=== PATIENT | male | born 1965 | race African-American/Black ===

== ENCOUNTER → 2019-11-19 13:08 | Outpatient (BNVA) | payer MEDICARE, MEDICAID, SELFPAY | PROVIDERS: PCP Nurse Practitioner Family; Visit Provider Nurse Practitioner Family | DX: I48.20 Chronic atrial fibrillation, unspecified (principal); Z51.81 Encounter for therapeutic drug level monitoring; Z79.01 Long term (current) use of anticoagulants | CPT/HCPCS: 85610; 99211 ==

== ENCOUNTER → 2019-12-17 13:39 | Outpatient (BNVA) | payer MEDICARE, MEDICAID, SELFPAY | PROVIDERS: PCP Nurse Practitioner Family; Visit Provider Internal Medicine | DX: I48.20 Chronic atrial fibrillation, unspecified (principal); Z51.81 Encounter for therapeutic drug level monitoring; Z79.01 Long term (current) use of anticoagulants | CPT/HCPCS: 85610; 99211 ==

== ENCOUNTER → 2020-01-14 13:27 | Outpatient (BNVA) | payer MEDICARE, MEDICAID, SELFPAY | PROVIDERS: PCP Nurse Practitioner Family; Visit Provider Internal Medicine | DX: I48.20 Chronic atrial fibrillation, unspecified (principal); Z51.81 Encounter for therapeutic drug level monitoring; Z79.01 Long term (current) use of anticoagulants | CPT/HCPCS: 85610; 99211 ==

== ENCOUNTER 2020-01-16 14:58 | Outpatient (REF) | payer MEDICARE, MEDICAID, SELFPAY | END 2020-01-16 14:59 | disposition home or self-care (01) | LOC: HO.LAB 14:58 | PROVIDERS: Visit Provider Internal Medicine | DX: Z20.828 Contact with and (suspected) exposure to other viral communicable diseases (principal) | CPT/HCPCS: C9803; U0003 ==

== ENCOUNTER → 2020-03-24 14:26 | Outpatient (BNVA) | payer MEDICARE, MEDICAID, SELFPAY | PROVIDERS: PCP Nurse Practitioner Family; Visit Provider Internal Medicine | DX: I48.20 Chronic atrial fibrillation, unspecified (principal); Z51.81 Encounter for therapeutic drug level monitoring; Z79.01 Long term (current) use of anticoagulants | CPT/HCPCS: 85610; 99211 ==

== ENCOUNTER → 2020-04-21 14:31 | Outpatient (BNVA) | payer MEDICARE, MEDICAID, SELFPAY | PROVIDERS: PCP Nurse Practitioner Family; Visit Provider Internal Medicine | DX: I48.20 Chronic atrial fibrillation, unspecified (principal); Z51.81 Encounter for therapeutic drug level monitoring; Z79.01 Long term (current) use of anticoagulants | CPT/HCPCS: 85610; 99211 ==

== ENCOUNTER → 2020-05-19 14:37 | Outpatient (BNVA) | payer MEDICARE, MEDICAID, SELFPAY | PROVIDERS: PCP Nurse Practitioner Family; Visit Provider Internal Medicine | DX: I48.20 Chronic atrial fibrillation, unspecified (principal); Z51.81 Encounter for therapeutic drug level monitoring; Z79.01 Long term (current) use of anticoagulants | CPT/HCPCS: 85610; 99211 ==

== ENCOUNTER → 2020-06-03 14:40 | Outpatient (BNVA) | payer MEDICARE, MEDICAID, SELFPAY | PROVIDERS: PCP Nurse Practitioner Family; Visit Provider Internal Medicine | DX: I48.20 Chronic atrial fibrillation, unspecified (principal); Z79.01 Long term (current) use of anticoagulants; Z51.81 Encounter for therapeutic drug level monitoring | CPT/HCPCS: 85610; 99211 ==

== ENCOUNTER → 2020-06-30 14:47 | Outpatient (BNVA) | payer MEDICARE, MEDICAID, SELFPAY | PROVIDERS: PCP Nurse Practitioner Family; Visit Provider Internal Medicine | DX: I48.20 Chronic atrial fibrillation, unspecified (principal); Z51.81 Encounter for therapeutic drug level monitoring; Z79.01 Long term (current) use of anticoagulants | CPT/HCPCS: 85610; 99211 ==

== ENCOUNTER → 2020-07-28 14:16 | Outpatient (BNVA) | payer MEDICARE, MEDICAID, SELFPAY | PROVIDERS: PCP Nurse Practitioner Family; Visit Provider Internal Medicine | DX: I48.20 Chronic atrial fibrillation, unspecified (principal); Z51.81 Encounter for therapeutic drug level monitoring; Z79.01 Long term (current) use of anticoagulants | CPT/HCPCS: 85610; 99211 ==

== ENCOUNTER → 2020-08-11 14:17 | Outpatient (BNVA) | payer MEDICARE, MEDICAID, SELFPAY | PROVIDERS: PCP Nurse Practitioner Family; Visit Provider Internal Medicine | DX: I48.20 Chronic atrial fibrillation, unspecified (principal); Z51.81 Encounter for therapeutic drug level monitoring; Z79.01 Long term (current) use of anticoagulants | CPT/HCPCS: 85610; 99211 ==

== ENCOUNTER → 2020-08-25 14:08 | Outpatient (BNVA) | payer MEDICARE, MEDICAID, SELFPAY | PROVIDERS: PCP Nurse Practitioner; Visit Provider Internal Medicine | DX: I48.20 Chronic atrial fibrillation, unspecified (principal); Z51.81 Encounter for therapeutic drug level monitoring; Z79.01 Long term (current) use of anticoagulants | CPT/HCPCS: 85610; 99211 ==

== ENCOUNTER → 2020-09-22 13:53 | Outpatient (BNVA) | payer MEDICARE, MEDICAID, SELFPAY | PROVIDERS: PCP Nurse Practitioner; Visit Provider Internal Medicine | DX: I48.20 Chronic atrial fibrillation, unspecified (principal); Z79.01 Long term (current) use of anticoagulants; Z51.81 Encounter for therapeutic drug level monitoring | CPT/HCPCS: 85610; 99211 ==

== ENCOUNTER 2020-10-15 08:58 | Outpatient (REF) | payer MEDICARE, MEDICAID, SELFPAY ==
[2020-10-15 09:32] LABS: COVID-19 Test Negative (Negative)
== END 2020-10-15 08:59 | disposition home or self-care (01) ==
LOC: HO.LAB 08:58
PROVIDERS: PCP Nurse Practitioner; Visit Provider Internal Medicine
DX: Z20.822 Contact with and (suspected) exposure to COVID-19 (principal)
CPT/HCPCS: 36415; 87635; C9803

== ENCOUNTER → 2020-10-19 14:04 | Outpatient (BNVA) | payer MEDICARE, MEDICAID, SELFPAY | PROVIDERS: PCP Nurse Practitioner; Visit Provider Internal Medicine | DX: I48.20 Chronic atrial fibrillation, unspecified (principal); Z51.81 Encounter for therapeutic drug level monitoring; Z79.01 Long term (current) use of anticoagulants | CPT/HCPCS: 85610; 99211 ==

== ENCOUNTER → 2020-11-16 14:13 | Outpatient (BNVA) | payer MEDICARE, MEDICAID, SELFPAY | PROVIDERS: PCP Nurse Practitioner; Visit Provider Internal Medicine | DX: I48.20 Chronic atrial fibrillation, unspecified (principal); Z51.81 Encounter for therapeutic drug level monitoring; Z79.01 Long term (current) use of anticoagulants | CPT/HCPCS: 85610; 99211 ==

== ENCOUNTER → 2020-12-14 14:23 | Outpatient (BNVA) | payer MEDICARE, MEDICAID, SELFPAY | PROVIDERS: PCP Nurse Practitioner; Visit Provider Internal Medicine | DX: I48.20 Chronic atrial fibrillation, unspecified (principal); Z51.81 Encounter for therapeutic drug level monitoring; Z79.01 Long term (current) use of anticoagulants | CPT/HCPCS: 85610; 99211 ==

== ENCOUNTER → 2021-01-11 13:57 | Outpatient (BNVA) | payer MEDICARE, MEDICAID, SELFPAY | PROVIDERS: PCP Nurse Practitioner; Visit Provider Internal Medicine | DX: I48.20 Chronic atrial fibrillation, unspecified (principal); Z51.81 Encounter for therapeutic drug level monitoring; Z79.01 Long term (current) use of anticoagulants | CPT/HCPCS: 85610; 99211 ==

== ENCOUNTER → 2021-01-18 14:27 | Outpatient (BNVA) | payer MEDICARE, MEDICAID, SELFPAY | PROVIDERS: PCP Nurse Practitioner; Visit Provider Internal Medicine | DX: I48.20 Chronic atrial fibrillation, unspecified (principal); Z51.81 Encounter for therapeutic drug level monitoring; Z79.01 Long term (current) use of anticoagulants | CPT/HCPCS: 85610; 99211 ==

== ENCOUNTER → 2021-02-03 14:02 | Outpatient (BNVA) | payer MEDICARE, MEDICAID, SELFPAY | PROVIDERS: PCP Nurse Practitioner; Visit Provider Internal Medicine | DX: I48.20 Chronic atrial fibrillation, unspecified (principal); Z51.81 Encounter for therapeutic drug level monitoring; Z79.01 Long term (current) use of anticoagulants | CPT/HCPCS: 85610; 99211 ==

== ENCOUNTER → 2021-03-01 13:49 | Outpatient (BNVA) | payer MEDICARE, MEDICAID, SELFPAY | PROVIDERS: PCP Nurse Practitioner; Visit Provider Internal Medicine | DX: I48.20 Chronic atrial fibrillation, unspecified (principal); Z51.81 Encounter for therapeutic drug level monitoring; Z79.01 Long term (current) use of anticoagulants | CPT/HCPCS: 85610; 99211 ==

== ENCOUNTER → 2021-04-01 14:05 | Outpatient (BNVA) | payer MEDICARE, MEDICAID, SELFPAY | PROVIDERS: PCP Nurse Practitioner; Visit Provider Internal Medicine | DX: I48.20 Chronic atrial fibrillation, unspecified (principal); Z51.81 Encounter for therapeutic drug level monitoring; Z79.01 Long term (current) use of anticoagulants | CPT/HCPCS: 85610; 99211 ==

== ENCOUNTER → 2021-04-27 13:58 | Outpatient (BNVA) | payer MEDICARE, MEDICAID, SELFPAY | PROVIDERS: PCP Nurse Practitioner; Visit Provider Internal Medicine | DX: I48.20 Chronic atrial fibrillation, unspecified (principal); Z79.01 Long term (current) use of anticoagulants; Z51.81 Encounter for therapeutic drug level monitoring | CPT/HCPCS: 85610; 99211 ==

== ENCOUNTER → 2021-06-27 13:01 | Outpatient (BNVA) | payer MEDICARE, MEDICAID, SELFPAY | PROVIDERS: PCP Nurse Practitioner; Referring Provider Nurse Practitioner; Visit Provider Surgery | DX: L02.11 Cutaneous abscess of neck (principal) | CPT/HCPCS: 10061; 99202 ==

== ENCOUNTER 2021-10-16 16:25 | Emergency (ER) | payer MEDICARE, MEDICAID, SELFPAY ==
--- NOTE | ~2021-10-16 | CT_ITS ---
EXAMINATION: CT ANGIOGRAM HEAD CT ANGIOGRAM NECK CLINICAL INFORMATION: Reason for Exam l sided weakness COMPARISON: None. TECHNIQUE: Initial noncontrast mosaicist imaging of the head and neck was performed. Comparison is made with noncontrast head CT from earlier today. Test bolus sequences followed by intravenous administration 70 mL of Omnipaque 350. Helical imaging was performed in the axial plane from the aortic arch to the skull vertex. Delayed postcontrast imaging of the head was also performed. The data was processed at the instructional design technologist's workstation for generation of MIP sequences. Angled MIPs and volume rendered reformatted images were also generated at an offline 3D workstation. Stenoses are assessed in accordance with NASCET criteria unless otherwise indicated. DLP: 1567 mGy-cm This CT examination was performed using dose optimization techniques as appropriate, variously including the following: *Automated exposure control. *Adjustment of mA and/or kV according to patient size (this includes techniques or standardized protocols for targeted exams where dose is matched to indication/reason for exam; i.e. extremities or head). *Use of iterative reconstruction technique. FINDINGS: CTA of the head and neck is motion degraded which particularly limits evaluation of the proximal neck vessels. There is also significant intracranial venous contamination which somewhat limits evaluation of the intracranial arterial tree. CT Head: There is no evidence of acute intracranial hemorrhage or edematous territorial infarction. There is no abnormal attenuation within the brain parenchyma. Walter-white matter differentiation is preserved. The ventricles are normal in size and configuration. No evidence for obstructive hydrocephalus. No abnormal mass effect or midline shift. No extra-axial fluid collections. No pathologic intra-axial enhancement or regional oligemia. No acute soft tissue or osseous abnormalities. Right maxillary sinus mucosal thickening. Small mastoid tip fluid. CT Neck: The thyroid gland and remaining cervical soft tissues are within normal limits. Moderate multilevel cervical spondylosis. CT Upper Chest: The visualized lung apices and upper mediastinum are within normal limits. Partially visualized left chest wall pacemaker leads. Neck CTA: Aortic Arch: Normal contour and caliber. 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 Great Vessel Origins: No significant stenosis of the branch origins. Right Common Carotid Artery: No focal stenosis or occlusion. Cervical Right Internal Carotid Artery: Mild calcific atherosclerotic disease of the carotid bulb and proximal internal carotid artery without flow-limiting stenosis. Left Common Carotid Artery: No focal stenosis or occlusion. Cervical Left Internal Carotid Artery: Normal opacification without focal stenosis or occlusion. Cervical Right Vertebral Artery: No focal stenosis or occlusion. Cervical Left Vertebral Artery: No focal stenosis or occlusion. Brain CTA: Intracranial Internal Carotid Arteries: No focal stenosis or occlusion. Right Anterior Cerebral Artery: Normal A1 segment. Normal opacification of the distal ARNOLDO segments. Left Anterior Cerebral Artery: Normal A1 segment. Normal opacification of the distal ARNOLDO segments. Anterior Communicating Artery: Normal. Right Middle Cerebral Artery: Normal M1 segment of the MCA without focal stenosis or occlusion. Normal arborization of the distal segments. Left Middle Cerebral Artery: Normal M1 segment of the MCA without focal stenosis or occlusion. Normal arborization of the distal segments. Right Vertebral Artery: Normal V4 segment. Left Vertebral Artery: Normal V4 segment. Basilar Artery: Normal without focal stenosis or occlusion. Normal appearance of the proximal superior cerebellar arteries. Right Posterior Cerebral Artery: Normal P1 segment. Normal opacification of the distal VENEER JOINTER OPERATOR segments. Left Posterior Cerebral Artery: Normal P1 segment. Normal opacification of the distal VENEER JOINTER OPERATOR segments. Normal opacification of the superior sagittal, straight, transverse, and sigmoid sinuses. IMPRESSION Within the technical limitations of motion degradation and intracranial venous contamination, no evidence of arterial high-grade stenosis or large vessel occlusion in the head or neck Above impression was communicated to Dr. Thomas on 10/16/2021 at 5:44 PM
--- NOTE | ~2021-10-16 | CT_ITS ---
EXAMINATION: CT HEAD WITHOUT CONTRAST (STROKE PROTOCOL) CLINICAL INFORMATION: Stroke protocol. Left-sided weakness COMPARISON: CT head 10/16/2021 TECHNIQUE: Contiguous axial imaging was performed from the skull base to vertex without intravenous administration of contrast. This CT examination was performed using dose optimization techniques as appropriate, variously including the following: *Automated exposure control *Adjustment of mA and/or kV according to patient size (this includes techniques or standardized protocols for targeted exams where dose is matched to indication/reason for exam; i.e. extremities or head) *Use of iterative reconstruction technique DLP: 827 mGy-cm FINDINGS: There is no evidence of acute intracranial hemorrhage or territorial infarction. No abnormal mass-effect or midline shift is seen. Walter to white matter differentiation is well preserved. No extra-axial fluid collections are identified. There is generalized global volume loss. There is mild prominence of the ventricles and the sulci . There is mild hypodensity of the periventricular white matter due to chronic small vessel ischemic disease. There are vascular calcifications of the internal carotid arteries bilaterally. There is no osseous abnormality. The mastoid air cells and visualized portions of the paranasal sinuses are well-aerated. CT/CT head for stroke IMPRESSION: No acute intracranial pathology. This critical result was discussed with Dr. Thomas at 1713 hours on 10/16/2021. It was ascertained that the content and urgency of the report was understood at the time of direct communication.
[2021-10-16 16:30] VITALS: BP 157/87; PULSE 81; RESP 18; TEMP 37.2; O2SAT 96; BMI 34.5
--- NOTE | 2021-10-16 16:34 | ECG_ITS ---
Test Reason : L SIDE WEAKNESS Blood Pressure : / mmHG Vent. Rate : 086 BPM Atrial Rate : 078 BPM P-R Int : 000 ms QRS Dur : 160 ms QT Int : 414 ms P-R-T Axes : 000 248 069 degrees QTc Int : 495 ms Ventricular-paced rhythm Abnormal ECG When compared with ECG of 03-JAN-2019 10:43, Vent. rate has increased BY 11 BPM Referred By: Generic ED Physician Electronically Signed By:PHILOMENA YODER
--- NOTE | 2021-10-16 16:42 | ED_ITS ---
HPI - Neuro Symptoms/Deficit General Chief Complaint: Neuro Symptoms/Deficit Stated Complaint: ? Stroke-like Symptoms Time Seen by Provider: 10/16/21 16:42 Source: patient and family Mode of arrival: ambulatory Limitations: no limitations History of Present Illness HPI Narrative: Patient 56 years old diabetic hypertension AFib on Coumadin comes here for week numbness feeling on left side of the face radiating to the left arm and left lower extremity it started around 12:30 today no headache no dysarthria no vis ual changes no focal weakness patient never had similar complaints in the past Related Data Home Medications Medication Instructions Recorded Confirmed buspirone 7.5 mg tablet 7.5 mg PO BID 12/17/19 06/27/21 cholecalciferol (vitamin D3) 50 50 mcg PO DAILY 12/17/19 06/27/21 mcg (2,000 unit) capsule clonazepam 0.5 mg tablet 0.5 mg PO BID PRN 12/17/19 06/27/21 digoxin 250 mcg (0.25 mg) tablet 250 mcg PO DAILY 12/17/19 06/27/21 diltiazem HCl 180 mg 180 mg PO DAILY 12/17/19 06/27/21 capsule,extended release 24 hr metoprolol tartrate 100 mg tablet 200 mg PO BID 12/17/19 06/27/21 zolpidem 5 mg tablet 5 mg PO BEDTIME PRN 12/17/19 06/27/21 VITAMIN D 3 PO 06/30/20 06/27/21 atorvastatin 10 mg tablet 10 mg PO DAILY 08/25/20 06/27/21 trazodone 50 mg tablet 50 mg PO BEDTIME PRN 08/25/20 06/27/21 lisinopril 5 mg tablet 5 mg PO DAILY 09/22/20 06/27/21 metformin 500 mg tablet,extended 500 mg PO QPM 09/22/20 06/27/21 release 24hr empagliflozin 10 mg tablet 10 mg PO QAM 11/16/20 06/27/21 (Jardiance) blood sugar diagnostic (FreeStyle #10 ea 12/14/20 06/27/21 Lite Strips) lancets 33 gauge (TRUEplus Lancets) #100 ea 12/14/20 06/27/21 metformin 500 mg tablet,extended 500 mg PO DAILY 02/03/21 06/27/21 release 24 hr sildenafil 25 mg tablet 25 mg PO DAILY PRN 02/03/21 06/27/21 chlorhexidine gluconate 4 % intranasal 06/27/21 06/27/21 topical liquid (Hibiclens) Previous Rx's Medication Instructions Recorded warfarin 7.5 mg tablet 7.5 mg PO DAILY #90 tabs 11/19/19 cephalexin 500 mg capsule 500 mg PO TID 7 days #21 caps 06/28/21 Allergies Allergy/AdvReac Type Severity Reaction Status Date / Time No Known Allergies Allergy Verified 06/27/21 13:32 [No Known Allergies*] Review of Systems Review of Systems: Yes all other systems are reviewed and are negative [facility] Past Medical History Medical History Atrial fibrillation CHF (congestive heart failure) Diabetes mellitus Hypertension Neck abscess Social History Social History Advance Directives: No Advance Directives Information Provided: No Physical Exam Vital Signs: Vital Signs: Last Vital Signs Temp 98.1 F 10/16/21 16:48 Pulse 81 10/16/21 16:48 Resp 18 10/16/21 16:48 BP 125/70 10/16/21 16:48 Pulse Ox 95 10/16/21 16:48 O2 Del Method 10/16/21 16:48 BMI result Body Mass Index 34.5 Appearance: Alert. Oriented X3. No acute distress. Eyes: PERRLA, No Nystagmus ENT: Pharynx normal. Oral Mucosa moist Neck: Normal inspection. Neck supple. CVS: Normal heart rate and rhythm. Pulses normal. Respiratory: No respiratory distress. Equal air entry bilateral, no wheezing/rales/rhonchi Abdomen: Soft and nontender. Bowel sounds are present, no mass palpable, no CVA tenderness Skin: Skin warm and dry. Normal skin color. Normal skin turgor. Extremities: No lower extremity edema. No calf tenderness Neuro: Oriented X 3. No motor deficit. No sensory deficit.No cerebellar signs , cranial nerves II-XII intact NIHSS score 0 MDM - Neuro Symptoms/Deficit MDM Narrative Medical decision making narrative: Patient with acute onset of left-sided numbness with no motor deficit which improved after arrival CTA head neck negative CT head negative INR of 4.2 patient ambulating steady gait will discharge patient home Lab Data Attestation: I reviewed the patient's lab results. Result diagrams: 10/16/21 17:23 10/16/21 17:23 Labs: Lab Results 10/16/21 10/16/21 10/16/21 Range/Units 16:33 16:46 16:51 WBC (4.8-10.8) X10*3/uL RBC (4.60-5.80) X10*6/uL Hgb (14.0-18.0) g/dl Hct (42.0-52.0) % MCV (80.0-98.0) fL MCH (27.0-33.0) pg MCHC (31.0-36.0) g/dl RDW (11.0-16.0) % Plt Count (160-400) X10*3/uL MPV (9.4-12.4) fL Immature Gran % (Auto) (0.0-0.4) % Neut % (Auto) (45-73) % Lymph % (Auto) (20-40) % Coffee % (Auto) (2-11) % Eos % (Auto) (0-4) % Baso % (Auto) (0-2) % Lymph # (Auto) (1.2-4.9) X10*3/uL Coffee # (Auto) (0.1-1.2) X10*3/uL Eos # (Auto) (0.0-0.4) X10*3/uL Baso # (Auto) (0.0-0.2) X10*3/uL Abs Immat Gran (auto) (0.00-0.03) X10*3/uL Absolute Neuts (auto) (2.0-8.3) x10*3/uL Absolute Nucleated RBC (0.0-0.012) X10*3/uL Nucleated RBC % (auto) (0.0-0.2) /100WBC PT (10.0-13.1) SEC Whole Blood PT 49.8 H (11.1-13.5) sec INR (0.9-1.1) Whole Blood INR 4.2 H (0.9-1.1) APTT (26.0-36.4) SEC Sodium (135-145) mmol/L Potassium (3.3-5.1) mmol/L Chloride (96-108) mmol/L Carbon Dioxide (22-29) mmol/L Anion Gap (12-20) BUN (9-16) mg/dL Creatinine (0.5-1.4) mg/dL Estim Creat Clear Calc Estimated GFR POC Glucose 196 H 196 H (60-115) mg/dL Random Glucose (60-115) mg/dL Calcium (8.4-10.2) mg/dL Magnesium (1.6-2.6) mg/dL Total Bilirubin (0.0-1.0) mg/dL AST (5-37) U/L ALT (0-40) U/L Alkaline Phosphatase (39-117) U/L Troponin I High Sens (<3.5-35.0) ng/L Total Protein (6.5-8.0) g/dL Albumin (3.5-5.0) g/dL COVID-19 ([facility]) (Negative) COVID-19 Clin Com 10/16/21 10/16/21 10/16/21 Range/Units 17:23 17:23 17:23 WBC 11.1 H (4.8-10.8) X10*3/uL RBC 4.82 (4.60-5.80) X10*6/uL Hgb 15.1 (14.0-18.0) g/dl Hct 44.3 (42.0-52.0) % MCV 91.9 (80.0-98.0) fL MCH 31.3 (27.0-33.0) pg MCHC 34.1 (31.0-36.0) g/dl RDW 13.6 (11.0-16.0) % Plt Count 224 (160-400) X10*3/uL MPV 9.0 L (9.4-12.4) fL Immature Gran % (Auto) 0.3 (0.0-0.4) % Neut % (Auto) 75.6 H (45-73) % Lymph % (Auto) 16.3 L (20-40) % Coffee % (Auto) 6.2 (2-11) % Eos % (Auto) 1.0 (0-4) % Baso % (Auto) 0.6 (0-2) % Lymph # (Auto) 1.8 (1.2-4.9) X10*3/uL Coffee # (Auto) 0.7 (0.1-1.2) X10*3/uL Eos # (Auto) 0.1 (0.0-0.4) X10*3/uL Baso # (Auto) 0.1 (0.0-0.2) X10*3/uL Abs Immat Gran (auto) 0.03 (0.00-0.03) X10*3/uL Absolute Neuts (auto) 8.4 H (2.0-8.3) x10*3/uL Absolute Nucleated RBC 0.000 (0.0-0.012) X10*3/uL Nucleated RBC % (auto) 0.0 (0.0-0.2) /100WBC PT 50.7 H (10.0-13.1) SEC Whole Blood PT (11.1-13.5) sec INR 4.2 H (0.9-1.1) Whole Blood INR (0.9-1.1) APTT 55.3 H (26.0-36.4) SEC Sodium 136 (135-145) mmol/L Potassium 3.8 (3.3-5.1) mmol/L Chloride 103 (96-108) mmol/L Carbon Dioxide 23 (22-29) mmol/L Anion Gap 14 (12-20) BUN 12 (9-16) mg/dL Creatinine 0.94 (0.5-1.4) mg/dL Estim Creat Clear Calc 107.8 Estimated GFR > 60 POC Glucose (60-115) mg/dL Random Glucose 144 H (60-115) mg/dL Calcium 8.8 (8.4-10.2) mg/dL Magnesium 2.0 (1.6-2.6) mg/dL Total Bilirubin 0.5 (0.0-1.0) mg/dL AST 24 (5-37) U/L ALT 28 (0-40) U/L Alkaline Phosphatase 69 (39-117) U/L Troponin I High Sens (<3.5-35.0) ng/L Total Protein 6.6 (6.5-8.0) g/dL Albumin 3.9 (3.5-5.0) g/dL COVID-19 ([facility]) (Negative) COVID-19 Clin Com 10/16/21 10/16/21 Range/Units 17:23 17:23 WBC (4.8-10.8) X10*3/uL RBC (4.60-5.80) X10*6/uL Hgb (14.0-18.0) g/dl Hct (42.0-52.0) % MCV (80.0-98.0) fL MCH (27.0-33.0) pg MCHC (31.0-36.0) g/dl RDW (11.0-16.0) % Plt Count (160-400) X10*3/uL MPV (9.4-12.4) fL Immature Gran % (Auto) (0.0-0.4) % Neut % (Auto) (45-73) % Lymph % (Auto) (20-40) % Coffee % (Auto) (2-11) % Eos % (Auto) (0-4) % Baso % (Auto) (0-2) % Lymph # (Auto) (1.2-4.9) X10*3/uL Coffee # (Auto) (0.1-1.2) X10*3/uL Eos # (Auto) (0.0-0.4) X10*3/uL Baso # (Auto) (0.0-0.2) X10*3/uL Abs Immat Gran (auto) (0.00-0.03) X10*3/uL Absolute Neuts (auto) (2.0-8.3) x10*3/uL Absolute Nucleated RBC (0.0-0.012) X10*3/uL Nucleated RBC % (auto) (0.0-0.2) /100WBC PT (10.0-13.1) SEC Whole Blood PT (11.1-13.5) sec INR (0.9-1.1) Whole Blood INR (0.9-1.1) APTT (26.0-36.4) SEC Sodium (135-145) mmol/L Potassium (3.3-5.1) mmol/L Chloride (96-108) mmol/L Carbon Dioxide (22-29) mmol/L Anion Gap (12-20) BUN (9-16) mg/dL Creatinine (0.5-1.4) mg/dL Estim Creat Clear Calc Estimated GFR POC Glucose (60-115) mg/dL Random Glucose (60-115) mg/dL Calcium (8.4-10.2) mg/dL Magnesium (1.6-2.6) mg/dL Total Bilirubin (0.0-1.0) mg/dL AST (5-37) U/L ALT (0-40) U/L Alkaline Phosphatase (39-117) U/L Troponin I High Sens < 3.5 (<3.5-35.0) ng/L Total Protein (6.5-8.0) g/dL Albumin (3.5-5.0) g/dL COVID-19 ([facility]) Negative (Negative) COVID-19 Clin Com See Note ECG Data Attestation: I personally reviewed and interpreted this ECG as follows: Interpretation: Paced rhythm heart rate 86 beats per minute no acute ischemic changes Discharge Plan Discharge Clinical Impression: TIA (transient ischemic attack), Paresthesia Patient Disposition: Home, Self-Care Instructions: Transient Ischemic Attack (ED), Paresthesia (ED) Additional Instructions: Hold your Coumadin tomorrow and then restart at 5 mg daily and follow-up with Coumadin clinic At this time there is no findings of the stroke Report to the ER if recurrence of the symptoms Prescriptions: No Action cholecalciferol (vitamin D3) 50 mcg (2,000 unit) capsule 50 mcg PO DAILY digoxin 250 mcg (0.25 mg) tablet 250 mcg PO DAILY diltiazem HCl 180 mg capsule,extended release 24hr 180 mg PO DAILY clonazepam 0.5 mg tablet 0.5 mg PO BID PRN zolpidem 5 mg tablet 5 mg PO BEDTIME PRN metoprolol tartrate 100 mg tablet 200 mg PO BID buspirone 7.5 mg tablet 7.5 mg PO BID lisinopril 5 mg tablet 5 mg PO DAILY metformin 500 mg tablet extended release 24hr 500 mg PO QPM Jardiance 10 mg tablet 10 mg PO QAM warfarin 7.5 mg tablet 7.5 mg PO DAILY Qty: 90 0RF Protocol: Dose Management Condition: Sunday (Week One) Dose/Route: 7.5 mg Instruction: 1 x 7.5 mg tablet Condition: Sunday Dose/Route: 7.5 mg Instruction: 1 x 7.5 mg tablet Condition: Sunday Dose/Route: 7.5 mg Instruction: 1 x 7.5 mg tablet Condition: Sunday Dose/Route: 7.5 mg Instruction: 1 x 7.5 mg tablet Condition: Dose/Route: 7.5 mg Instruction: 1 x 7.5 mg tablet Condition: Sunday Dose/Route: 7.5 mg Instruction: 1 x 7.5 mg tablet Condition: Sunday Dose/Route: 7.5 mg Instruction: 1 x 7.5 mg tablet Condition: Sunday (Week Two) Dose/Route: 7.5 mg Instruction: 1 x 7.5 mg tablet Condition: Sunday Dose/Route: 7.5 mg Instruction: 1 x 7.5 mg tablet Condition: Sunday Dose/Route: 7.5 mg Instruction: 1 x 7.5 mg tablet Condition: Sunday Dose/Route: 7.5 mg Instruction: 1 x 7.5 mg tablet Condition: Dose/Route: 7.5 mg Instruction: 1 x 7.5 mg tablet Condition: Sunday Dose/Route: 7.5 mg Instruction: 1 x 7.5 mg tablet Condition: Sunday Dose/Route: 7.5 mg Instruction: 1 x 7.5 mg tablet Protocol Text: Adjustment Start Date: Sunday04/27/21 INR Value: 2.8 INR Date: 04/27/21 Recheck Date: 05/25/21 Rx Instructions: on odd numbered days VITAMIN D 3 PO Label Comments: TAKES 2000 UNITS / DAY atorvastatin 10 mg tablet 10 mg PO DAILY trazodone 50 mg tablet 50 mg PO BEDTIME PRN chlorhexidine gluconate [Hibiclens] 4 % liquid intranasal cephalexin 500 mg capsule 500 mg PO TID 7 Days Qty: 21 0RF (DME) lancets [TRUEplus Lancets] 33 gauge misc See Rx Instructions Not Applicable BID Qty: 100 Rx Instructions: As directed (DME) FreeStyle Lite Strips Strip See Rx Instructions Not Applicable BID Qty: 10 Rx Instructions: As directed metformin 500 mg tablet extended release 24 hr 500 mg PO DAILY sildenafil 25 mg tablet 25 mg PO DAILY PRN Interventions: ED Discharge Assessment Last Done: 10/16/21 19:32 Discharge Date/Time: 10/16/21 19:32
[2021-10-16 16:45] LABS: Glucose, Whole Blood 196 mg/dL (60-115)
[2021-10-16 16:48] VITALS: BP 125/70; PULSE 81; RESP 18; TEMP 36.7; O2SAT 95
[2021-10-16 16:55] LABS: Prothrombin Time Whole Bld POC 49.8 sec (11.1-13.5); ~PT, ~INR - Anti Coag Clinic 4.2 (0.9-1.1)
[2021-10-16 16:57] LABS: Glucose, Whole Blood 196 mg/dL (60-115)
[2021-10-16 17:30] LABS: MANUAL DIFF FLAG NO
[2021-10-16 17:31] LABS: Basophils Absolute Auto 0.1 X10*3/uL (0.0-0.2); Basophils Percent Auto 0.6 % (0-2); Eosinophils Absolute Auto 0.1 X10*3/uL (0.0-0.4); Hematocrit 44.3 % (42.0-52.0); Hemoglobin 15.1 g/dl (14.0-18.0); Imm Gran Abs Auto 0.03 X10*3/uL (0.00-0.03); Imm Gran Pct Auto 0.3 % (0.0-0.4); Lymphocytes Absolute Auto 1.8 X10*3/uL (1.2-4.9); Lymphocytes Percent Auto 16.3 % (20-40); Mean Corpuscular HGB Conc 34.1 g/dl (31.0-36.0); Mean Corpuscular Hemoglobin 31.3 pg (27.0-33.0); Mean Corpuscular Volume 91.9 fL (80.0-98.0); Monocytes Absolute Auto 0.7 X10*3/uL (0.1-1.2); Monocytes Percent Auto 6.2 % (2-11); Neutrophils Absolute Auto 8.4 x10*3/uL (2.0-8.3); Neutrophils Percent Auto 75.6 % (45-73); Platelet Count 224 X10*3/uL (160-400); Red Blood Count 4.82 X10*6/uL (4.60-5.80); Red Cell Distribution Width 13.6 % (11.0-16.0); White Blood Count 11.1 X10*3/uL (4.8-10.8)
[2021-10-16 17:36] LABS: INTERNATIONAL NORM RATIO 4.2 (0.9-1.1); Prothrombin Time 50.7 SEC (10.0-13.1)
[2021-10-16 17:39] LABS: Partial Thromboplastin Time 55.3 SEC (26.0-36.4)
[2021-10-16] MEDS: iohexoL 350 MG/ML 100 ML INFUS..BTL IV (17:44)
[2021-10-16 17:49] LABS: COVID-19 Test Negative (Negative); IDNOW Serial# 16C4AD1C
[2021-10-16 17:51] LABS: Troponin-I High Sensitivity < 3.5 ng/L (<3.5-35.0)
[2021-10-16 18:02] LABS: Alanine Aminotransferase 28 U/L (0-40); Albumin Level 3.9 g/dL (3.5-5.0); Alkaline Phosphatase 69 U/L (39-117); Anion Gap 14 (12-20); Aspartate Amino Transferase 24 U/L (5-37); Bilirubin Total 0.5 mg/dL (0.0-1.0); Blood Urea Nitrogen 12 mg/dL (9-16); Calcium 8.8 mg/dL (8.4-10.2); Carbon Dioxide 23 mmol/L (22-29); Chloride 103 mmol/L (96-108); Creatinine Clr Calc Pharmacy 107.8; Estimated Glomerular Filt Rate > 60; Glucose Random 144 mg/dL (60-115); Potassium 3.8 mmol/L (3.3-5.1); Sodium 136 mmol/L (135-145); Total Protein 6.6 g/dL (6.5-8.0)
== END 2021-10-16 19:32 | disposition home or self-care (01) ==
PROVIDERS: Emergency Provider Internal Medicine; PCP Nurse Practitioner
DX: G45.9 Transient cerebral ischemic attack, unspecified (principal); R20.2 Paresthesia of skin; I48.91 Unspecified atrial fibrillation; Z20.822 Contact with and (suspected) exposure to COVID-19; Z79.01 Long term (current) use of anticoagulants; Z79.899 Other long term (current) drug therapy
CPT/HCPCS: 70450; 70496; 70498; 80053; 82947; 83735; 84484; 85025; 85610; 85730; 87635; 93005; 99284; Q9967

== ENCOUNTER → 2021-10-19 09:40 | Outpatient (BNVA) | payer MEDICARE, MEDICAID, SELFPAY | PROVIDERS: PCP Nurse Practitioner; Visit Provider Internal Medicine | DX: I48.20 Chronic atrial fibrillation, unspecified (principal); Z79.01 Long term (current) use of anticoagulants; Z51.81 Encounter for therapeutic drug level monitoring | CPT/HCPCS: 85610; 99211 ==

== ENCOUNTER 2021-10-20 15:35 | Observation (INO) | payer MEDICARE, MEDICAID, SELFPAY ==
--- NOTE | ~2021-10-20 | CT_ITS ---
EXAMINATION: CT ANGIOGRAM OF THE HEAD CT ANGIOGRAM OF THE NECK CLINICAL INFORMATION: Left jaw and arm numbness. No weakness. COMPARISON: CT scan of the head earlier 10/20/2021. CTA of the head and neck 10/16/2021. TECHNIQUE: Test bolus series followed by intravenous administration 70 mL of Omnipaque 350. Helical imaging was performed in the axial plane from the mediastinum to the skull vertex. A delayed postcontrast CT scan of the head was obtained. The degree of stenosis is based off NASCET criteria. The data was processed at the cytogenetic technologist workstation for generation of MIP images. Three-dimensional volume rendered reformatted images were also generated at an offline 3-D workstation. This CT examination was performed using dose optimization techniques as appropriate, variously including the following: *Automated exposure control *Adjustment of mA and/or kV according to patient size (this includes techniques or standardized protocols for targeted exams where dose is matched to indication/reason for exam; i.e. extremities or head) *Use of iterative reconstruction technique DLP: 1638 mGy-cm. FINDINGS: CT Head: There is no evidence of acute intracranial hemorrhage or territorial infarction. No abnormal mass-effect or midline shift is seen. Walter to white matter differentiation is well preserved. No extra-axial fluid collections are identified. There is no abnormal enhancement. The ventricles are normal in size. There is no abnormal attenuation within the brain parenchyma. There are no acute osseous findings. There is mild soft tissue swelling in the high right parasagittal parietal scalp, demonstrated on prior imaging. There is mild fluid at the bilateral mastoid tips. The study redemonstrates the retention cysts in the inferior right maxillary sinus. CTA Neck: There is a four-vessel aortic arch and the left vertebral artery arises directly off the arch. The great vessels of the neck are widely patent. The subclavian arteries appear normal bilaterally. The common carotid arteries have normal caliber. There are mild atheromatous calcifications at the right carotid bifurcation. There is no significant stenosis at the bifurcations on either side. The internal carotid arteries in the neck bilaterally have uniform and normal caliber. The origins of both vertebral arteries are well seen and appear normal. Both vertebral arteries are widely patent and demonstrate good opacification throughout their cervical course. The right vertebral artery is slightly dominant. Nonvascular: The study demonstrates a pacemaker generator and leads from the left chest. There is no cervical lymphadenopathy. The thyroid gland appears normal. There are moderate spondylitic and facet arthropathic changes in the cervical spine. The visualized upper lung cedeno appear well-aerated; there is mild patient motion artifact. CTA Head: In the anterior circulation, the distal internal carotid arteries within the neck appear normal. The intracranial internal carotid arteries and their bifurcations appear normal. The middle and anterior cerebral arteries bilaterally demonstrate normal caliber with no evidence of focal stenosis, aneurysm or vascular malformation. There is normal arborization of the middle cerebral artery branches. The anterior communicating artery is normal. In the posterior circulation, the right vertebral artery is slightly dominant. The vertebral arteries intradurally have uniform caliber. The basilar artery appears normal. The posterior cerebral arteries have normal caliber. The venous sinuses opacify normally. CT/CT angio head neck stroke IMPRESSION: CT head and neck: 1. There are no acute bleeds or territorial infarcts. There are no masses or areas of abnormal enhancement. 2. There is mild bilateral mastoid fluid and there are cysts in the right maxillary sinus. 3. There is no cervical lymphadenopathy and no masses are demonstrated. 4. There is mild scalp swelling in the high right parietal region, which may be consistent with sequelae of trauma. Correlate clinically. CTA head and neck: 1. There are no flow-limiting stenoses in the upper chest or in the neck. 2. There is a four-vessel aortic arch and the left vertebral artery arises directly off the arch. 3. Intracranially there are no focal stenoses, aneurysms or vascular malformations.
--- NOTE | ~2021-10-20 | CT_ITS ---
EXAMINATION: CT HEAD WITHOUT CONTRAST (STROKE PROTOCOL) CLINICAL INFORMATION: Stroke protocol. Left jaw and arm numbness. COMPARISON: None TECHNIQUE: Contiguous axial imaging was performed from the skull base to vertex without intravenous administration of contrast. This CT examination was performed using dose optimization techniques as appropriate, variously including the following: *Automated exposure control *Adjustment of mA and/or kV according to patient size (this includes techniques or standardized protocols for targeted exams where dose is matched to indication/reason for exam; i.e. extremities or head) *Use of iterative reconstruction technique DLP: 938 mGy-cm FINDINGS: There is no evidence of an extra-axial collection. There is no evidence of intra-axial or extra-axial hemorrhage. Ventricles and extra-axial CSF spaces are appropriate. Walter-white matter attenuation is normal. No mass, mass effect or infarct is seen. There is some soft tissue opacification of the right mastoid air cells. There is a polyp or cyst in the right maxillary sinus. No skull fracture. CT/CT head for stroke IMPRESSION: No acute findings. This critical result was discussed with Dr. Bunch at 4:32 PM on 10/20/2021 It was ascertained that the content and urgency of the report was understood at the time of direct communication.
[2021-10-20 15:40] VITALS: BP 122/81; PULSE 81; RESP 16; O2SAT 95; BMI 34.0
[2021-10-20 16:03] VITALS: BP 123/73
--- NOTE | 2021-10-20 16:05 | ECG_ITS ---
Test Reason : general medical Blood Pressure : / mmHG Vent. Rate : 078 BPM Atrial Rate : 129 BPM P-R Int : 000 ms QRS Dur : 168 ms QT Int : 434 ms P-R-T Axes : 000 234 072 degrees QTc Int : 494 ms Ventricular-paced rhythm Biventricular pacemaker detected Abnormal ECG When compared with ECG of 16-OCT-2021 16:37, Vent. rate has decreased BY 8 BPM Referred By: Letitia Bunch Electronically Signed By:PHILOMENA YODER
[2021-10-20 16:11] LABS: Prothrombin Time Whole Bld POC 24.3 sec (11.1-13.5)
[2021-10-20 16:12] LABS: Glucose, Whole Blood 170 mg/dL (60-115)
--- NOTE | 2021-10-20 16:24 | ED_ITS ---
HPI - Neuro Symptoms/Deficit General Chief Complaint: Neuro Symptoms/Deficit Stated Complaint: jaw pain,left arm numbness Time Seen by Provider: 10/20/21 15:58 Source: patient Mode of arrival: ambulatory Limitations: no limitations History of Present Illness HPI Narrative: Patient comes emergency room complaining of approximately 3-4 hours of left- sided jaw heaviness and numbness extending down to his left arm. Patient stat that he feels like he was ?punched in the left side of the face. Patient states it is not pain, it is a numb sensation that has been constant for approximately 4 hours. Patient denies any arm weakness. In triage, the nurse documented that his left qa test analyst was later we can then the right. Patient states that his strength feels normal to him. Patient has history of atrial fibrillation, patient is on Coumadin. Of note, patient was seen here approximately 1 month ago on 10/16/2021, patient came in with the exact same symptoms. Workup was negative. Related Data Home Medications Medication Instructions Recorded Confirmed buspirone 7.5 mg tablet 7.5 mg PO BID 12/17/19 10/20/21 cholecalciferol (vitamin D3) 50 50 mcg PO DAILY 12/17/19 10/20/21 mcg (2,000 unit) capsule clonazepam 0.5 mg tablet 0.5 mg PO BID PRN Anxiety 12/17/19 10/20/21 digoxin 250 mcg (0.25 mg) tablet 250 mcg PO DAILY 12/17/19 10/20/21 diltiazem HCl 180 mg 180 mg PO DAILY 12/17/19 10/20/21 capsule,extended release 24 hr metoprolol tartrate 100 mg tablet 200 mg PO BID 12/17/19 10/20/21 atorvastatin 10 mg tablet 10 mg PO DAILY 08/25/20 10/20/21 lisinopril 5 mg tablet 5 mg PO DAILY 09/22/20 10/20/21 metformin 500 mg tablet,extended 500 mg PO QPM 09/22/20 10/20/21 release 24hr empagliflozin 10 mg tablet 10 mg PO QAM 11/16/20 10/20/21 (Jardiance) blood sugar diagnostic (FreeStyle #10 ea 12/14/20 10/20/21 Lite Strips) lancets 33 gauge (TRUEplus Lancets) #100 ea 12/14/20 10/20/21 trazodone 50 mg tablet 1 tab PO BEDTIME 10/20/21 10/20/21 Previous Rx's Medication Instructions Recorded warfarin 7.5 mg tablet 7.5 mg PO DAILY #90 tabs 11/19/19 Allergies Allergy/AdvReac Type Severity Reaction Status Date / Time No Known Allergies Allergy Verified 10/19/21 09:47 [No Known Allergies*] Review of Systems Review of Systems: Constitutional : No Weight loss, No Fever, No Chills, No Night Sweats, No Fatigue, No Malaise ENT/Mouth : No Hearing loss, No Ear Pain, No Nasal Congestion, No Sinus Pain, No Hoarseness, No sore throat, No Rhinorrhea, No Swallowing Difficulty Eyes: No Eye Pain, No Swelling, No Redness, No Foreign Body, No Discharge, No Vision Changes Cardiovascular : No Chest Pain, No SOB, No Dyspnea on Exertion, No Orthopnea, No Edema, No Palpitations Respiratory : No Cough, No Sputum, No Wheezing, No Smoke Exposure, No Dyspnea Gastrointestinal : No Nausea, No Vomiting, No Diarrhea, No Constipation, No abdominal Pain, No Hematochezia, No Melena Genitourinary : no irregular bleeding, No Dysuria, No Urinary Frequency, No Hematuria, No Urinary Incontinence, No Urgency, No Flank Pain, No Urinary Flow Changes, No Hesitancy Musculoskeletal : No joint pain, No Myalgias, No Joint Swelling Skin : No Skin Lesions, No rash Neuro : Complaining of feeling of intermittently unsteady on his feet, complaining of jaw heaviness and left arm numbness, no motor deficits Psych : No Anxiety/Panic, No Depression, No SI/HI/AH/VH, No Social Issues, Heme/Lymph: No Bruising, No Bleeding,No Lymphadenopathy Endocrine : No Polyuria, No Polydipsia, No Temperature Intolerance PMFSH Past Medical History Medical History Atrial fibrillation CHF (congestive heart failure) Diabetes mellitus Hypertension Neck abscess Social History Social History Alcohol intake: former Patient Tobacco Use Status: Former Tobacco user Use of substances other than those prescribed or required for medical reasons: No Advance Directives: No Advance Directives Information Provided: No Physical Exam Vital Signs: Vital Signs: Last Vital Signs Pulse 77 10/20/21 18:04 Resp 20 10/20/21 18:04 BP 125/71 10/20/21 18:04 Pulse Ox 95 10/20/21 18:04 O2 Del Method 10/20/21 18:04 BMI result Body Mass Index 34.0 Course Course Course Narrative: Patient's symptoms have resolved. CT and CTA do not show any acute abnormality, labs within normal limits. This is the 2nd time in 1 month the patient comes with TIA like symptoms. Patient's INR is therapeutic. I discussed the patient with Dr. De Leon, patient will be admitted, will likely need an MRI and further evaluation in the morning. Patient and his agree with the plan MDM - Neuro Symptoms/Deficit Lab Data Result diagrams: 10/20/21 18:43 10/20/21 18:43 Labs: Lab Results 10/20/21 10/20/21 10/20/21 Range/Units 15:58 16:03 18:43 WBC 9.9 (4.8-10.8) X10*3/uL RBC 4.81 (4.60-5.80) X10*6/uL Hgb 15.3 (14.0-18.0) g/dl Hct 44.3 (42.0-52.0) % MCV 92.1 (80.0-98.0) fL MCH 31.8 (27.0-33.0) pg MCHC 34.5 (31.0-36.0) g/dl RDW 13.6 (11.0-16.0) % Plt Count 228 (160-400) X10*3/uL MPV 8.9 L (9.4-12.4) fL Immature Gran % (Auto) 0.2 (0.0-0.4) % Neut % (Auto) 61.1 (45-73) % Lymph % (Auto) 28.3 (20-40) % [place] % (Auto) 7.8 (2-11) % Eos % (Auto) 2.0 (0-4) % Baso % (Auto) 0.6 (0-2) % Lymph # (Auto) 2.8 (1.2-4.9) X10*3/uL [place] # (Auto) 0.8 (0.1-1.2) X10*3/uL Eos # (Auto) 0.2 (0.0-0.4) X10*3/uL Baso # (Auto) 0.1 (0.0-0.2) X10*3/uL Abs Immat Gran (auto) 0.02 (0.00-0.03) X10*3/uL Absolute Neuts (auto) 6.1 (2.0-8.3) x10*3/uL Absolute Nucleated RBC 0.000 (0.0-0.012) X10*3/uL Nucleated RBC % (auto) 0.0 (0.0-0.2) /100WBC Whole Blood PT 24.3 H (11.1-13.5) sec Whole Blood INR 2.0 H (0.9-1.1) Sodium (135-145) mmol/L Potassium (3.3-5.1) mmol/L Chloride (96-108) mmol/L Carbon Dioxide (22-29) mmol/L Anion Gap (12-20) BUN (9-16) mg/dL Creatinine (0.5-1.4) mg/dL Estim Creat Clear Calc Estimated GFR POC Glucose 170 H (60-115) mg/dL Random Glucose (60-115) mg/dL Calcium (8.4-10.2) mg/dL Total Bilirubin (0.0-1.0) mg/dL Direct Bilirubin (0.0-0.5) mg/dL AST (5-37) U/L ALT (0-40) U/L Alkaline Phosphatase (39-117) U/L Troponin I High Sens (<3.5-35.0) ng/L B-Natriuretic Peptide (<100) pg/mL Total Protein (6.5-8.0) g/dL Albumin (3.5-5.0) g/dL Urine Color Urine Appearance Urine pH (5.0-9.0) Ur Specific [place] (1.005-1.025) Urine Protein (Neg-Trace) mg/dL Urine Glucose (UA) (Negative) mg/dL Urine Ketones (Negative) mg/dL Urine Blood (Negative) Urine Nitrite (Negative) Ur Leukocyte Esterase (Negative) Urine RBC (0-2) /HPF Urine WBC (0-5) /HPF Ur Squamous Epith Cells (0-2) /HPF Urine Bacteria (None Seen) Hyaline Casts (0-2) /LPF COVID-19 (YINA) (Negative) COVID-19 Clin Com 10/20/21 10/20/21 10/20/21 Range/Units 18:43 18:43 18:43 WBC (4.8-10.8) X10*3/uL RBC (4.60-5.80) X10*6/uL Hgb (14.0-18.0) g/dl Hct (42.0-52.0) % MCV (80.0-98.0) fL MCH (27.0-33.0) pg MCHC (31.0-36.0) g/dl RDW (11.0-16.0) % Plt Count (160-400) X10*3/uL MPV (9.4-12.4) fL Immature Gran % (Auto) (0.0-0.4) % Neut % (Auto) (45-73) % Lymph % (Auto) (20-40) % [place] % (Auto) (2-11) % Eos % (Auto) (0-4) % Baso % (Auto) (0-2) % Lymph # (Auto) (1.2-4.9) X10*3/uL [place] # (Auto) (0.1-1.2) X10*3/uL Eos # (Auto) (0.0-0.4) X10*3/uL Baso # (Auto) (0.0-0.2) X10*3/uL Abs Immat Gran (auto) (0.00-0.03) X10*3/uL Absolute Neuts (auto) (2.0-8.3) x10*3/uL Absolute Nucleated RBC (0.0-0.012) X10*3/uL Nucleated RBC % (auto) (0.0-0.2) /100WBC Whole Blood PT (11.1-13.5) sec Whole Blood INR (0.9-1.1) Sodium 137 (135-145) mmol/L Potassium 4.4 (3.3-5.1) mmol/L Chloride 104 (96-108) mmol/L Carbon Dioxide 24 (22-29) mmol/L Anion Gap 13 (12-20) BUN 10 (9-16) mg/dL Creatinine 0.81 (0.5-1.4) mg/dL Estim Creat Clear Calc 124.0 Estimated GFR > 60 POC Glucose (60-115) mg/dL Random Glucose 82 D (60-115) mg/dL Calcium 8.5 (8.4-10.2) mg/dL Total Bilirubin 0.5 (0.0-1.0) mg/dL Direct Bilirubin 0.2 (0.0-0.5) mg/dL AST 23 (5-37) U/L ALT 27 (0-40) U/L Alkaline Phosphatase 80 (39-117) U/L Troponin I High Sens < 3.5 (<3.5-35.0) ng/L B-Natriuretic Peptide (<100) pg/mL Total Protein 6.7 (6.5-8.0) g/dL Albumin 3.9 (3.5-5.0) g/dL Urine Color Urine Appearance Urine pH (5.0-9.0) Ur Specific [place] (1.005-1.025) Urine Protein (Neg-Trace) mg/dL Urine Glucose (UA) (Negative) mg/dL Urine Ketones (Negative) mg/dL Urine Blood (Negative) Urine Nitrite (Negative) Ur Leukocyte Esterase (Negative) Urine RBC (0-2) /HPF Urine WBC (0-5) /HPF Ur Squamous Epith Cells (0-2) /HPF Urine Bacteria (None Seen) Hyaline Casts (0-2) /LPF COVID-19 (YINA) Negative (Negative) COVID-19 Clin Com See Note 10/20/21 10/20/21 Range/Units 18:43 18:48 WBC (4.8-10.8) X10*3/uL RBC (4.60-5.80) X10*6/uL Hgb (14.0-18.0) g/dl Hct (42.0-52.0) % MCV (80.0-98.0) fL MCH (27.0-33.0) pg MCHC (31.0-36.0) g/dl RDW (11.0-16.0) % Plt Count (160-400) X10*3/uL MPV (9.4-12.4) fL Immature Gran % (Auto) (0.0-0.4) % Neut % (Auto) (45-73) % Lymph % (Auto) (20-40) % [place] % (Auto) (2-11) % Eos % (Auto) (0-4) % Baso % (Auto) (0-2) % Lymph # (Auto) (1.2-4.9) X10*3/uL [place] # (Auto) (0.1-1.2) X10*3/uL Eos # (Auto) (0.0-0.4) X10*3/uL Baso # (Auto) (0.0-0.2) X10*3/uL Abs Immat Gran (auto) (0.00-0.03) X10*3/uL Absolute Neuts (auto) (2.0-8.3) x10*3/uL Absolute Nucleated RBC (0.0-0.012) X10*3/uL Nucleated RBC % (auto) (0.0-0.2) /100WBC Whole Blood PT (11.1-13.5) sec Whole Blood INR (0.9-1.1) Sodium (135-145) mmol/L Potassium (3.3-5.1) mmol/L Chloride (96-108) mmol/L Carbon Dioxide (22-29) mmol/L Anion Gap (12-20) BUN (9-16) mg/dL Creatinine (0.5-1.4) mg/dL Estim Creat Clear Calc Estimated GFR POC Glucose (60-115) mg/dL Random Glucose (60-115) mg/dL Calcium (8.4-10.2) mg/dL Total Bilirubin (0.0-1.0) mg/dL Direct Bilirubin (0.0-0.5) mg/dL AST (5-37) U/L ALT (0-40) U/L Alkaline Phosphatase (39-117) U/L Troponin I High Sens (<3.5-35.0) ng/L B-Natriuretic Peptide 75 (<100) pg/mL Total Protein (6.5-8.0) g/dL Albumin (3.5-5.0) g/dL Urine Color Yellow Urine Appearance Clear Urine pH 6.0 (5.0-9.0) Ur Specific [place] >= 1.030 H (1.005-1.025) Urine Protein Negative (Neg-Trace) mg/dL Urine Glucose (UA) >=1000 H (Negative) mg/dL Urine Ketones Negative (Negative) mg/dL Urine Blood Negative (Negative) Urine Nitrite Negative (Negative) Ur Leukocyte Esterase Negative (Negative) Urine RBC 0-2 (0-2) /HPF Urine WBC 0-5 (0-5) /HPF Ur Squamous Epith Cells 0-2 (0-2) /HPF Urine Bacteria None Seen (None Seen) Hyaline Casts 0-2 (0-2) /LPF COVID-19 (YINA) (Negative) COVID-19 Clin Com Discharge Plan Discharge Clinical Impression: Transient cerebral ischemia Patient Disposition: Admitted As Inpatient Prescriptions: No Action trazodone 50 mg tablet 1 tab PO BEDTIME cholecalciferol (vitamin D3) 50 mcg (2,000 unit) capsule 50 mcg PO DAILY digoxin 250 mcg (0.25 mg) tablet 250 mcg PO DAILY diltiazem HCl 180 mg capsule,extended release 24hr 180 mg PO DAILY clonazepam 0.5 mg tablet 0.5 mg PO BID PRN (Reason: Anxiety) metoprolol tartrate 100 mg tablet 200 mg PO BID buspirone 7.5 mg tablet 7.5 mg PO BID lisinopril 5 mg tablet 5 mg PO DAILY metformin 500 mg tablet extended release 24hr 500 mg PO QPM Jardiance 10 mg tablet 10 mg PO QAM warfarin 7.5 mg tablet 7.5 mg PO DAILY Qty: 90 0RF Protocol: Dose Management Condition: Sunday Dose/Route: 7.5 mg Instruction: 1 x 7.5 mg tablet Condition: Sunday Dose/Route: 0 mg Instruction: 0 tablets Condition: Sunday Dose/Route: 7.5 mg Instruction: 1 x 7.5 mg tablet Condition: Sunday Dose/Route: 11.25 mg Instruction: 1.5 x 7.5 mg tablets Condition: Dose/Route: 7.5 mg Instruction: 1 x 7.5 mg tablet Condition: Sunday Dose/Route: 7.5 mg Instruction: 1 x 7.5 mg tablet Condition: Sunday Dose/Route: 7.5 mg Instruction: 1 x 7.5 mg tablet Protocol Text: Adjustment Start Date: Sunday10/19/21 INR Value: 1.5 INR Date: 10/19/21 Additional Instructions: AVOID GREEN NEXT 3 DAYS, HAVE RED TODAY Rx Instructions: on odd numbered days atorvastatin 10 mg tablet 10 mg PO DAILY (DME) lancets [TRUEplus Lancets] 33 gauge misc See Rx Instructions Not Applicable BID Qty: 100 Rx Instructions: As directed (DME) FreeStyle Lite Strips Strip See Rx Instructions Not Applicable BID Qty: 10 Rx Instructions: As directed
[2021-10-20] MEDS: iohexoL 350 MG/ML 100 ML INFUS..BTL IV (16:56)
[2021-10-20] MEDS: 0.9 % Sodium Chloride 1,000 ML 999 ML IVCONT (17:19)
--- NOTE | 2021-10-20 17:46 | PHA.MEDREC ---
Pharmacy Consult ? Medication Reconciliation Pharmacy has completed the medication reconciliation. Patient had a bag with all his medications at bedside. Patient stated hes been having a hard time getting his lisinopril but is still on it. He also mentioned he cannot take metformin for about 24 to 48 hours due to a procedure he got with contrast dye. Patient also had a women with him at the time of interview, not sure if she was family or a visiting nurse, she was also a great historian.
[2021-10-20 18:04] VITALS: BP 125/71; PULSE 77; RESP 20; O2SAT 95
[2021-10-20 18:50] LABS: MANUAL DIFF FLAG NO
[2021-10-20 18:52] LABS: Basophils Absolute Auto 0.1 X10*3/uL (0.0-0.2); Basophils Percent Auto 0.6 % (0-2); Eosinophils Absolute Auto 0.2 X10*3/uL (0.0-0.4); Hematocrit 44.3 % (42.0-52.0); Hemoglobin 15.3 g/dl (14.0-18.0); Imm Gran Abs Auto 0.02 X10*3/uL (0.00-0.03); Imm Gran Pct Auto 0.2 % (0.0-0.4); Lymphocytes Absolute Auto 2.8 X10*3/uL (1.2-4.9); Lymphocytes Percent Auto 28.3 % (20-40); Mean Corpuscular HGB Conc 34.5 g/dl (31.0-36.0); Mean Corpuscular Hemoglobin 31.8 pg (27.0-33.0); Mean Corpuscular Volume 92.1 fL (80.0-98.0); Mean Platelet Volume 8.9 fL (9.4-12.4); Monocytes Absolute Auto 0.8 X10*3/uL (0.1-1.2); Monocytes Percent Auto 7.8 % (2-11); Neutrophils Absolute Auto 6.1 x10*3/uL (2.0-8.3); Neutrophils Percent Auto 61.1 % (45-73); Platelet Count 228 X10*3/uL (160-400); Red Blood Count 4.81 X10*6/uL (4.60-5.80); Red Cell Distribution Width 13.6 % (11.0-16.0); White Blood Count 9.9 X10*3/uL (4.8-10.8)
[2021-10-20 18:57] LABS: Appearance Urine Clear; Color Urine Yellow; Glucose Urine UA >=1000 mg/dL (Negative); Leukocyte Esterase Urine Negative (Negative); Nitrite Urine Negative (Negative); Specific Gravity - Urine >= 1.030 (1.005-1.025); Urine Blood Negative (Negative); Urine Ketones Negative (Negative); Urine Protein Negative (Neg-Trace)
[2021-10-20 19:06] LABS: COVID-19 Test Negative (Negative); IDNOW Serial# 9DB6401D
[2021-10-20 19:08] LABS: Bacteria Urine None Seen (None Seen); Hyaline Casts Urine 0-2 /LPF (0-2); RBC Urine 0-2 /HPF (0-2); Squamous Epithelial Cell Urine 0-2 /HPF (0-2); WBC Urine 0-5 /HPF (0-5)
[2021-10-20 19:12] LABS: Alanine Aminotransferase 27 U/L (0-40); Albumin Level 3.9 g/dL (3.5-5.0); Alkaline Phosphatase 80 U/L (39-117); Anion Gap 13 (12-20); Aspartate Amino Transferase 23 U/L (5-37); Bilirubin Direct 0.2 mg/dL (0.0-0.5); Bilirubin Total 0.5 mg/dL (0.0-1.0); Blood Urea Nitrogen 10 mg/dL (9-16); Calcium 8.5 mg/dL (8.4-10.2); Carbon Dioxide 24 mmol/L (22-29); Chloride 104 mmol/L (96-108); Estimated Glomerular Filt Rate > 60; Glucose Random 82 mg/dL (60-115); Potassium 4.4 mmol/L (3.3-5.1); Sodium 137 mmol/L (135-145); Total Protein 6.7 g/dL (6.5-8.0)
[2021-10-20 19:15] LABS: Troponin-I High Sensitivity < 3.5 ng/L (<3.5-35.0)
[2021-10-20 19:16] LABS: B Type Natriuretic Peptide 75 pg/mL (<100)
--- NOTE | 2021-10-20 19:45 | P.HPHOSP_ITS ---
History of Present Illness Date of Service: 10/20/21 Chief Complaint: Numbness and tingling of face and arm 56-year-old male with past medical history of AFib, CHF, diabetes, HTN, who presents to the hospital with complaints of left-sided numbness tingling, jaw pain and heaviness, left arm numbness and tingling. Patient reports that he has more symptoms on Sunday that resolved spontaneously, he was seen in the ED, he was told that he had TIA, but because he was on Coumadin he was sent home. Patient reports the symptoms started again around 12:00 and got worse over the few hours, they are better by the time I saw him. He reports no weakness in the arm, and no slurred speech. He does report blurry vision and right-sided headache, denies any weakness numbness or tingling in lower extremities. He reports compliance with his Coumadin, he denies any palpitations, no chest pain, no palpitations, no shortness of breath, no cough, no abdominal pain nausea or vomiting, no diarrhea constipation, no urinary symptoms. On arrival to the ED patient hemodynamically stable Labs are significant for WBC count of 9.9, hemoglobin of 15.3, hematocrit 44.3, UA negative, Head and neck CT angiogram shows no acute bleed or territorial infarct, no masses or areas of abnormal enhancement, mild bilateral mastoid fluid and there are cysts in the mid right maxillary sinus, no cervical lymphadenopathy or masses. No flow-limiting stenosis in the upper chest or in the neck, intracranially there are no focal stenosis aneurysm or vascular malformations. Given his 2nd presentation patient will be admitted for further evaluation Review of Systems Review of Systems: Yes all other systems are reviewed and are negative [facility] Medical History Atrial fibrillation CHF (congestive heart failure) Diabetes mellitus Hypertension Neck abscess Family History (Updated 10/21/21 @ 06:19 by Bina De Leon MD) Other No family history of cerebrovascular accident (CVA) Surgical History (Updated 10/21/21 @ 06:19 by Bina De Leon MD) No pertinent past surgical history Social History Alcohol intake: former Patient Tobacco Use Status: Former Tobacco user Use of substances other than those prescribed or required for medical reasons: No Advance Directives: No Advance Directives Information Provided: No Meds Allergies Allergy/AdvReac Type Severity Reaction Status Date / Time No Known Allergies Allergy Verified 10/19/21 09:47 [No Known Allergies*] Active Medications: Current Medications Acetaminophen (Acetaminophen 325 Mg Tablet) 650 mg PO Q6H PRN PRN Reason: Pain, Mild (Pain Scale 1-3) Aspirin (Aspirin Enteric Coated 81 Mg Tablet.Dr) 81 mg PO DAILY WILBER Atorvastatin Calcium (Atorvastatin Calcium 80 Mg Tablet) 80 mg PO DAILY WLIBER Docusate Sodium (Docusate Sodium 100 Mg Capsule) 100 mg PO DAILY PRN PRN Reason: Constipation Ondansetron HCl (Ondansetron Hcl 4 Mg/2 Ml Vial) 4 mg IVPUSH Q8H PRN PRN Reason: Nausea and Vomiting Pharmacy Consult (Consult Rx Perform Med Rec) 1 each MISCELLANE ONCE PRN PRN Reason: Consult order Home Medications Medication Instructions Recorded Confirmed Last Taken Type buspirone 7.5 mg tablet 7.5 mg PO BID 12/17/19 10/20/21 10/19/21 History cholecalciferol (vitamin D3) 50 50 mcg PO DAILY 12/17/19 10/20/21 10/20/21 History mcg (2,000 unit) capsule clonazepam 0.5 mg tablet 0.5 mg PO BID PRN Anxiety 12/17/19 10/20/21 10/20/21 History digoxin 250 mcg (0.25 mg) tablet 250 mcg PO DAILY 12/17/19 10/20/21 10/20/21 History diltiazem HCl 180 mg 180 mg PO DAILY 12/17/19 10/20/21 10/19/21 History capsule,extended release 24 hr metoprolol tartrate 100 mg tablet 200 mg PO BID 12/17/19 10/20/21 10/19/21 History atorvastatin 10 mg tablet 10 mg PO DAILY 08/25/20 10/20/21 10/20/21 History lisinopril 5 mg tablet 5 mg PO DAILY 09/22/20 10/20/21 10/19/21 History metformin 500 mg tablet,extended 500 mg PO QPM 09/22/20 10/20/21 10/19/21 History release 24hr empagliflozin 10 mg tablet 10 mg PO QAM 11/16/20 10/20/2122 History (Jardiance) blood sugar diagnostic (FreeStyle #10 ea 12/14/20 10/20/21 10/20/21 History Lite Strips) lancets 33 gauge (TRUEplus Lancets) #100 ea 12/14/20 10/20/21 10/20/21 History trazodone 50 mg tablet 1 tab PO BEDTIME 10/20/21 10/20/21 10/20/21 History Physical Exam Vital Signs and Narrative: Vital Signs: Last Vital Signs Pulse 77 10/20/21 18:04 Resp 20 10/20/21 18:04 BP 125/71 10/20/21 18:04 Pulse Ox 95 10/20/21 18:04 O2 Del Method 10/20/21 18:04 BMI result Body Mass Index 34.0 Const: General: cooperative and no acute distress Orientation/consciousness: patient oriented x3 Eyes: General: appearance normal, both eyes and all related structures Pupils: Equal, round and reactive pupils present Resp: Effort & Inspection: normal respiratory effort Auscultation: clear to auscultation bilaterally Cardio: Rate: regular rate Rhythm: regular rhythm GI: Palpation (GI): Soft to palpation Auscultation: normal bowel sounds Skin: General skin exam: no rashes or lesions noted Neuro: Other: Cranial nerves 2-12 intact, strength is 5/5 in all extremities, sensation intact. No focal neurological deficits a can be appreciated General: patient oriented x3 Cranial nerves: Yes Equal, round and reactive pupils present Cognition (Neuro): normal cognition Extrem: General: Yes normal to inspection and Yes no pedal edema Results Labs CBC and Chem 7: 10/20/21 18:43 10/20/21 18:43 Labs: Laboratory Results - last 24 hr 10/20/21 10/20/21 10/20/21 15:58 16:03 18:43 MCV 92.1 MCH 31.8 MCHC 34.5 RDW 13.6 Plt Count 228 MPV 8.9 L Immature Gran % (Auto) 0.2 Neut % (Auto) 61.1 Lymph % (Auto) 28.3 [place] % (Auto) 7.8 Eos % (Auto) 2.0 Baso % (Auto) 0.6 Lymph # (Auto) 2.8 [place] # (Auto) 0.8 Eos # (Auto) 0.2 Baso # (Auto) 0.1 Abs Immat Gran (auto) 0.02 Absolute Neuts (auto) 6.1 Absolute Nucleated RBC 0.000 Nucleated RBC % (auto) 0.0 Whole Blood PT 24.3 H Whole Blood INR 2.0 H Anion Gap Estim Creat Clear Calc Estimated GFR POC Glucose 170 H Random Glucose Calcium Total Bilirubin Direct Bilirubin AST ALT Alkaline Phosphatase B-Natriuretic Peptide Total Protein Albumin Urine Color Urine Appearance Urine pH Ur Specific [place] Urine Protein Urine Glucose (UA) Urine Ketones Urine Blood Urine Nitrite Ur Leukocyte Esterase Urine RBC Urine WBC Ur Squamous Epith Cells Urine Bacteria Hyaline Casts COVID-19 (YINA) COVID-19 Clin Com 10/20/21 10/20/21 10/20/21 18:43 18:43 18:43 MCV MCH MCHC RDW Plt Count MPV Immature Gran % (Auto) Neut % (Auto) Lymph % (Auto) [place] % (Auto) Eos % (Auto) Baso % (Auto) Lymph # (Auto) [place] # (Auto) Eos # (Auto) Baso # (Auto) Abs Immat Gran (auto) Absolute Neuts (auto) Absolute Nucleated RBC Nucleated RBC % (auto) Whole Blood PT Whole Blood INR Anion Gap 13 Estim Creat Clear Calc 124.0 Estimated GFR > 60 POC Glucose Random Glucose 82 D Calcium 8.5 Total Bilirubin 0.5 Direct Bilirubin 0.2 AST 23 ALT 27 Alkaline Phosphatase 80 B-Natriuretic Peptide 75 Total Protein 6.7 Albumin 3.9 Urine Color Urine Appearance Urine pH Ur Specific [place] Urine Protein Urine Glucose (UA) Urine Ketones Urine Blood Urine Nitrite Ur Leukocyte Esterase Urine RBC Urine WBC Ur Squamous Epith Cells Urine Bacteria Hyaline Casts COVID-19 (YINA) Negative COVID-19 Clin Com See Note 10/20/21 18:48 MCV MCH MCHC RDW Plt Count MPV Immature Gran % (Auto) Neut % (Auto) Lymph % (Auto) [place] % (Auto) Eos % (Auto) Baso % (Auto) Lymph # (Auto) [place] # (Auto) Eos # (Auto) Baso # (Auto) Abs Immat Gran (auto) Absolute Neuts (auto) Absolute Nucleated RBC Nucleated RBC % (auto) Whole Blood PT Whole Blood INR Anion Gap Estim Creat Clear Calc Estimated GFR POC Glucose Random Glucose Calcium Total Bilirubin Direct Bilirubin AST ALT Alkaline Phosphatase B-Natriuretic Peptide Total Protein Albumin Urine Color Yellow Urine Appearance Clear Urine pH 6.0 Ur Specific [place] >= 1.030 H Urine Protein Negative Urine Glucose (UA) >=1000 H Urine Ketones Negative Urine Blood Negative Urine Nitrite Negative Ur Leukocyte Esterase Negative Urine RBC 0-2 Urine WBC 0-5 Ur Squamous Epith Cells 0-2 Urine Bacteria None Seen Hyaline Casts 0-2 COVID-19 (YINA) COVID-19 Clin Com Imaging Radiologist's Impressions: Impressions Head CT 10/20/21 16:32 IMPRESSION: No acute findings. This critical result was discussed with Dr. Bunch at 4:32 PM on 10/20/2021 It was ascertained that the content and urgency of the report was understood at the time of direct communication. Head/Neck CTA 10/20/21 16:54 IMPRESSION: CT head and neck: 1. There are no acute bleeds or territorial infarcts. There are no masses or areas of abnormal enhancement. 2. There is mild bilateral mastoid fluid and there are cysts in the right maxillary sinus. 3. There is no cervical lymphadenopathy and no masses are demonstrated. 4. There is mild scalp swelling in the high right parietal region, which may be consistent with sequelae of trauma. Correlate clinically. CTA head and neck: 1. There are no flow-limiting stenoses in the upper chest or in the neck. 2. There is a four-vessel aortic arch and the left vertebral artery arises directly off the arch. 3. Intracranially there are no focal stenoses, aneurysms or vascular malformations. Assessment and Plan (1) Transient cerebral ischemia: Status: Acute Plan 56-year-old male with past medical history of diabetes, hypertension, AFib who presents to the hospital with complaints of left-sided numbness tingling, in the face and upper extremity # TIA - symptoms likely related to TIA despite being on Coumadin - this is his 2nd episode within a week - CTA head and neck negative - will obtain MRI in a.m., lipid battery, increase his atorvastatin to high- dose, and start him on aspirin - neurology consulted - continue Coumadin # AFib - rate controlled - continue diltiazem, and warfarin for AC. - PT INR daily # hypertension - not elevated - resume home medications # diabetes - hold oral antihyperglycemics - low-dose sliding scale insulin - diabetic diet DVT prophylaxis: Coumadin Quality Stroke Does the patient have a stroke diagnosis?: No VTE Prior VTE?: No VTE Risk Level:: Medical - moderate - high VTE Device Contraindication: Treatment Not Indicated VTE Drug Contraindication: N/A - Med Ordered
[2021-10-20 20:06] VITALS: BP 133/83; PULSE 81; RESP 16; O2SAT 97
--- NOTE | 2021-10-20 20:17 | PC.NURSE ---
pt to be admitted to hospital - resting comfortably on stretcher. no apparent distress, pt has no current complaints. vital signs updated. family at bedside. MRI screening form complete. patient passed swallow eval. will continue to monitor.
[2021-10-20] MEDS: Metoprolol Tartrate 100 MG TABLET 200 MG PO (22:17)
[2021-10-20] MEDS: busPIRone HCl 5 MG TABLET 7.5 MG PO (22:17)
[2021-10-21 01:04] VITALS: BP 111/69; PULSE 75; RESP 18; TEMP 36.7; O2SAT 95
[2021-10-21 06:03] VITALS: BP 132/87; PULSE 75; RESP 18; O2SAT 95
[2021-10-21 07:01] LABS: MANUAL DIFF FLAG NO
[2021-10-21 07:07] LABS: Basophils Absolute Auto 0.1 X10*3/uL (0.0-0.2); Basophils Percent Auto 0.8 % (0-2); Eosinophils Absolute Auto 0.3 X10*3/uL (0.0-0.4); Eosinophils Percent Auto 2.4 % (0-4); Hematocrit 46.7 % (42.0-52.0); Imm Gran Abs Auto 0.04 X10*3/uL (0.00-0.03); Imm Gran Pct Auto 0.4 % (0.0-0.4); Lymphocytes Absolute Auto 3.1 X10*3/uL (1.2-4.9); Lymphocytes Percent Auto 29.7 % (20-40); Mean Corpuscular HGB Conc 34.3 g/dl (31.0-36.0); Mean Corpuscular Hemoglobin 31.7 pg (27.0-33.0); Mean Corpuscular Volume 92.7 fL (80.0-98.0); Mean Platelet Volume 9.6 fL (9.4-12.4); Monocytes Absolute Auto 0.7 X10*3/uL (0.1-1.2); Monocytes Percent Auto 6.6 % (2-11); Neutrophils Absolute Auto 6.4 x10*3/uL (2.0-8.3); Neutrophils Percent Auto 60.1 % (45-73); Platelet Count 237 X10*3/uL (160-400); Red Blood Count 5.04 X10*6/uL (4.60-5.80); Red Cell Distribution Width 13.5 % (11.0-16.0); White Blood Count 10.6 X10*3/uL (4.8-10.8)
[2021-10-21 07:09] LABS: INTERNATIONAL NORM RATIO 2.6 (0.9-1.1); Prothrombin Time 31.4 SEC (10.0-13.1)
[2021-10-21 07:18] LABS: Glucose, Whole Blood 81 mg/dL (60-115)
[2021-10-21 07:43] LABS: Anion Gap 13 (12-20); Blood Urea Nitrogen 8 mg/dL (9-16); Calcium 8.4 mg/dL (8.4-10.2); Carbon Dioxide 25 mmol/L (22-29); Chloride 106 mmol/L (96-108); Creatinine Clr Calc Pharmacy 118.2; Estimated Glomerular Filt Rate > 60; Glucose Random 73 mg/dL (60-115); Potassium 4.6 mmol/L (3.3-5.1); Sodium 139 mmol/L (135-145)
[2021-10-21 07:44] LABS: Cholesterol 93 mg/dL; HDL Cholesterol 26 mg/dL; LDL Cholesterol Calculated 45 mg/dl; Triglycerides 110 mg/dL
[2021-10-21 08:13] VITALS: BP 115/69; PULSE 79; RESP 16; O2SAT 95
[2021-10-21 10:22] VITALS: BP 121/88; PULSE 80; RESP 20; TEMP 36.9; O2SAT 94
[2021-10-21] MEDS: Digoxin 0.25 MG TABLET PO (10:25)
[2021-10-21] MEDS: lisinopriL 5 MG TABLET PO (10:26)
[2021-10-21] MEDS: Cholecalciferol (Vitamin D3) 25 MCG TABLET 50 MCG PO (10:26)
[2021-10-21] MEDS: Metoprolol Tartrate 100 MG TABLET 200 MG PO (10:26)
[2021-10-21] MEDS: busPIRone HCl 5 MG TABLET 7.5 MG PO (10:26)
[2021-10-21] MEDS: Atorvastatin Calcium 80 MG TABLET PO (10:27)
[2021-10-21] MEDS: Aspirin Enteric Coated 81 MG TABLET.DR PO (10:27)
[2021-10-21] MEDS: dilTIAZem HCL CD 180 MG CAP.ER.24H PO (10:27)
--- NOTE | 2021-10-21 12:02 | P.CNNE_ITS ---
History of Present Illness Data of Consult Service Date: 10/21/21 Primary Care Provider: Steffany GONZALEZ Reason for consult: Numbness and headache 56 years old man with underlying history of atrial fibrillation on Coumadin came to hospital with symptoms of left-sided numbness associated with headache. He said that it started yesterday with a numb feeling on left side of the face around the eye and then cheek and then involving his jaw and ultimately coming to his arm. It was slowly spreading in a matter of few minutes. He was also having headache. Headache lasted many hours. Now his symptoms were resolved. He denied having similar symptoms in the past. Review of Systems Review of Systems: No recent cold or flu-like illness. [facility] Past Medical History Medical History (Updated 10/21/21 @ 12:04 by Teodora Cali MD) Atrial fibrillation CHF (congestive heart failure) Diabetes mellitus Hypertension Neck abscess Family History Family History (Updated 10/21/21 @ 06:19 by Bina De Leon MD) Other No family history of cerebrovascular accident (CVA) Surgical History Surgical History (Updated 10/21/21 @ 06:19 by Bina De Leon MD) No pertinent past surgical history Social History Social History Alcohol intake: former Patient Tobacco Use Status: Former Tobacco user Use of substances other than those prescribed or required for medical reasons: No Advance Directives: No Advance Directives Information Provided: No Meds Allergies Allergy/AdvReac Type Severity Reaction Status Date / Time No Known Allergies Allergy Verified 10/19/21 09:47 [No Known Allergies*] Active Medications: Current Medications Acetaminophen (Acetaminophen 325 Mg Tablet) 650 mg PO Q6H PRN PRN Reason: Pain, Mild (Pain Scale 1-3) Aspirin (Aspirin Enteric Coated 81 Mg Tablet.) 81 mg PO DAILY COUNTS INCLUDE 234 BEDS AT THE [facility] Last Admin: 10/21/21 10:27 Dose: 81 mg Atorvastatin Calcium (Atorvastatin Calcium 80 Mg Tablet) 80 mg PO DAILY COUNTS INCLUDE 234 BEDS AT THE [facility] Last Admin: 10/21/21 10:27 Dose: 80 mg Buspirone HCl (Buspirone Hcl 5 Mg Tablet) 7.5 mg PO BID COUNTS INCLUDE 234 BEDS AT THE [facility] Last Admin: 10/21/21 10:26 Dose: 7.5 mg Clonazepam (Clonazepam 0.5 Mg Tablet) 0.5 mg PO BID PRN PRN Reason: Anxiety Digoxin (Digoxin 0.25 Mg Tablet) 0.25 mg PO DAILY COUNTS INCLUDE 234 BEDS AT THE [facility] Last Admin: 10/21/21 10:25 Dose: 0.25 mg Diltiazem HCl (Diltiazem Hcl Cd 180 Mg Cap.Er.24h) 180 mg PO DAILY COUNTS INCLUDE 234 BEDS AT THE [facility]; Protocol Last Admin: 10/21/21 10:27 Dose: 180 mg Docusate Sodium (Docusate Sodium 100 Mg Capsule) 100 mg PO DAILY PRN PRN Reason: Constipation Lisinopril (Lisinopril 5 Mg Tablet) 5 mg PO DAILY COUNTS INCLUDE 234 BEDS AT THE [facility]; Protocol Last Admin: 10/21/21 10:26 Dose: 5 mg Metoprolol Tartrate (Metoprolol Tartrate 100 Mg Tablet) 200 mg PO BID COUNTS INCLUDE 234 BEDS AT THE [facility]; Protocol Last Admin: 10/21/21 10:26 Dose: 200 mg Ondansetron HCl (Ondansetron Hcl 4 Mg/2 Ml Vial) 4 mg IVPUSH Q8H PRN PRN Reason: Nausea and Vomiting Pharmacy Consult (Consult Rx Perform Med Rec) 1 each MISCELLANE ONCE PRN PRN Reason: Consult order Trazodone HCl (Trazodone Hcl 50 Mg Tablet) 50 mg PO BEDTIME COUNTS INCLUDE 234 BEDS AT THE [facility] Last Admin: 10/20/21 22:19 Dose: Not Given Vitamin D (Cholecalciferol (Vitamin D3) 25 Mcg Tablet) 50 mcg PO DAILY COUNTS INCLUDE 234 BEDS AT THE [facility] Last Admin: 10/21/21 10:26 Dose: 50 mcg Warfarin Sodium (Warfarin Sodium 7.5 Mg Tablet) 7.5 mg PO DAILY@1800 COUNTS INCLUDE 234 BEDS AT THE [facility] Home Medications Medication Instructions Recorded Confirmed Last Taken Type buspirone 7.5 mg tablet 7.5 mg PO BID 12/17/19 10/20/21 10/19/21 History cholecalciferol (vitamin D3) 50 50 mcg PO DAILY 12/17/19 10/20/21 10/20/21 History mcg (2,000 unit) capsule clonazepam 0.5 mg tablet 0.5 mg PO BID PRN Anxiety 12/17/19 10/20/21 10/20/21 History digoxin 250 mcg (0.25 mg) tablet 250 mcg PO DAILY 12/17/19 10/20/21 10/20/21 History diltiazem HCl 180 mg 180 mg PO DAILY 12/17/19 10/20/21 10/19/21 History capsule,extended release 24 hr metoprolol tartrate 100 mg tablet 200 mg PO BID 12/17/19 10/20/21 10/19/21 History atorvastatin 10 mg tablet 10 mg PO DAILY 08/25/20 10/20/21 10/20/21 History lisinopril 5 mg tablet 5 mg PO DAILY 09/22/20 10/20/21 10/19/21 History metformin 500 mg tablet,extended 500 mg PO QPM 09/22/20 10/20/21 10/19/21 History release 24hr empagliflozin 10 mg tablet 10 mg PO QAM 11/16/20 10/20/21 10/20/21 History (Jardiance) blood sugar diagnostic (FreeStyle #10 ea 12/14/20 10/20/21 10/20/21 History Lite Strips) lancets 33 gauge (TRUEplus Lancets) #100 ea 12/14/20 10/20/21 10/20/21 History trazodone 50 mg tablet 1 tab PO BEDTIME 10/20/21 10/20/21 10/20/21 History Physical Exam Vital Signs: Vital Signs: Last Vital Signs Temp 98.5 F 10/21/21 10:22 Pulse 80 10/21/21 10:22 Resp 20 10/21/21 10:22 BP 121/88 10/21/21 10:22 Pulse Ox 94 10/21/21 10:22 O2 Del Method 10/21/21 10:22 BMI result Body Mass Index 34.0 Neuro: Other: He is alert and awake with normal spontaneity of speech fluency comprehension and affect. Pupils are equal and reactive to light and extraocular muscles are intact. Visual cedeno are full to threat. Face is symmetrical. Tongue is midline. There is no pronator drift. Llbwps-ku-[id number] testing is normal. Deep tendon reflexes are trace to absent with flexor plantars. Results Labs CBC & Chem 7: 10/21/21 06:10 10/21/21 06:10 Labs: Short CBC 10/20/21 10/21/21 Range/Units 18:43 06:10 WBC 9.9 10.6 (4.8-10.8) X10*3/uL Hgb 15.3 16.0 (14.0-18.0) g/dl Hct 44.3 46.7 (42.0-52.0) % Plt Count 228 237 (160-400) X10*3/uL BMP 10/20/21 10/21/21 18:43 06:10 Sodium 137 139 Potassium 4.4 4.6 Chloride 104 106 Carbon Dioxide 24 25 BUN 10 8 L Creatinine 0.81 0.85 Calcium 8.5 8.4 Liver Function 10/20/21 Range/Units 18:43 Total Bilirubin 0.5 (0.0-1.0) mg/dL Direct Bilirubin 0.2 (0.0-0.5) mg/dL AST 23 (5-37) U/L ALT 27 (0-40) U/L Alkaline Phosphatase 80 (39-117) U/L Albumin 3.9 (3.5-5.0) g/dL Urine 10/20/21 Range/Units 18:48 Urine Color Yellow Urine Appearance Clear Urine pH 6.0 (5.0-9.0) Ur Specific [place] >= 1.030 H (1.005-1.025) Urine Protein Negative (Neg-Trace) mg/dL Urine Glucose (UA) >=1000 H (Negative) mg/dL CTA of brain and neck did not reveal any significant abnormality per Assessment and Plan (1) Migraine equivalent syndrome: Status: Acute 56 years old man who presented with left-sided face and arm numbness associated with headache. Overall description of his symptom is typical of migraine. He is at risk for vascular disease but already taking Coumadin and the way his symptoms presented it was suggestive more of migraine then TIA. Reassurance and education is needed. If the symptoms would keep on happening, topiramate 25-50 mg daily can help to control Procedures Date of Service Date of Service: 10/21/21
--- NOTE | 2021-10-21 13:32 | P.DS_ITS ---
DS: Providers Provider Date of Service: 10/21/21 Date of admission: 10/20/21 19:43 Date of discharge: 10/21/21 Primary care physician: Steffany Arora Consults: 10/20/21 19:41 Consult to Neurology Routine Consulting Provider: [facility] Reason for consultation: TIA Has provider been notified: No DS: Diagnosis Discharge Diagnosis (1) Migraine equivalent syndrome: Status: Acute DS: Summary Hospital Course Hospital Course: 56-year-old male with past medical history of AFib, CHF, diabetes, HTN, who presents to the hospital with complaints of left-sided numbness tingling, jaw pain and heaviness, left arm numbness and tingling.? Patient reports that he has more symptoms on Sunday that resolved spontaneously, he was seen in the ED, he was told that he had TIA, but because he was on Coumadin he was sent home.? Patient reports the symptoms started again around 12:00 and got worse over the few hours; He reports no weakness in the arm, and no slurred speech.? Neurology Consult 56 years old man who presented with left-sided face and arm numbness associated with headache.? Overall description of his symptom is typical of migraine.? He is at risk for vascular disease but already taking Coumadin and the way his symptoms presented it was suggestive more of migraine then TIA. Patient will be discharged to resume home medicines and utilize Topamax 25 mg at bedtime if headaches persist. He can follow-up with Dr. Cali in 2-3 weeks Time Spent with Patient Time attestation: Total time spent providing and/or coordinating discharge services: Discharge coordination time: Greater than 30 minutes Quality: Safe Use of Opioids Does Pt have an Active Cancer Diagnosis on the Problem List?: No Quality: Stroke Does the patient have a stroke diagnosis?: No Physical Exam Vital Signs: Vital Signs: Last Vital Signs Temp 98.5 F 10/21/21 10:22 Pulse 80 10/21/21 10:22 Resp 20 10/21/21 10:22 BP 121/88 10/21/21 10:22 Pulse Ox 94 10/21/21 10:22 O2 Del Method 10/21/21 10:22 BMI result Body Mass Index 34.0 Const: Other: Awake alert no acute distress Resp: Other: Clear to auscultation bilaterally no rales rhonchi or wheezes Cardio: Other: No S4; positive S1-S2; no S3 murmurs rubs or gallops Neuro: Other: Cranial nerves 2-12 grossly intact as tested. Motor is 5/5 all extremities. Sensation is intact. Gait steady. Cognition appropriate Extrem: Other: No edema bilateral DS: Data Data Completed and Pending Labs on day of discharge: Laboratory Results - last 24 hr 10/20/21 10/20/21 10/20/21 15:58 16:03 18:43 WBC 9.9 RBC 4.81 Hgb 15.3 Hct 44.3 MCV 92.1 MCH 31.8 MCHC 34.5 RDW 13.6 Plt Count 228 MPV 8.9 L Immature Gran % (Auto) 0.2 Neut % (Auto) 61.1 Lymph % (Auto) 28.3 [place] % (Auto) 7.8 Eos % (Auto) 2.0 Baso % (Auto) 0.6 Lymph # (Auto) 2.8 [place] # (Auto) 0.8 Eos # (Auto) 0.2 Baso # (Auto) 0.1 Abs Immat Gran (auto) 0.02 Absolute Neuts (auto) 6.1 Absolute Nucleated RBC 0.000 Nucleated RBC % (auto) 0.0 PT Whole Blood PT 24.3 H INR Whole Blood INR 2.0 H Sodium Potassium Chloride Carbon Dioxide Anion Gap BUN Creatinine Estim Creat Clear Calc Estimated GFR POC Glucose 170 H Random Glucose Calcium Total Bilirubin Direct Bilirubin AST ALT Alkaline Phosphatase Troponin I High Sens B-Natriuretic Peptide Total Protein Albumin Triglycerides Cholesterol LDL Cholesterol, Calc HDL Cholesterol Urine Color Urine Appearance Urine pH Ur Specific [place] Urine Protein Urine Glucose (UA) Urine Ketones Urine Blood Urine Nitrite Ur Leukocyte Esterase Urine RBC Urine WBC Ur Squamous Epith Cells Urine Bacteria Hyaline Casts COVID-19 ([facility]INA) COVID-19 Clin Com 10/20/21 10/20/21 10/20/21 18:43 18:43 18:43 WBC RBC Hgb Hct MCV MCH MCHC RDW Plt Count MPV Immature Gran % (Auto) Neut % (Auto) Lymph % (Auto) [place] % (Auto) Eos % (Auto) Baso % (Auto) Lymph # (Auto) [place] # (Auto) Eos # (Auto) Baso # (Auto) Abs Immat Gran (auto) Absolute Neuts (auto) Absolute Nucleated RBC Nucleated RBC % (auto) PT Whole Blood PT INR Whole Blood INR Sodium 137 Potassium 4.4 Chloride 104 Carbon Dioxide 24 Anion Gap 13 BUN 10 Creatinine 0.81 Estim Creat Clear Calc 124.0 Estimated GFR > 60 POC Glucose Random Glucose 82 D Calcium 8.5 Total Bilirubin 0.5 Direct Bilirubin 0.2 AST 23 ALT 27 Alkaline Phosphatase 80 Troponin I High Sens < 3.5 B-Natriuretic Peptide Total Protein 6.7 Albumin 3.9 Triglycerides Cholesterol LDL Cholesterol, Calc HDL Cholesterol Urine Color Urine Appearance Urine pH Ur Specific [place] Urine Protein Urine Glucose (UA) Urine Ketones Urine Blood Urine Nitrite Ur Leukocyte Esterase Urine RBC Urine WBC Ur Squamous Epith Cells Urine Bacteria Hyaline Casts COVID-19 (YINA) Negative COVID-19 Clin Com See Note 10/20/21 10/20/21 10/21/21 18:43 18:48 06:10 WBC 10.6 RBC 5.04 Hgb 16.0 Hct 46.7 MCV 92.7 MCH 31.7 MCHC 34.3 RDW 13.5 Plt Count 237 MPV 9.6 Immature Gran % (Auto) 0.4 Neut % (Auto) 60.1 Lymph % (Auto) 29.7 [place] % (Auto) 6.6 Eos % (Auto) 2.4 Baso % (Auto) 0.8 Lymph # (Auto) 3.1 [place] # (Auto) 0.7 Eos # (Auto) 0.3 Baso # (Auto) 0.1 Abs Immat Gran (auto) 0.04 H Absolute Neuts (auto) 6.4 Absolute Nucleated RBC 0.000 Nucleated RBC % (auto) 0.0 PT Whole Blood PT INR Whole Blood INR Sodium Potassium Chloride Carbon Dioxide Anion Gap BUN Creatinine Estim Creat Clear Calc Estimated GFR POC Glucose Random Glucose Calcium Total Bilirubin Direct Bilirubin AST ALT Alkaline Phosphatase Troponin I High Sens B-Natriuretic Peptide 75 Total Protein Albumin Triglycerides Cholesterol LDL Cholesterol, Calc HDL Cholesterol Urine Color Yellow Urine Appearance Clear Urine pH 6.0 Ur Specific [place] >= 1.030 H Urine Protein Negative Urine Glucose (UA) >=1000 H Urine Ketones Negative Urine Blood Negative Urine Nitrite Negative Ur Leukocyte Esterase Negative Urine RBC 0-2 Urine WBC 0-5 Ur Squamous Epith Cells 0-2 Urine Bacteria None Seen Hyaline Casts 0-2 COVID-19 (YINA) COVID-19 Clin Com 10/21/21 10/21/21 10/21/21 06:10 06:10 06:10 WBC RBC Hgb Hct MCV MCH MCHC RDW Plt Count MPV Immature Gran % (Auto) Neut % (Auto) Lymph % (Auto) [place] % (Auto) Eos % (Auto) Baso % (Auto) Lymph # (Auto) [place] # (Auto) Eos # (Auto) Baso # (Auto) Abs Immat Gran (auto) Absolute Neuts (auto) Absolute Nucleated RBC Nucleated RBC % (auto) PT 31.4 H Whole Blood PT INR 2.6 H Whole Blood INR Sodium 139 Potassium 4.6 Chloride 106 Carbon Dioxide 25 Anion Gap 13 BUN 8 L Creatinine 0.85 Estim Creat Clear Calc 118.2 Estimated GFR > 60 POC Glucose Random Glucose 73 Calcium 8.4 Total Bilirubin Direct Bilirubin AST ALT Alkaline Phosphatase Troponin I High Sens B-Natriuretic Peptide Total Protein Albumin Triglycerides 110 Cholesterol 93 LDL Cholesterol, Calc 45 HDL Cholesterol 26 Urine Color Urine Appearance Urine pH Ur Specific [place] Urine Protein Urine Glucose (UA) Urine Ketones Urine Blood Urine Nitrite Ur Leukocyte Esterase Urine RBC Urine WBC Ur Squamous Epith Cells Urine Bacteria Hyaline Casts COVID-19 (YINA) COVID-[employer] 10/21/21 07:14 WBC RBC Hgb Hct MCV MCH MCHC RDW Plt Count MPV Immature Gran % (Auto) Neut % (Auto) Lymph % (Auto) [place] % (Auto) Eos % (Auto) Baso % (Auto) Lymph # (Auto) [place] # (Auto) Eos # (Auto) Baso # (Auto) Abs Immat Gran (auto) Absolute Neuts (auto) Absolute Nucleated RBC Nucleated RBC % (auto) PT Whole Blood PT INR Whole Blood INR Sodium Potassium Chloride Carbon Dioxide Anion Gap BUN Creatinine Estim Creat Clear Calc Estimated GFR POC Glucose 81 Random Glucose Calcium Total Bilirubin Direct Bilirubin AST ALT Alkaline Phosphatase Troponin I High Sens B-Natriuretic Peptide Total Protein Albumin Triglycerides Cholesterol LDL Cholesterol, Calc HDL Cholesterol Urine Color Urine Appearance Urine pH Ur Specific [place] Urine Protein Urine Glucose (UA) Urine Ketones Urine Blood Urine Nitrite Ur Leukocyte Esterase Urine RBC Urine WBC Ur Squamous Epith Cells Urine Bacteria Hyaline Casts COVID-19 (YINA) COVID-19 [place] Com Discharge Plan Discharge Patient Disposition: Home, Self-Care Discharge Diagnosis: Migraine equivalent syndrome Referrals: Steffany Arora [Primary Care Provider] - 1 Week Discharge Medications: New topiramate [Topamax] 25 mg tablet 25 mg PO DAILY PRN (Reason: headache) Qty: 30 0RF Continued trazodone 50 mg tablet 1 tab PO BEDTIME cholecalciferol (vitamin D3) 50 mcg (2,000 unit) capsule 50 mcg PO DAILY digoxin 250 mcg (0.25 mg) tablet 250 mcg PO DAILY diltiazem HCl 180 mg capsule,extended release 24hr 180 mg PO DAILY clonazepam 0.5 mg tablet 0.5 mg PO BID PRN (Reason: Anxiety) metoprolol tartrate 100 mg tablet 200 mg PO BID buspirone 7.5 mg tablet 7.5 mg PO BID lisinopril 5 mg tablet 5 mg PO DAILY metformin 500 mg tablet extended release 24hr 500 mg PO QPM Jardiance 10 mg tablet 10 mg PO QAM warfarin 7.5 mg tablet 7.5 mg PO DAILY Qty: 90 0RF Protocol: Dose Management Condition: Sunday Dose/Route: 7.5 mg Instruction: 1 x 7.5 mg tablet Condition: Sunday Dose/Route: 0 mg Instruction: 0 tablets Condition: Sunday Dose/Route: 7.5 mg Instruction: 1 x 7.5 mg tablet Condition: Sunday Dose/Route: 11.25 mg Instruction: 1.5 x 7.5 mg tablets Condition: Dose/Route: 7.5 mg Instruction: 1 x 7.5 mg tablet Condition: Sunday Dose/Route: 7.5 mg Instruction: 1 x 7.5 mg tablet Condition: Sunday Dose/Route: 7.5 mg Instruction: 1 x 7.5 mg tablet Protocol Text: Adjustment Start Date: Sunday10/19/21 INR Value: 1.5 INR Date: 10/19/21 Additional Instructions: AVOID GREEN NEXT 3 DAYS, HAVE RED TODAY Rx Instructions: on odd numbered days atorvastatin 10 mg tablet 10 mg PO DAILY (DME) lancets [TRUEplus Lancets] 33 gauge misc See Rx Instructions Not Applicable BID Qty: 100 Rx Instructions: As directed (DME) FreeStyle Lite Strips Strip See Rx Instructions Not Applicable BID Qty: 10 Rx Instructions: As directed Discharge Orders: Discharge Order (Routine); Ordered 10/21/21 Ordered By: Coleman Headley Diet: Advance to usual diet Activity on Discharge: As tolerated Stand Alone Forms: Patient Portal Discharge page Care Plan Goals: Continue all home medicine Health Concerns: Use Topamax as needed for recurrent migraines Plan of Treatment: Follow-up with Dr. Cali as needed [id number] Assessment: As per care plan
--- NOTE | 2021-10-21 15:01 | MHC.CM.PN ---
Patient was d/c'd before being seen by case management.
== END 2021-10-21 14:42 | disposition home or self-care (01) ==
LOC: HO.ED 19:40 → HO.EDOVER 19:53
PROVIDERS: Admitting Provider Internal Medicine; Emergency Provider Emergency Medicine; PCP Nurse Practitioner; Visit Provider Hospitalist
DX: G43.109 Migraine with aura, not intractable, without status migrainosus (principal); R20.0 Anesthesia of skin; E11.9 Type 2 diabetes mellitus without complications; I10 Essential (primary) hypertension; I48.91 Unspecified atrial fibrillation; R06.02 Shortness of breath; Z20.822 Contact with and (suspected) exposure to COVID-19; Z79.899 Other long term (current) drug therapy; Z87.891 Personal history of nicotine dependence; Z79.01 Long term (current) use of anticoagulants; Z79.84 Long term (current) use of oral hypoglycemic drugs
CPT/HCPCS: 36415; 70450; 70496; 70498; 80048; 80061; 80076; 81001; 81003; 82947; 83880; 84484; 85025; 85610; 87635; 93005; 96360; 96361; 99219; 99285; Q9967

== ENCOUNTER → 2021-10-27 09:41 | Outpatient (BNVA) | payer MEDICARE, MEDICAID, SELFPAY | PROVIDERS: PCP Nurse Practitioner; Visit Provider Internal Medicine | DX: I48.20 Chronic atrial fibrillation, unspecified (principal); Z79.01 Long term (current) use of anticoagulants; Z51.81 Encounter for therapeutic drug level monitoring | CPT/HCPCS: 85610; 99211 ==

== ENCOUNTER → 2021-11-01 13:49 | Outpatient (BNVA) | payer MEDICARE, MEDICAID, SELFPAY | PROVIDERS: PCP Nurse Practitioner; Visit Provider Internal Medicine | DX: I48.20 Chronic atrial fibrillation, unspecified (principal); Z79.01 Long term (current) use of anticoagulants; Z51.81 Encounter for therapeutic drug level monitoring | CPT/HCPCS: 85610; 99211 ==

== ENCOUNTER → 2021-11-08 14:03 | Outpatient (BNVA) | payer MEDICARE, MEDICAID, SELFPAY | PROVIDERS: PCP Nurse Practitioner; Visit Provider Internal Medicine | DX: I48.20 Chronic atrial fibrillation, unspecified (principal); Z79.01 Long term (current) use of anticoagulants; Z51.81 Encounter for therapeutic drug level monitoring | CPT/HCPCS: 85610; 99211 ==

== ENCOUNTER → 2021-11-22 13:59 | Outpatient (BNVA) | payer MEDICARE, MEDICAID, SELFPAY | PROVIDERS: PCP Nurse Practitioner; Visit Provider Internal Medicine | DX: I48.20 Chronic atrial fibrillation, unspecified (principal); Z79.01 Long term (current) use of anticoagulants; Z51.81 Encounter for therapeutic drug level monitoring | CPT/HCPCS: 85610; 99211 ==

== ENCOUNTER → 2021-12-13 14:03 | Outpatient (BNVA) | payer MEDICARE, MEDICAID, SELFPAY | PROVIDERS: PCP Nurse Practitioner; Visit Provider Internal Medicine | DX: I48.20 Chronic atrial fibrillation, unspecified (principal); Z79.01 Long term (current) use of anticoagulants; Z51.81 Encounter for therapeutic drug level monitoring | CPT/HCPCS: 85610; 99211 ==

== ENCOUNTER → 2021-12-27 14:03 | Outpatient (BNVA) | payer MEDICARE, MEDICAID, SELFPAY | PROVIDERS: PCP Nurse Practitioner; Visit Provider Internal Medicine | DX: I48.20 Chronic atrial fibrillation, unspecified (principal); Z79.01 Long term (current) use of anticoagulants; Z51.81 Encounter for therapeutic drug level monitoring | CPT/HCPCS: 85610; 99211 ==

== ENCOUNTER → 2022-01-17 13:59 | Outpatient (BNVA) | payer MEDICARE, MEDICAID, SELFPAY | PROVIDERS: PCP Registered Nurse; Visit Provider Internal Medicine | DX: I48.20 Chronic atrial fibrillation, unspecified (principal); Z79.01 Long term (current) use of anticoagulants; Z51.81 Encounter for therapeutic drug level monitoring | CPT/HCPCS: 85610; 99211 ==

== ENCOUNTER → 2022-02-14 14:02 | Outpatient (BNVA) | payer MEDICARE, MEDICAID, SELFPAY | PROVIDERS: PCP Registered Nurse; Visit Provider Internal Medicine | DX: I48.20 Chronic atrial fibrillation, unspecified (principal); Z79.01 Long term (current) use of anticoagulants; Z51.81 Encounter for therapeutic drug level monitoring | CPT/HCPCS: 85610; 99211 ==

== ENCOUNTER → 2022-03-14 14:03 | Outpatient (BNVA) | payer MEDICARE, MEDICAID, SELFPAY | PROVIDERS: PCP Registered Nurse; Visit Provider Internal Medicine | DX: I48.20 Chronic atrial fibrillation, unspecified (principal); Z79.01 Long term (current) use of anticoagulants; Z51.81 Encounter for therapeutic drug level monitoring | CPT/HCPCS: 85610; 99211 ==

== ENCOUNTER → 2022-04-17 14:09 | Outpatient (BNVA) | payer MEDICARE, MEDICAID, SELFPAY | PROVIDERS: PCP Registered Nurse; Visit Provider Internal Medicine | DX: I48.20 Chronic atrial fibrillation, unspecified (principal); Z79.01 Long term (current) use of anticoagulants; Z51.81 Encounter for therapeutic drug level monitoring | CPT/HCPCS: 85610; 99211 ==

== ENCOUNTER → 2022-05-16 13:56 | Outpatient (BNVA) | payer MEDICARE, MEDICAID, SELFPAY | PROVIDERS: PCP Registered Nurse; Visit Provider Internal Medicine | DX: I48.20 Chronic atrial fibrillation, unspecified (principal); Z79.01 Long term (current) use of anticoagulants; Z51.81 Encounter for therapeutic drug level monitoring | CPT/HCPCS: 85610; 99211 ==

== ENCOUNTER → 2022-05-23 14:01 | Outpatient (BNVA) | payer MEDICARE, MEDICAID, SELFPAY | PROVIDERS: PCP Registered Nurse; Visit Provider Internal Medicine | DX: I48.20 Chronic atrial fibrillation, unspecified (principal); Z51.81 Encounter for therapeutic drug level monitoring; Z79.01 Long term (current) use of anticoagulants | CPT/HCPCS: 85610; 99211 ==

== ENCOUNTER → 2022-06-20 14:03 | Outpatient (BNVA) | payer MEDICARE, MEDICAID, SELFPAY | PROVIDERS: PCP Registered Nurse; Visit Provider Internal Medicine | DX: I48.20 Chronic atrial fibrillation, unspecified (principal); Z79.01 Long term (current) use of anticoagulants; Z51.81 Encounter for therapeutic drug level monitoring | CPT/HCPCS: 85610; 99211 ==

== ENCOUNTER → 2022-07-04 14:11 | Outpatient (BNVA) | payer MEDICARE, MEDICAID, SELFPAY | PROVIDERS: PCP Registered Nurse; Visit Provider Internal Medicine | DX: I48.20 Chronic atrial fibrillation, unspecified (principal); Z79.01 Long term (current) use of anticoagulants; Z51.81 Encounter for therapeutic drug level monitoring | CPT/HCPCS: 85610; 99211 ==

== ENCOUNTER → 2022-08-03 14:15 | Outpatient (BNVA) | payer MEDICARE, MEDICAID, SELFPAY | PROVIDERS: PCP Registered Nurse; Visit Provider Internal Medicine | DX: I48.20 Chronic atrial fibrillation, unspecified (principal); Z79.01 Long term (current) use of anticoagulants; Z51.81 Encounter for therapeutic drug level monitoring | CPT/HCPCS: 85610; 99211 ==

== ENCOUNTER 2022-08-24 15:03 | Outpatient (AMB) | payer MEDICARE, MEDICAID, SELFPAY ==
--- NOTE | 2022-08-24 15:04 | MHC.OFFVIS ---
Intake Vital Signs 08/24/22 15:08 Weight 266 lb BP 108/70 Blood Pressure Location Rt brachial Position Sitting Pulse 80 Intake Visit Reasons: Skin lesion of neck Intake Note: This patient present for an assessment for skin lesion of neck. Patient c/o; occasional draining, pain, completed course of Augmentin. 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: No Accompanied by: Life Partner Allergies No Known Allergies [No Known Allergies*] Allergy (Verified 08/24/22 15:09) Medication List - Last Reconciled 08/24/22 by Danis Hutton MD atorvastatin 10 mg PO DAILY blood sugar diagnostic (FreeStyle Lite Strips) As directed buspirone 7.5 mg PO BID cholecalciferol (vitamin D3) 50 mcg PO DAILY clonazepam 0.5 mg PO BID PRN digoxin 250 mcg PO DAILY diltiazem HCl 180 mg PO DAILY empagliflozin (Jardiance) 10 mg PO QAM lancets (TRUEplus Lancets) As directed lisinopril 5 mg PO DAILY metformin ER 500 mg PO QPM metoprolol tartrate 200 mg PO BID topiramate (Topamax) 25 mg PO DAILY PRN trazodone 1 tab PO BEDTIME warfarin 7.5 mg See Protocol PO DAILY HPI Skin lesion of neck HPI Details 57-year-old male referred for a mass the posterior neck. I had seen him in the office last Jun, 2021 for this and he had an abscess at that time. I had an I and D in the office. He has not followed up with me since then. He describes occasional swelling, pain discomfort and some discharge. He wants this excised. He is a known diabetic. He is on anticoagulation with Coumadin for atrial fibrillation. ON LICENSE OF [facility] Medical History (Updated 08/24/22 @ 15:35 by Danis Hutton MD) Atrial fibrillation CHF (congestive heart failure) Diabetes mellitus Hypertension Neck abscess Neck mass Surgical History No pertinent past surgical history Family History Other No family history of cerebrovascular accident (CVA) Social History Alcohol intake: former Patient Tobacco Use Status: Former Tobacco user Review of Systems Const Denies chills and Denies fever(s) Card Denies chest pain, Denies dyspnea and Denies dyspnea on exertion Resp Denies cough, Denies dyspnea and Denies dyspnea on exertion GI Denies hematochezia and Denies change in bowel habits Denies hematuria and Denies difficulty urinating Musc Denies back pain and Denies limited range of motion Neuro Denies focal weakness and Denies convulsions Psych Denies depression and Denies mood swings Physical Exam Vital Signs: Last Vital Signs Pulse 80 08/24/22 15:08 BP 108/70 08/24/22 15:08 Const Other: Obese General: comfortable and no acute distress Orientation/consciousness: patient oriented x3 Neck Other: Posterior neck near the occipital area is note of an elevated induration, about 1.5 cm, no discharge at this time, no fluctuance Neck: Yes no lymphadenopathy Resp Auscultation: clear to auscultation bilaterally Cardio Rhythm: abnormal rhythm GI Palpation (GI): Soft to palpation, nontender and no guarding Neuro General: patient oriented x3 Assessment & Plan Assessment & Plan (1) Neck mass: Code(s): R22.1 - Localized swelling, mass and lump, neck Plan: He has a posterior neck mass as described above. This is probably a ruptured epidermal cyst. He wants to proceed with excision. I explained the technique of excision under local anesthesia. I reviewed the risks including but not limited to bleeding, infections, poor healing, hematoma, as well as the benefits and alternatives. He understands and wants to proceed. He prefers this to be with local anesthesia so this will be done at the minor procedure room. I will hold his Coumadin for 3 days. This will be discussed with his ice cream dispenser. Coding Level of Care Code Est Pt Level 3 (10137) Diagnoses Neck mass R22.1
[2022-08-24 15:08] VITALS: BP 108/70; PULSE 80
== END 2022-08-24 15:19 | disposition home or self-care (01) ==
PROVIDERS: PCP Registered Nurse; Referring Provider Registered Nurse; Visit Provider Surgery
DX: R22.1 Localized swelling, mass and lump, neck (principal)
CPT/HCPCS: 99213

== ENCOUNTER → 2022-08-24 15:03 | Outpatient (BNVA) | payer MEDICARE, MEDICAID, SELFPAY | PROVIDERS: PCP Registered Nurse; Referring Provider Registered Nurse; Visit Provider Surgery | DX: R22.1 Localized swelling, mass and lump, neck (principal) | CPT/HCPCS: 99212 ==

== ENCOUNTER 2022-08-29 14:00 | Outpatient (AMB) | payer MEDICARE, MEDICAID, SELFPAY ==
--- NOTE | 2022-08-29 14:04 | MHC.OFFVISCO ---
Intake Intake Visit Reasons: Anticoagulation Allergies No Known Allergies [No Known Allergies*] Allergy (Verified 08/29/22 14:01) Medication List - Last Reconciled 08/29/22 by Maria De Jesus Mojica RN atorvastatin 10 mg PO DAILY blood sugar diagnostic (FreeStyle Lite Strips) As directed buspirone 7.5 mg PO BID cholecalciferol (vitamin D3) 50 mcg PO DAILY clonazepam 0.5 mg PO BID PRN digoxin 250 mcg PO DAILY diltiazem HCl 180 mg PO DAILY empagliflozin (Jardiance) 10 mg PO QAM lancets (TRUEplus Lancets) As directed lisinopril 5 mg PO DAILY metformin ER 500 mg PO QPM metoprolol tartrate 200 mg PO BID topiramate (Topamax) 25 mg PO DAILY PRN trazodone 1 tab PO BEDTIME warfarin 7.5 mg See Protocol PO DAILY Nursing Note INR: 3.0- in therapeutic range Medications and supplements reviewed No changes in health, diet, medications, or supplements, Denies any signs and symptoms of bleeding or bruising or clotting. Bleeding, bruising, clotting discussed Nutritional guidance given Dose: 7.5mg x 7 F/U INR: 4 weeks per pt req Patient verbalizes understanding of instructions given pt states finished course of antibiotics a few weeks ago for area posterior neck. pt states he may have surgery on this area per dermatology with a 3 day hold on warfarin. pt enc to discuss with pcp and to notify acs with date of procedure. he was made aware of the importance of calling in new or changes in medications and importance of inr recheck after holding warfarin for procedure. Anti-Coag Initial Assessment Social Hx Patient Tobacco Use Status: Former Tobacco user alcohol intake: former Coding Level of Care Code Est Patient Level 1 Diagnoses Current use of anticoagulant therapy Z79.01 Results AMB INR Fingerstick AMB INR Fingerstick 3.0 Last Edit by Maria De Jesus Mojica RN on 08/29/22 14:05 Assessment & Plan Assessment & Plan (1) Current use of anticoagulant therapy: Code(s): Z79.01 - correction (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
[2022-08-29 14:06] LABS: Prothrombin Time Whole Bld POC 35.9 sec (11.1-13.5)
== END 2022-08-29 14:49 | disposition home or self-care (01) ==
LOC: HO.ACS 14:00
PROVIDERS: PCP Registered Nurse; Visit Provider Internal Medicine
DX: Z79.01 Long term (current) use of anticoagulants (principal)

== ENCOUNTER → 2022-08-29 14:00 | Outpatient (BNVA) | payer MEDICARE, MEDICAID, SELFPAY | PROVIDERS: PCP Registered Nurse; Visit Provider Internal Medicine | DX: I48.20 Chronic atrial fibrillation, unspecified (principal); Z79.01 Long term (current) use of anticoagulants; Z51.81 Encounter for therapeutic drug level monitoring | CPT/HCPCS: 85610; 99211 ==

== ENCOUNTER 2022-09-18 07:54 | Outpatient (REF) | payer MEDICARE, MEDICAID, SELFPAY ==
[2022-09-18 07:59] VITALS: BMI 38.6
[2022-09-18 08:00] VITALS: BP 136/75; PULSE 79; RESP 16; TEMP 36.1; O2SAT 95
--- NOTE | 2022-09-18 08:48 | PM.EVENT ---
Event Note Date of Service: 09/18/22 Event Note: pt scheduled for exc of cyst from the posterior neck today under local anesthesia However, he was diaphoretic, and felt very warm He was unable to maintain position well on the table Procedure was therefore canceled Time Spent With Patient Time: Total time managing care of this patient today ____ minutes.
== END 2022-09-18 07:55 | disposition home or self-care (01) ==
LOC: HO.MS 07:54
PROVIDERS: Visit Provider Surgery
DX: I48.91 Unspecified atrial fibrillation (principal); Z79.01 Long term (current) use of anticoagulants; L72.8 Other follicular cysts of the skin and subcutaneous tissue; Z53.09 Procedure and treatment not carried out because of other contraindication
CPT/HCPCS: 85610; 99211

== ENCOUNTER 2022-09-18 08:38 | Outpatient (AMB) | payer MEDICARE, MEDICAID, SELFPAY ==
[2022-09-18 08:47] LABS: Prothrombin Time Whole Bld POC 13.9 sec (11.1-13.5); ~PT, ~INR - Anti Coag Clinic 1.2 (0.9-1.1)
--- NOTE | 2022-09-18 08:50 | MHC.OFFVISCO ---
Intake Intake Visit Reasons: Anticoagulation Allergies No Known Allergies [No Known Allergies*] Allergy (Verified 09/18/22 08:41) Medication List - Last Reconciled 09/18/22 by Trish Estrella RN atorvastatin 10 mg PO DAILY blood sugar diagnostic (FreeStyle Lite Strips) As directed buspirone 7.5 mg PO BID cholecalciferol (vitamin D3) 50 mcg PO DAILY clonazepam 0.5 mg PO BID PRN digoxin 250 mcg PO DAILY diltiazem HCl 180 mg PO DAILY empagliflozin (Jardiance) 10 mg PO QAM lancets (TRUEplus Lancets) As directed lisinopril 5 mg PO DAILY metformin ER 500 mg PO QPM metoprolol tartrate 200 mg PO BID sildenafil 25 mg PO DAILY PRN topiramate (Topamax) 25 mg PO DAILY PRN trazodone 1 tab PO BEDTIME warfarin 7.5 mg See Protocol PO DAILY Nursing Note Pt was to have minor surgical procedure today but was canceled antony pt could not tolerate the position and was too nervous and sweating, he came to [facility] to have INR check after holding x 3 days, The INR was presumably going to be low, to best know how to boost him an INR was performed and an extra warfarin boost given due to hx of afib INR ?1.2? out of therapeutic range Medications and supplements reviewed Patient status: as above Medications or supplements: warfarin was held x 3 days Diet: good - advised to avoid greens until next INR check Denies any signs and symptoms of bleeding or clotting or unusual bruising Bleeding, bruising, clotting discussed Nutritional guidance given: as above Dose: 11.25 mg x 2 days then resume 7.5mg daily F/U INR Date : 09/22/22 ?? Patient verbalizing understanding of instructions given. Anti-Coag Initial Assessment Social Hx Patient Tobacco Use Status: Former Tobacco user alcohol intake: former Coding Level of Care Code Est Patient Level 1 Diagnoses Current use of anticoagulant therapy Z79.01 Results AMB INR Fingerstick AMB INR Fingerstick 1.2 Last Edit by Trish Estrella RN on 09/18/22 08:49 WARFARIN WAS HELD FOR A PROCEDURE Trish Estrella 09/18/22 08:49 INTERFACE DELAY MANUAL ENTRY Assessment & Plan Assessment & Plan (1) Current use of anticoagulant therapy: Code(s): Z79.01 - snf (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
== END 2022-09-18 08:58 | disposition home or self-care (01) ==
PROVIDERS: PCP Registered Nurse; Visit Provider Internal Medicine
DX: Z79.01 Long term (current) use of anticoagulants (principal)

== ENCOUNTER 2022-09-28 10:57 | Outpatient (REF) | payer MEDICARE, MEDICAID, SELFPAY ==
--- NOTE | ~2022-09-28 | XR_ITS ---
EXAMINATION: XR CHEST CLINICAL INFORMATION: Dyspnea. COMPARISON: Chest radiographs dated 01/03/2019. TECHNIQUE: 2 views of the chest were obtained. FINDINGS: Support devices: Left-sided pacemaker device appears in good position. No significant abnormality is noted involving the heart, lungs, mediastinum, bony thorax or soft tissues. XR/XR chest 2V IMPRESSION: No acute cardiopulmonary process.
== END 2022-09-28 10:58 | disposition home or self-care (01) ==
LOC: HO.HHCX 10:57
PROVIDERS: Visit Provider Student in an Organized Health Care Education/Training Program
DX: R06.00 Dyspnea, unspecified (principal); R68.89 Other general symptoms and signs; J06.9 Acute upper respiratory infection, unspecified; R06.02 Shortness of breath
CPT/HCPCS: 71046; 80053; 85025; 87449; 87633; 87899

== ENCOUNTER 2022-09-28 12:09 | Outpatient (REF) | payer MEDICARE, MEDICAID, SELFPAY ==
[2022-09-28 13:12] LABS: MANUAL DIFF FLAG NO
[2022-09-28 13:48] LABS: Basophils Absolute Auto 0.1 X10*3/uL (0.0-0.2); Basophils Percent Auto 0.6 % (0-2); Eosinophils Absolute Auto 0.3 X10*3/uL (0.0-0.4); Eosinophils Percent Auto 2.6 % (0-4); Hematocrit 47.1 % (42.0-52.0); Imm Gran Abs Auto 0.04 X10*3/uL (0.00-0.03); Imm Gran Pct Auto 0.4 % (0.0-0.4); Lymphocytes Absolute Auto 3.7 X10*3/uL (1.2-4.9); Lymphocytes Percent Auto 32.6 % (20-40); Mean Corpuscular Hemoglobin 31.6 pg (27.0-33.0); Mean Corpuscular Volume 92.9 fL (80.0-98.0); Mean Platelet Volume 9.8 fL (9.4-12.4); Monocytes Percent Auto 8.9 % (2-11); Neutrophils Absolute Auto 6.2 x10*3/uL (2.0-8.3); Neutrophils Percent Auto 54.9 % (45-73); Platelet Count 284 X10*3/uL (160-400); Red Blood Count 5.07 X10*6/uL (4.60-5.80); Red Cell Distribution Width 13.5 % (11.0-16.0); White Blood Count 11.3 X10*3/uL (4.8-10.8)
[2022-09-28 14:23] LABS: Alanine Aminotransferase 42 U/L (0-40); Albumin Level 4.1 g/dL (3.5-5.0); Alkaline Phosphatase 79 U/L (39-117); Anion Gap 10 (12-20); Aspartate Amino Transferase 32 U/L (5-37); Bilirubin Total 0.7 mg/dL (0.0-1.0); Blood Urea Nitrogen 10 mg/dL (9-16); Calcium 9.2 mg/dL (8.4-10.2); Carbon Dioxide 27 mmol/L (22-29); Chloride 106 mmol/L (96-108); Estimated Glomerular Filt Rate > 60; Glucose Random 85 mg/dL (60-115); Potassium 3.9 mmol/L (3.3-5.1); Sodium 139 mmol/L (135-145); Total Protein 7.4 g/dL (6.5-8.0)
[2022-09-29 13:56] LABS: Adenovirus PCR Not Detected (Not Detect.); Bordetella parapertussis PCR Not Detected (Not Detect.); Bordetella pertussis PCR Not Detected (Not Detect.); Chlamydia pneumoniae PCR Not Detected (Not Detect.); Coronavirus 229E PCR Not Detected (Not Detect.); Coronavirus HKU1 PCR Not Detected (Not Detect.); Coronavirus NL63 PCR Not Detected (Not Detect.); Coronavirus OC43 PCR Not Detected (Not Detect.); Human metapneumovirus PCR Not Detected (Not Detect.); Influenza A PCR Not Detected (Not Detect.); Influenza B PCR Not Detected (Not Detect.); Mycoplasma pneumoniae PCR Not Detected (Not Detect.); Parainfluenza 1 PCR Not Detected (Not Detect.); Parainfluenza 2 PCR Not Detected (Not Detect.); Parainfluenza 3 PCR Not Detected (Not Detect.); Parainfluenza 4 PCR Not Detected (Not Detect.); RSV PCR Not Detected (Not Detect.); Rhino/Enterovirus PCR Not Detected (Not Detect.); SARS-CoV-2 PCR Not Detected (Not Detect.)
[2022-10-01 23:12] LABS: Strep Pneumo Ag urine Not Detected (Not Detected)
[2022-10-04 04:28] LABS: Legionella Ag Urine Not Detected (Not Detected)
== END 2022-09-28 12:10 | disposition home or self-care (01) ==
LOC: HO.HHCL 12:09
PROVIDERS: Visit Provider Student in an Organized Health Care Education/Training Program
DX: Z13.89 Encounter for screening for other disorder (principal)
CPT/HCPCS: 80053; 85025; 87449; 87633; 87899

== ENCOUNTER 2022-10-06 14:04 | Outpatient (AMB) | payer MEDICARE, MEDICAID, SELFPAY ==
[2022-10-06 14:15] LABS: Prothrombin Time Whole Bld POC 42.6 sec (11.1-13.5); ~PT, ~INR - Anti Coag Clinic 3.6 (0.9-1.1)
--- NOTE | 2022-10-06 14:17 | MHC.OFFVISCO ---
Intake Intake Visit Reasons: Anticoagulation Allergies No Known Allergies [No Known Allergies*] Allergy (Verified 10/06/22 14:04) Medication List - Last Reconciled 10/06/22 by Rozina Collier RN albuterol sulfate 90 mcg/actuation 2 puffs inhalation Q6H PRN atorvastatin 10 mg PO DAILY blood sugar diagnostic (FreeStyle Lite Strips) As directed buspirone 7.5 mg PO BID cholecalciferol (vitamin D3) 50 mcg PO DAILY clonazepam 0.5 mg PO BID PRN digoxin 250 mcg PO DAILY diltiazem HCl 180 mg PO DAILY empagliflozin (Jardiance) 10 mg PO QAM lancets (TRUEplus Lancets) As directed lisinopril 5 mg PO DAILY metformin ER 500 mg PO QPM metoprolol tartrate 200 mg PO BID sildenafil 25 mg PO DAILY PRN topiramate (Topamax) 25 mg PO DAILY PRN trazodone 1 tab PO BEDTIME warfarin 7.5 mg See Protocol PO DAILY Nursing Note Amb to [facility] feeling ok, sts had a bad cold, (new meds 09/29 never called) sts cold, fever congestion, negative covid Medications and supplements reviewed, new meds albuterol inhaler added to emar, amoxicillin completed and delsym completed discussed with pt amoxicillin increases INR delayed onset (per micromedex) No changes in health, diet, medications, or supplements Denies any unusual signs and symptoms of bruising, bleeding Denies any new Chest pain, SOB, or clotting INR: 3.6 above therapeutic range Nutritional guidance given:greens today and tomorrow then balance greens and reds in diet Dose: hold today secondary to elevated INR and potential for further elevation in INR secondary to completion amoxicillin the resume usual dosing 7.5mg daily on Sunday; F/U INR: 10 days Patient verbalizes understanding of instructions given with accurate read back/ teach back of dosing, reminder to call with any and aall medication changes Anti-Coag Initial Assessment Social Hx Patient Tobacco Use Status: Former Tobacco user alcohol intake: former Coding Level of Care Code Est Patient Level 1 Diagnoses Current use of anticoagulant therapy Z79.01 Time Spent (min) 15 Assessment & Plan Assessment & Plan (1) Current use of anticoagulant therapy: Code(s): Z79.01 - jail (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
== END 2022-10-06 14:46 | disposition home or self-care (01) ==
LOC: HO.ACS 14:04
PROVIDERS: Visit Provider Internal Medicine
DX: Z79.01 Long term (current) use of anticoagulants (principal)

== ENCOUNTER → 2022-10-06 14:04 | Outpatient (BNVA) | payer MEDICARE, MEDICAID, SELFPAY | PROVIDERS: Visit Provider Internal Medicine | DX: I48.20 Chronic atrial fibrillation, unspecified (principal); Z79.01 Long term (current) use of anticoagulants; Z51.81 Encounter for therapeutic drug level monitoring | CPT/HCPCS: 85610; 99211 ==

== ENCOUNTER 2022-10-17 14:38 | Outpatient (AMB) | payer MEDICARE, MEDICAID, SELFPAY ==
[2022-10-17 14:46] LABS: Prothrombin Time Whole Bld POC 40.8 sec (11.1-13.5); ~PT, ~INR - Anti Coag Clinic 3.4 (0.9-1.1)
--- NOTE | 2022-10-17 14:50 | MHC.OFFVISCO ---
Intake Intake Visit Reasons: Anticoagulation Allergies No Known Allergies [No Known Allergies*] Allergy (Verified 10/17/22 14:40) Medication List - Last Reconciled 10/17/22 by Rozina Collier RN albuterol sulfate 90 mcg/actuation 2 puffs inhalation Q6H PRN atorvastatin 10 mg PO DAILY blood sugar diagnostic (FreeStyle Lite Strips) As directed buspirone 7.5 mg PO BID cholecalciferol (vitamin D3) 50 mcg PO DAILY clonazepam 0.5 mg PO BID PRN digoxin 250 mcg PO DAILY diltiazem HCl 180 mg PO DAILY empagliflozin (Jardiance) 10 mg PO QAM lancets (TRUEplus Lancets) As directed lisinopril 5 mg PO DAILY metformin ER 500 mg PO QPM metoprolol tartrate 200 mg PO BID sildenafil 25 mg PO DAILY PRN topiramate (Topamax) 25 mg PO DAILY PRN trazodone 1 tab PO BEDTIME warfarin 7.5 mg See Protocol PO DAILY Nursing Note Amb to [facility] feeling hot, its warm out there Medications and supplements reviewed No changes in health, diet, medications, or supplements Denies any unusual signs and symptoms of bruising, bleeding Denies any new Chest pain, SOB, or clotting INR: 3.4 above therapeutic range, sts he has been eating the [place] tomatoes (will raise INR) Nutritional guidance given: greens today then balance greens and reds in diet Dose: decrease dose today to 3.75mg then resume usual dosing; 7.5mg daily F/U INR: 2 weeks Patient verbalizes understanding of instructions given with accurate read back/ teach back of dosing Anti-Coag Initial Assessment Social Hx Patient Tobacco Use Status: Former Tobacco user alcohol intake: former Coding Level of Care Code Est Patient Level 1 Diagnoses Current use of anticoagulant therapy Z79.01 Time Spent (min) 15 Assessment & Plan Assessment & Plan (1) Current use of anticoagulant therapy: Code(s): 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
== END 2022-10-17 14:59 | disposition home or self-care (01) ==
LOC: HO.ACS 14:38
PROVIDERS: Visit Provider Internal Medicine
DX: Z79.01 Long term (current) use of anticoagulants (principal)

== ENCOUNTER → 2022-10-17 14:38 | Outpatient (BNVA) | payer MEDICARE, MEDICAID, SELFPAY | PROVIDERS: Visit Provider Internal Medicine | DX: I48.20 Chronic atrial fibrillation, unspecified (principal); Z79.01 Long term (current) use of anticoagulants; Z51.81 Encounter for therapeutic drug level monitoring | CPT/HCPCS: 85610; 99211 ==

== ENCOUNTER 2022-11-07 14:27 | Outpatient (AMB) | payer MEDICARE, MEDICAID, SELFPAY ==
--- NOTE | 2022-11-07 14:33 | MHC.OFFVISCO ---
Intake Intake Visit Reasons: Anticoagulation Allergies No Known Allergies [No Known Allergies*] Allergy (Verified 11/07/22 14:30) Medication List - Last Reconciled 11/07/22 by Maria De Jesus Mojica RN albuterol sulfate 90 mcg/actuation 2 puffs inhalation Q6H PRN atorvastatin 10 mg PO DAILY blood sugar diagnostic (FreeStyle Lite Strips) As directed buspirone 7.5 mg PO BID cholecalciferol (vitamin D3) 50 mcg PO DAILY clonazepam 0.5 mg PO BID PRN digoxin 250 mcg PO DAILY diltiazem HCl 180 mg PO DAILY empagliflozin (Jardiance) 10 mg PO QAM lancets (TRUEplus Lancets) As directed lisinopril 5 mg PO DAILY metformin ER 500 mg PO QPM metoprolol tartrate 200 mg PO BID sildenafil 25 mg PO DAILY PRN topiramate (Topamax) 25 mg PO DAILY PRN trazodone 1 tab PO BEDTIME warfarin 7.5 mg See Protocol PO DAILY Nursing Note INR 3.2-? out of therapeutic range Medications and supplements reviewed Patient status: pt states covid positive approx 2 weeks ago, states cont with cough- productive with yellow phlegm- instructed to notify pcp with this Medications or supplements: taking nyquil which he finished and robitussin for cough prn Diet: appetite same Denies any signs and symptoms of bleeding or clotting or unusual bruising Bleeding, bruising, clotting discussed Nutritional guidance given: eat greens to lower inr- enc to eat more greens in weekly diet/ brocolli Dose: 7.5mg x 7 F/U INR Date : 2 weeks Patient verbalizing understanding of instructions given. prev elev inr due to antibiotics and increased reds in diet Anti-Coag Initial Assessment Social Hx Patient Tobacco Use Status: Former Tobacco user alcohol intake: former Coding Level of Care Code Est Patient Level 1 Diagnoses Current use of anticoagulant therapy Z79.01 Assessment & Plan Assessment & Plan (1) Current use of anticoagulant therapy: Code(s): Z79.01 - prison (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
[2022-11-07 14:34] LABS: Prothrombin Time Whole Bld POC 38.9 sec (11.1-13.5); ~PT, ~INR - Anti Coag Clinic 3.2 (0.9-1.1)
== END 2022-11-07 14:47 | disposition home or self-care (01) ==
LOC: HO.ACS 14:27
PROVIDERS: Visit Provider Internal Medicine
DX: Z79.01 Long term (current) use of anticoagulants (principal)

== ENCOUNTER → 2022-11-07 14:27 | Outpatient (BNVA) | payer MEDICARE, MEDICAID, SELFPAY | PROVIDERS: Visit Provider Internal Medicine | DX: I48.20 Chronic atrial fibrillation, unspecified (principal); Z79.01 Long term (current) use of anticoagulants; Z51.81 Encounter for therapeutic drug level monitoring | CPT/HCPCS: 85610; 99211 ==

== ENCOUNTER 2022-11-21 14:06 | Outpatient (AMB) | payer MEDICARE, MEDICAID, SELFPAY ==
--- NOTE | 2022-11-21 14:14 | MHC.OFFVISCO ---
Intake Intake Visit Reasons: Anticoagulation Allergies No Known Allergies [No Known Allergies*] Allergy (Verified 11/21/22 14:07) Medication List - Last Reconciled 11/21/22 by Rozina Collier RN albuterol sulfate 90 mcg/actuation 2 puffs inhalation Q6H PRN atorvastatin 10 mg PO DAILY blood sugar diagnostic (FreeStyle Lite Strips) As directed buspirone 7.5 mg PO BID clonazepam 0.5 mg PO BID PRN digoxin 250 mcg PO DAILY diltiazem HCl 180 mg PO DAILY empagliflozin (Jardiance) 10 mg PO QAM lancets (TRUEplus Lancets) As directed lisinopril 5 mg PO DAILY metformin ER 500 mg PO QPM metoprolol tartrate 200 mg PO BID sildenafil 25 mg PO DAILY PRN topiramate (Topamax) 25 mg PO DAILY PRN trazodone 1 tab PO BEDTIME warfarin 7.5 mg See Protocol PO DAILY Nursing Note Amb to [facility] feeling lousy, but a little better s/p Covid 1 month ago, continues with harsh non productive cough, sts he occassionally takes Robitussin for the cough encouraged F/U with PCP as continues with frequent harsh cough Medications and supplements reviewed No other changes in health, diet, medications, or supplements Denies any unusual signs and symptoms of bruising, bleeding Denies any new Chest pain, SOB, or clotting INR: 2.1 now in therapeutic range Nutritional guidance given: no greens today then balance greens and reds in diet Dose: continue usual dosing; 7.5mg daily F/U INR: 2 weeks Patient verbalizes understanding of instructions given with accurate read back/ teach back of dosing Anti-Coag Initial Assessment Social Hx Patient Tobacco Use Status: Former Tobacco user alcohol intake: former Coding Level of Care Code Est Patient Level 1 Diagnoses Current use of anticoagulant therapy Z79.01 Time Spent (min) 15 Assessment & Plan Assessment & Plan (1) Current use of anticoagulant therapy: Code(s): Z79.01 - 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
== END 2022-11-21 14:18 | disposition home or self-care (01) ==
LOC: HO.ACS 14:06
PROVIDERS: Visit Provider Internal Medicine
DX: Z79.01 Long term (current) use of anticoagulants (principal)

== ENCOUNTER → 2022-11-21 14:06 | Outpatient (BNVA) | payer MEDICARE, MEDICAID, SELFPAY | PROVIDERS: Visit Provider Internal Medicine | DX: I48.20 Chronic atrial fibrillation, unspecified (principal); Z79.01 Long term (current) use of anticoagulants; Z51.81 Encounter for therapeutic drug level monitoring | CPT/HCPCS: 85610; 99211 ==

== ENCOUNTER 2022-11-28 08:50 | Outpatient (REF) | payer MEDICARE, MEDICAID, SELFPAY ==
[2022-11-28 12:19] LABS: Blood Urea Nitrogen 9 mg/dL (9-16); Estimated Glomerular Filt Rate > 60
== END 2022-11-28 08:51 | disposition home or self-care (01) ==
LOC: HO.HHCL 08:50
PROVIDERS: Visit Provider Physician Assistant Medical
DX: Z01.812 Encounter for preprocedural laboratory examination (principal)
CPT/HCPCS: 36415; 82565; 84520

== ENCOUNTER 2022-12-05 14:09 | Outpatient (AMB) | payer MEDICARE, MEDICAID, SELFPAY ==
--- NOTE | 2022-12-05 14:23 | MHC.OFFVISCO ---
Intake Intake Visit Reasons: Anticoagulation Allergies No Known Allergies [No Known Allergies*] Allergy (Verified 12/05/22 14:18) Medication List - Last Reconciled 12/05/22 by Maria De Jesus Mojica RN albuterol sulfate 90 mcg/actuation 2 puffs inhalation Q6H PRN atorvastatin 10 mg PO DAILY blood sugar diagnostic (FreeStyle Lite Strips) As directed buspirone 7.5 mg PO BID clonazepam 0.5 mg PO BID PRN digoxin 250 mcg PO DAILY diltiazem HCl 180 mg PO DAILY empagliflozin (Jardiance) 10 mg PO QAM lancets (TRUEplus Lancets) As directed lisinopril 5 mg PO DAILY metformin ER 500 mg PO QPM metoprolol tartrate 200 mg PO BID sildenafil 25 mg PO DAILY PRN topiramate (Topamax) 25 mg PO DAILY PRN trazodone 1 tab PO BEDTIME warfarin 7.5 mg See Protocol PO DAILY Nursing Note INR: 2.6- in therapeutic range 2-3 Medications and supplements reviewed- NO CHANGES No changes in health, diet, medications, or supplements, Denies any signs and symptoms of bleeding or bruising or clotting. Bleeding, bruising, clotting discussed Nutritional guidance given Dose: 7.5mg x 7 F/U INR: 3 weeks Patient verbalizes understanding of instructions given pt states cough is less and that he is feeling better Anti-Coag Initial Assessment Social Hx Patient Tobacco Use Status: Former Tobacco user alcohol intake: former Coding Level of Care Code Est Patient Level 1 Diagnoses Current use of anticoagulant therapy Z79.01 Results AMB INR Fingerstick AMB INR Fingerstick 2.6 Last Edit by Maria De Jesus Mojica RN on 12/05/22 14:24 Assessment & Plan Assessment & Plan (1) Current use of anticoagulant therapy: Code(s): Z79.01 - alf (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
[2022-12-05 14:24] LABS: ~PT, ~INR - Anti Coag Clinic 2.6 (0.9-1.1)
== END 2022-12-05 14:32 | disposition home or self-care (01) ==
LOC: HO.ACS 14:09
PROVIDERS: Visit Provider Internal Medicine
DX: Z79.01 Long term (current) use of anticoagulants (principal)

== ENCOUNTER → 2022-12-05 14:09 | Outpatient (BNVA) | payer MEDICARE, MEDICAID, SELFPAY | PROVIDERS: Visit Provider Internal Medicine | DX: I48.20 Chronic atrial fibrillation, unspecified (principal); Z79.01 Long term (current) use of anticoagulants; Z51.81 Encounter for therapeutic drug level monitoring | CPT/HCPCS: 85610; 99211 ==

== ENCOUNTER 2022-12-26 14:06 | Outpatient (AMB) | payer MEDICARE, MEDICAID, SELFPAY ==
--- NOTE | 2022-12-26 14:17 | MHC.OFFVISCO ---
Intake Intake Visit Reasons: Anticoagulation Allergies No Known Allergies [No Known Allergies*] Allergy (Verified 12/26/22 14:07) Medication List - Last Reconciled 12/26/22 by Maria De Jesus Mojica RN albuterol sulfate 90 mcg/actuation 2 puffs inhalation Q6H PRN atorvastatin 10 mg PO DAILY blood sugar diagnostic (FreeStyle Lite Strips) As directed buspirone 7.5 mg PO BID clonazepam 0.5 mg PO BID PRN digoxin 250 mcg PO DAILY diltiazem HCl 180 mg PO DAILY empagliflozin (Jardiance) 10 mg PO QAM lancets (TRUEplus Lancets) As directed lisinopril 5 mg PO DAILY metformin ER 500 mg PO QPM metoprolol tartrate 200 mg PO BID sildenafil 25 mg PO DAILY PRN topiramate (Topamax) 25 mg PO DAILY PRN trazodone 1 tab PO BEDTIME warfarin 7.5 mg See Protocol PO DAILY Nursing Note INR: 3.0- in therapeutic range of 2-3 Medications and supplements reviewed- no changes No changes in health, diet, medications, or supplements, Denies any signs and symptoms of bleeding or bruising or clotting. 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
[2022-12-28 13:34] LABS: Prothrombin Time Whole Bld POC 35.6 sec (11.1-13.5)
== END 2022-12-26 14:22 | disposition home or self-care (01) ==
LOC: HO.ACS 14:06
PROVIDERS: Visit Provider Internal Medicine
DX: Z79.01 Long term (current) use of anticoagulants (principal)

== ENCOUNTER → 2022-12-26 14:06 | Outpatient (BNVA) | payer MEDICARE, MEDICAID, SELFPAY | PROVIDERS: Visit Provider Internal Medicine | DX: I48.20 Chronic atrial fibrillation, unspecified (principal); Z79.01 Long term (current) use of anticoagulants; Z51.81 Encounter for therapeutic drug level monitoring | CPT/HCPCS: 85610; 99211 ==

== ENCOUNTER 2023-01-16 14:41 | Outpatient (AMB) | payer MEDICARE, MEDICAID, SELFPAY ==
--- NOTE | 2023-01-16 14:52 | MHC.OFFVISCO ---
Intake Intake Visit Reasons: Anticoagulation Allergies No Known Allergies [No Known Allergies*] Allergy (Verified 01/16/23 14:49) Medication List - Last Reconciled 01/16/23 by Maria De Jesus Mojica RN albuterol sulfate 90 mcg/actuation 2 puffs inhalation Q6H PRN atorvastatin 10 mg PO DAILY blood sugar diagnostic (FreeStyle Lite Strips) As directed buspirone 7.5 mg PO BID clonazepam 0.5 mg PO BID PRN digoxin 250 mcg PO DAILY diltiazem HCl 180 mg PO DAILY empagliflozin (Jardiance) 10 mg PO QAM lancets (TRUEplus Lancets) As directed lisinopril 5 mg PO DAILY metformin ER 500 mg PO QPM metoprolol tartrate 200 mg PO BID sildenafil 25 mg PO DAILY PRN topiramate (Topamax) 25 mg PO DAILY PRN trazodone 1 tab PO BEDTIME warfarin 7.5 mg See Protocol PO DAILY Nursing Note INR: 3.0- in therapeutic range- of 2-3 Medications and supplements reviewed- no changes No changes in health, diet, medications, or supplements, Denies any signs and symptoms of bleeding or bruising or clotting. Bleeding, bruising, clotting discussed Nutritional guidance given - eat greens to lower inr Dose: 7.5mg x 7 F/U INR: 3 weeks Patient verbalizes understanding of instructions given Anti-Coag Initial Assessment Social Hx Patient Tobacco Use Status: Former Tobacco user alcohol intake: former Coding Level of Care Code Est Patient Level 1 Diagnoses Current use of anticoagulant therapy Z79.01 Results AMB INR Fingerstick AMB INR Fingerstick 3.0 Last Edit by Maria De Jesus Mojica RN on 01/16/23 14:54 Assessment & Plan Assessment & Plan (1) Current use of anticoagulant therapy: Code(s): Z79.01 - rn long term care (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
[2023-01-16 14:54] LABS: Prothrombin Time Whole Bld POC 36.2 sec (11.1-13.5)
== END 2023-01-16 15:18 | disposition home or self-care (01) ==
LOC: HO.ACS 14:41
PROVIDERS: Visit Provider Internal Medicine
DX: Z79.01 Long term (current) use of anticoagulants (principal)

== ENCOUNTER → 2023-01-16 14:41 | Outpatient (BNVA) | payer MEDICARE, MEDICAID, SELFPAY | PROVIDERS: Visit Provider Internal Medicine | DX: I48.20 Chronic atrial fibrillation, unspecified (principal); Z79.01 Long term (current) use of anticoagulants; Z51.81 Encounter for therapeutic drug level monitoring | CPT/HCPCS: 85610; 99211 ==

== ENCOUNTER 2023-02-06 14:13 | Outpatient (AMB) | payer MEDICARE, MEDICAID, SELFPAY ==
[2023-02-06 14:20] LABS: Prothrombin Time Whole Bld POC 28.6 sec (11.1-13.5); ~PT, ~INR - Anti Coag Clinic 2.4 (0.9-1.1)
--- NOTE | 2023-02-06 14:22 | MHC.OFFVISCO ---
Intake Intake Visit Reasons: Anticoagulation Allergies No Known Allergies [No Known Allergies*] Allergy (Verified 02/06/23 14:16) Medication List - Last Reconciled 02/06/23 by Rozina Collier RN albuterol sulfate 90 mcg/actuation 2 puffs inhalation Q6H PRN atorvastatin 10 mg PO DAILY blood sugar diagnostic (FreeStyle Lite Strips) As directed buspirone 7.5 mg PO BID clonazepam 0.5 mg PO BID PRN digoxin 250 mcg PO DAILY diltiazem HCl 180 mg PO DAILY empagliflozin (Jardiance) 10 mg PO QAM lancets (TRUEplus Lancets) As directed lisinopril 5 mg PO DAILY metformin ER 500 mg PO QPM metoprolol tartrate 200 mg PO BID sildenafil 25 mg PO DAILY PRN topiramate (Topamax) 25 mg PO DAILY PRN trazodone 1 tab PO BEDTIME warfarin 7.5 mg See Protocol PO DAILY Nursing Note Amb to [facility] feeling well, noted forehead diaphoersis, sts he was just cooking and it was hot in his kitchen Medications and supplements reviewed No changes in health, diet, medications, or supplements Denies any unusual signs and symptoms of bruising, bleeding Denies any new Chest pain, SOB, or clotting INR: 2.4 in therapeutic range Nutritional guidance given: balance greens and reds in diet, be consistent Dose: continue usual dosing; 7.5mg daily F/U INR: 4 weeks Patient verbalizes understanding of instructions given with accurate read back/ teach back of dosing, reminded to call if any new medications especially antibiotics Anti-Coag Initial Assessment Social Hx Patient Tobacco Use Status: Former Tobacco user alcohol intake: former Coding Level of Care Code Est Patient Level 1 Diagnoses Current use of anticoagulant therapy Z79.01 Time Spent (min) 15 Assessment & Plan Assessment & Plan (1) Current use of anticoagulant therapy: Code(s): Z79.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
== END 2023-02-06 14:27 | disposition home or self-care (01) ==
LOC: HO.ACS 14:13
PROVIDERS: Visit Provider Internal Medicine
DX: Z79.01 Long term (current) use of anticoagulants (principal)

== ENCOUNTER → 2023-02-06 14:13 | Outpatient (BNVA) | payer MEDICARE, MEDICAID, SELFPAY | PROVIDERS: Visit Provider Internal Medicine | DX: I48.20 Chronic atrial fibrillation, unspecified (principal); Z51.81 Encounter for therapeutic drug level monitoring; Z79.01 Long term (current) use of anticoagulants | CPT/HCPCS: 85610; 99211 ==

== ENCOUNTER 2023-03-06 14:05 | Outpatient (AMB) | payer MEDICARE, MEDICAID, SELFPAY ==
--- NOTE | 2023-03-06 14:15 | MHC.OFFVISCO ---
Intake Intake Visit Reasons: Anticoagulation Allergies No Known Allergies [No Known Allergies*] Allergy (Verified 03/06/23 14:12) Medication List - Last Reconciled 03/06/23 by Maria De Jesus Mojica RN albuterol sulfate 90 mcg/actuation 2 puffs inhalation Q6H PRN atorvastatin 10 mg PO DAILY blood sugar diagnostic (FreeStyle Lite Strips) As directed buspirone 7.5 mg PO BID clonazepam 0.5 mg PO BID PRN digoxin 250 mcg PO DAILY diltiazem HCl 180 mg PO DAILY empagliflozin (Jardiance) 10 mg PO QAM lancets (TRUEplus Lancets) As directed lisinopril 5 mg PO DAILY metformin ER 500 mg PO QPM metoprolol tartrate 200 mg PO BID sildenafil 25 mg PO DAILY PRN topiramate (Topamax) 25 mg PO DAILY PRN trazodone 1 tab PO BEDTIME warfarin 7.5 mg See Protocol PO DAILY Nursing Note INR 3.2-? out of therapeutic range Medications and supplements reviewed Patient status: no c.o Medications or supplements: no changes Diet: same Denies any signs and symptoms of bleeding or clotting or unusual bruising Bleeding, bruising, clotting discussed Nutritional guidance given: eat greens to lower Dose: cont same 7.5mg x 7 F/U INR Date : 3 weeks Patient verbalizing understanding of instructions given. Anti-Coag Initial Assessment Social Hx Patient Tobacco Use Status: Former Tobacco user alcohol intake: former Coding Level of Care Code Est Patient Level 1 Diagnoses Current use of anticoagulant therapy Z79.01 Assessment & Plan Assessment & Plan (1) Current use of anticoagulant therapy: Code(s): Z79.01 - [facility] (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
[2023-03-06 14:16] LABS: Prothrombin Time Whole Bld POC 38.4 sec (11.1-13.5); ~PT, ~INR - Anti Coag Clinic 3.2 (0.9-1.1)
== END 2023-03-06 14:33 | disposition home or self-care (01) ==
LOC: HO.ACS 14:05
PROVIDERS: Visit Provider Internal Medicine
DX: Z79.01 Long term (current) use of anticoagulants (principal)

== ENCOUNTER → 2023-03-06 14:05 | Outpatient (BNVA) | payer MEDICARE, MEDICAID, SELFPAY | PROVIDERS: Visit Provider Internal Medicine | DX: I48.20 Chronic atrial fibrillation, unspecified (principal); Z79.01 Long term (current) use of anticoagulants; Z51.81 Encounter for therapeutic drug level monitoring | CPT/HCPCS: 85610; 99211 ==

== ENCOUNTER 2023-03-28 14:07 | Outpatient (AMB) | payer MEDICARE, MEDICAID, SELFPAY ==
--- NOTE | 2023-03-28 14:13 | MHC.OFFVISCO ---
Intake Intake Visit Reasons: Anticoagulation Allergies No Known Allergies [No Known Allergies*] Allergy (Verified 03/28/23 14:10) Medication List - Last Reconciled 03/28/23 by Maria De Jesus Mojica RN albuterol sulfate 90 mcg/actuation 2 puffs inhalation Q6H PRN atorvastatin 10 mg PO DAILY blood sugar diagnostic (FreeStyle Lite Strips) As directed buspirone 7.5 mg PO BID clonazepam 0.5 mg PO BID PRN digoxin 250 mcg PO DAILY diltiazem HCl 180 mg PO DAILY empagliflozin (Jardiance) 10 mg PO QAM lancets (TRUEplus Lancets) As directed lisinopril 5 mg PO DAILY metformin ER 500 mg PO QPM metoprolol tartrate 200 mg PO BID sildenafil 25 mg PO DAILY PRN topiramate (Topamax) 25 mg PO DAILY PRN trazodone 1 tab PO BEDTIME warfarin 7.5 mg See Protocol PO DAILY Nursing Note INR 3.2-?? out of therapeutic range of 2-3 Medications and supplements reviewed Patient status: no c.o- pt unsure why inr is elev Medications or supplements: no changes Diet: does not eat many greens Denies any signs and symptoms of bleeding or clotting or unusual bruising Bleeding, bruising, clotting discussed Nutritional guidance given: eat greens to lower, increase greens in weekly diet Dose: 7.5mg x 7 F/U INR Date : pt req 3 weeks?? Patient verbalizing understanding of instructions given. 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
[2023-03-28 14:14] LABS: Prothrombin Time Whole Bld POC 37.9 sec (11.1-13.5); ~PT, ~INR - Anti Coag Clinic 3.2 (0.9-1.1)
== END 2023-03-28 15:05 | disposition home or self-care (01) ==
LOC: HO.ACS 14:07
PROVIDERS: Visit Provider Internal Medicine
DX: Z79.01 Long term (current) use of anticoagulants (principal)

== ENCOUNTER → 2023-03-28 14:07 | Outpatient (BNVA) | payer MEDICARE, MEDICAID, SELFPAY | PROVIDERS: Visit Provider Internal Medicine | DX: I48.20 Chronic atrial fibrillation, unspecified (principal); Z79.01 Long term (current) use of anticoagulants; Z51.81 Encounter for therapeutic drug level monitoring | CPT/HCPCS: 85610; 99211 ==

== ENCOUNTER 2023-04-17 14:03 | Outpatient (AMB) | payer MEDICARE, MEDICAID, SELFPAY ==
--- NOTE | 2023-04-17 14:20 | MHC.OFFVISCO ---
Intake Intake Visit Reasons: Anticoagulation Allergies No Known Allergies [No Known Allergies*] Allergy (Verified 04/17/23 14:09) Medication List - Last Reconciled 04/17/23 by Rozina Olmos RN albuterol sulfate 90 mcg/actuation 2 puffs inhalation Q6H PRN atorvastatin 10 mg PO DAILY blood sugar diagnostic (FreeStyle Lite Strips) As directed buspirone 7.5 mg PO BID clonazepam 0.5 mg PO BID PRN digoxin 250 mcg PO DAILY diltiazem HCl 180 mg PO DAILY empagliflozin (Jardiance) 10 mg PO QAM lancets (TRUEplus Lancets) As directed lisinopril 5 mg PO DAILY metformin ER 500 mg PO QPM metoprolol tartrate 200 mg PO BID sildenafil 25 mg PO DAILY PRN topiramate (Topamax) 25 mg PO DAILY PRN trazodone 1 tab PO BEDTIME warfarin 7.5 mg See Protocol PO DAILY Nursing Note INR: 2.2 in therapeutic range 2-3 Medications and supplements reviewed, no changes No changes in health, diet, medications, or supplements, Denies any signs and symptoms of bleeding or bruising or clotting. Bleeding, bruising, clotting discussed Nutritional guidance given , continue to balance greens and reds Dose: 7.5mg daily F/U INR: 1 month Patient verbalizes understanding of instructions given Anti-Coag Initial Assessment Social Hx Patient Tobacco Use Status: Former Tobacco user alcohol intake: former Coding Level of Care Code Est Patient Level 1 Diagnoses Current use of anticoagulant therapy Z79.01 Results AMB INR Fingerstick AMB INR Fingerstick 2.2 Last Edit by Rozina Olmos RN on 04/17/23 14:17 interface delay Assessment & Plan Assessment & Plan (1) Current use of anticoagulant therapy: Code(s): Z79.01 - nursing home (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
[2023-04-17 14:22] LABS: Prothrombin Time Whole Bld POC 25.9 sec (11.1-13.5); ~PT, ~INR - Anti Coag Clinic 2.2 (0.9-1.1)
== END 2023-04-17 14:26 | disposition home or self-care (01) ==
LOC: HO.ACS 14:03
PROVIDERS: Visit Provider Internal Medicine
DX: Z79.01 Long term (current) use of anticoagulants (principal)

== ENCOUNTER → 2023-04-17 14:03 | Outpatient (BNVA) | payer MEDICARE, MEDICAID, SELFPAY | PROVIDERS: Visit Provider Internal Medicine | DX: I48.20 Chronic atrial fibrillation, unspecified (principal); Z79.01 Long term (current) use of anticoagulants; Z51.81 Encounter for therapeutic drug level monitoring | CPT/HCPCS: 85610; 99211 ==

== ENCOUNTER 2023-05-15 14:20 | Outpatient (AMB) | payer MEDICARE, MEDICAID, SELFPAY ==
[2023-05-15 14:27] LABS: Prothrombin Time Whole Bld POC 50.4 sec (11.1-13.5); ~PT, ~INR - Anti Coag Clinic 4.2 (0.9-1.1)
--- NOTE | 2023-05-15 14:41 | MHC.OFFVISCO ---
Intake Intake Visit Reasons: Anticoagulation Allergies No Known Allergies [No Known Allergies*] Allergy (Verified 05/15/23 14:21) Medication List - Last Reconciled 05/15/23 by Rozina Olmos RN albuterol sulfate 90 mcg/actuation 2 puffs inhalation Q6H PRN atorvastatin 10 mg PO DAILY blood sugar diagnostic (FreeStyle Lite Strips) As directed buspirone 7.5 mg PO BID clonazepam 0.5 mg PO BID PRN digoxin 250 mcg PO DAILY diltiazem HCl 180 mg PO DAILY empagliflozin (Jardiance) 10 mg PO QAM lancets (TRUEplus Lancets) As directed lisinopril 5 mg PO DAILY metformin ER 500 mg PO QPM metoprolol tartrate 200 mg PO BID sildenafil 25 mg PO DAILY PRN topiramate (Topamax) 25 mg PO DAILY PRN trazodone 1 tab PO BEDTIME warfarin 7.5 mg See Protocol PO DAILY Nursing Note INR 4.2?out of therapeutic range of 2-3 Medications and supplements reviewed: no change Patient status: feels well, no change Medications or supplements: no change Diet: no change Denies any signs and symptoms of bleeding or clotting or unusual bruising Bleeding, bruising, clotting discussed. Pt understands his blood is thin Pt knows to not engage in any activity with threat of injury to cause bleeding or bruising Nutritional guidance given: to have a serving of greens today, avoid reds and then to balance reds and greens Dose: pt to hold today's dose and then resume usual dose of 7.5mg daily F/U INR Date : 1 week prefered but pt requests 2 weeks ? Patient verbalizing understanding of instructions given. Anti-Coag Initial Assessment Social Hx Patient Tobacco Use Status: Former Tobacco user alcohol intake: former Coding Level of Care Code Est Patient Level 1 Diagnoses Current use of anticoagulant therapy Z79.01 Results AMB INR Fingerstick AMB INR Fingerstick 4.2 Last Edit by Rozina Olmos RN on 05/15/23 14:34 interface delay Assessment & Plan Assessment & Plan (1) Current use of anticoagulant therapy: Code(s): Z79.01 - intermediate (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
== END 2023-05-15 14:46 | disposition home or self-care (01) ==
LOC: HO.ACS 14:20
PROVIDERS: Visit Provider Internal Medicine
DX: Z79.01 Long term (current) use of anticoagulants (principal)

== ENCOUNTER → 2023-05-15 14:20 | Outpatient (BNVA) | payer MEDICARE, MEDICAID, SELFPAY | PROVIDERS: Visit Provider Internal Medicine | DX: I48.20 Chronic atrial fibrillation, unspecified (principal); Z51.81 Encounter for therapeutic drug level monitoring; Z79.01 Long term (current) use of anticoagulants | CPT/HCPCS: 85610; 99211 ==

== ENCOUNTER 2023-05-29 14:14 | Outpatient (AMB) | payer MEDICARE, MEDICAID, SELFPAY ==
[2023-05-29 14:31] LABS: Prothrombin Time Whole Bld POC 45.1 sec (11.1-13.5); ~PT, ~INR - Anti Coag Clinic 3.8 (0.9-1.1)
--- NOTE | 2023-05-29 14:44 | MHC.OFFVISCO ---
Intake Intake Visit Reasons: Anticoagulation Allergies No Known Allergies [No Known Allergies*] Allergy (Verified 05/29/23 14:27) Medication List - Last Reconciled 05/29/23 by Rozina Olmos RN albuterol sulfate 90 mcg/actuation 2 puffs inhalation Q6H PRN atorvastatin 10 mg PO DAILY blood sugar diagnostic (FreeStyle Lite Strips) As directed buspirone 7.5 mg PO BID clonazepam 0.5 mg PO BID PRN digoxin 250 mcg PO DAILY diltiazem HCl CD 180 mg PO DAILY empagliflozin (Jardiance) 10 mg PO QAM lancets (TRUEplus Lancets) As directed lisinopril 5 mg PO DAILY metformin ER 500 mg PO QPM metoprolol tartrate 200 mg PO BID sildenafil 25 mg PO DAILY PRN topiramate (Topamax) 25 mg PO DAILY PRN trazodone 1 tab PO BEDTIME warfarin 7.5 mg See Protocol PO DAILY Nursing Note INR 3.8?out of therapeutic range Medications and supplements reviewed Patient status: pt denies changes Medications or supplements: pt states no new Diet: denies changes Denies any signs and symptoms of bleeding or clotting or unusual bruising Bleeding, bruising, clotting discussed Nutritional guidance given: to increase greens today and tomorrow Dose: hold today's dose and decrease weekly dose to 7.5mg X 6 days and 3.75mg X 1 day F/U INR Date : 2 weeks?? Patient verbalizing understanding of instructions given. Anti-Coag Initial Assessment Social Hx Patient Tobacco Use Status: Former Tobacco user alcohol intake: former Coding Level of Care Code Est Patient Level 1 Diagnoses Current use of anticoagulant therapy Z79.01 Assessment & Plan Assessment & Plan (1) Current use of anticoagulant therapy: Code(s): Z79.01 - senior living (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
== END 2023-05-29 14:52 | disposition home or self-care (01) ==
LOC: HO.ACS 14:14
PROVIDERS: Visit Provider Internal Medicine
DX: Z79.01 Long term (current) use of anticoagulants (principal)

== ENCOUNTER → 2023-05-29 14:14 | Outpatient (BNVA) | payer MEDICARE, MEDICAID, SELFPAY | PROVIDERS: Visit Provider Internal Medicine | DX: I48.20 Chronic atrial fibrillation, unspecified (principal); Z79.01 Long term (current) use of anticoagulants; Z51.81 Encounter for therapeutic drug level monitoring | CPT/HCPCS: 85610; 99211 ==

== ENCOUNTER 2023-06-12 14:30 | Outpatient (AMB) | payer MEDICARE, MEDICAID, SELFPAY ==
[2023-06-12 14:43] LABS: Prothrombin Time Whole Bld POC 31.7 sec (11.1-13.5); ~PT, ~INR - Anti Coag Clinic 2.6 (0.9-1.1)
--- NOTE | 2023-06-12 14:48 | MHC.OFFVISCO ---
Intake Intake Visit Reasons: Anticoagulation Allergies No Known Allergies [No Known Allergies*] Allergy (Verified 06/12/23 14:37) Medication List - Last Reconciled 06/12/23 by Trish Estrella RN albuterol sulfate 90 mcg/actuation 2 puffs inhalation Q6H PRN atorvastatin 10 mg PO DAILY blood sugar diagnostic (FreeStyle Lite Strips) As directed buspirone 7.5 mg PO BID clonazepam 0.5 mg PO BID PRN digoxin 250 mcg PO DAILY diltiazem HCl CD 180 mg PO DAILY empagliflozin (Jardiance) 10 mg PO QAM lancets (TRUEplus Lancets) As directed lisinopril 5 mg PO DAILY metformin ER 500 mg PO QPM metoprolol tartrate 200 mg PO BID sildenafil 25 mg PO DAILY PRN topiramate (Topamax) 25 mg PO DAILY PRN trazodone 1 tab PO BEDTIME warfarin 7.5 mg See Protocol PO DAILY Nursing Note INR: 2.6 in therapeutic range Medications and supplements reviewed No changes in health, diet, medications, or supplements, Denies any signs and symptoms of bleeding or bruising or clotting. 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
== END 2023-06-12 14:50 | disposition home or self-care (01) ==
LOC: HO.ACS 14:30
PROVIDERS: Visit Provider Internal Medicine
DX: Z79.01 Long term (current) use of anticoagulants (principal)

== ENCOUNTER → 2023-06-12 14:30 | Outpatient (BNVA) | payer MEDICARE, MEDICAID, SELFPAY | PROVIDERS: Visit Provider Internal Medicine | DX: I48.20 Chronic atrial fibrillation, unspecified (principal); Z51.81 Encounter for therapeutic drug level monitoring; Z79.01 Long term (current) use of anticoagulants | CPT/HCPCS: 85610; 99211 ==

== ENCOUNTER 2023-06-25 14:46 | Outpatient (AMB) | payer MEDICARE, MEDICAID, SELFPAY ==
[2023-06-25 14:54] LABS: Prothrombin Time Whole Bld POC 30.9 sec (11.1-13.5); ~PT, ~INR - Anti Coag Clinic 2.6 (0.9-1.1)
--- NOTE | 2023-06-25 15:00 | MHC.OFFVISCO ---
Intake Intake Visit Reasons: Anticoagulation Allergies No Known Allergies [No Known Allergies*] Allergy (Verified 06/25/23 14:46) Medication List - Last Reconciled 06/25/23 by Trish Estrella RN albuterol sulfate 90 mcg/actuation 2 puffs inhalation Q6H PRN atorvastatin 10 mg PO DAILY blood sugar diagnostic (FreeStyle Lite Strips) As directed buspirone 7.5 mg PO BID clonazepam 0.5 mg PO BID PRN digoxin 250 mcg PO DAILY diltiazem HCl CD 180 mg PO DAILY empagliflozin (Jardiance) 10 mg PO QAM lancets (TRUEplus Lancets) As directed lisinopril 5 mg PO DAILY metformin ER 500 mg PO QPM metoprolol tartrate 200 mg PO BID sildenafil 25 mg PO DAILY PRN topiramate (Topamax) 25 mg PO DAILY PRN trazodone 1 tab PO BEDTIME warfarin 7.5 mg See Protocol PO DAILY Nursing Note INR: 2.6 in therapeutic range - PT STATED 1 DAY HE DID NOT TAKE THE WARFARIN WHEN IT WAS A HALF A DOSE BECAUSE HE ATE BROCCOLI - It was explained greens lower your INR, and orange and reds can raise the INR and documented it on his paper - he was advised to follow warfarin dosing or call with any questions. Medications and supplements reviewed No changes in health, diet, medications, or supplements, Denies any signs and symptoms of bleeding or bruising or clotting. 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
== END 2023-06-25 15:03 | disposition home or self-care (01) ==
LOC: HO.ACS 14:46
PROVIDERS: Visit Provider Internal Medicine
DX: Z79.01 Long term (current) use of anticoagulants (principal)

== ENCOUNTER → 2023-06-25 14:46 | Outpatient (BNVA) | payer MEDICARE, MEDICAID, SELFPAY | PROVIDERS: Visit Provider Internal Medicine | DX: I48.20 Chronic atrial fibrillation, unspecified (principal); Z79.01 Long term (current) use of anticoagulants; Z51.81 Encounter for therapeutic drug level monitoring | CPT/HCPCS: 85610; 99211 ==

== ENCOUNTER 2023-07-16 14:17 | Outpatient (AMB) | payer MEDICARE, MEDICAID, SELFPAY ==
[2023-07-16 14:24] LABS: Prothrombin Time Whole Bld POC 42.6 sec (11.1-13.5); ~PT, ~INR - Anti Coag Clinic 3.6 (0.9-1.1)
--- NOTE | 2023-07-16 14:33 | MHC.OFFVISCO ---
Intake Intake Visit Reasons: Anticoagulation Allergies No Known Allergies [No Known Allergies*] Allergy (Verified 07/16/23 14:19) Medication List - Last Reconciled 07/16/23 by Rozina Olmos RN albuterol sulfate 90 mcg/actuation 2 puffs inhalation Q6H PRN atorvastatin 10 mg PO DAILY blood sugar diagnostic (FreeStyle Lite Strips) As directed buspirone 7.5 mg PO BID clonazepam 0.5 mg PO BID PRN digoxin 250 mcg PO DAILY diltiazem HCl CD 180 mg PO DAILY empagliflozin (Jardiance) 10 mg PO QAM lancets (TRUEplus Lancets) As directed lisinopril 5 mg PO DAILY metformin ER 500 mg PO QPM metoprolol tartrate 200 mg PO BID sildenafil 25 mg PO DAILY PRN topiramate (Topamax) 25 mg PO DAILY PRN trazodone 1 tab PO BEDTIME warfarin 7.5 mg See Protocol PO DAILY Nursing Note INR 3.6?out of therapeutic range of 2-3 Medications and supplements reviewed Patient status: well Medications or supplements: no changes Diet: usual diet for pt Denies any signs and symptoms of bleeding or clotting or unusual bruising Bleeding, bruising, clotting discussed Nutritional guidance given: to have a serving of greens today and tomorrow Dose: 7.5mg X 6 days and 3.75mg X 1 day F/U INR Date : 2 weeks?? Patient verbalizing understanding of instructions given. 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
== END 2023-07-16 14:37 | disposition home or self-care (01) ==
LOC: HO.ACS 14:17
PROVIDERS: Visit Provider Internal Medicine
DX: Z79.01 Long term (current) use of anticoagulants (principal)

== ENCOUNTER → 2023-07-16 14:17 | Outpatient (BNVA) | payer MEDICARE, MEDICAID, SELFPAY | PROVIDERS: Visit Provider Internal Medicine | DX: I48.20 Chronic atrial fibrillation, unspecified (principal); Z51.81 Encounter for therapeutic drug level monitoring; Z79.01 Long term (current) use of anticoagulants | CPT/HCPCS: 85610; 99211 ==

== ENCOUNTER → 2023-07-31 14:19 | Outpatient (BNVA) | payer MEDICARE, MEDICAID, SELFPAY | PROVIDERS: Visit Provider Internal Medicine | DX: I48.0 Paroxysmal atrial fibrillation (principal); Z79.01 Long term (current) use of anticoagulants; Z51.81 Encounter for therapeutic drug level monitoring | CPT/HCPCS: 85610; 99211 ==

== ENCOUNTER 2023-08-21 14:13 | Outpatient (AMB) | payer MEDICARE, MEDICAID, SELFPAY ==
[2023-08-21 14:22] LABS: Prothrombin Time Whole Bld POC 44.7 sec (11.1-13.5); ~PT, ~INR - Anti Coag Clinic 3.7 (0.9-1.1)
--- NOTE | 2023-08-21 14:29 | MHC.OFFVISCO ---
Intake Intake Visit Reasons: Anticoagulation Allergies No Known Allergies [No Known Allergies*] Allergy (Verified 08/21/23 14:18) Medication List - Last Reconciled 08/21/23 by Rozina Olmos RN albuterol sulfate 90 mcg/actuation 2 puffs inhalation Q6H PRN atorvastatin 10 mg PO DAILY blood sugar diagnostic (FreeStyle Lite Strips) As directed buspirone 7.5 mg PO BID clonazepam 0.5 mg PO BID PRN digoxin 250 mcg PO DAILY diltiazem HCl CD 180 mg PO DAILY empagliflozin (Jardiance) 10 mg PO QAM lancets (TRUEplus Lancets) As directed lisinopril 5 mg PO DAILY metformin ER 500 mg PO QPM metoprolol tartrate 200 mg PO BID sildenafil 25 mg PO DAILY PRN topiramate (Topamax) 25 mg PO DAILY PRN trazodone 1 tab PO BEDTIME warfarin 7.5 mg See Protocol PO DAILY Nursing Note INR 3.7?out of therapeutic range of 2-3 Medications and supplements reviewed Patient status: well Medications or supplements: no changes Diet: usual diet for pt Denies any signs and symptoms of bleeding or clotting or unusual bruising Bleeding, bruising, clotting discussed Nutritional guidance given: to have a serving of greens today Dose: decrease today's dose to 3.75mg then resume usual dose of 7.5mg X 6 days and 3.75mg X 1 day F/U INR Date : 2 weeks?? Patient verbalizing understanding of instructions given. Anti-Coag Initial Assessment Social Hx Patient Tobacco Use Status: Former Tobacco user alcohol intake: former Coding Level of Care Code Est Patient Level 1 Diagnoses Current use of anticoagulant therapy Z79.01 Results AMB INR Fingerstick AMB INR Fingerstick 3.7 Last Edit by Rozina Olmos RN on 08/21/23 14:22 interface delay Assessment & Plan Assessment & Plan (1) Current use of anticoagulant therapy: Code(s): Z79.01 - care home (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
== END 2023-08-21 14:32 | disposition home or self-care (01) ==
LOC: HO.ACS 14:13
PROVIDERS: Visit Provider Internal Medicine
DX: Z79.01 Long term (current) use of anticoagulants (principal)

== ENCOUNTER → 2023-08-21 14:13 | Outpatient (BNVA) | payer MEDICARE, MEDICAID, SELFPAY | PROVIDERS: Visit Provider Internal Medicine | DX: I48.0 Paroxysmal atrial fibrillation (principal); Z79.01 Long term (current) use of anticoagulants; Z51.81 Encounter for therapeutic drug level monitoring | CPT/HCPCS: 85610; 99211 ==

== ENCOUNTER 2023-09-04 14:10 | Outpatient (AMB) | payer MEDICARE, MEDICAID, SELFPAY ==
--- NOTE | 2023-09-04 14:23 | MHC.OFFVISCO ---
Intake Intake Visit Reasons: Anticoagulation Allergies No Known Allergies [No Known Allergies*] Allergy (Verified 09/04/23 14:19) Medication List - Last Reconciled 09/04/23 by Maria De Jesus Mojica RN albuterol sulfate 90 mcg/actuation 2 puffs inhalation Q6H PRN atorvastatin 10 mg PO DAILY blood sugar diagnostic (FreeStyle Lite Strips) As directed buspirone 7.5 mg PO BID clonazepam 0.5 mg PO BID PRN digoxin 250 mcg PO DAILY diltiazem HCl CD 180 mg PO DAILY empagliflozin (Jardiance) 10 mg PO QAM lancets (TRUEplus Lancets) As directed lisinopril 5 mg PO DAILY metformin ER 500 mg PO QPM metoprolol tartrate 200 mg PO BID sildenafil 25 mg PO DAILY PRN topiramate (Topamax) 25 mg PO DAILY PRN trazodone 1 tab PO BEDTIME warfarin 7.5 mg See Protocol PO DAILY Nursing Note INR: 2.4- in therapeutic range of 2-3 Medications and supplements reviewed No changes in health, diet, medications, or supplements, Denies any signs and symptoms of bleeding or bruising or clotting. 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
[2023-09-04 14:25] LABS: Prothrombin Time Whole Bld POC 28.9 sec (11.1-13.5); ~PT, ~INR - Anti Coag Clinic 2.4 (0.9-1.1)
== END 2023-09-04 14:29 | disposition home or self-care (01) ==
LOC: HO.ACS 14:10
PROVIDERS: Visit Provider Internal Medicine
DX: Z79.01 Long term (current) use of anticoagulants (principal)

== ENCOUNTER → 2023-09-04 14:10 | Outpatient (BNVA) | payer MEDICARE, MEDICAID, SELFPAY | PROVIDERS: Visit Provider Internal Medicine | DX: I48.20 Chronic atrial fibrillation, unspecified (principal); Z79.01 Long term (current) use of anticoagulants; Z51.81 Encounter for therapeutic drug level monitoring | CPT/HCPCS: 85610; 99211 ==

== ENCOUNTER 2023-10-02 14:10 | Outpatient (AMB) | payer MEDICARE, MEDICAID, SELFPAY ==
--- NOTE | 2023-10-02 14:23 | MHC.OFFVISCO ---
Intake Intake Visit Reasons: Anticoagulation Allergies No Known Allergies [No Known Allergies*] Allergy (Verified 10/02/23 14:20) Medication List - Last Reconciled 10/02/23 by Maria De Jesus Mojica RN albuterol sulfate 90 mcg/actuation 2 puffs inhalation Q6H PRN atorvastatin 10 mg PO DAILY blood sugar diagnostic (FreeStyle Lite Strips) As directed buspirone 7.5 mg PO BID clonazepam 0.5 mg PO BID PRN digoxin 250 mcg PO DAILY diltiazem HCl CD 180 mg PO DAILY empagliflozin (Jardiance) 10 mg PO QAM lancets (TRUEplus Lancets) As directed lisinopril 5 mg PO DAILY metformin ER 500 mg PO QPM metoprolol tartrate 200 mg PO BID sildenafil 25 mg PO DAILY PRN topiramate (Topamax) 25 mg PO DAILY PRN trazodone 1 tab PO BEDTIME warfarin 7.5 mg See Protocol PO DAILY Nursing Note INR 3.5-? out of therapeutic range of 2-3 Medications and supplements reviewed Patient status: no c.o, pt unsure why inr is elev Medications or supplements: no c.o Diet: same Denies any signs and symptoms of bleeding or clotting or unusual bruising Bleeding, bruising, clotting discussed Nutritional guidance given: eat greens today Dose: 3.75mg today then cont reg 7.5mg x 6 3.75mg x 1 F/U INR Date : 2 weeks? Patient verbalizing understanding of instructions given. Anti-Coag Initial Assessment Social Hx Patient Tobacco Use Status: Former Tobacco user alcohol intake: former Coding Level of Care Code Est Patient Level 1 Diagnoses Current use of anticoagulant therapy Z79.01 Results AMB INR Fingerstick AMB INR Fingerstick 3.5 Last Edit by Maria De Jesus Mojica RN on 10/02/23 14:25 interface delay Assessment & Plan Assessment & Plan (1) Current use of anticoagulant therapy: Code(s): Z79.01 - senior living (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
[2023-10-02 14:25] LABS: Prothrombin Time Whole Bld POC 41.6 sec (11.1-13.5); ~PT, ~INR - Anti Coag Clinic 3.5 (0.9-1.1)
== END 2023-10-02 14:28 | disposition home or self-care (01) ==
LOC: HO.ACS 14:10
PROVIDERS: Visit Provider Internal Medicine
DX: Z79.01 Long term (current) use of anticoagulants (principal)

== ENCOUNTER → 2023-10-02 14:10 | Outpatient (BNVA) | payer MEDICARE, MEDICAID, SELFPAY | PROVIDERS: Visit Provider Internal Medicine | DX: I48.20 Chronic atrial fibrillation, unspecified (principal); Z79.01 Long term (current) use of anticoagulants; Z51.81 Encounter for therapeutic drug level monitoring | CPT/HCPCS: 85610; 99211 ==

== ENCOUNTER 2023-10-02 15:45 | Outpatient (REF) | payer MEDICARE, MEDICAID, SELFPAY | END 2023-10-02 15:46 | disposition home or self-care (01) | LOC: HO.SH 15:45 | PROVIDERS: Visit Provider Registered Nurse | DX: Z01.118 Encounter for examination of ears and hearing with other abnormal findings (principal); H93.293 Other abnormal auditory perceptions, bilateral | CPT/HCPCS: 92557; 92567 ==

== ENCOUNTER 2023-10-16 14:04 | Outpatient (AMB) | payer MEDICARE, MEDICAID, SELFPAY ==
[2023-10-16 14:30] LABS: Prothrombin Time Whole Bld POC 30.4 sec (11.1-13.5); ~PT, ~INR - Anti Coag Clinic 2.5 (0.9-1.1)
--- NOTE | 2023-10-16 14:35 | MHC.OFFVISCO ---
Intake Intake Visit Reasons: Anticoagulation Allergies No Known Allergies [No Known Allergies*] Allergy (Verified 10/16/23 14:25) Medication List - Last Reconciled 10/16/23 by Rozina Olmos RN albuterol sulfate 90 mcg/actuation 2 puffs inhalation Q6H PRN atorvastatin 10 mg PO DAILY blood sugar diagnostic (FreeStyle Lite Strips) As directed buspirone 7.5 mg PO BID clonazepam 0.5 mg PO BID PRN digoxin 250 mcg PO DAILY diltiazem HCl CD 180 mg PO DAILY empagliflozin (Jardiance) 10 mg PO QAM lancets (TRUEplus Lancets) As directed lisinopril 5 mg PO DAILY metformin ER 500 mg PO QPM metoprolol tartrate 200 mg PO BID sildenafil 25 mg PO DAILY PRN topiramate (Topamax) 25 mg PO DAILY PRN trazodone 1 tab PO BEDTIME warfarin 7.5 mg See Protocol PO DAILY Nursing Note INR: 2.5 in therapeutic range of 2-3 Medications and supplements reviewed No changes in health, diet, medications, or supplements, Denies any signs and symptoms of bleeding or bruising or clotting. Bleeding, bruising, clotting discussed Nutritional guidance given to continue to balance reds and greens Dose: continue same dose of 7.5mg X 6 days and 3.75mg X 1 day F/U INR: 3 weeks Patient verbalizes understanding of instructions given Anti-Coag Initial Assessment Social Hx Patient Tobacco Use Status: Former Tobacco user alcohol intake: former Coding Level of Care Code Est Patient Level 1 Diagnoses Current use of anticoagulant therapy Z79.01 Results AMB INR Fingerstick AMB INR Fingerstick 2.5 Last Edit by Rozina Olmos RN on 10/16/23 14:30 interface delay Assessment & Plan Assessment & Plan (1) Current use of anticoagulant therapy: 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
== END 2023-10-16 14:38 | disposition home or self-care (01) ==
LOC: HO.ACS 14:04
PROVIDERS: Visit Provider Internal Medicine
DX: Z79.01 Long term (current) use of anticoagulants (principal)

== ENCOUNTER → 2023-10-16 14:04 | Outpatient (BNVA) | payer MEDICARE, MEDICAID, SELFPAY | PROVIDERS: Visit Provider Internal Medicine | DX: I48.20 Chronic atrial fibrillation, unspecified (principal); Z79.01 Long term (current) use of anticoagulants; Z51.81 Encounter for therapeutic drug level monitoring | CPT/HCPCS: 85610; 99211 ==

== ENCOUNTER 2023-11-06 14:16 | Outpatient (AMB) | payer MEDICARE, MEDICAID, SELFPAY ==
[2023-11-06 14:24] LABS: Prothrombin Time Whole Bld POC 51.2 sec (11.1-13.5); ~PT, ~INR - Anti Coag Clinic 4.3 (0.9-1.1)
--- NOTE | 2023-11-06 14:29 | MHC.OFFVISCO ---
Intake Intake Visit Reasons: Anticoagulation Allergies No Known Allergies [No Known Allergies*] Allergy (Verified 11/06/23 14:19) Medication List - Last Reconciled 11/06/23 by Rozina Olmos RN albuterol sulfate 90 mcg/actuation 2 puffs inhalation Q6H PRN atorvastatin 10 mg PO DAILY blood sugar diagnostic (FreeStyle Lite Strips) As directed buspirone 7.5 mg PO BID clonazepam 0.5 mg PO BID PRN digoxin 250 mcg PO DAILY diltiazem HCl CD 180 mg PO DAILY empagliflozin (Jardiance) 10 mg PO QAM lancets (TRUEplus Lancets) As directed lisinopril 5 mg PO DAILY metformin ER 500 mg PO QPM metoprolol tartrate 200 mg PO BID sildenafil 25 mg PO DAILY PRN topiramate (Topamax) 25 mg PO DAILY PRN trazodone 1 tab PO BEDTIME warfarin 7.5 mg See Protocol PO DAILY Nursing Note INR 4.3?out of therapeutic range of 2-3 Pt knew the INR would be high because he said he had cantaloupe yesterday. When asked how much, he said the whole cantaloupe. Medications and supplements reviewed Patient status: feels well Medications or supplements: no changes Diet: usual diet for pt Denies any signs and symptoms of bleeding or clotting or unusual bruising Bleeding, bruising, clotting discussed Nutritional guidance given: to balance greens and reds Dose: hold today's dose of 7.5mg then resume usual dose of 7.5mg X 6 days and 3.75mg X 1 day (Sun) F/U INR Date : 2 weeks?? Patient verbalizing understanding of instructions given. 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
== END 2023-11-06 14:35 | disposition home or self-care (01) ==
LOC: HO.ACS 14:16
PROVIDERS: Visit Provider Internal Medicine
DX: Z79.01 Long term (current) use of anticoagulants (principal)

== ENCOUNTER → 2023-11-06 14:16 | Outpatient (BNVA) | payer MEDICARE, MEDICAID, SELFPAY | PROVIDERS: Visit Provider Internal Medicine | DX: I48.20 Chronic atrial fibrillation, unspecified (principal); Z79.01 Long term (current) use of anticoagulants; Z51.81 Encounter for therapeutic drug level monitoring | CPT/HCPCS: 85610; 99211 ==

== ENCOUNTER 2023-11-20 14:01 | Outpatient (AMB) | payer MEDICARE, MEDICAID, SELFPAY ==
[2023-11-20 14:07] LABS: Prothrombin Time Whole Bld POC 31.6 sec (11.1-13.5); ~PT, ~INR - Anti Coag Clinic 2.6 (0.9-1.1)
--- NOTE | 2023-11-20 14:09 | MHC.OFFVISCO ---
Intake Intake Visit Reasons: Anticoagulation Allergies No Known Allergies [No Known Allergies*] Allergy (Verified 11/20/23 14:02) Medication List - Last Reconciled 11/20/23 by Rozina Olmos RN albuterol sulfate 90 mcg/actuation 2 puffs inhalation Q6H PRN atorvastatin 10 mg PO DAILY blood sugar diagnostic (FreeStyle Lite Strips) As directed buspirone 7.5 mg PO BID clonazepam 0.5 mg PO BID PRN digoxin 250 mcg PO DAILY diltiazem HCl CD 180 mg PO DAILY empagliflozin (Jardiance) 10 mg PO QAM lancets (TRUEplus Lancets) As directed lisinopril 5 mg PO DAILY metformin ER 500 mg PO QPM metoprolol tartrate 200 mg PO BID sildenafil 25 mg PO DAILY PRN topiramate (Topamax) 25 mg PO DAILY PRN trazodone 1 tab PO BEDTIME warfarin 7.5 mg See Protocol PO DAILY Nursing Note INR: 2.6 in therapeutic range of 2-3 Medications and supplements reviewed No changes in health, diet, medications, or supplements, Denies any signs and symptoms of bleeding or bruising or clotting. Bleeding, bruising, clotting discussed Nutritional guidance given to balance greens and reds Dose: resume usual dose of 7.5mg X 6 days and 3.75mg X 1 day (Sun) F/U INR: 3 weeks Patient verbalizes understanding of instructions given Anti-Coag Initial Assessment Social Hx Patient Tobacco Use Status: Former Tobacco user alcohol intake: former Coding Level of Care Code Est Patient Level 1 Diagnoses Current use of anticoagulant therapy Z79.01 Results AMB INR Fingerstick AMB INR Fingerstick 2.6 Last Edit by Rozina Olmos RN on 11/20/23 14:09 interface delay Assessment & Plan Assessment & Plan (1) Current use of anticoagulant therapy: Code(s): Z79.01 - prison (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
== END 2023-11-20 14:14 | disposition home or self-care (01) ==
LOC: HO.ACS 14:01
PROVIDERS: PCP Registered Nurse; Visit Provider Internal Medicine
DX: Z79.01 Long term (current) use of anticoagulants (principal)

== ENCOUNTER → 2023-11-20 14:01 | Outpatient (BNVA) | payer MEDICARE, MEDICAID, SELFPAY | PROVIDERS: PCP Registered Nurse; Visit Provider Internal Medicine | DX: I48.20 Chronic atrial fibrillation, unspecified (principal); Z79.01 Long term (current) use of anticoagulants; Z51.81 Encounter for therapeutic drug level monitoring | CPT/HCPCS: 85610; 99211 ==

== ENCOUNTER 2023-12-11 13:57 | Outpatient (AMB) | payer MEDICARE, MEDICAID, SELFPAY ==
[2023-12-11 14:08] LABS: Prothrombin Time Whole Bld POC 25.9 sec (11.1-13.5); ~PT, ~INR - Anti Coag Clinic 2.2 (0.9-1.1)
--- NOTE | 2023-12-11 14:11 | MHC.OFFVISCO ---
Intake Intake Visit Reasons: Anticoagulation Allergies No Known Allergies [No Known Allergies*] Allergy (Verified 12/11/23 14:00) Medication List - Last Reconciled 12/11/23 by Rozina Olmos RN albuterol sulfate 90 mcg/actuation 2 puffs inhalation Q6H PRN atorvastatin 10 mg PO DAILY blood sugar diagnostic (FreeStyle Lite Strips) As directed buspirone 7.5 mg PO BID clonazepam 0.5 mg PO BID PRN digoxin 250 mcg PO DAILY diltiazem HCl CD 180 mg PO DAILY empagliflozin (Jardiance) 10 mg PO QAM lancets (TRUEplus Lancets) As directed lisinopril 5 mg PO DAILY metformin ER 500 mg PO QPM metoprolol tartrate 200 mg PO BID sildenafil 25 mg PO DAILY PRN topiramate (Topamax) 25 mg PO DAILY PRN trazodone 1 tab PO BEDTIME warfarin 7.5 mg See Protocol PO DAILY Nursing Note INR: 2.2 in therapeutic range of 2-3 Medications and supplements reviewed No changes in health, diet, medications, or supplements, Denies any signs and symptoms of bleeding or bruising or clotting. 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
== END 2023-12-11 14:12 | disposition home or self-care (01) ==
LOC: HO.ACS 13:57
PROVIDERS: PCP Registered Nurse; Visit Provider Internal Medicine
DX: Z79.01 Long term (current) use of anticoagulants (principal)

== ENCOUNTER → 2023-12-11 13:57 | Outpatient (BNVA) | payer MEDICARE, MEDICAID, SELFPAY | PROVIDERS: PCP Registered Nurse; Visit Provider Internal Medicine | DX: I48.20 Chronic atrial fibrillation, unspecified (principal); Z79.01 Long term (current) use of anticoagulants; Z51.81 Encounter for therapeutic drug level monitoring | CPT/HCPCS: 85610; 99211 ==

== ENCOUNTER 2024-01-01 14:00 | Outpatient (AMB) | payer MEDICARE, MEDICAID, SELFPAY ==
--- NOTE | 2024-01-01 14:26 | MHC.OFFVISCO ---
Intake Intake Visit Reasons: Anticoagulation Allergies No Known Allergies [No Known Allergies*] Allergy (Verified 01/01/24 14:09) Medication List - Last Reconciled 01/01/24 by Rozina Olmos RN albuterol sulfate 90 mcg/actuation 2 puffs inhalation Q6H PRN atorvastatin 10 mg PO DAILY blood sugar diagnostic (FreeStyle Lite Strips) As directed buspirone 7.5 mg PO BID clonazepam 0.5 mg PO BID PRN digoxin 250 mcg PO DAILY diltiazem HCl CD 180 mg PO DAILY empagliflozin (Jardiance) 10 mg PO QAM lancets (TRUEplus Lancets) As directed lisinopril 5 mg PO DAILY metformin ER 500 mg PO QPM metoprolol tartrate 200 mg PO BID sildenafil 25 mg PO DAILY PRN topiramate (Topamax) 25 mg PO DAILY PRN trazodone 1 tab PO BEDTIME warfarin 7.5 mg See Protocol PO DAILY Nursing Note INR 3.7?out of therapeutic range of 2-3 Medications and supplements reviewed Warfarin dose verified with pt. He has been having a whole tablet of 7.5mg on Fridays the past 2 weeks when his dose id supposed to be 3.75mg. He is aware and will correct this. Asked if there is a better day for him to take a half dose but he says no Fridays are just as good as any. Patient status: well Medications or supplements: no changes Diet: usual diet for pt Denies any signs and symptoms of bleeding or clotting or unusual bruising Bleeding, bruising, clotting discussed Nutritional guidance given: to have a serving of greens today Dose: 7.5mg X 6 days and 3.75mg X 1 day (Sun) F/U INR Date : 2 weeks?? Patient verbalizing understanding of instructions given. Anti-Coag Initial Assessment Social Hx Patient Tobacco Use Status: Former Tobacco user alcohol intake: former Coding Level of Care Code Est Patient Level 1 Diagnoses Current use of anticoagulant therapy Z79.01 Results AMB INR Fingerstick AMB INR Fingerstick 3.7 Last Edit by Rozina Olmos RN on 01/01/24 14:12 interface delay Assessment & Plan Assessment & Plan (1) Current use of anticoagulant therapy: Code(s): Z79.01 - jail (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
[2024-01-01 14:39] LABS: Prothrombin Time Whole Bld POC 44.7 sec (11.1-13.5); ~PT, ~INR - Anti Coag Clinic 3.7 (0.9-1.1)
== END 2024-01-01 14:32 | disposition home or self-care (01) ==
LOC: HO.ACS 14:00
PROVIDERS: PCP Registered Nurse; Visit Provider Internal Medicine
DX: Z79.01 Long term (current) use of anticoagulants (principal)

== ENCOUNTER → 2024-01-01 14:00 | Outpatient (BNVA) | payer MEDICARE, MEDICAID, SELFPAY | PROVIDERS: PCP Registered Nurse; Visit Provider Internal Medicine | DX: I48.20 Chronic atrial fibrillation, unspecified (principal); Z79.01 Long term (current) use of anticoagulants; Z51.81 Encounter for therapeutic drug level monitoring | CPT/HCPCS: 85610; 99211 ==

== ENCOUNTER 2024-01-15 14:27 | Outpatient (AMB) | payer MEDICARE, MEDICAID, SELFPAY ==
[2024-01-15 14:37] LABS: Prothrombin Time Whole Bld POC 39.1 sec (11.1-13.5); ~PT, ~INR - Anti Coag Clinic 3.3 (0.9-1.1)
--- NOTE | 2024-01-15 14:42 | MHC.OFFVISCO ---
Intake Intake Visit Reasons: Anticoagulation Allergies No Known Allergies [No Known Allergies*] Allergy (Verified 01/15/24 14:30) Medication List - Last Reconciled 01/15/24 by Trish Estrella RN albuterol sulfate 90 mcg/actuation 2 puffs inhalation Q6H PRN atorvastatin 20 mg PO DAILY blood sugar diagnostic (FreeStyle Lite Strips) As directed buspirone 7.5 mg PO BID clonazepam 0.5 mg PO BID PRN digoxin 250 mcg PO DAILY diltiazem HCl CD 180 mg PO DAILY empagliflozin (Jardiance) 10 mg PO QAM lancets (TRUEplus Lancets) As directed lisinopril 5 mg PO DAILY metformin ER 500 mg PO QPM metoprolol tartrate 200 mg PO BID sildenafil 25 mg PO DAILY PRN topiramate (Topamax) 25 mg PO DAILY PRN trazodone 50 mg PO BEDTIME PRN warfarin 7.5 mg See Protocol PO DAILY Nursing Note INR: 3.3 ALMOST therapeutic range Medications and supplements reviewed SOME dietary changes in diet over - ate more pumpkin than usual Denies any signs and symptoms of bleeding or bruising or clotting. Bleeding, bruising, clotting discussed Nutritional guidance given - eat greens today and weekly such as broccoli and avocado Dose: keep the same for now 7.5mg x 6 days/ 3.76mg x 1 day F/U INR: 2 weeks if stable INR then go 3 weeks Patient verbalizes understanding of instructions given Anti-Coag Initial Assessment Social Hx Patient Tobacco Use Status: Former Tobacco user alcohol intake: former Questionnaires HAS-BLED Does the patient had uncontrolled Hypertension?: No Does the patient have renal disease?: No Does the patient have liver disease?: No Does the patient have a history of stroke?: No Has the patient had major bleeding or predisposition to bleeding?: No Does the patient have labile INRs?: Yes Is the patient over 65 years of age?: No Is the patient on medications that gives them a predisposition to bleeding?: Yes (warfarin) Does the patient use alcohol?: No HAS-BLED Score: 2 CHADSVASC Age: <65 Gender: Male Does the patient have a history of CHF?: Yes Does the patient have a history of Hypertension?: Yes Does the patient have a history of Stroke/TIA/Thromboembolism?: No Does the patient have a history of Vascular Disease (prior NC, PAD or aortic plaque)?: No Does the patient have a history of Diabetes?: Yes CHADS VACS Score: 3 Jordan Prediction Score Rsk VTE Active Cancer: No Previous VTE, excluding superficial vein thrombosis: No Reduced mobility: No Already known Thrombophilic Condition: No (afib) With-in last month Trauma and/or Surgery: No Elderly 70 year or older: No Heart and/or Respiratory Failure: Yes Acute Myocardial infarction and/or Ischemic Stroke: No Acute Infection and/or Rheumatologic Disorder: No Obesity (BMI 30 or greater): No Ongoing Hormonal Treatment: No Score: 1 Jordan Score less than 4; Low Risk of VTE Jordan Score 4 or greater; High Risk of VTE Coding Level of Care Code Est Patient Level 1 Diagnoses Current use of anticoagulant therapy Z79.01 Results AMB INR Fingerstick AMB INR Fingerstick 3.3 Last Edit by Trish Estrella RN on 01/15/24 14:37 MANUAL ENTRY DUE TO FAILED INTERFACING Assessment & Plan Assessment & Plan (1) Current use of anticoagulant therapy: Code(s): 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
== END 2024-01-15 14:50 | disposition home or self-care (01) ==
LOC: HO.ACS 14:27
PROVIDERS: PCP Registered Nurse; Visit Provider Internal Medicine
DX: Z79.01 Long term (current) use of anticoagulants (principal)

== ENCOUNTER → 2024-01-15 14:27 | Outpatient (BNVA) | payer MEDICARE, MEDICAID, SELFPAY | PROVIDERS: PCP Registered Nurse; Visit Provider Internal Medicine | DX: I48.20 Chronic atrial fibrillation, unspecified (principal); Z79.01 Long term (current) use of anticoagulants; Z51.81 Encounter for therapeutic drug level monitoring | CPT/HCPCS: 85610; 99211 ==

== ENCOUNTER 2024-01-17 12:05 | Outpatient (REF) | payer MEDICARE, MEDICAID, SELFPAY ==
[2024-01-17 12:51] LABS: MANUAL DIFF FLAG NO
[2024-01-17 13:07] LABS: Basophils Absolute Auto 0.1 X10*3/uL (0.0-0.2); Basophils Percent Auto 0.6 % (0-2); Eosinophils Absolute Auto 0.2 X10*3/uL (0.0-0.4); Eosinophils Percent Auto 1.8 % (0-4); Hematocrit 47.5 % (42.0-52.0); Hemoglobin 15.8 g/dl (14.0-18.0); Imm Gran Abs Auto 0.05 X10*3/uL (0.00-0.03); Imm Gran Pct Auto 0.4 % (0.0-0.4); Lymphocytes Absolute Auto 3.3 X10*3/uL (1.2-4.9); Lymphocytes Percent Auto 29.3 % (20-40); Mean Corpuscular HGB Conc 33.3 g/dl (31.0-36.0); Mean Corpuscular Hemoglobin 31.4 pg (27.0-33.0); Mean Corpuscular Volume 94.4 fL (80.0-98.0); Mean Platelet Volume 9.6 fL (9.4-12.4); Monocytes Absolute Auto 0.9 X10*3/uL (0.1-1.2); Monocytes Percent Auto 8.1 % (2-11); Neutrophils Absolute Auto 6.8 x10*3/uL (2.0-8.3); Neutrophils Percent Auto 59.8 % (45-73); Platelet Count 245 X10*3/uL (160-400); Red Blood Count 5.03 X10*6/uL (4.60-5.80); Red Cell Distribution Width 13.8 % (11.0-16.0); White Blood Count 11.4 X10*3/uL (4.8-10.8)
[2024-01-17 13:11] LABS: INTERNATIONAL NORM RATIO 1.8 (0.9-1.1); Prothrombin Time 21.1 SEC (10.9-12.4)
[2024-01-17 13:14] LABS: Partial Thromboplastin Time 44.7 SEC (26.0-36.8)
[2024-01-17 13:15] LABS: Anion Gap 11 (12-20); Blood Urea Nitrogen 9 mg/dL (9-16); Calcium 8.8 mg/dL (8.4-10.2); Carbon Dioxide 26 mmol/L (22-29); Chloride 106 mmol/L (96-108); Cholesterol 96 mg/dL (<200); Estimated Glomerular Filt Rate > 60; Glucose Random 95 mg/dL (60-115); HDL Cholesterol 24 mg/dL (>40); LDL Cholesterol Calculated 12 mg/dL (<100); Potassium 4.4 mmol/L (3.3-5.1); Sodium 139 mmol/L (135-145); Triglycerides 301 mg/dL (<150)
[2024-01-17 13:33] LABS: B Type Natriuretic Peptide 95 pg/mL (<100)
== END 2024-01-17 12:06 | disposition home or self-care (01) ==
LOC: HO.HHCL 12:05
PROVIDERS: Visit Provider Internal Medicine Cardiovascular Disease
DX: Z01.810 Encounter for preprocedural cardiovascular examination (principal); Z13.6 Encounter for screening for cardiovascular disorders
CPT/HCPCS: 36415; 80048; 80061; 83880; 85025; 85610; 85730

== ENCOUNTER 2024-01-29 14:19 | Outpatient (AMB) | payer MEDICARE, MEDICAID, SELFPAY ==
[2024-01-29 14:32] LABS: Prothrombin Time Whole Bld POC 26.2 sec (11.1-13.5); ~PT, ~INR - Anti Coag Clinic 2.2 (0.9-1.1)
--- NOTE | 2024-01-29 14:41 | MHC.OFFVISCO ---
Intake Intake Visit Reasons: Anticoagulation Allergies No Known Allergies [No Known Allergies*] Allergy (Verified 01/29/24 14:25) Medication List - Last Reconciled 01/29/24 by Trish Estrella RN albuterol sulfate 90 mcg/actuation 2 puffs inhalation Q6H PRN atorvastatin 20 mg PO DAILY blood sugar diagnostic (FreeStyle Lite Strips) As directed buspirone 7.5 mg PO BID cephalexin 500 mg PO QID clonazepam 0.5 mg PO BID PRN digoxin 250 mcg PO DAILY diltiazem HCl CD 180 mg PO DAILY empagliflozin (Jardiance) 10 mg PO QAM lancets (TRUEplus Lancets) As directed lisinopril 5 mg PO DAILY metformin ER 500 mg PO QPM metoprolol tartrate 200 mg PO BID sildenafil 25 mg PO DAILY PRN topiramate (Topamax) 25 mg PO DAILY PRN trazodone 50 mg PO BEDTIME PRN warfarin 7.5 mg See Protocol PO DAILY Nursing Note INR: 2.2 in therapeutic range ( INR maintained by antbx and tyelno s/p hold x 2 days for prcedure Medications and supplements reviewed pt heard a beeping noise and wasnt sure what it was then realized it was his pacemaker - the battery was low he had it replaced 01/25/24- the warfarin was held x [address] platform consultant Dr Parrish the battery was changed without complication, treated with antbx x 2 days and Tylenol x 2 days, dressing changed today by his cardiology group, he stated they said his site looks good, limiting ROM per MD - denies any s/sx of infection or pain cardilogy nor the patient notified [facility] - Md managed pt care for the procedure. Denies any signs and symptoms of bleeding or bruising or clotting. Bleeding, bruising, clotting discussed Nutritional guidance given - review food list weekly, eat a mix of fruits and vegetables and review food list during the Holidays Dose: keep usual dose 7.5mg x 6 days/ 3.75mg x 1 day F/U INR: 3 weeks per pt request Patient verbalizes understanding of instructions given Anti-Coag Initial Assessment Social Hx Patient Tobacco Use Status: Former Tobacco user alcohol intake: former Coding Level of Care Code Est Patient Level 1 Diagnoses Current use of anticoagulant therapy Z79.01 Assessment & Plan Assessment & Plan (1) Current use of anticoagulant therapy: Code(s): 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
== END 2024-01-29 14:47 | disposition home or self-care (01) ==
LOC: HO.ACS 14:19
PROVIDERS: PCP Registered Nurse; Visit Provider Internal Medicine
DX: Z79.01 Long term (current) use of anticoagulants (principal)

== ENCOUNTER → 2024-01-29 14:19 | Outpatient (BNVA) | payer MEDICARE, MEDICAID, SELFPAY | PROVIDERS: PCP Registered Nurse; Visit Provider Internal Medicine | DX: I48.20 Chronic atrial fibrillation, unspecified (principal); Z79.01 Long term (current) use of anticoagulants; Z51.81 Encounter for therapeutic drug level monitoring | CPT/HCPCS: 85610; 99211 ==

== ENCOUNTER 2024-02-19 14:50 | Outpatient (AMB) | payer MEDICARE, MEDICAID, SELFPAY ==
[2024-02-19 15:00] LABS: Prothrombin Time Whole Bld POC 36.1 sec (11.1-13.5)
--- NOTE | 2024-02-19 15:02 | MHC.OFFVISCO ---
Intake Intake Visit Reasons: Anticoagulation Allergies No Known Allergies [No Known Allergies*] Allergy (Verified 02/19/24 14:55) Medication List - Last Reconciled 02/19/24 by Rozina Olmos RN albuterol sulfate 90 mcg/actuation 2 puffs inhalation Q6H PRN atorvastatin 20 mg PO DAILY blood sugar diagnostic (FreeStyle Lite Strips) As directed buspirone 7.5 mg PO BID cephalexin 500 mg PO QID clonazepam 0.5 mg PO BID PRN digoxin 250 mcg PO DAILY diltiazem HCl CD 180 mg PO DAILY empagliflozin (Jardiance) 10 mg PO QAM lancets (TRUEplus Lancets) As directed lisinopril 5 mg PO DAILY metformin ER 500 mg PO QPM metoprolol tartrate 200 mg PO BID sildenafil 25 mg PO DAILY PRN topiramate (Topamax) 25 mg PO DAILY PRN trazodone 50 mg PO BEDTIME PRN warfarin 7.5 mg See Protocol PO DAILY Nursing Note INR: 3.0 in therapeutic of 2-3range Medications and supplements reviewed No changes in health, diet, medications, or supplements, Denies any signs and symptoms of bleeding or bruising or clotting. Bleeding, bruising, clotting discussed Nutritional guidance given to have a serving of greens today Dose: 7.5mg X 6 days and 3.75mg X 1 day (Sun) F/U INR: 4 weeks Patient verbalizes understanding of instructions given Anti-Coag Initial Assessment Social Hx Patient Tobacco Use Status: Former Tobacco user alcohol intake: former Coding Level of Care Code Est Patient Level 1 Diagnoses Current use of anticoagulant therapy Z79.01 Assessment & Plan Assessment & Plan (1) Current use of anticoagulant therapy: Code(s): Z79.01 - residential (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
== END 2024-02-19 15:08 | disposition home or self-care (01) ==
LOC: HO.ACS 14:50
PROVIDERS: PCP Registered Nurse; Visit Provider Internal Medicine
DX: Z79.01 Long term (current) use of anticoagulants (principal)

== ENCOUNTER → 2024-02-19 14:50 | Outpatient (BNVA) | payer MEDICARE, MEDICAID, SELFPAY | PROVIDERS: PCP Registered Nurse; Visit Provider Internal Medicine | DX: I48.20 Chronic atrial fibrillation, unspecified (principal); Z79.01 Long term (current) use of anticoagulants; Z51.81 Encounter for therapeutic drug level monitoring | CPT/HCPCS: 85610; 99211 ==

== ENCOUNTER 2024-03-18 14:01 | Outpatient (AMB) | payer MEDICARE, MEDICAID, SELFPAY ==
--- NOTE | 2024-03-18 14:09 | MHC.OFFVISCO ---
Intake Intake Visit Reasons: Anticoagulation Allergies No Known Allergies [No Known Allergies*] Allergy (Verified 03/18/24 14:03) Medication List - Last Reconciled 03/18/24 by Rozina Olmos RN albuterol sulfate 90 mcg/actuation 2 puffs inhalation Q6H PRN atorvastatin 20 mg PO DAILY blood sugar diagnostic (FreeStyle Lite Strips) As directed buspirone 7.5 mg PO BID cephalexin 500 mg PO QID clonazepam 0.5 mg PO BID PRN digoxin 250 mcg PO DAILY diltiazem HCl CD 180 mg PO DAILY empagliflozin (Jardiance) 10 mg PO QAM lancets (TRUEplus Lancets) As directed lisinopril 5 mg PO DAILY metformin ER 500 mg PO QPM metoprolol tartrate 200 mg PO BID sildenafil 25 mg PO DAILY PRN topiramate (Topamax) 25 mg PO DAILY PRN trazodone 50 mg PO BEDTIME PRN warfarin 7.5 mg See Protocol PO DAILY Nursing Note INR: 2.0 in therapeutic range of 2-3 Medications and supplements reviewed No changes in health, diet, medications, or supplements, Denies any signs and symptoms of bleeding or bruising or clotting. Bleeding, bruising, clotting discussed Nutritional guidance given to avoid greens today and tomorrow and to have a serving or two from the food list that raises the INR Dose: 7.5mg X 6 days and 3.75mg X 1 day (Sun) F/U INR: 4 weeks Patient verbalizes understanding of instructions given Anti-Coag Initial Assessment Social Hx Patient Tobacco Use Status: Former Tobacco user alcohol intake: former Coding Level of Care Code Est Patient Level 1 Diagnoses Current use of anticoagulant therapy Z79.01 Results AMB INR Fingerstick AMB INR Fingerstick 2.0 Last Edit by Rozina Olmos RN on 03/18/24 14:09 interface delay Assessment & Plan Assessment & Plan (1) Current use of anticoagulant therapy: Code(s): Z79.01 - terminal superintendent (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
--- OUTSIDE RECORDS SUMMARY | 2024-03-18 14:09 | XMS_ITS | Encounter Summary ---
Author Organization [employer] [facility] Address [address] [place] [address] [address] [place] [address] Care Team Providers Care [employer] Name Role Phone Danna Combs Primary Care Provider [phone] Encounter Details Date Type Department Care Team (Late st Contact Info) Description 04/13/2022 Orders Only [facility] [address] [place] [address] Ginny Hager LPN Social History Tobacco Use Types Packs/Day Years Used Date Smoking Tobacco: Never Assessed Sex and Gender Information Value Date Recorded Sex Assigned at Male 12/12/2021 10:28 AM EDT Legal Sex Male 10:28 AM EDT Gender Identity Male 12/12/2021 10:28 AM EDT Sexual Orientation Straight 12/12/2021 10 :28 AM EDT documented as of this encounter Plan of Treatment Upcoming Encounters Date Type Department Care Team (Late st Contact Info) Description 04/04/2024 1:45 PM EST Office Visit [facility] [address] [place] [address] Danna Combs FNP [address] [place] [address] documented as of this encounter Procedures Procedure Name Priority Date/Time Associated Diagnosis Comments PROTHROMBIN TIME WHOLE BLD POC Routine 08/03/2022 2:18 PM EDT ~PT, ~INR - ANTI COAG CLINIC Routine 08/03/2022 2:18 PM EDT PROTHROMBIN TIME WHOLE BLD POC Routine 07/04/2022 2:21 PM EDT ~PT, ~INR - ANTI COAG CLINIC Routine 07/04/2022 2:21 PM EDT PROTHROMBIN TIME WHOLE BLD POC Routine 06/20/2022 2:07 PM EDT ~PT, ~INR - ANTI COAG CLINIC Routine 06/20/2022 2:07 PM EDT PROTHROMBIN TIME WHOLE BLD POC Routine 05/23/2022 2:05 PM EDT ~PT, ~INR - ANTI COAG CLINIC Routine 05/23/2022 2:05 PM EDT PROTHROMBIN TIME WHOLE BLD POC Routine 05/16/2022 2:01 PM EDT ~PT, ~INR - ANTI COAG CLINIC Routine 05/16/2022 2:01 PM EDT PROTHROMBIN TIME WHOLE BLD POC Routine 04/17/2022 2:12 PM EST ~PT, ~INR - ANTI COAG CLINIC Routine 04/17/2022 2:12 PM EST documented in this encounter Results * (ABNORMAL) PROTHROMBIN TIME WHOLE BLD POC (08/03/2022 2:18 PM EDT) Protime 35.8(H) 11.1 - 13.5 sec [facility] 08/03/2022 2:18 PM EDT 08/03/2022 2:20 PM EDT us [facility] External Provider LAB BLO OD ORDERABLES Final Result [facility] [address] [place] [phone] * (ABNORMAL) ~PT, ~INR - ANTI COAG CLINIC (08/03/2022 2:18 PM EDT) Prothrombin Time INR 3.0(H) 0.9 - 1.1 [facility] Comment:METER #: [id number] TERNATIONAL NORMALIZED RATIO (INR) REFERENCE RANGES Reference RangeFor patients not on anticoagulant therapy: 0.9 - 1.1INR ranges for oral anticoagulanttherapy:For prevention and treatment of venous thrombosis and pulmonary embolism: 2.0 - 3.0For acute myocardial infarction with aspirin therapy: 2.0 - 3.0For acute myocardial infarction without aspirin therapy: 3.0 - 4.0For patients with mechanical prosthetic heart valves: 2.5 - 3.5 08/03/2022 2:18 PM EDT 08/03/2022 2:20 PM EDT [facility] External Provider LAB BLO OD ORDERABLES Final Result Performing Organization Address City/[facility]/ZIP Co de Phone Number [facility] [address] [place] [phone] * (ABNORMAL) PROTHROMBIN TIME WHOLE BLD POC (07/04/2022 2:21 PM EDT) Pathologist [facility] Protime 32.4(H) 11.1 - 13.5 sec [facility] 07/04/2022 2:21 PM EDT 07/04/2022 2:23 PM EDT [facility] External Provider LAB BLO OD ORDERABLES Final Result [facility] [address] [place] [phone] * (ABNORMAL) ~PT, ~INR - ANTI COAG CLINIC (07/04/2022 2:21 PM EDT) Prothrombin Time INR 2.7(H) 0.9 - 1.1 [facility] Comment:METER #: [id number] TERNATIONAL NORMALIZED RATIO (INR) REFERENCE RANGES Reference RangeFor patients not on anticoagulant therapy: 0.9 - 1.1INR ranges for oral anticoagulanttherapy:For prevention and treatment of venous thrombosis and pulmonary embolism: 2.0 - 3.0For acute myocardial infarction with aspirin therapy: 2.0 - 3.0For acute myocardial infarction without aspirin therapy: 3.0 - 4.0For patients with mechanical prosthetic heart valves: 2.5 - 3.5 07/04/2022 2:21 PM EDT 07/04/2022 2:23 PM EDT [facility] External Provider LAB BLO OD ORDERABLES Final Result Performing Organization Address City/[facility] Co de Phone Number [facility] [address] [place] [address] [phone] * (ABNORMAL) PROTHROMBIN TIME WHOLE BLD POC (06/20/2022 2:07 PM EDT) Protime 44.6(H) 11.1 - 13.5 sec [facility] 06/20/2022 2:07 PM EDT 06/21/2022 8:04 AM EDT [facility] External Provider LAB BLO OD ORDERABLES Final Result Performing Organization Address City/[facility] Co de Phone Number [facility] [address] [place] [phone] * (ABNORMAL) ~PT, ~INR - ANTI COAG CLINIC (06/20/2022 2:07 PM EDT) Prothrombin Time INR 3.7(H) 0.9 - 1.1 [facility] Comment:METER #: [id number] TERNATIONAL NORMALIZED RATIO (INR) REFERENCE RANGES Reference RangeFor patients not on anticoagulant therapy: 0.9 - 1.1INR ranges for oral anticoagulanttherapy:For prevention and treatment of venous thrombosis and pulmonary embolism: 2.0 - 3.0For acute myocardial infarction with aspirin therapy: 2.0 - 3.0For acute myocardial infarction without aspirin therapy: 3.0 - 4.0For patients with mechanical prosthetic heart valves: 2.5 - 3.5 06/20/2022 2:07 PM EDT 06/21/2022 8:04 AM EDT [facility] External Provider LAB BLO OD ORDERABLES Final Result Performing Organization Address [facility]/ZIP Co de Phone Number [facility] [address] [place] [phone] * (ABNORMAL) PROTHROMBIN TIME WHOLE BLD POC (05/23/2022 2:05 PM EDT) Protime 28.5(H) 11.1 - 13.5 sec [facility] 05/23/2022 2:05 PM EDT 05/23/2022 2:07 PM EDT [facility] External Provider LAB BLO OD ORDERABLES Final Result Performing Organization Address City/[facility] Co de Phone Number [facility] [address] [place] [phone] * (ABNORMAL) ~PT, ~INR - ANTI COAG CLINIC (05/23/2022 2:05 PM EDT) Prothrombin Time INR 2.4(H) 0.9 - 1.1 [facility] Comment:METER #: [id number] TERNATIONAL NORMALIZED RATIO (INR) REFERENCE RANGES Reference RangeFor patients not on anticoagulant therapy: 0.9 - 1.1INR ranges for oral anticoagulanttherapy:For prevention and treatment of venous thrombosis and pulmonary embolism: 2.0 - 3.0For acute myocardial infarction with aspirin therapy: 2.0 - 3.0For acute myocardial infarction without aspirin therapy: 3.0 - 4.0For patients with mechanical prosthetic heart valves: 2.5 - 3.5 05/23/2022 2:05 PM EDT 05/23/2022 2:07 PM EDT [facility] External Provider LAB BLO OD ORDERABLES Final Result Performing Organization Address [facility] Co de Phone Number [facility] [address] [place] [address] [phone] * (ABNORMAL) PROTHROMBIN TIME WHOLE BLD POC (05/16/2022 2:01 PM EDT) Protime 19.3(H) 11.1 - 13.5 sec [facility] 05/16/2022 2:01 PM EDT 05/16/2022 2:03 PM EDT [facility] External Provider LAB BLO OD ORDERABLES Final Result Performing Organization Address [facility] de Phone Number [facility] [address] [place] [address] [phone] * (ABNORMAL) ~PT, ~INR - ANTI COAG CLINIC (05/16/2022 2:01 PM EDT) Prothrombin Time INR 1.6(H) 0.9 - 1.1 [facility] Comment:METER #: [id number] TERNATIONAL NORMALIZED RATIO (INR) REFERENCE RANGES Reference RangeFor patients not on anticoagulant therapy: 0.9 - 1.1INR ranges for oral anticoagulanttherapy:For prevention and treatment of venous thrombosis and pulmonary embolism: 2.0 - 3.0For acute myocardial infarction with aspirin therapy: 2.0 - 3.0For acute myocardial infarction without aspirin therapy: 3.0 - 4.0For patients with mechanical prosthetic heart valves: 2.5 - 3.5 05/16/2022 2:01 PM EDT 05/16/2022 2:03 PM EDT [facility] External Provider LAB BLO OD ORDERABLES Final Result Performing Organization Address [facility] de Phone Number [facility] [address] [place] [phone] * (ABNORMAL) PROTHROMBIN TIME WHOLE BLD POC (04/17/2022 2:12 PM EST) Protime 31.7(H) 11.1 - 13.5 sec [facility] 04/17/2022 2:12 PM EST 04/17/2022 2:16 PM EST [facility] External Provider LAB BLO OD ORDERABLES Final Result Performing Organization Address City/[facility] Co de Phone Number [facility] [address] [place] [phone] * (ABNORMAL) ~PT, ~INR - ANTI COAG CLINIC (04/17/2022 2:12 PM EST) Prothrombin Time INR 2.6(H) 0.9 - 1.1 [facility] Comment:METER #: [id number] TERNATIONAL NORMALIZED RATIO (INR) REFERENCE RANGES Reference RangeFor patients not on anticoagulant therapy: 0.9 - 1.1INR ranges for oral anticoagulanttherapy:For prevention and treatment of venous thrombosis and pulmonary embolism: 2.0 - 3.0For acute myocardial infarction with aspirin therapy: 2.0 - 3.0For acute myocardial infarction without aspirin therapy: 3.0 - 4.0For patients with mechanical prosthetic heart valves: 2.5 - 3.5 04/17/2022 2:12 PM EST 04/17/2022 2:16 PM EST [facility] External Provider LAB BLO OD ORDERABLES Final Result Performing Organization Address [facility] Co de Phone Number [facility] [address] [place] [phone] documented in this encounter Visit Diagnoses Not on filedocumented in this encounter Care Teams [employer] Relationship Specialty Start Date End Date Danna Combs FNP [address] [place] [address] PCP - General Family Medicine 10/05/21 documented as of this encounter
--- OUTSIDE RECORDS SUMMARY | 2024-03-18 14:09 | XMS_ITS | Encounter Summary ---
Author Organization [employer] Address [address] [place] [address] Care Team Providers Care Secure Software Assessor Name Role Phone LouisDanna stephens MIRIAM Primary Care Provider Encounter Details Date Type Department Care Team (Late st Contact Info) Description 12/28/2022 Abstract [facility] MEDICINE [address] [place], [place] [phone] Tigist Cardenas Social History Tobacco Use Types Packs/Day Years Used Date Smoking Tobacco: Never Smokeless Tobacco: Never Alcohol Use Standard Drinks/Week Comments Never 0 (1 standard drink = 0.6 oz pur e alcohol) Depression Answer Date Recorded Patient Health Questionnaire-9 Score 3 09/11/2022 Housing Stability Answer Date Recorded What is your housing situation today? I have ginger maravilla 11/28/[address] you li ve. Do you have problems with any of the following? None of the above 11/28/2022 Food Insecurity Answer Date Recorded Within the past 12 months, y ou worried that your food would run out before you got money to buy more: Never True 11/28/2022 Within the past 12 months,th e food you bought just didn't last and you didn't have enough money to get more: Not on file Transportation Answer Date Recorded In the past 12 months, has l ack of transportation kept you from medical appts, meetings, work or from getting things needed for daily living? No 11/28/2022 Utilities Answer Date Recorded In the past 12 months, has t he electric, gas, oil or water company threatened to shut off services in your home? No 11/28/2022 Depression Answer Date Recorded Patient Health Questionnaire-2 Score 0 09/11/2022 Sex and Gender Information Value Date Recorded Sex Assigned at Male 12/12/2021 10:28 AM EDT Legal Sex Male 10:28 AM EDT Gender Identity Male 12/12/2021 10:28 AM EDT Sexual Orientation Straight 12/12/2021 10 :28 AM EDT documented as of this encounter Plan of Treatment Upcoming Encounters Date Type Department Care Team (Late st Contact Info) Description 04/04/2024 1:45 PM EST Office Visit [facility] MED & PEDS [address] [place] [address] Danna Combs FNP [address] [place] [address] documented as of this encounter Visit Diagnoses Not on filedocumented in this encounter Additional Health Concerns Assessment Noted Time PHQ-9 Depression Total Score: 3 09/12/19 23 9:16 AM EDT documented as of this encounter Care Teams Secure Software Assessor Relationship Specialty Start Date End Date Danna Combs FNP [address] [place] [phone] PCP - General Family Medicine 10/05/21 documented as of this encounter
--- OUTSIDE RECORDS SUMMARY | 2024-03-18 14:09 | XMS_ITS | Clinical Summary ---
Author Organization [employer] Address [address] [place] [address] 7t [place] [address] Care Team Providers Care Network Control Operators Supervisor Name Role Phone LouisDanna stephens MIRIAM Primary Care Provider [phone] Allergies No known active allergies Medications FREESTYLE LITE test strip TEST BLOOD SUGAR TWICE DAILY DIRECTED 2 Active TRUEplus Lancets 33G misc TEST BLOOD SUGAR TWICE DAILY DIRECTED 2 Active albuterol 108 (90 Base) MCG/ACT inhaler Inhale 2 puffs every 6 (six) hours if needed for wheezing. 18 g 1 3 Active albuterol (2.5 MG/3ML) 0.083% nebulizer solution Take 3 mL (2.5 mg) by nebulization every 6 (six) hours if needed for wheezing. 75 mL 1 3 Active traZODone (Desyrel) 50 MG tabletIndication s:Sleep disturbance TAKE 1 TABLET BY MOUTH ONCE DAILY NEEDED FOR SLEEP 30 tablet 3 3 Active sildenafil (Viagra) 25 MG tabletIndication s:Erectile dysfunction, unspecified erectile dysfunction type TAKE 1 TABLET 1 HOUR BEFORE SEXUAL RELATIONS ONCE DAILY NEEDED 10 tablet 3 4 Active metFORMIN XR (Glucophage-XR) 500 MG 24 hr tabletIndication s:Type 2 diabetes mellitus treated without insulin (CMS/HCC) TAKE 1 TABLET BY MOUTH EVERY DAY WITH DINNER 90 tablet 3 4 Active dilTIAZem CD (Cardizem CD) 180 MG 24 hr capsuleIndicatio ns:Atrial fibrillation, unspecified type (CMS/HCC),Conges tive heart failure, unspecified HF chronicity, unspecified heart failure type (CMS/HCC) TAKE 1 CAPSULE BY MOUTH EVERY DAY 90 capsule 3 4 Active metoprolol tartrate (Lopressor) 100 MG tablet TAKE 2 TABLETS BY MOUTH TWICE DAILY WITH MEALS 360 tablet 3 4 Active digoxin (Lanoxin) 250 MCG tab;et TAKE 1 TABLET BY MOUTH EVERY DAY 90 tablet 3 4 Active atorvastatin (Lipitor) 20 MG tablet TAKE 1 TABLET BY MOUTH AT BEDTIME 90 tablet 3 4 Active warfarin (Coumadin) 7.5 MG tabletIndication s:Longstanding persistent atrial fibrillation (CMS/HCC) TAKE 1 TO 1.5 TABLETS BY MOUTH EVERY DAY DIRECTED BY COUMADIN CLINIC BASED ON INR 60 tablet 4 Active lisinopril 5 MG tabletIndication s:Primary hypertension TAKE 1 TABLET BY MOUTH EVERY DAY 90 tablet 3 4 Active busPIRone (Buspar) 7.5 MG tablet TAKE 1 TABLET BY MOUTH TWICE DAILY 180 tablet 1 4 Active empagliflozin (Jardiance) 10 MGIndications:Ty pe 2 diabetes mellitus treated without insulin (CMS/HCC) TAKE 1 TABLET BY MOUTH EVERY DAY IN THE MORNING 90 tablet 1 4 Active metroNIDAZOLE (Metrogel) 0.75 % gelIndications:F acial erythema Apply topically 2 times daily. Apply thin layer to face after washing face in the morning and before bed. 45 g 1 4 025 Active Active Problems Problem Noted Date Diagnosed Date AV heart block 02/14/2024 Overview (02/14/2024): ICD pacer in place (last changed 01/24/24 at [facility]) Warfarin anticoagulation 09/10/2022 Overview (09/10/2022): ?? On coumadin therapy - 5-7.5mg daily as directed by clinic ?? Managed by [facility] Coumadin clinic Healthcare maintenance 09/10/2022 Assessment & Plan (02/14/2024 1:49 PM EST): -Per previous documentation due for colonoscopy in 2023. Referral to GI placed 02/11/24. -Optometry: QUENTIN Oct 2022 w/ [facility] Assessment & Plan (03/22/2023 6:31 PM EST): -Per previous documentation due for colonoscopy in 2023 -Optometry: UTD w/ [facility] Assessment & Plan (09/18/2022 8:35 PM EDT): -Per previous documentation due for colonoscopy in 2023 -Optometry: scheduled for [facility] in September 2022 ICD (implantable cardioverter-defibrillator) in place 05/08/2022 Overview (02/14/2024): -Hx of complete AV block s/p pacemaker placement, device interrogated Q6 months through cards and denies any concerns -Pt denies any chest pain, palpitations, SOB, orthopnea, syncope -01/24/24: [facility] Cards & IR - DRAPERY WORKER-D generator change given DAVE (Dr. Jerry Lang). Assessment & Plan (02/14/2024 1:48 PM EST): - Plan to f/up with surgical team regarding wound check Essential hypertension 09/18/2020 Overview (09/10/2022): -Hx of Afib, dialted cardiomyopathy, HTN, HLD, AV block -Continues digoxin, diltiazem, lisinopril, metoprolol, and atorvastatin. Med safety reviewed. -Denies any chest pain, palpitations, SOB, FRAIRE, blurry vision, N/V/D -Following with Dr. Grande in [place], [place] Type 2 diabetes mellitus 09/15/2020 Overview (02/14/2024): Lab Results Component Value Date HGBA1C 6.0 02/11/2024 - A1c: (Target </= 7.0): well controlled - Microalbumin/Cr:Alb: 8 mcg/mg on 05/08/22 - Lipids: April 2022: LDL 77, HDL 32, TC 142, TG 248 - Eye exam: Oct 2022 at [facility] - no diabetic retinopathy or macular edema - Dental: encouraged - TDap/Td: up to date - Foot exam/peripheral pulses: due - ARIN/ARB: yes - Statin: yes Continue lifestyle interventions Continue Metformin 500mg XR nightly Continue Jardiance 10mg daily Erectile dysfunction 08/12/2020 Lactose intolerance 04/18/2017 Mixed hyperlipidemia 05/17/2015 Overview (09/10/2022): Lab Results Component Value Date CHOLESTEROL 142 05/08/2022 LDLCHOL 77 05/08/2022 LDLCHOL 54 09/03/2020 TRIG 248 (H) 05/08/2022 HDLCHOL 32 (L) 05/08/2022 CHOLHDLRAT 4.4 05/08/2022 -continue lifestyle modifications -Increase atorvastatin to 20mg nightly History of total knee arthroplasty 04/05/2015 Dilated cardiomyopathy 02/04/2015 Vitamin D deficiency 02/04/2015 Atrial fibrillation 01/18/2015 Assessment & Plan (02/14/2024 1:29 PM EST): - Continues on warfarin (discussed alternative medications with Cards - Dr. Enriquez Jan 2024) - Managed by [facility] Coumadin Clinic Congestive heart failure 01/18/2015 Resolved Problems Problem Noted Date Diagnosed Date Resolved Date Lower respiratory infection 09/29/2022 02/14/2024 Assessment & Plan (09/29/2022 6:05 AM EDT): Pt already w 9 d of worsening cough and dyspnea. Here afebrile. Respiratory rate 20-22, HR 75, oxygenation 94-95% w normal BP. Flu, Covid rapid Ag done here and are neg. Most likely pt started w a viral syndrome causing reactive airway disease. Pt denies Hx of asthma or COPD, but states that when he has resp infections, has similar Sx as today. Other possibilities to rule out, but seem less likely are Legionella, Pertussis -Chem and CBC today (report came w mild leukocytosis - 11.3, ALT 42). -Respiratory panel sent. -Legionella urine Ag (added in requisition a written note requesting Streptococcal Ag that could not find in Epic) -Chest XR: report came after pt left, not showing any abnormalities. I called pt to inform about results, so informed about image results. -Nebulization in clinic w Albuterol x1 w improvement of Sx and lung examination after therapy. -Pt states has a nebulizer machine at home. Prescribed today liquid Albuterol PRN. -Given chronicity of Sx and worsening there is a possibility of bacterial superinfection, so prescribed Amoxicillin BID for 5 d. Will hold on Quinolones and Macrolides due to risk of prolonged QT in the setting of his chronic cardiac disease. -Alarm signs and Sx discussed w pt at length - including to go to ER if there is no improvement w treatment. Encounters Date Type Department Care Team Description 02/22/2024 Telephone [facility] MEDICINE [address] [place], [place] [phone] Danna Combs FNP 02/19/2024 Orders Only GENERIC EXTERNAL DATA DEPARTMENT Provider, Generic External Data 02/15/2024 Telephone [facility] [address] [place], [place] [phone] Danna Combs FNP 02/11/2024 1:00 PM EST Office Visit [facility] MED & PEDS [address] [place], [place] [phone] Danna Combs FNP Type 2 diabetes mellitus without complication, without long-term current use of insulin (CMS/HCC) (Primary Dx); Encounter for immunization; Colon cancer screening; ICD (implantable cardioverter-defibril lator) in place; Congestive heart failure, unspecified HF chronicity, unspecified heart failure type (CMS/HCC); Atrial fibrillation, unspecified type (CMS/HCC); Healthcare maintenance; AV heart block; Facial erythema 02/11/2024 Travel 02/11/2024 Telephone [facility] PEDS [address] [place], [place] [phone] Marcos Hatfield [place] Chart Prep 01/29/2024 Orders Only GENERIC EXTERNAL DATA DEPARTMENT Provider, Generic External Data 01/28/2024 Telephone [facility] MEDICINE [address] [place], [place] [phone] Danna Combs FNP Medication Question 01/28/2024 Refill [facility] MEDICINE [address] [place] [address] Danna Combs FNP Type 2 diabetes mellitus treated without insulin (CMS/HCC) 01/15/2024 Orders Only GENERIC EXTERNAL DATA DEPARTMENT Provider, Generic External Data 01/07/2024 Refill [facility] MED & PEDS [address] [place] [address] Danna Combs FNP Primary hypertension 01/01/2024 Orders Only GENERIC EXTERNAL DATA DEPARTMENT Provider, Generic External Data 12/30/2023 Refill [facility] MEDICINE [address] [place] [address] Danna Combs FNP Longstanding persistent atrial fibrillation (CMS/[facility]) from Last 3 Months Immunizations Name Administration Dates Next Due Hep B, adult 03/15/2018,11/07/2017,08/29/2017 Influenza injectable quadriv alent IIV4 with preservative 01/18/2015 Influenza injectable quadriv alent preservative free 12/27/2021,12/28/2020,11/11/2016 Influenza, IIV3, injectable 12/09/2015 Influenza, seasonal, injecta ble, preservative free 02/11/2024 Pneumococcal Conjugate PCV 20 05/08/2022 Pneumococcal Polysaccharide PPSV23 11/11/2016 Tdap 02/04/2015 Family History Medical History Relation Name Comments Cancer Maternal Grandfather Gastric Relation Name Status Comments Maternal Grandfather Social History Tobacco Use Types Packs/Day Years Used Date Smoking Tobacco: Never Smokeless Tobacco: Never Tobacco Cessation:Counseling Given: Not Answered Alcohol Use Standard Drinks/Week Comments Never 0 [...] got money to buy more: Never True 03/21/2023 Within the past 12 months,th e food you bought just didn't last and you didn't have enough money to get more: Never True 08/2023 Transportation Answer Date Recorded In the past 12 months, has l ack of transportation kept you from medical appts, meetings, work or from getting things needed for daily living? No 11/28/2022 Utilities Answer Date Recorded In the past 12 months, has t he electric, gas, oil or water company threatened to shut off services in your home? I am not sure 03/21/2023 Depression Answer Date Recorded Patient Health Questionnaire-2 Score 0 09/11/2022 Sex and Gender Information Value Date Recorded Sex Assigned at Male 12/12/2021 10:28 AM EDT Legal Sex Male 10:28 AM EDT Gender Identity Male 12/12/2021 10:28 AM EDT Sexual Orientation Straight 12/12/2021 10 :28 AM EDT Last Filed Vital Signs Vital Sign Reading Time Taken Comments Blood Pressure 152/87 02/11/2024 1:13 PM EST Pulse 82 02/11/2024 1:13 PM EST Temperature 36.7 ??C (98 ??F) 02/11/2024 1:13 PM EST Respiratory Rate 20 02/11/2024 1:13 PM EST Oxygen Saturation 94% 02/11/2024 1:13 PM EST Inhaled Oxygen Concentration - - Weight 118 kg (260 lb) 02/11/2024 1:13 PM EST Height 175.3 cm (5' 9 ) 02/11/2024 1:13 PM EST Body Mass Index 38.4 02/11/2024 1:13 PM EST Plan of Treatment Upcoming Encounters Date Type Department Care Team (Late st Contact Info) Description 04/04/2024 1:45 PM EST Office Visit [facility] MED & PEDS [address] [place] [address] Danna Combs FNP [address] [place] [address] Health Maintenance Due Date Last Done Comments CT Colonography 1967 Colonoscopy 1967 Colorectal Cancer Screening 1967 FIT DNA/Cologuard 1967 FIT 1967 FOBT 1967 HIV Screening 1967 Sigmoidoscopy 1967 Diabetes: Foot Exam 05/23/1977 Alcohol/Substance Use Screening 1979 Hepatitis C Screening 05/23/1985 Zoster Vaccines (1 of 2) 05/23/2017 Diabetes: Urine Protein Screening 05/09/2023 05/08/2022, 10/06/2020 Lipid Panel 05/09/2023 05/08/2022, 09/03/2020 Depression Screening 09/12/2023 09/11/2022, 09/12/19 SDOH Screening 03/21/2024 03/21/2023 Tobacco Screening 03/21/2024 03/21/2023 Diabetes: Hemoglobin A1C 08/11/2024 024, 03/21/2023, 05/08/2022 Eye Exam 10/20/2024 10/20/2022, 09/0 09/2022, 10/20/2022, Additional history exists DTaP/Tdap/Td Vaccines (2 - Td or Tdap) 02/04/2025 02/04/2015 COVID-19 Vaccine ( season) 2025 07/01/2020, 05/26/2020 Postponed from 10/14/2023 (Patient Refused) RSV Patients and Patients Aged 60 years or older (1 - 1-dose 75+ series) 05/23/2042 Hepatitis B Vaccines Completed 03/15/2018, 11/07/2017, 08/29/2017 Pneumococcal Vaccine: 50+ Years Completed 05/08/2022, 11/11/2016 Influenza Vaccine Completed 02/11/2024, , 12/28/2020, Additional history exists HIB Vaccines Aged Out No longer eligi ble based on patient's age to complete this topic HPV Vaccines Aged Out No longer eligi ble based on patient's age to complete this topic Hepatitis A Vaccines Aged Out No long er eligible based on patient's age to complete this topic IPV Vaccines Aged Out No longer eligi ble based on patient's age to complete this topic Meningococcal Vaccine Aged Out No ike ritika eligible based on patient's age to complete this topic RSV under 20 months Aged Out No longe r eligible based on patient's age to complete this topic Rotavirus Vaccines Aged Out No longer eligible based on patient's age to complete this topic Procedures Procedure Name Priority Date/Time Associated Diagnosis Comments PROTHROMBIN TIME WHOLE BLD POC Routine 02/19/2024 2:59 PM EST ~PT, ~INR - ANTI COAG CLINIC Routine 02/19/2024 2:59 PM EST POCT GLYCATED HEMOGLOBIN, TOTAL Routine 02/11/2024 2:57 PM EST Type 2 diabetes mellitus without complication, without long-term current use of insulin (CMS/HCC) POCT GLUCOSE Routine 02/11/2024 2:57 PM EST Type 2 diabetes mellitus without complication, without long-term current use of insulin (CMS/HCC) WOUND CARE Routine 02/11/2024 1:37 PM EST ICD (implantable cardioverter-defibr illator) in place PROTHROMBIN TIME WHOLE BLD POC Routine 01/29/2024 2:30 PM EST ~PT, ~INR - ANTI COAG CLINIC Routine 01/29/2024 2:30 PM EST PROTHROMBIN TIME WHOLE BLD POC Routine 01/15/2024 2:35 PM EST ~PT, ~INR - ANTI COAG CLINIC Routine 01/15/2024 2:35 PM EST PROTHROMBIN TIME WHOLE BLD POC Routine 01/01/2024 2:06 PM EST ~PT, ~INR - ANTI COAG CLINIC Routine 01/01/2024 2:06 PM EST ALBUMIN, RANDOM URINE W/CREATININE Routine 05/08/2022 10:13 AM EDT Type 2 diabetes mellitus without complication, without long-term current use of insulin ([facility]/HCC) LIPID PANEL, STANDARD Routine 05/08/2022 10:13 AM EDT Type 2 diabetes mellitus without complication, without long-term current use of insulin (CMS/HCC) from Last 3 Months or Most Recently Relevant to Health Maintenance Results * (ABNORMAL) PROTHROMBIN TIME WHOLE BLD POC (02/19/2024 2:59 PM EST) Only the most recent of4 resultswithin the time period is included. Protime 36.1(H) 11.1 - 13.5 sec [facility] 02/19/2024 2:59 PM EST 02/19/2024 3:00 PM EST Generic External Data Provider LAB BLOOD ORDERAB LES Final Result Performing Organization Address [facility] Co de Phone Number [facility] [address] [place] [phone] * (ABNORMAL) ~PT, ~INR - ANTI COAG CLINIC (02/19/2024 2:59 PM EST) Only the most recent of4 resultswithin the time period is included. Prothrombin Time INR 3.0(H) 0.9 - 1.1 [facility] Comment:METER #: [id number] TERNATIONAL NORMALIZED RATIO (INR) REFERENCE RANGES Reference RangeFor patients not on anticoagulant therapy: 0.9 - 1.1INR ranges for oral anticoagulanttherapy:For prevention and treatment of venous thrombosis and pulmonary embolism: 2.0 - 3.0For acute myocardial infarction with aspirin therapy: 2.0 - 3.0For acute myocardial infarction without aspirin therapy: 3.0 - 4.0For patients with mechanical prosthetic heart valves: 2.5 - 3.5 02/19/2024 2:59 PM EST 02/19/2024 3:00 PM EST Generic External Data Provider LAB BLOOD ORDERAB LES Final Result Performing Organization Address [facility] Co de Phone Number [facility] [address] [place] [phone] * POCT HGB A1C (02/11/2024 2:57 PM EST) Hemoglobin A1C 6.0 4.0 - 6.0 % QC Media Lot # [id number] Lot# Expiration Date [id number] Blood 02/11/2024 2:57 PM EST Danna Combs INFORMATION SECURITY SYSTEMS INSTRUCTOR POINT OF CARE TEST ENTER/EDIT ORDERABLES Final Result * POCT Glucose (02/11/2024 2:57 PM EST) Glucose Blood, POC 136 60 - 200 mg/dL Comment:Random QC Media Lot # [id number] Lot# Expiration Date [id number] Blood Capillary blood specimen / Unknown 02/11/2024 2:57 PM EST Danna Combs INFORMATION SECURITY SYSTEMS INSTRUCTOR POINT OF CARE TEST ENTER/EDIT ORDERABLES Final Result * Wound Care (02/11/2024 1:37 PM EST) Narrative Alma Wright RN - 02/11/2024 1:37 PM EST Alma Wright RN ? 02/14/2024 ??1:56 PM Wound Care Date/Time: 02/11/2024 1:37 PM Performed by: Alma Wright RN Authorized by: MIRIAM Nick ?? Consent: ??Consent obtained: ??Verbal ??Consent given by: ??Patient ??Risks, benefits, and alternatives were discussed: yes ?? [place] protocol: ??Procedure explained and questions answered to patient or proxy's satisfaction: yes ?Patient identity confirmed: ??Verbally with patient Sedation: ??Sedation type: ??None Anesthesia: ??Anesthesia method: ??None Procedure details: ??Indications: open wounds ?Indications comment: ??Left Chest s/p pacemaker placement Dressing: ??Dressing applied: ??2x2 Post-procedure details: ??Procedure completion: ??Tolerated Comments: ?? Non-stick 2 x 2 dressing applied to left chest incision, secured with paper tape. us Danna [facility] CLINIC/BEDSIDE ORDERABLES F inal Result * Albumin, Random Urine W/Creatinine (05/08/2022 10:13 AM EDT) Creatinine, Random Urine 89 20 - 320 mg/dL [employer] [facility] Albumin, Urine 0.7 See Note: mg/dL [facility] Comment: Reference Range: Reference Range Not established Albumin/Creatinin e Ratio, Random Urine 8 <30 mcg/mg creat [facility] [place] [employer] Comment: The ADA defines abnormalities in albumin excretion as follows: Albuminuria Category ?Result (mcg/mg creatinine) Normal to Mildly increased ?? <30 Moderately increased ? 30-299 Severely increased ? > OR = 300 The ADA recommends that at least two of three specimens collected within a 3-6 month period be abnormal before considering a patient to be within a diagnostic category. 05/08/2022 10:1 3 AM EDT 05/08/2022 10:14 AM EDT Narrative [facility] - 05/08/2022 8:44 PM EDT FASTING:NO FASTING: NO us Danna Combs [facility] LAB URINE ORDERABLES Final Res ult [facility] [address], [place] [address] [facility] [place] [facility] [address] [place] [phone] * (ABNORMAL) Lipid Panel, Standard (05/08/2022 10:13 AM EDT) Cholesterol, Total 142 <200 mg/dL [facility] HDL Cholesterol 32(L) > OR = 40 mg/dL [facility] [place] [employer] [employer] Triglycerides 248(H) <150 mg/dL [facility] Comment: If a non-fasting specimen was collected, consider repeat triglyceride testing on a fasting specimen if clinically indicated. Kaleb et al. J. of Clin. Lipidol. 2015;9:129-169. LDL Cholesterol 77 mg/dL (calc) [facility] Comment: Reference range: <100 Desirable range <100 mg/dL for primary prevention; ?? <70 mg/dL for patients with CHD or diabetic patients with > or = 2 CHD risk factors. LDL-C is now calculated using the Fidel-Carnes calculation, which is a validated novel method providing better accuracy than the Friedewald equation in the estimation of LDL-C. Fidel SS et al. ALEKSANDR. 2013;310(19): 0597-8343 (http://education.[employer]/faq/TNI794) Chol/HDLC Ratio 4.4 <5.0 (calc) [facility] Non-HDL Cholesterol 110 <130 mg/dL (calc) [facility] Comment: For patients with diabetes plus 1 major ASCVD risk factor, treating to a non-HDL-C goal of <100 mg/dL (LDL-C of <70 mg/dL) is considered a therapeutic option. Blood Venous blood specimen / Unknown 05/08/2022 10:13 AM EDT 05/08/2022 10:14 AM EDT Narrative [facility] - 05/08/2022 8:44 PM EDT FASTING:NO FASTING: NO us Danna Combs INFORMATION SECURITY SYSTEMS INSTRUCTOR LAB BLOOD ORDERABLES Final Res ult [facility] [address], [place] [address] [facility] [address] [place] [phone] from Last 3 Months or Most Recently Relevant to Health Maintenance Insurance [facility] STANDARD MEDICARE Care Teams Network Control Operators Supervisor Relationship Specialty Start Date End Date Danna Combs FNP [address] [place] [phone] PCP - General Family Medicine 10/05/21
--- OUTSIDE RECORDS SUMMARY | 2024-03-18 14:09 | XMS_ITS | Encounter Summary ---
Author Organization [employer] Address [address] [facility] [address] [address] [place] [address] Care Team Providers Care Pulp Bleacher Name Role Phone Danna Combs Primary Care Provider [phone] Encounter Details Date Type Department Care Team ([facility] st Contact Info) Description 02/22/2024 Telephone [facility] [address] [place] [address] Danna Combs FNP [address] [place], [place] [phone] Social History Tobacco Use Types Packs/Day Years [...] Description 04/04/2024 1:45 PM EST Office Visit [facility] [address] [place] [address] Danna Combs FNP [address] [place] [address] documented as of this encounter Visit Diagnoses Not on filedocumented in this encounter Additional Health Concerns Assessment Noted Time PHQ-9 Depression Total Score: 3 09/12/19 23 9:16 AM EDT documented as of this encounter Care Teams Pulp Bleacher Relationship Specialty Start Date End Date Danna Combs FNP [address] [place] [address] PCP - General Family Medicine 10/05/21 documented as of this encounter
--- OUTSIDE RECORDS SUMMARY | 2024-03-18 14:09 | XMS_ITS | Encounter Summary ---
Author Organization [employer] Address [address] [facility] [address] [place] [address] Care Team Providers Care Manager Billing Name Role Phone LouisDanna stephens MIRIAM Primary Care Provider [phone] Encounter Details Date Type Department Care Team (Late st Contact Info) Description 02/19/2024 Orders Only GENERIC EXTERNAL DATA DEPARTMENT Provider, Generic External Data Social History Tobacco Use Types Packs/Day Years [...] Description 04/04/2024 1:45 PM EST Office Visit [facility] [address] [place] [address] Danna Combs, PRODUCTION TRAINER [address] [place] [address] documented as of this encounter Procedures Procedure Name Priority Date/Time Associated Diagnosis Comments PROTHROMBIN TIME WHOLE BLD POC Routine 02/19/2024 2:59 PM EST ~PT, ~INR - ANTI COAG CLINIC Routine 02/19/2024 2:59 PM EST documented in this encounter Results * (ABNORMAL) PROTHROMBIN TIME WHOLE BLD POC (02/19/2024 2:59 PM EST) Protime 36.1(H) 11.1 - 13.5 sec [facility] 02/19/2024 2:59 PM EST 02/19/2024 3:00 PM EST us Generic External Data Provider LAB BLOOD ORDERAB LES Final Result [facility] [address] [place] [phone] * (ABNORMAL) ~PT, ~INR - ANTI COAG CLINIC (02/19/2024 2:59 PM EST) Prothrombin Time INR 3.0(H) 0.9 - 1.1 [facility] Comment:METER #: [id number] TERNATIONAL NORMALIZED RATIO (INR) REFERENCE RANGES Reference [...] 2:59 PM EST 02/19/2024 3:00 PM EST us Generic External Data Provider LAB BLOOD ORDERAB LES Final Result [facility] [address] [place] [phone] documented in this encounter Visit Diagnoses Not on filedocumented in this encounter Additional Health Concerns Assessment Noted Time PHQ-9 Depression Total Score: 3 09/12/19 23 9:16 AM EDT documented as of this encounter Care Teams Manager Billing Relationship Specialty Start Date End Date Danna Combs FNP [address] [place] [address] PCP - General Family Medicine 10/05/21 documented as of this encounter
[2024-03-18 14:16] LABS: Prothrombin Time Whole Bld POC 24.2 sec (11.1-13.5)
== END 2024-03-18 14:12 | disposition home or self-care (01) ==
LOC: HO.ACS 14:01
PROVIDERS: PCP Registered Nurse; Visit Provider Internal Medicine
DX: Z79.01 Long term (current) use of anticoagulants (principal)

== ENCOUNTER → 2024-03-18 14:01 | Outpatient (BNVA) | payer MEDICARE, MEDICAID, SELFPAY | PROVIDERS: PCP Registered Nurse; Visit Provider Internal Medicine | DX: I48.20 Chronic atrial fibrillation, unspecified (principal); Z79.01 Long term (current) use of anticoagulants; Z51.81 Encounter for therapeutic drug level monitoring | CPT/HCPCS: 85610; 99211 ==

== ENCOUNTER 2024-04-15 14:02 | Outpatient (AMB) | payer MEDICARE, MEDICAID, SELFPAY ==
[2024-04-15 14:08] LABS: Prothrombin Time Whole Bld POC 25.3 sec (11.1-13.5); ~PT, ~INR - Anti Coag Clinic 2.1 (0.9-1.1)
--- NOTE | 2024-04-15 14:12 | MHC.OFFVISCO ---
Intake Intake Visit Reasons: Anticoagulation Allergies No Known Allergies [No Known Allergies*] Allergy (Verified 04/15/24 14:04) Medication List - Last Reconciled 04/15/24 by Rozina Olmos RN albuterol sulfate 90 mcg/actuation 2 puffs inhalation Q6H PRN atorvastatin 20 mg PO DAILY blood sugar diagnostic (FreeStyle Lite Strips) As directed buspirone 7.5 mg PO BID cephalexin 500 mg PO QID clonazepam 0.5 mg PO BID PRN digoxin 250 mcg PO DAILY diltiazem HCl CD 180 mg PO DAILY empagliflozin (Jardiance) 10 mg PO QAM lancets (TRUEplus Lancets) As directed lisinopril 5 mg PO DAILY metformin ER 500 mg PO QPM metoprolol tartrate 200 mg PO BID sildenafil 25 mg PO DAILY PRN topiramate (Topamax) 25 mg PO DAILY PRN trazodone 50 mg PO BEDTIME PRN warfarin 7.5 mg See Protocol PO DAILY Nursing Note INR: 2.1 in therapeutic range of 2-3 Medications and supplements reviewed No changes in health, diet, medications, or supplements, Denies any signs and symptoms of bleeding or bruising or clotting. Bleeding, bruising, clotting discussed Nutritional guidance given Dose: since pt has been low in range the past 2 visits, will increase this week's total dosage by 3.75mg then will go back to 7.5mg X 6 days and 3.75mg X 1 day (Sun) F/U INR: 4 weeks Patient verbalizes understanding of instructions given Anti-Coag Initial Assessment Social Hx Patient Tobacco Use Status: Former Tobacco user alcohol intake: former Coding Level of Care Code Est Patient Level 1 Diagnoses Current use of anticoagulant therapy Z79.01 Results AMB INR Fingerstick AMB INR Fingerstick 2.1 Last Edit by Rozina Olmos RN on 04/15/24 14:08 interface delay Assessment & Plan Assessment & Plan (1) Current use of anticoagulant therapy: Code(s): Z79.01 - intermediate manager (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
--- OUTSIDE RECORDS SUMMARY | 2024-04-15 17:44 | XMS_ITS | Encounter Summary ---
Author Organization [employer] Address [address] [place] [address] [address] [place] [address] Care Team Providers Care Process Description Writer Name Role Phone Danna Combs MIRIAM Primary Care Provider [phone] Encounter Details Date Type Department Care Team (Late st Contact Info) Description 04/13/2022 Orders Only [facility] [address] [place], [place] [phone] Ginny Hager LPN Social History Tobacco Use Types Packs/Day Years Used Date Smoking Tobacco: Never Assessed Sex and Gender Information Value Date Recorded Sex Assigned at Male 12/12/2021 10:28 AM EDT Legal Sex Male 10:28 AM EDT Gender Identity Male 12/12/2021 10:28 AM EDT Sexual Orientation Straight 12/12/2021 10 :28 AM EDT documented as of this encounter Plan of Treatment Not on file documented as of this encounter Procedures Procedure [...] EDT) Protime 35.8(H) 11.1 - 13.5 sec [facility] 08/03/2022 2:18 PM EDT 08/03/2022 2:20 PM EDT us [facility] External Provider LAB BLO OD ORDERABLES Final Result [facility] [address] [place] [phone] * (ABNORMAL) ~PT, ~INR - ANTI COAG CLINIC (08/03/2022 2:18 PM EDT) Prothrombin Time INR 3.0(H) 0.9 - 1.1 [facility] Comment:METER #: [id number] TERNATIONAL NORMALIZED RATIO (INR) REFERENCE RANGES Reference [...] 2:18 PM EDT 08/03/2022 2:20 PM EDT [facility] External Provider LAB BLO OD ORDERABLES Final Result Performing Organization Address City/[facility] Co de Phone Number [facility] [address] [place] [address] [phone] * (ABNORMAL) PROTHROMBIN TIME WHOLE BLD POC (07/04/2022 2:21 PM EDT) Protime 32.4(H) 11.1 - 13.5 sec [facility] 07/04/2022 2:21 PM EDT 07/04/2022 2:23 PM EDT [facility] External Provider LAB BLO OD ORDERABLES Final Result Performing Organization Address [facility] Co de Phone Number [facility] [address] [place] [phone] * (ABNORMAL) ~PT, ~INR - ANTI COAG CLINIC (07/04/2022 2:21 PM EDT) Prothrombin Time INR 2.7(H) 0.9 - 1.1 [facility] Comment:METER #: [id number] TERNATIONAL NORMALIZED RATIO (INR) REFERENCE RANGES Reference [...] 2:21 PM EDT 07/04/2022 2:23 PM EDT [facility] External Provider LAB BLO OD ORDERABLES Final Result Performing Organization Address [facility] Co de Phone Number [facility] [address] [place] [phone] * (ABNORMAL) PROTHROMBIN TIME WHOLE BLD POC (06/20/2022 2:07 PM EDT) Protime 44.6(H) 11.1 - 13.5 sec [facility] 06/20/2022 2:07 PM EDT 06/21/2022 8:04 AM EDT [facility] External Provider LAB BLO OD ORDERABLES Final Result Performing Organization Address [facility] Co de Phone Number [facility] [address] [place] [phone] * (ABNORMAL) ~PT, ~INR - ANTI COAG CLINIC (06/20/2022 2:07 PM EDT) Prothrombin Time INR 3.7(H) 0.9 - 1.1 [facility] Comment:METER #: [id number] TERNATIONAL NORMALIZED RATIO (INR) REFERENCE RANGES Reference [...] 2:07 PM EDT 06/21/2022 8:04 AM EDT [facility] External Provider LAB BLO OD ORDERABLES Final Result Performing Organization Address [facility] Co de Phone Number [facility] [address] [place] [phone] * (ABNORMAL) PROTHROMBIN TIME WHOLE BLD POC (05/23/2022 2:05 PM EDT) Protime 28.5(H) 11.1 - 13.5 sec [facility] 05/23/2022 2:05 PM EDT 05/23/2022 2:07 PM EDT [facility] External Provider LAB BLO OD ORDERABLES Final Result Performing Organization Address [facility] de Phone Number [facility] [address] [place] [phone] * (ABNORMAL) ~PT, ~INR - ANTI COAG CLINIC (05/23/2022 2:05 PM EDT) Prothrombin Time INR 2.4(H) 0.9 - 1.1 [facility] Comment:METER #: [id number] TERNATIONAL NORMALIZED RATIO (INR) REFERENCE RANGES Reference [...] 2:05 PM EDT 05/23/2022 2:07 PM EDT [facility] External Provider LAB BLO OD ORDERABLES Final Result Performing Organization Address [facility] Co de Phone Number [facility] [address] [place] [phone] * (ABNORMAL) PROTHROMBIN TIME WHOLE BLD POC (05/16/2022 2:01 PM EDT) Protime 19.3(H) 11.1 - 13.5 sec [facility] 05/16/2022 2:01 PM EDT 05/16/2022 2:03 PM EDT [facility] External Provider LAB BLO OD ORDERABLES Final Result Performing Organization Address City/[facility] Co de Phone Number [facility] [address] [place] [phone] * (ABNORMAL) ~PT, ~INR - ANTI COAG CLINIC (05/16/2022 2:01 PM EDT) [facility] Prothrombin Time INR 1.6(H) 0.9 - 1.1 [facility] Comment:METER #: [id number] TERNATIONAL NORMALIZED RATIO (INR) REFERENCE RANGES Reference [...] 2:01 PM EDT 05/16/2022 2:03 PM EDT [facility] External Provider LAB BLO OD ORDERABLES Final Result Performing Organization Address City/[facility] Co de Phone Number [facility] [address] [place] [phone] * (ABNORMAL) PROTHROMBIN TIME WHOLE BLD POC (04/17/2022 2:12 PM EST) Protime 31.7(H) 11.1 - 13.5 sec [facility] 04/17/2022 2:12 PM EST 04/17/2022 2:16 PM EST [facility] External Provider LAB BLO OD ORDERABLES Final Result Performing Organization Address [facility] Co de Phone Number [facility] [address], [place] [phone] * (ABNORMAL) ~PT, ~INR - ANTI COAG CLINIC (04/17/2022 2:12 PM EST) Prothrombin Time INR 2.6(H) 0.9 - 1.1 [facility] Comment:METER #: [id number] TERNATIONAL NORMALIZED RATIO (INR) REFERENCE RANGES Reference [...] 2:12 PM EST 04/17/2022 2:16 PM EST [facility] External Provider LAB BLO OD ORDERABLES Final Result Performing Organization Address [facility] Co de Phone Number [facility] [address] [place] [phone] documented in this encounter Visit Diagnoses Not on filedocumented in this encounter Care Teams Process Description Writer Relationship Specialty Start Date End Date Danna Combs FNP [address] [place] [phone] PCP - General Family Medicine 10/05/21 documented as of this encounter
--- OUTSIDE RECORDS SUMMARY | 2024-04-15 17:44 | XMS_ITS | Encounter Summary ---
Author Organization [employer] Address [address] [facility] [address] [place] [address] Care Team Providers Care Highway Painter Name Role Phone Danna Combs MIRIAM Primary Care Provider [phone] Encounter Details Date Type Department Care Team (Late st Contact Info) Description 04/15/2024 Orders Only GENERIC EXTERNAL DATA DEPARTMENT Provider, Generic External Data Social History Tobacco Use Types Packs/Day Years Used Date Smoking Tobacco: Never Smokeless Tobacco: Never Alcohol Use Standard Drinks/Week Comments Never 0 (1 standard drink = 0.6 oz pur e alcohol) Depression Answer Date Recorded Patient Health Questionnaire-9 Score 3 04/04/2024 Patient Health Questionnaire-9 Score 3 04/04/2024 Last PHQ-9: Questionnaire Data Not on file 0 04/04/2024 Housing Stability Answer Date Recorded What is your housing situation today? I have ginger amravilla 11/28/[address] you li [...] shut off services in your home? No 03/21/2024 Depression Answer Date Recorded Patient Health Questionnaire-2 Score 0 04/04/2024 Internet Access Answer Date Recorded Internet Access Q1 No 03/21/2024 Internet Access Q2 I cannot afford it 03/21/2024 Sex and Gender Information Value Date Recorded [...] Comments PROTHROMBIN TIME WHOLE BLD POC Routine 04/15/2024 2:06 PM EST ~PT, ~INR - ANTI COAG CLINIC Routine 04/15/2024 2:06 PM EST documented in this encounter Results * (ABNORMAL) PROTHROMBIN TIME WHOLE BLD POC (04/15/2024 2:06 PM EST) Protime 25.3(H) 11.1 - 13.5 sec [facility] 04/15/2024 2:06 PM EST 04/15/2024 2:08 PM EST us Generic External Data Provider LAB BLOOD ORDERAB LES Final Result [facility] [address] [place] [address] [phone] * (ABNORMAL) ~PT, ~INR - ANTI COAG CLINIC (04/15/2024 2:06 PM EST) Prothrombin Time INR 2.1(H) 0.9 - 1.1 [facility] Comment:METER #: [id number] TERNATIONAL NORMALIZED RATIO (INR) REFERENCE RANGES Reference RangeFor patients not on anticoagulant therapy: 0.9 - 1.1INR ranges for oral anticoagulanttherapy:For prevention and treatment of venous thrombosis and pulmonary embolism: 2.0 - 3.0For acute myocardial infarction with aspirin therapy: 2.0 - 3.0For acute myocardial infarction without aspirin therapy: 3.0 - 4.0For patients with mechanical prosthetic heart valves: 2.5 - 3.5 04/15/2024 2:06 PM EST 04/15/2024 2:08 PM EST us Generic External Data Provider LAB BLOOD ORDERAB LES Final Result Performing Organization Address City/State/[facility] Co de Phone Number [facility] [address] [place] [phone] documented in this encounter Visit Diagnoses Not on filedocumented in this encounter Additional Health Concerns Assessment Noted Time PHQ-9 Depression Total Score: 3 04/04/19 25 2:53 PM EST documented as of this encounter Care Teams Highway Painter Relationship Specialty Start Date End Date Danna Combs FNP [address] [place] [address] PCP - General Family Medicine 10/05/21 documented as of this encounter
--- OUTSIDE RECORDS SUMMARY | 2024-04-15 17:44 | XMS_ITS | Encounter Summary ---
Author Organization [employer] Address [address] [place] [address] 7 [place] [address] Care Team Providers Care Dynamics Ax Developer Name Role Phone Danna Combs Primary Care Provider [phone] Reason for Visit * Reason Comments Follow-up Encounter Details Date Type Department Care Team ([facility] Contact Info) Description 04/04/2024 1:45 PM EST Office Visit [facility] MED & PEDS [address] [place], [place] [phone] Danna Combs FNP [address] [place], [place] [phone] Atrial fibrillation, unspecified type (CMS/HCC) (Primary Dx); Type 2 diabetes mellitus without complication, without long-term current use of insulin (CMS/HCC); Dietary counseling; Exercise counseling Social History Tobacco Use Types Packs/Day Years [...] AM EDT documented as of this encounter Last Filed Vital Signs Vital Sign Reading Time Taken Comments Blood Pressure 138/64 04/04/2024 2:52 PM EST Pulse 78 04/04/2024 2:08 PM EST Temperature 36.7 ??C (98.1 ??F) 04/04/2024 2:08 PM ES T Respiratory Rate 16 04/04/2024 2:08 PM EST Oxygen Saturation 98% 04/04/2024 2:08 PM EST Inhaled Oxygen Concentration - - Weight 122 kg (269 lb) 04/04/2024 2:08 PM EST Height 175.3 cm (5' 9 ) 04/04/2024 2:08 PM EST Body Mass Index 39.72 04/04/2024 2:08 PM EST documented in this encounter Patient Instructions * Patient Instructions* MIRIAM Nick - 04/04/2024 1:45 PM EST You may consider other medications for anticoagulation and discuss with your poleyard supervisor: Rivaroxaban (Xarelto), Apixaban (Eliquis), Edoxaban (Savaysa), and Dabigatran (Pradaxa documented in this encounter Progress Notes * MIRIAM Nick - 04/04/2024 1:45 PM EST Subjective: Corey Alex is a 58 y.o. male with PMH of atrial fibrillation with dilated cardiomyopathy w/ ICD, CHF, AV block, HLD, erectile dysfunction, HTN, and T2DM who presents to the clinic for a follow upvisit - chronic conditions. HPI: Last visit with PCP: 02/11/24. Pacemaker incision has healed well since last appointment. No discharge or drainage, no redness or tenderness around the surgical site. Follow-up with cardiology is pending. Has not yet started metronidazole gel for facial redness, but will let us know if symptoms persist despite treatment. Previously collected hx included below for reference: CARDS - Afib, dialted cardiomyopathy, HTN, HLD, AV block - Currently following with Dr. Enriquez - Denies any chest pain, palpitations, SOB, FRAIRE, blurry vision, N/V/D - S/p pacemaker insertion on warfarin therapy monitored by [facility] - Previously following with Dr. Grande in [place], [place]. Currently following with Dr. Andrade [facility]. - ICD replacement 01/24/[facility] [address] [facility] - venous scans completed by Dr. Roberson of [facility] - encouraged use of compression stockings HLD - Adherence with atorvastatin nightly before bed - Last available lipid panel from August 2020 w/ elevated triglycerides. - Lipids April 2022: LDL 77, HDL 32, TC 142, TG 248 -continue lifestyle modifications T2DM - Continues with metformin 500mg XR nightly and Jardiance 10mg daily - Denies polydipsia, polyuria, polyphagia ED - Continues with sildenafil PRN Social history: Living - lives with , since 1996 Employment - not currently working or seeking employment Substance Use - denies use of alcohol, tobacco, marijuana, opioids, or other substances Mental health - reports anxiety well controlled with buspirone. Denies SI/HI/thougths of self harm Review of Systems Constitutional: Negative for chills and fever. HENT: Negative for facial swelling. Cardiovascular: Negative for chest pain and palpitations. Gastrointestinal: Negative for diarrhea, nausea and vomiting. Skin: Negative for color change. Objective Visit Vitals BP 138/64 (BP Location: Right arm, Patient Position: Sitting, BP Cuff Size: Large adult) Pulse 78 Temp 98.1 ??F (36.7 ??C) (Oral) Resp 16 Ht 5' 9 (1.753 m) Wt 269 lb (122 kg) SpO2 98% BMI 39.72 kg/m?? Smoking Status Never BSA 2.44 m?? Physical Exam Vitals reviewed. Constitutional: Appearance: Normal appearance. HENT: Head: Normocephalic and atraumatic. Right Ear: External ear normal. Left Ear: External ear normal. Cardiovascular: Rate and Rhythm: Normal rate and regular rhythm. Pulmonary: Effort: Pulmonary effort is normal. Breath sounds: Normal breath sounds. Skin: Comments: Well healed 5cm surgical incision on left upper chest. Well approximated. No erythema, drainage, bleeding, or tenderness around incision site. Neurological: Mental Status: He is alert and oriented to person, place, and time. Psychiatric: Mood and Affect: Mood normal. Behavior: Behavior normal. Assessment/Plan Problem List Items Addressed This Visit Circulatory Atrial fibrillation (CMS/HCC) - Primary Current Assessment & Plan - Continues on warfarin (discussed alternative medications with Cards - Dr. Enriquez Jan 2024) - Managed by [facility] Coumad[facility] Clinic -Encouraged to consider DOAC, handout from the [employer] provided today. Mr. Hanson reports he will think about it and let us know if any questions arise. Endocrine/Metabolic Type 2 diabetes mellitus (CMS/HCC) Overview Lab Results Component Value Date HGBA1C 6.0 02/11/2024 - A1c: (Target </= 7.0): well controlled - Microalbumin/Cr:Alb: 8 mcg/mg on 05/08/22 - Lipids: April 2022: LDL 77, HDL 32, TC 142, TG 248 - Eye exam: Oct 2022 at [facility] - no diabetic retinopathy or macular edema - Dental: encouraged - TDap/Td: up to date - Foot exam/peripheral pulses: due - ARIN/ARB: yes - Statin: yes Continue lifestyle interventions Continue Metformin 500mg XR nightly Continue Jardiance 10mg daily Current Assessment & Plan Lipids followed by cards. Plan to update microalbumin next appt. Relevant Orders POCT glucose manually resulted (Completed) Other Visit Diagnoses Dietary counseling Exercise counseling Follow up: 3 months chronic conditions, sooner PRN documented in this encounter Miscellaneous Notes * Assessment & Plan Note - MIRIAM Nick - 04/06/2024 7:58 PM ESTAssociated Problem(s): Type 2 diabetes mellitus ([facility]) Lipids followed by cards. Plan to update microalbumin next appt. * Assessment & Plan Note - MIRIAM Nick - 04/06/2024 7:57 PM ESTAssociated Problem(s): Atrial fibrillation ([facility]) - Continues on warfarin (discussed alternative medications with Cards - Dr. Enriquez Jan 2024) - Managed by [facility] Cou[facility] -Encouraged to consider DOAC, handout from the [employer] provided today. Mr. Hanson reports he will think about it any questions arise. documented in this encounter Plan of Treatment Not on file documented as of this encounter Procedures Procedure Name Priority Date/Time Associated Diagnosis Comments POCT GLUCOSE Routine 04/04/2024 2:32 PM EST Type 2 diabetes mellitus without complication, without long-term current use of insulin ([facility]) documented in this encounter Results * POCT glucose manually resulted (04/04/2024 2:32 PM EST) Glucose Blood, POC 197 60 - 200 mg/dL QC Media Lot # Comment:[id number] Lot# Expiration Date Comment:05/20/2024 Blood Capillary blood specimen / Unknown 04/04/2024 2:32 PM EST Danna PINEDA POINT OF CARE TEST ENTER/EDIT ORDERABLES Final Result documented in this encounter Visit Diagnoses Diagnosis Atrial fibrillation, unspecified type ([facility])- Primary Type 2 diabetes mellitus without complication, without long-term current use of insulin ([facility]) Dietary counseling Dietary surveillance and counseling Exercise counseling documented in this encounter Additional Health Concerns Assessment Noted Time PHQ-9 Depression Total Score: 3 04/04/19 25 2:53 PM EST documented as of this encounter Care Teams Dynamics Ax Developer Relationship Specialty Start Date End Date Danna Combs FNP [address] [place] [address] PCP - General Family Medicine 10/05/21 documented as of this encounter
--- OUTSIDE RECORDS SUMMARY | 2024-04-15 17:44 | XMS_ITS | Encounter Summary ---
Author Organization [employer] Address [address] [place] [address] Care Team Providers Care General Surgeon Name Role Phone LouisDanna stephens MIRIAM Primary Care Provider [phone] Encounter Details Date Type Department Care Team (Late st Contact Info) Description 12/28/2022 Abstract [facility] MEDICINE [address] [place], [place] [phone] Tigist Cardenas Social History Tobacco Use Types [...] on file documented as of this encounter Visit Diagnoses Not on filedocumented in this encounter Additional Health Concerns Assessment Noted Time PHQ-9 Depression Total Score: 3 09/12/19 23 9:16 AM EDT documented as of this encounter Care Teams General Surgeon Relationship Specialty Start Date End Date Danna Combs FNP [address] [place] [id number] PCP - General Family Medicine 10/05/21 documented as of this encounter
--- OUTSIDE RECORDS SUMMARY | 2024-04-15 17:44 | XMS_ITS | Encounter Summary ---
Author Organization [employer] Address [address] [place] [address] Care Team Providers Care Utility Specialist Name Role Phone Danna Combs Primary Care Provider [phone] Reason for Visit * Reason Comments Pre-visit Planning SDOH screening posit miguel and Tobacco screening negative Encounter Details Date Type Department Care Team ([facility] st Contact Info) Description 03/21/2024 Patient Outreach [facility] MEDICINE [address] [place] [address] Danna Combs FNP [address] [place], [place] [phone] Pre-visit Planning (SDOH screening positive and Tobacco screening negative) Social History Tobacco Use Types Packs/Day Years [...] Recorded Patient Health Questionnaire-2 Score 0 09/11/2022 Internet Access Answer Date Recorded Internet Access Q1 No 03/21/2024 Internet Access Q2 I cannot afford it 03/21/2024 Sex and Gender Information Value Date Recorded Sex Assigned at Male 12/12/2021 10:28 AM EDT Legal Sex Male 10:28 AM EDT Gender Identity Male 12/12/2021 10:28 AM EDT Sexual Orientation Straight 12/12/2021 10 :28 AM EDT documented as of this encounter Progress Notes * Marj Thomas - 03/21/2024 11:59 AM EST CC Marj ann successful outbound call to patient for pre-visit planning. Patient name and confirmed. Patient confirms appt date and time, and has transportation arrangements. Biggest concern for appointment at this time is no concerns. Patient advised to bring to appointment a photo id and insurance card. Appropriate screenings completed in anticipation of appointment. SDOH positive. Patient looking for assistance with home internet: cannot afford it however patient is interested in having internet at home. Referral will be placed. documented in this encounter Plan of Treatment Not on file documented as of this encounter Visit Diagnoses Not on filedocumented in this encounter Additional Health Concerns Assessment Noted Time PHQ-9 Depression Total Score: 3 09/12/19 23 9:16 AM EDT documented as of this encounter Care Teams Utility Specialist Relationship Specialty Start Date End Date Danna Combs FNP [address] [place] [address] PCP - General Family Medicine 10/05/21 documented as of this encounter
--- OUTSIDE RECORDS SUMMARY | 2024-04-15 17:44 | XMS_ITS | Encounter Summary ---
Author Organization [employer] Address [address] [place] [address] Care Team Providers Care Sustainability Manager Name Role Phone Danna Combs Primary Care Provider [phone] Reason for Visit * Reason Comments Med Refill Encounter Details Date Type Department Care Team ([facility] st Contact Info) Description 04/01/2024 Refill [facility] [address] [place] [address] Danna Combs FNP [address] [place] [address] Longstanding persistent atrial fibrillation (CMS/HCC) Social History Tobacco Use Types Packs/Day Years [...] documented as of this encounter Visit Diagnoses Diagnosis Longstanding persistent atrial fibrillation (CMS/HCC) documented in this encounter Additional Health Concerns Assessment Noted Time PHQ-9 Depression Total Score: 3 09/12/19 23 9:16 AM EDT documented as of this encounter Care Teams Sustainability Manager Relationship Specialty Start Date End Date Danna Combs FNP [address] [place] [address] PCP - General Family Medicine 10/05/21 documented as of this encounter
--- OUTSIDE RECORDS SUMMARY | 2024-04-15 17:44 | XMS_ITS | Encounter Summary ---
Author Organization [employer] Address [address] [facility] 7[address] [place] [address] Care Team Providers Care Plastics Seasoner Operator Name Role Phone Danna Combs MIRIAM Primary Care Provider [phone] Reason for Visit * Reason Onset Date Comments Chart Prep 04/03/2024 Encounter Details Date Type Department Care Team ([facility] st Contact Info) Description 04/03/2024 Telephone [facility] MED & PEDS [address] [place], [place] [phone] Marcos Hatfield [place] Chart Prep Social History Tobacco Use Types Packs/Day Years [...] AM EDT documented as of this encounter Miscellaneous Notes * Telephone Encounter - Marcos Du [place] - 04/03/2024 8:52 AM EST Chart Prep Labs: done Images: done Vaccines due: yes Referrals: complete Screenings: colonoscopy , Foot Exam, Lipid Panel, Hep C Overdue care gaps: A1C, Glucose, Sbirt, SDOH, PHQ-9 documented in this encounter Plan of Treatment Not on file documented as of this encounter Visit Diagnoses Not on filedocumented in this encounter Additional Health Concerns Assessment Noted Time PHQ-9 Depression Total Score: 3 09/12/19 23 9:16 AM EDT documented as of this encounter Care Teams Plastics Seasoner Operator Relationship Specialty Start Date End Date Danna Combs FNP [address] [place] [address] PCP - General Family Medicine 10/05/21 documented as of this encounter
--- OUTSIDE RECORDS SUMMARY | 2024-04-15 17:44 | XMS_ITS | Encounter Summary ---
Author Organization [employer] Address [address] [place] [address] Care Team Providers Care Stopper Setter Name Role Phone Danna Combs Primary Care Provider [phone] Reason for Visit * Reason Comments SDOH Concerns [facility] PHILIP [place] SDOH wifi Encounter Details Date Type Department Care Team ([facility] st Contact Info) Description 03/21/2024 Patient Outreach [facility] MEDICINE [address] [place] [address] Danna Combs FNP [address] [place] [address] SDOH Concerns ([facility]/PHILIP [place] wileeanna) Social History Tobacco Use Types Packs/Day Years [...] as of this encounter Progress Notes * Alfie Harmon - 03/21/2024 1:27 PM EST CHW Alfie Harmon, placed a call to patient in regards to SDOH concern for Wifi. CHW share link for [employer] for affordable internet access to patient via email. Patient verbalized that they will go online to apply for this service. documented in this encounter Plan of Treatment Not on file documented as of this encounter Visit Diagnoses Not on filedocumented in this encounter Additional Health Concerns Assessment Noted Time PHQ-9 Depression Total Score: 3 09/12/19 23 9:16 AM EDT documented as of this encounter Care Teams Stopper Setter Relationship Specialty Start Date End Date Danna Combs FNP [address] [place] [phone] PCP - General Family Medicine 10/05/21 documented as of this encounter
--- OUTSIDE RECORDS SUMMARY | 2024-04-15 17:44 | XMS_ITS | Encounter Summary ---
Author Organization [employer] Address [address] [facility] [address] [place] [address] Care Team Providers Care Carpenter'S Helper Name Role Phone LouisDanna stephens MIRIAM Primary Care Provider [phone] Encounter Details Date Type Department Care Team (Latest Contact Info) Description 04/04/2024 Travel Social History Tobacco Use Types Packs/Day Years [...] documented as of this encounter Care Teams Carpenter'S Helper Relationship Specialty Start Date End Date Danna Combs FNP [address] [place] [address] PCP - General Family Medicine 10/05/21 documented as of this encounter
--- OUTSIDE RECORDS SUMMARY | 2024-04-15 17:44 | XMS_ITS | Clinical Summary ---
Author Organization [employer] Address [address] [place] [address] 7[address] [place] [address] Care Team Providers Care [employer]ocker Name Role Phone LouisDanna stephens MIRIAM Primary Care Provider [phone] Allergies No known active allergies Medications FREESTYLE LITE test strip TEST BLOOD SUGAR TWICE DAILY DIRECTED 10/21/19 22 Active TRUEplus Lancets 33G misc TEST BLOOD SUGAR TWICE DAILY DIRECTED 10/21/19 22 Active albuterol 108 (90 Base) MCG/ACT inhaler Inhale 2 puffs every 6 (six) hours if needed for wheezing. 18 g 1 09/29/19 23 Active albuterol (2.5 MG/3ML) 0.083% nebulizer solution Take 3 mL (2.5 mg) by nebulization every 6 (six) hours if needed for wheezing. 75 mL 1 09/29/19 23 Active traZODone (Desyrel) 50 MG tabletIndicatio ns:Sleep disturbance TAKE 1 TABLET BY MOUTH ONCE DAILY NEEDED FOR SLEEP 30 tablet 3 12/05/19 23 Active sildenafil (Viagra) 25 MG tabletIndicatio ns:Erectile dysfunction, unspecified erectile dysfunction type TAKE 1 TABLET 1 HOUR BEFORE SEXUAL RELATIONS ONCE DAILY NEEDED 10 tablet 3 08/06/19 24 Active metFORMIN XR (Glucophage-XR) 500 MG 24 hr tabletIndicatio ns:Type 2 diabetes mellitus treated without insulin (CMS/HCC) TAKE 1 TABLET BY MOUTH EVERY DAY WITH DINNER 90 tablet 3 10/03/19 24 Active dilTIAZem CD (Cardizem CD) 180 MG 24 hr capsuleIndicati ons:Atrial fibrillation, unspecified type (CMS/HCC),Conge stive heart failure, unspecified HF chronicity, unspecified heart failure type (CMS/HCC) TAKE 1 CAPSULE BY MOUTH EVERY DAY 90 capsule 3 10/03/19 24 Active metoprolol tartrate (Lopressor) 100 MG tablet TAKE 2 TABLETS BY MOUTH TWICE DAILY WITH MEALS 360 tablet 3 10/18/19 24 Active digoxin (Lanoxin) 250 MCG tab;et TAKE 1 TABLET BY MOUTH EVERY DAY 90 tablet 3 10/18/19 24 Active atorvastatin (Lipitor) 20 MG tablet TAKE 1 TABLET BY MOUTH AT BEDTIME 90 tablet 3 12/12/19 24 Active lisinopril 5 MG tabletIndicatio ns:Primary hypertension TAKE 1 TABLET BY MOUTH EVERY DAY 90 tablet 3 01/08/20 24 Active busPIRone (Buspar) 7.5 MG tablet TAKE 1 TABLET BY MOUTH TWICE DAILY 180 tablet 1 01/29/20 24 Active empagliflozin (Jardiance) 10 MGIndications:T ype 2 diabetes mellitus treated without insulin (CMS/HCC) TAKE 1 TABLET BY MOUTH EVERY DAY IN THE MORNING 90 tablet 1 01/29/20 24 Active metroNIDAZOLE (Metrogel) 0.75 % gelIndications: Facial erythema Apply topically 2 times daily. Apply thin layer to face after washing face in the morning and before bed. 45 g 1 02/11/20 24 2024 Active warfarin (Coumadin) 7.5 MG tabletIndicatio ns:Longstanding persistent atrial fibrillation (CMS/HCC) TAKE 1 TO 1 & 1/2 TABLETS BY MOUTH EVERY DAY DIRECTED BY COUMADIN CLINIC BASED ON INR 60 tablet 04/03/19 25 Active warfarin (Coumadin) 7.5 MG tabletIndicatio ns:Longstanding persistent atrial fibrillation (CMS/HCC) TAKE 1 TO 1.5 TABLETS BY MOUTH EVERY DAY DIRECTED BY COUMADIN CLINIC BASED ON INR 60 tablet 01/02/20 24 2024 Discontinued Active Problems Problem Noted Date Diagnosed Date AV heart block 02/14/2024 Overview (02/14/2024): ICD pacer in place (last changed 01/24/[address] [facility]) Warfarin anticoagulation 09/10/2022 Overview (09/10/2022): ?? On coumadin therapy - 5-7.5mg daily as directed by clinic ?? Managed by [facility] Coumadin clinic Healthcare maintenance 09/10/2022 Assessment & Plan (02/14/2024 1:49 PM EST): -Per previous documentation due for colonoscopy in 2023. Referral to GI placed 02/11/24. -Optometry: QUENTIN Oct 2022 w/ [facility] Assessment & Plan (03/22/2023 6:31 PM EST): -Per previous documentation due for colonoscopy in 2023 -Optometry: UTD w/ [facility] Assessment & Plan (09/18/2022 8:35 PM EDT): -Per previous documentation due for colonoscopy in 2023 -Optometry: scheduled for [facility] in September 2022 ICD (implantable cardioverter-defibrillator) in place 05/08/2022 Overview (02/14/2024): -Hx of complete AV block s/p pacemaker placement, device interrogated Q6 months through cards and denies any concerns -Pt denies any chest pain, palpitations, SOB, orthopnea, syncope -01/24/24: [facility] Cards & IR - [employer]-D generator change given DAVE (Dr. Jerry Lang). Assessment & Plan (02/14/2024 1:48 PM EST): - Plan to f/up with surgical team regarding wound check Essential hypertension 09/18/2020 Overview (09/10/2022): -Hx of Afib, dialted cardiomyopathy, HTN, HLD, AV block -Continues digoxin, diltiazem, lisinopril, metoprolol, and atorvastatin. Med safety reviewed. -Denies any chest pain, palpitations, SOB, FRAIRE, blurry vision, N/V/D -Following with Dr. Grande in [place], [place] Type 2 diabetes mellitus 09/15/2020 Overview (02/14/2024): Lab Results Component Value Date HGBA1C 6.0 02/11/2024 - A1c: (Target </= 7.0): well controlled - Microalbumin/Cr:Alb: 8 mcg/mg on 05/08/22 - Lipids: April 2022: LDL 77, HDL 32, TC 142, TG 248 - Eye exam: Oct 2022 at [facility] - no diabetic retinopathy or macular edema - Dental: encouraged - TDap/Td: up to date - Foot exam/peripheral pulses: due - ARIN/ARB: yes - Statin: yes Continue lifestyle interventions Continue Metformin 500mg XR nightly Continue Jardiance 10mg daily Assessment & Plan (04/06/2024 7:58 PM EST): Lipids followed by cards. Plan to update microalbumin next appt. Erectile dysfunction 08/12/2020 Lactose intolerance 04/18/2017 Mixed hyperlipidemia 05/17/2015 Overview (09/10/2022): Lab Results Component Value Date CHOLESTEROL 142 05/08/2022 LDLCHOL 77 05/08/2022 LDLCHOL 54 09/03/2020 TRIG 248 (H) 05/08/2022 HDLCHOL 32 (L) 05/08/2022 CHOLHDLRAT 4.4 05/08/2022 -continue lifestyle modifications -Increase atorvastatin to 20mg nightly History of total knee arthroplasty 04/05/2015 Dilated cardiomyopathy 02/04/2015 Vitamin D deficiency 02/04/2015 Atrial fibrillation 01/18/2015 Assessment & Plan (04/06/2024 7:57 PM EST): - Continues on warfarin (discussed alternative medications with Cards - Dr. Enriquez Jan 2024) - Managed by [facility] Coumadin Clinic -Encouraged to consider DOAC, handout from the [employer] provided today. Mr. Hanson reports he will think about it any questions arise. Assessment & Plan (02/14/2024 1:29 PM EST): - Continues on warfarin (discussed alternative medications with Cards - Dr. Enriquez Jan 2024) - Managed by [facility] Coumadin Clinic Congestive heart failure 01/18/2015 Resolved [...] Encounters Date Type Department Care Team Description 04/15/2024 Orders Only GENERIC EXTERNAL DATA DEPARTMENT Provider, Generic External Data 04/04/2024 1:45 PM EST Office Visit [facility] [address] [place] [address] Louisen, Danna, TECHNICAL SUPPORT ASSISTANT Atrial fibrillation, unspecified type (CMS/HCC) (Primary Dx); Type 2 diabetes mellitus without complication, without long-term current use of insulin (CMS/HCC); Dietary counseling; Exercise counseling 04/04/2024 Travel 04/03/2024 Telephone [facility] [address] [place] [address] Marcos Hatfield MA Chart Prep 04/01/2024 Refill [facility] [address] [place] [address] Danna Combs FNP Longstanding persistent atrial fibrillation (CMS/HCC) 03/21/2024 Patient Outreach [facility] [address] [place] [address] Danna Combs FNP SDOH Concerns (C3CM/CHW Alfie Harmon, TC SDOH wifi) 03/21/2024 Patient Outreach [facility] [address] [place] [phone] Danna Combs FNP Pre-visit Planning (SDOH screening positive and Tobacco screening negative) 03/18/2024 Orders Only GENERIC EXTERNAL DATA DEPARTMENT Provider, Generic External Data 02/22/[address] [address] Danna Combs FNP 02/19/2024 Orders Only GENERIC EXTERNAL DATA DEPARTMENT Provider, Generic External Data 02/15/2024 Telephone [facility] [address] [place] [address] Danna Combs FNP 02/11/2024 1:00 PM EST Office Visit [facility] [address] [place], [place] [phone] Danna Combs FNP Type 2 diabetes mellitus without complication, without long-term current use of insulin (CMS/HCC) (Primary Dx); Encounter for immunization; Colon cancer screening; ICD (implantable cardioverter-defibri llator) in place; Congestive heart failure, unspecified HF chronicity, unspecified heart failure type (CMS/HCC); Atrial fibrillation, unspecified type (CMS/HCC); Healthcare maintenance; AV heart block; Facial erythema 02/11/2024 Travel 02/11/2024 Telephone [facility] [address] [place], [place] [phone] Marcos Hatfield MA Chart Prep 01/29/2024 Orders Only GENERIC EXTERNAL DATA DEPARTMENT Provider, Generic External Data 01/28/[address] [address] Danna Combs FNP Medication Question 01/28/2024 Refill [facility] [address] [place] [address] Danna Combs, MIRIAM Type 2 diabetes mellitus treated without insulin ([facility]) from Last 3 Months Immunizations Name Administration [...] Mass Index 39.72 04/04/2024 2:08 PM EST Plan of Treatment Health Maintenance Due Date Last Done Comments CT Colonography 1967 Colonoscopy 1967 Colorectal Cancer Screening 1967 FIT DNA/Cologuard 1967 FIT 1967 FOBT 1967 HIV Screening 1967 Sigmoidoscopy 1967 Diabetes: Foot Exam 05/23/1977 Alcohol/Substance Use Screening 1979 Hepatitis C Screening 05/23/1985 Zoster Vaccines (1 of 2) 05/23/2017 Diabetes: Urine Protein Screening 05/09/2023 05/08/2022, 10/06/2020 Lipid Panel 05/09/2023 05/08/2022, 09/03/2020 Diabetes: Hemoglobin A1C 08/11/202402/10/ 024, 03/21/2023, 05/08/2022 Eye Exam 10/20/2024 10/20/2022, 09/0 09/2022, 10/20/2022, Additional history exists DTaP/Tdap/Td Vaccines (2 - Td or Tdap) 02/04/2025 02/04/2015 COVID-19 Vaccine ( season) 2025 07/01/2020, 05/26/2020 Postponed from 10/14/2023 (Patient Refused) SDOH Screening 03/21/2025 03/21/2024 Tobacco Screening 03/21/2025 03/21/2024 Depression Screening 04/04/2025 04/04/2024, 04/04/19 25 RSV Patients and Patients Aged 60 years [...] COAG CLINIC Routine 04/15/2024 2:06 PM EST POCT GLUCOSE Routine 04/04/2024 2:32 PM EST Type 2 diabetes mellitus without complication, without long-term current use of insulin ([facility]) PROTHROMBIN TIME WHOLE BLD POC Routine 03/18/2024 2:06 PM EST ~PT, ~INR - ANTI COAG CLINIC Routine 03/18/2024 2:06 PM EST PROTHROMBIN TIME WHOLE BLD POC Routine 02/19/2024 2:59 PM EST ~PT, ~INR - ANTI COAG CLINIC Routine 02/19/2024 2:59 PM EST POCT GLYCATED HEMOGLOBIN, TOTAL Routine 02/11/2024 2:57 PM EST Type 2 diabetes mellitus without complication, without long-term current use of insulin ([facility]/HCC) POCT GLUCOSE Routine 02/11/2024 2:57 PM EST Type 2 diabetes mellitus without complication, without long-term current use of insulin (CMS/HCC) WOUND CARE Routine 02/11/2024 1:37 PM EST ICD (implantable cardioverter-defibr illator) in place PROTHROMBIN TIME WHOLE BLD POC Routine 01/29/2024 2:30 PM EST ~PT, ~INR - ANTI COAG CLINIC Routine 01/29/2024 2:30 PM EST ALBUMIN, RANDOM URINE W/CREATININE Routine 05/08/2022 10:13 AM EDT Type 2 diabetes mellitus without complication, without long-term current use of insulin ([facility]/HCC) LIPID PANEL, STANDARD Routine 05/08/2022 10:13 AM EDT Type 2 diabetes mellitus without complication, without long-term current use of insulin ([facility]/HCC) from Last 3 Months or Most Recently Relevant to Health Maintenance Results * (ABNORMAL) PROTHROMBIN TIME WHOLE BLD POC (04/15/2024 2:06 PM EST) Only the most recent of4 resultswithin the time period is included. Protime 25.3(H) 11.1 - 13.5 sec [facility] 04/15/2024 2:06 PM EST 04/15/2024 2:08 PM EST us Generic External Data Provider LAB BLOOD ORDERAB LES Final Result Performing Organization Address [facility] Co de Phone Number [facility] [address] [place] [phone] * (ABNORMAL) ~PT, ~INR - ANTI COAG CLINIC (04/15/2024 2:06 PM EST) Only the most recent of4 resultswithin the time period is included. Prothrombin Time INR 2.1(H) 0.9 - 1.1 [facility] Comment:METER #: [id number] TERNATIONAL NORMALIZED RATIO (INR) REFERENCE RANGES Reference [...] 2:06 PM EST 04/15/2024 2:08 PM EST Language Systems External Data Provider LAB BLOOD ORDERAB LES Final Result Performing Organization Address [facility] Co de Phone Number [facility] [address] [place] [phone] * POCT glucose manually resulted (04/04/2024 2:32 PM EST) Only the most recent of2 resultswithin the time period is included. Glucose Blood, POC 197 60 - 200 mg/dL QC Media Lot # Comment:[id number] Lot# Expiration Date Comment:05/20/2024 Blood Capillary blood specimen / Unknown 04/04/2024 2:32 PM EST Danna Combs TECHNICAL SUPPORT ASSISTANT POINT OF CARE TEST ENTER/EDIT ORDERABLES Final Result * POCT HGB A1C (02/11/2024 2:57 PM EST) Hemoglobin A1C 6.0 4.0 - 6.0 % QC Media Lot # [id number] Lot# Expiration Date [id number] Blood 02/11/2024 2:57 PM EST Danna Lauryn DENISEP POINT OF CARE TEST ENTER/EDIT ORDERABLES Final Result * Wound Care (02/11/2024 1:37 PM EST) Narrative Alma Wright RN - 02/11/2024 1:37 PM EST Alma Wright RN ? 02/14/2024 ??1:56 PM Wound Care Date/Time: 02/11/2024 1:37 PM Performed by: Alma Wright RN Authorized by: MIRIAM Nick ?? Consent: ??Consent obtained: ??Verbal ??Consent given by: ??Patient ??Risks, benefits, and alternatives were discussed: yes ?? Winnie protocol: ??Procedure explained and questions answered to patient or proxy's satisfaction: yes ?Patient identity confirmed: ??Verbally with patient Sedation: ??Sedation type: ??None Anesthesia: ??Anesthesia method: ??None Procedure details: ??Indications: open wounds ?Indications comment: ??Left Chest s/p pacemaker placement Dressing: ??Dressing applied: ??2x2 Post-procedure details: ??Procedure completion: ??Tolerated Comments: ?? Non-stick 2 x 2 dressing applied to left chest incision, secured with paper tape. Danna Combs TECHNICAL SUPPORT ASSISTANT IN CLINIC/BEDSIDE ORDERABLES F inal Result * Albumin, Random Urine W/Creatinine (05/08/2022 10:13 AM EDT) Pathologist [facility] Creatinine, Random Urine 89 20 - 320 mg/dL [facility] Albumin, Urine 0.7 See Note: mg/dL [employer] Comment: Reference Range: Reference Range Not established Albumin/Creatinin e Ratio, Random Urine 8 <30 mcg/mg creat [employer] Comment: The ADA defines abnormalities in albumin [...] 05/08/2022 8:44 PM EDT FASTING:NO FASTING: NO Danna Combs [facility] URINE ORDERABLES Final Res ult [facility] [address], [place] [address] [employer] [address] [place] [address] * (ABNORMAL) Lipid Panel, Standard (05/08/2022 10:13 AM EDT) Cholesterol, Total 142 <200 mg/dL [facility] HDL Cholesterol 32(L) > OR = 40 mg/dL [facility] Triglycerides 248(H) <150 mg/dL [facility] Comment: If a non-fasting specimen was collected, consider repeat triglyceride testing on a fasting specimen if clinically indicated. Kaleb et al. J. of Clin. Lipidol. 2015;9:129-169. LDL Cholesterol 77 mg/dL (calc) [facility] Comment: Reference range: <100 Desirable range <100 mg/dL for primary prevention; ?? <70 mg/dL for patients with CHD or diabetic patients with > or = 2 CHD risk factors. LDL-C is now calculated using the Cory calculation, which is a validated novel method providing better accuracy than the Friedewald equation in the estimation of LDL-C. Fidel RAMSEY et al. ALEKSANDR. 2013;310(19): 1524-3964 (http://education.Wysiwyg/faq/YFH998) Chol/HDLC Ratio 4.4 <5.0 (calc) [employer] [facility] Non-HDL Cholesterol 110 <130 mg/dL (calc) [employer] [place] [employer] Comment: For patients with diabetes plus 1 major ASCVD risk factor, treating to a non-HDL-C goal of <100 mg/dL (LDL-C of <70 mg/dL) is considered a therapeutic option. Blood Venous blood specimen / Unknown 05/08/2022 10:13 AM EDT 05/08/2022 10:14 AM EDT Narrative [facility] - 05/08/2022 8:44 PM EDT FASTING:NO FASTING: NO us Danna Combs TECHNICAL SUPPORT ASSISTANT LAB BLOOD ORDERABLES Final Res ult [facility] [address], [place] [address] [employer] [address] [place] [phone] from Last 3 Months or Most Recently Relevant to Health Maintenance Insurance [facility] STANDARD MEDICARE Care Teams [employer] Hat [employer]ocker Relationship Specialty Start Date End Date Danna Combs FNP [address] [place] [phone] PCP - General Family Medicine 10/05/21
--- OUTSIDE RECORDS SUMMARY | 2024-04-15 17:44 | XMS_ITS | Encounter Summary ---
Author Organization [email or web address] Address [address] [facility] [address] [place] [address] Care Team Providers Care Traveling Secretary Name Role Phone LouisDanna stephens MIRIAM Primary Care Provider [phone] Encounter Details Date Type Department Care Team (Late st Contact Info) Description 03/18/2024 Orders Only GENERIC EXTERNAL DATA DEPARTMENT [...] Comments PROTHROMBIN TIME WHOLE BLD POC Routine 03/18/2024 2:06 PM EST ~PT, ~INR - ANTI COAG CLINIC Routine 03/18/2024 2:06 PM EST documented in this encounter Results * (ABNORMAL) PROTHROMBIN TIME WHOLE BLD POC (03/18/2024 2:06 PM EST) Protime 24.2(H) 11.1 - 13.5 sec [facility] 03/18/2024 2:06 PM EST 03/18/2024 2:16 PM EST us Generic External Data Provider LAB BLOOD ORDERAB LES Final Result Performing Organization Address City/State/[facility] Co de Phone Number [facility] [address] [place] [phone] * (ABNORMAL) ~PT, ~INR - ANTI COAG CLINIC (03/18/2024 2:06 PM EST) Prothrombin Time INR 2.0(H) 0.9 - 1.1 [facility] Comment:METER #: [id number] TERNATIONAL NORMALIZED RATIO (INR) REFERENCE RANGES Reference RangeFor patients not on anticoagulant therapy: 0.9 - 1.1INR ranges for oral anticoagulanttherapy:For prevention and treatment of venous thrombosis and pulmonary embolism: 2.0 - 3.0For acute myocardial infarction with aspirin therapy: 2.0 - 3.0For acute myocardial infarction without aspirin therapy: 3.0 - 4.0For patients with mechanical prosthetic heart valves: 2.5 - 3.5 03/18/2024 2:06 PM EST 03/18/2024 2:16 PM EST us Generic External Data Provider LAB BLOOD ORDERAB LES Final Result [facility] [address] [place] [address] [phone] documented in this encounter Visit Diagnoses Not on filedocumented in this encounter Additional Health Concerns Assessment Noted Time PHQ-9 Depression Total Score: 3 09/12/19 23 9:16 AM EDT documented as of this encounter Care Teams Traveling Secretary Relationship Specialty Start Date End Date Danna Combs FNP [address] [place] [address] PCP - General Family Medicine 10/05/21 documented as of this encounter
== END 2024-04-15 14:14 | disposition home or self-care (01) ==
LOC: HO.ACS 14:02
PROVIDERS: PCP Registered Nurse; Visit Provider Internal Medicine
DX: Z79.01 Long term (current) use of anticoagulants (principal)

== ENCOUNTER → 2024-04-15 14:02 | Outpatient (BNVA) | payer MEDICARE, MEDICAID, SELFPAY | PROVIDERS: PCP Registered Nurse; Visit Provider Internal Medicine | DX: I48.20 Chronic atrial fibrillation, unspecified (principal); Z79.01 Long term (current) use of anticoagulants; Z51.81 Encounter for therapeutic drug level monitoring | CPT/HCPCS: 85610; 99211 ==

== ENCOUNTER 2024-05-08 14:21 | Outpatient (REF) | payer MEDICARE, MEDICAID, SELFPAY ==
[2024-05-08 17:38] LABS: Alanine Aminotransferase 46 U/L (0-40); Albumin Level 4.2 g/dL (3.5-5.0); Alkaline Phosphatase 88 U/L (39-117); Anion Gap 8 (12-20); Aspartate Amino Transferase 37 U/L (5-37); Bilirubin Total 0.6 mg/dL (0.0-1.0); Blood Urea Nitrogen 9 mg/dL (9-16); Calcium 9.2 mg/dL (8.4-10.2); Carbon Dioxide 29 mmol/L (22-29); Chloride 106 mmol/L (96-108); Estimated Glomerular Filt Rate > 60; Glucose Random 68 mg/dL (60-115); Potassium 4.3 mmol/L (3.3-5.1); Sodium 139 mmol/L (135-145); Total Protein 7.4 g/dL (6.5-8.0)
== END 2024-05-08 14:22 | disposition home or self-care (01) ==
LOC: HO.LAB 14:21
PROVIDERS: PCP Registered Nurse; Visit Provider Nurse Practitioner
DX: Z01.818 Encounter for other preprocedural examination (principal); I50.9 Heart failure, unspecified
CPT/HCPCS: 36415; 80053; 99212

== ENCOUNTER 2024-05-08 14:21 | Outpatient (AMB) | payer MEDICARE, MEDICAID, SELFPAY ==
--- NOTE | 2024-05-08 14:24 | MHC.OFFVIS ---
Vital Signs 05/08/24 14:25 Height 5 ft 11 in Weight 266 lb 12.149 oz BMI 37.2 BP 127/75 Blood Pressure Location Rt brachial Position Sitting Pulse 79 Intake Visit Reasons: Colonoscopy screening Intake Note: New patient in office today for colonoscopy screening. CC: Patient denies having any GI symptoms or concerns today. National Service Officer Required: No Allergies No Known Allergies [No Known Allergies*] Allergy (Verified 05/08/24 14:31) HPI HPI Colonoscopy screening: Details: 58-YEAR-OLD male here for preprocedural meeting to discuss a screening colonoscopy. He is referred by [facility]. PMX AFib -on Coumadin and digoxin Dilated cardiomyopathy Congestive heart failure Diabetes Hypertension Anxiety Erectile dysfunction Lactose intolerant (* SURGICAL HISTORY Left total knee replacement Cardiac pacemaker/defibr * ALLERGIES: NKDA * [employer] LABS: none TODAY'S VISIT His chief risk officer is Refugio Enriquez [facility] tel:[phone] THis is his first colonoscopy. He has afib that is controlled and is on coumadin and denies any respiratory problems. There are no prior problems with anesthesia or sedation NO ID problems. No known FHX crc or polyps. [facility] Medical History (Updated 05/08/24 @ 14:34 by ANN Ledesma) Pacemaker Neck mass Neck abscess CHF (congestive heart failure) Atrial fibrillation Hypertension Diabetes mellitus Surgical History (Updated 05/08/24 @ 14:56 by ANN Ledesma) History of total left knee replacement H/O cardiac catheterization Family History (Updated 05/08/24 @ 14:28 by AGUSTÍN Chisholm) Maternal Grandfather Stomach cancer Other No family history of cerebrovascular accident (CVA) Social History (Updated 05/08/24 @ 14:29 by AGUSTÍN Chisholm) Alcohol intake: former Patient Tobacco Use Status: Former Tobacco user Use of substances other than those prescribed or required for medical reasons: No Review of Systems Const Denies fatigue, Denies fever(s), Denies night sweats, Denies poor appetite and Denies weight loss Eyes Details: glasses Reports requires corrective lenses ENT Reports Normal hearing present, Denies dental pain, Denies dysphagia, Denies hearing loss, Denies mouth pain, Denies odynophagia, Denies throat swelling, Denies tongue swelling and Reports other (Dentition adequate) Card Reports no additional complaints Resp Reports no additional complaints GI Details: Denies abdominal pain, Denies melena, Denies bloating, Denies hematochezia, Denies constipation, Denies GI cramping, Denies dysphagia, Denies excessive flatus, Denies early satiety, Denies heartburn, Denies diarrhea, Denies nausea, Denies odynophagia, Denies vomiting and Denies hematemesis Skin/Breast Denies pruritus, Denies lesions, Denies rash and Denies jaundice Neuro Reports Normal hearing present and Denies Abnormal speech present Endo Denies fatigue Aller/Immun Denies throat swelling and Denies tongue swelling Physical Exam Vital Signs: Last Vital Signs Pulse 79 05/08/24 14:25 BP 127/75 05/08/24 14:25 BMI result Body Mass Index 37.2 Const General: cooperative, no acute distress, well developed and well groomed Nutritional Appearance: well nourished and obese Orientation/consciousness: oriented to person, oriented to place and oriented to time Limitations: No language barrier HEENT Head: Yes normocephalic and Yes atraumatic Eyes General: appearance normal, both eyes and all related structures Pupils: Equal, round and reactive pupils present Neck Neck: Yes normal visual inspection and Yes no lymphadenopathy Thyroid: Thyroid normal Resp Effort & Inspection: normal respiratory effort and able to speak in complete sentences Auscultation: clear to auscultation bilaterally Cardio Rate: regular rate Rhythm: regular rhythm Heart sounds: Normal, physiologic split S2 sound present Peripheral pulses: radial pulses present and posterior tibial pulses present GI Inspection: No distended, No Abdominal panniculus present and Yes obesity Palpation (GI): Soft to palpation, nontender, no guarding and not rigid Percussion: Yes normal to percussion Auscultation: normal bowel sounds Rectal Exam - Male: Yes deferred Skin General skin exam: no rashes or lesions noted, turgor normal, skin not dry, no jaundice, No spider nevi and no striae Rashes: no rashes Nails: normal Neuro General: oriented to person, oriented to place and oriented to time Cranial nerves: Yes Equal, round and reactive pupils present and Yes Normal hearing present Speech: No Abnormal speech present Extrem General: Yes normal to inspection, No clubbing, No cyanosis and No edema Psych Appearance: grossly normal and well kempt Mental Status: mental status grossly normal Speech and movement: Normal speech and movement present Affect: normal affect Attitude: cooperative Thought process: Normal thought process present and not confabulating Thought content: Normal thought content present Insight: Limited insight present (Psych) Judgement: Limited judgement present (Psych) Assessment & Plan Assessment & Plan (1) Pre-op examination: Code(s): Z01.818 - Encounter for other preprocedural examination Category: Medical (2) CHF (congestive heart failure): Code(s): I50.9 - Heart failure, unspecified Category: Medical (3) Atrial fibrillation: Code(s): I48.91 - Unspecified atrial fibrillation Category: Medical (4) Current use of anticoagulant therapy: Code(s): Z79.01 - intermediate (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 Plan His chief risk officer is Refugio Enriquez [facility] tel:[phone] THis is his first colonoscopy. He has afib that is controlled and is on coumadin and denies any respiratory problems. There are no prior problems with anesthesia or sedation NO ID problems. No known FHX crc or polyps. Orders: Orders Colonoscopy - GI Use Only Today Z01.818 - Encounter for other preprocedural examination Comprehensive Met. Panel Today Z.818 - Encounter for other preprocedural examination Medications: New sodium,potassium,mag sulfates 17.5-3.13-1.6 gram (Suprep Bowel Prep Kit) 480 mL orally; FOR COLONOSCOPY PREP 354 mL 0RF Coding Level of Care Code New Pt Level 3 (49932) Diagnoses Pre-op examination Z01. CHF (congestive heart failure) I50.9 Atrial fibrillation I48.91 Current use of anticoagulant therapy Z79.01
[2024-05-08 14:25] VITALS: BP 127/75; PULSE 79; BMI 37.2
== END 2024-05-08 15:01 | disposition home or self-care (01) ==
LOC: HO.HGI 14:21
PROVIDERS: PCP Registered Nurse; Visit Provider Nurse Practitioner
DX: Z01.818 Encounter for other preprocedural examination (principal); Z12.11 Encounter for screening for malignant neoplasm of colon; I50.9 Heart failure, unspecified; I48.91 Unspecified atrial fibrillation; Z79.01 Long term (current) use of anticoagulants
CPT/HCPCS: 99024

== ENCOUNTER 2024-05-13 14:15 | Outpatient (AMB) | payer MEDICARE, MEDICAID, SELFPAY ==
[2024-05-13 14:36] LABS: Prothrombin Time Whole Bld POC 33.9 sec (11.1-13.5); ~PT, ~INR - Anti Coag Clinic 2.8 (0.9-1.1)
--- NOTE | 2024-05-13 14:39 | MHC.OFFVISCO ---
Intake Intake Visit Reasons: Anticoagulation Allergies No Known Allergies [No Known Allergies*] Allergy (Verified 05/13/24 14:30) Medication List - Last Reconciled 05/13/24 by Trish Estrella RN albuterol sulfate 90 mcg/actuation 2 puffs inhalation Q6H PRN atorvastatin 20 mg PO DAILY blood sugar diagnostic (FreeStyle Lite Strips) As directed buspirone 7.5 mg PO BID digoxin 250 mcg PO DAILY diltiazem HCl CD 180 mg PO DAILY empagliflozin (Jardiance) 10 mg PO QAM lancets (TRUEplus Lancets) As directed lisinopril 5 mg PO DAILY metformin ER 500 mg PO QPM metoprolol tartrate 200 mg PO BID sildenafil 25 mg PO DAILY PRN sodium,potassium,mag sulfates 17.5-3.13-1.6 gram (Suprep Bowel Prep Kit) 480 mL orally; FOR COLONOSCOPY PREP trazodone 50 mg PO BEDTIME PRN warfarin 7.5 mg See Protocol PO DAILY Nursing Note INR: 2.8 in therapeutic range pt stated that he took 7.5 mg last week instead of 3.75mg - enc to chk pill box daily Medications and supplements reviewed No changes in health, diet, medications, or supplements, Denies any signs and symptoms of bleeding or bruising or clotting. Bleeding, bruising, clotting discussed Nutritional guidance given - cont to eat a mix of fruits and vegetables Dose: keep same dose 3.75mg x 1 day/ 7.5mg x 6 days F/U INR: 4 weeks Patient verbalizes understanding of instructions given read back Anti-Coag Initial Assessment Social Hx Patient Tobacco Use Status: Former Tobacco user alcohol intake: former Coding Level of Care Code Est Patient Level 1 Diagnoses Current use of anticoagulant therapy Z79.01 Results AMB INR Fingerstick AMB INR Fingerstick 2.8 Last Edit by Trish Estrella RN on 05/13/24 14:37 MANUAL ENTRY Assessment & Plan Assessment & Plan (1) Current use of anticoagulant therapy: Code(s): Z79.01 - 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
--- OUTSIDE RECORDS SUMMARY | 2024-05-13 17:02 | XMS_ITS | Encounter Summary ---
Author Organization [employer] Address [address] [place] [address] Care Team Providers Care Disaster Director Name Role Phone LouisDanna stephens MIRIAM Primary Care Provider [phone] Encounter Details Date Type Department Care Team (Late st Contact Info) Description 05/08/2024 Orders Only GENERIC EXTERNAL DATA DEPARTMENT Provider, [...] Procedure Name Priority Date/Time Associated Diagnosis Comments COMPREHENSIVE METABOLIC PANEL Routine 05/08/2024 3:27 PM EDT documented in this encounter Results * (ABNORMAL) Comprehensive Metabolic Panel (05/08/2024 3:27 PM EDT) Sodium 139 135 - 145 mmol/L [facility] Potassium 4.3 3.3 - 5.1 mmol/L [facility] Chloride 106 96 - 108 mmol/L [facility] Carbon Dioxide 29 22 - 29 mmol/L [facility] Anion Gap 8(L) 12 - 20 [facility] Urea Nitrogen (BUN) 9 9 - 16 mg/dL [facility] Creatinine, Serum 0.97 0.5 - 1.4 mg/dL [facility] Estimated Glomerular Filt Rate >60 [facility] Comment:Chronic Kidney Disea se: Estimated GFR < 60 mL/min/[id number] Kidney Disease: Estimated GFR < 15 mL/min/1.73m2 Glucose 68 60 - 115 mg/dL [facility] Calcium 9.2 8.4 - 10.2 mg/dL [facility] Bilirubin, Total 0.6 0.0 - 1.0 mg/dL [facility] Aspartate Amino Transferase 37 5 - 37 U/L [facility] Alanine Aminotransferase 46(H) 0 - 40 U/L [facility] Total Protein 7.4 6.5 - 8.0 g/dL [facility] Albumin Level 4.2 3.5 - 5.0 g/dL [facility] Alkaline Phosphatase 88 39 - 117 U/L [facility] 05/08/2024 3:27 PM EDT 05/08/2024 3:27 PM EDT us Generic External Data Provider LAB BLOOD ORDERAB LES Final Result [facility] [address] [place] [phone] documented in this encounter Visit Diagnoses Not on filedocumented in this encounter Additional Health Concerns Assessment Noted Time PHQ-9 Depression Total Score: 3 04/04/19 25 2:53 PM EST documented as of this encounter Care Teams Disaster Director Relationship Specialty Start Date End Date Danna Combs FNP [address] [place] [address] PCP - General Family Medicine 10/05/21 documented as of this encounter
--- OUTSIDE RECORDS SUMMARY | 2024-05-13 17:03 | XMS_ITS | Encounter Summary ---
Author Organization [employer] Address [address] [place] [address] [address] [place] [address] Care Team Providers Care Special Event Assistant Name Role Phone Danna Combs MIRIAM Primary Care Provider [phone] Encounter Details Date Type Department Care Team (Late st Contact Info) Description 04/13/2022 Orders Only [facility] [address] [place], [place] [phone] Ginny Hager LPN Social History Tobacco Use [...] EDT) Protime 35.8(H) 11.1 - 13.5 sec [facility] 08/03/2022 2:18 PM EDT 08/03/2022 2:20 PM EDT us [facility] External Provider LAB BLO OD ORDERABLES Final Result [facility] [address] [place] [phone] * (ABNORMAL) ~PT, ~INR - ANTI COAG CLINIC (08/03/2022 2:18 PM EDT) Prothrombin Time INR 3.0(H) 0.9 - 1.1 [facility] Comment:METER #: [id number] TERNATIONAL NORMALIZED RATIO (INR) REFERENCE RANGES Reference [...] 2:18 PM EDT 08/03/2022 2:20 PM EDT [facility] External Provider LAB BLO OD ORDERABLES Final Result Performing Organization Address City/[facility] Co de Phone Number [facility] [address] [place] [address] [phone] * (ABNORMAL) PROTHROMBIN TIME WHOLE BLD POC (07/04/2022 2:21 PM EDT) Protime 32.4(H) 11.1 - 13.5 sec [facility] 07/04/2022 2:21 PM EDT 07/04/2022 2:23 PM EDT [facility] External Provider LAB BLO OD ORDERABLES Final Result Performing Organization Address [facility] Co de Phone Number [facility] [address] [place] [phone] * (ABNORMAL) ~PT, ~INR - ANTI COAG CLINIC (07/04/2022 2:21 PM EDT) Prothrombin Time INR 2.7(H) 0.9 - 1.1 [facility] Comment:METER #: [id number] TERNATIONAL NORMALIZED RATIO (INR) REFERENCE RANGES Reference [...] 2:21 PM EDT 07/04/2022 2:23 PM EDT [facility] External Provider LAB BLO OD ORDERABLES Final Result Performing Organization Address [facility] Co de Phone Number [facility] [address] [place] [phone] * (ABNORMAL) PROTHROMBIN TIME WHOLE BLD POC (06/20/2022 2:07 PM EDT) Protime 44.6(H) 11.1 - 13.5 sec [facility] 06/20/2022 2:07 PM EDT 06/21/2022 8:04 AM EDT [facility] External Provider LAB BLO OD ORDERABLES Final Result Performing Organization Address [facility] Co de Phone Number [facility] [address] [place] [phone] * (ABNORMAL) ~PT, ~INR - ANTI COAG CLINIC (06/20/2022 2:07 PM EDT) Prothrombin Time INR 3.7(H) 0.9 - 1.1 [facility] Comment:METER #: [id number] TERNATIONAL NORMALIZED RATIO (INR) REFERENCE RANGES Reference [...] 2:07 PM EDT 06/21/2022 8:04 AM EDT [facility] External Provider LAB BLO OD ORDERABLES Final Result Performing Organization Address [facility] Co de Phone Number [facility] [address] [place] [phone] * (ABNORMAL) PROTHROMBIN TIME WHOLE BLD POC (05/23/2022 2:05 PM EDT) Protime 28.5(H) 11.1 - 13.5 sec [facility] 05/23/2022 2:05 PM EDT 05/23/2022 2:07 PM EDT [facility] External Provider LAB BLO OD ORDERABLES Final Result Performing Organization Address [facility] de Phone Number [facility] [address] [place] [phone] * (ABNORMAL) ~PT, ~INR - ANTI COAG CLINIC (05/23/2022 2:05 PM EDT) Prothrombin Time INR 2.4(H) 0.9 - 1.1 [facility] Comment:METER #: [id number] TERNATIONAL NORMALIZED RATIO (INR) REFERENCE RANGES Reference [...] 2:05 PM EDT 05/23/2022 2:07 PM EDT [facility] External Provider LAB BLO OD ORDERABLES Final Result Performing Organization Address [facility] Co de Phone Number [facility] [address] [place] [phone] * (ABNORMAL) PROTHROMBIN TIME WHOLE BLD POC (05/16/2022 2:01 PM EDT) Protime 19.3(H) 11.1 - 13.5 sec [facility] 05/16/2022 2:01 PM EDT 05/16/2022 2:03 PM EDT [facility] External Provider LAB BLO OD ORDERABLES Final Result Performing Organization Address City/[facility] Co de Phone Number [facility] [address] [place] [phone] * (ABNORMAL) ~PT, ~INR - ANTI COAG CLINIC (05/16/2022 2:01 PM EDT) [facility] Prothrombin Time INR 1.6(H) 0.9 - 1.1 [facility] Comment:METER #: [id number] TERNATIONAL NORMALIZED RATIO (INR) REFERENCE RANGES Reference [...] 2:01 PM EDT 05/16/2022 2:03 PM EDT [facility] External Provider LAB BLO OD ORDERABLES Final Result Performing Organization Address City/[facility] Co de Phone Number [facility] [address] [place] [phone] * (ABNORMAL) PROTHROMBIN TIME WHOLE BLD POC (04/17/2022 2:12 PM EST) Protime 31.7(H) 11.1 - 13.5 sec [facility] 04/17/2022 2:12 PM EST 04/17/2022 2:16 PM EST [facility] External Provider LAB BLO OD ORDERABLES Final Result Performing Organization Address [facility] Co de Phone Number [facility] [address] [place], [place] [phone] * (ABNORMAL) ~PT, ~INR - ANTI COAG CLINIC (04/17/2022 2:12 PM EST) Prothrombin Time INR 2.6(H) 0.9 - 1.1 [facility] Comment:METER #: [id number] TERNATIONAL NORMALIZED RATIO (INR) REFERENCE RANGES Reference [...] 2:12 PM EST 04/17/2022 2:16 PM EST [facility] External Provider LAB BLO OD ORDERABLES Final Result Performing Organization Address [facility] Co de Phone Number [facility] [address] [place] [phone] documented in this encounter Visit Diagnoses Not on filedocumented in this encounter Care Teams Special Event Assistant Relationship Specialty Start Date End Date Danna Combs FNP [address] [place] [phone] PCP - General Family Medicine 10/05/21 documented as of this encounter
--- OUTSIDE RECORDS SUMMARY | 2024-05-13 17:03 | XMS_ITS | Clinical Summary ---
Author Organization [employer] Address [address] [place] [address] [address] [place] [address] Care Team Providers Care Vibration Technician Name Role Phone LouisDanna stephens MIRIAM Primary Care Provider [phone] Allergies No known active allergies Medications FREESTYLE [...] AT BEDTIME 90 tablet 3 4 Active lisinopril 5 MG tabletIndication s:Primary [...] bed. 45 g 1 4 025 Active warfarin (Coumadin) 7.5 MG tabletIndication s:Longstanding persistent atrial fibrillation (CMS/HCC) TAKE 1 TO 1 & 1/2 TABLETS BY MOUTH EVERY DAY DIRECTED BY COUMADIN CLINIC BASED ON INR 60 tablet 5 Active Active Problems Problem Noted Date Diagnosed Date AV heart block 02/14/2024 Overview (02/14/2024): ICD pacer in place (last changed 01/24/24 at [facility]) Warfarin anticoagulation 09/10/2022 Overview (09/10/2022): ?? On coumadin therapy - 5-7.5mg daily as directed by clinic ?? Managed by [facility] Healthcare maintenance 09/10/2022 Assessment & Plan (02/14/2024 1:49 PM EST): -Per previous documentation due for colonoscopy in 2024. Referral to GI placed 02/11/24. -Optometry: QUENTIN Oct 2022 w/ [facility] Assessment & Plan (03/22/2023 6:31 PM EST): -Per previous documentation due for colonoscopy in 2023 -Optometry: UTD w/ [facility] Assessment & Plan (09/18/2022 8:35 PM EDT): -Per previous documentation due for colonoscopy in 2023 -Optometry: scheduled for [facility] in September 2022 ICD (implantable cardioverter-defibrillator) in place 05/08/2022 Overview (02/14/2024): -Hx of complete AV block s/p pacemaker placement, device interrogated Q6 months through cards and denies any concerns -Pt denies any chest pain, palpitations, SOB, orthopnea, syncope -01/24/24: [facility] Cards & IR - STEEPING PRESS TENDER-D generator change given DAVE (Dr. Jerry Lang). Assessment & Plan (02/14/2024 1:48 PM EST): - Plan to f/up with surgical team regarding wound check Essential hypertension 09/18/2020 Overview (09/10/2022): -Hx of Afib, dialted cardiomyopathy, HTN, HLD, AV block -Continues digoxin, diltiazem, lisinopril, metoprolol, and atorvastatin. Med safety reviewed. -Denies any chest pain, palpitations, SOB, FRAIRE, blurry vision, N/V/D -Following with Dr. Grande in [place], [place] Type 2 diabetes mellitus 09/15/2020 Overview (02/14/2024): Lab Results Component Value Date HGBA1C 6.0 02/11/2024 - A1c: (Target </= 7.0): well controlled - Microalbumin/Cr:Alb: 8 mcg/mg on 05/08/22 - Lipids: April 2022: LDL 77, HDL 32, TC 142, TG 248 - Eye exam: Oct [address] [facility] - no diabetic retinopathy [...] Dr. Enriquez Jan 2024) - Managed by [facility] Cou[facility] -Encouraged to consider DOAC, handout from the [employer] provided today. Mr. Hanson reports he will think about it any questions arise. Assessment & Plan (02/14/2024 1:29 PM EST): - Continues on warfarin (discussed alternative medications with Cards - Dr. Enriquez Jan 2024) - Managed by [facility] Congestive heart failure 01/18/2015 Resolved [...] Encounters Date Type Department Care Team Description 05/13/2024 Orders Only GENERIC EXTERNAL DATA DEPARTMENT Provider, Generic External Data 05/08/2024 Orders Only GENERIC EXTERNAL DATA DEPARTMENT Provider, Generic External Data 04/15/2024 Orders Only GENERIC EXTERNAL DATA DEPARTMENT Provider, Generic External Data 04/04/2024 1:45 PM EST Office Visit [facility] [address] [place] [address] Danna Combs, MIRIAM Atrial fibrillation, unspecified type (CMS/HCC) (Primary Dx); Type 2 diabetes mellitus without complication, without long-term current use of insulin (CMS/HCC); Dietary counseling; Exercise counseling 04/04/2024 Travel 04/03/2024 Telephone [facility] [address] [place] [address] Marcos Hatfield [place] Chart Prep 04/01/[address] [facility] [address] [place], [place] [phone] Danna Combs, ACADEMIC SERVICES COORDINATOR Longstanding persistent atrial fibrillation (CMS/HCC) 03/21/2024 Patient Outreach [facility] [address] [place] [address] Danna Combs FNP SDOH Concerns (C3CM/[facility]W Alfie Harmon, TC SDOH wifi) 03/21/2024 Patient Outreach [facility] [address] [place] [address] Danna Combs FNP Pre-visit Planning (SDOH screening positive and Tobacco screening negative) 03/18/2024 Orders Only GENERIC EXTERNAL DATA DEPARTMENT Provider, Generic External Data 02/22/[address] [phone] Danna Combs FNP 02/19/2024 Orders Only GENERIC EXTERNAL DATA DEPARTMENT Provider, Generic External Data 02/15/2024 Telephone [facility] [address] [place] [address] Danna Combs FNP from Last 3 Months Immunizations Name Administration [...] Panel 05/09/2023 05/08/2022, 09/03/2020 Diabetes: Hemoglobin A1C 08/11/2024 024, 03/21/2023, 05/08/2022 [...] Comments PROTHROMBIN TIME WHOLE BLD POC Routine 05/13/2024 2:33 PM EDT ~PT, ~INR - ANTI COAG CLINIC Routine 05/13/2024 2:33 PM EDT COMPREHENSIVE METABOLIC PANEL Routine 05/08/2024 3:27 PM EDT PROTHROMBIN TIME WHOLE BLD POC Routine 04/15/2024 2:06 PM EST ~PT, ~INR - ANTI COAG CLINIC Routine 04/15/2024 2:06 PM EST POCT GLUCOSE Routine 04/04/2024 2:32 PM EST Type 2 diabetes mellitus without complication, without long-term current use of insulin (CMS/HCC) PROTHROMBIN TIME WHOLE BLD POC Routine 03/18/2024 [...] without long-term current use of insulin (CMS/HCC) ALBUMIN, RANDOM URINE W/CREATININE Routine 05/08/2022 10:13 AM EDT Type 2 diabetes mellitus without complication, without long-term current use of insulin (CMS/HCC) LIPID PANEL, STANDARD Routine 05/08/2022 10:13 AM EDT Type 2 diabetes mellitus without complication, without long-term current use of insulin (CMS/HCC) from Last 3 Months or Most Recently Relevant to Health Maintenance Results * (ABNORMAL) PROTHROMBIN TIME WHOLE BLD POC (05/13/2024 2:33 PM EDT) Only the most recent of4 resultswithin the time period is included. Protime 33.9(H) 11.1 - 13.5 sec [facility] 05/13/2024 2:33 PM EDT 05/13/2024 2:35 PM EDT Generic External Data Provider LAB BLOOD ORDERAB LES Final Result Performing Organization Address [facility] Co de Phone Number [facility] [address] [place] [phone] * (ABNORMAL) ~PT, ~INR - ANTI COAG CLINIC (05/13/2024 2:33 PM EDT) Only the most recent of4 resultswithin the time period is included. [facility] Prothrombin Time INR 2.8(H) 0.9 - 1.1 [facility] Comment:METER #: [id number] TERNATIONAL NORMALIZED RATIO (INR) REFERENCE RANGES Reference RangeFor patients not on anticoagulant therapy: 0.9 - 1.1INR ranges for oral anticoagulanttherapy:For prevention and treatment of venous thrombosis and pulmonary embolism: 2.0 - 3.0For acute myocardial infarction with aspirin therapy: 2.0 - 3.0For acute myocardial infarction without aspirin therapy: 3.0 - 4.0For patients with mechanical prosthetic heart valves: 2.5 - 3.5 05/13/2024 2:33 PM EDT 05/13/2024 2:35 PM EDT [facility] External Data Provider LAB BLOOD ORDERAB LES Final Result Performing Organization Address [facility] Co de Phone Number [facility] [address] [place] [address] [phone] * (ABNORMAL) Comprehensive Metabolic Panel (05/08/2024 3:27 PM EDT) [facility] Sodium 139 135 - 145 mmol/L [facility] Potassium 4.3 3.3 - 5.1 mmol/L [facility] Chloride 106 96 - 108 mmol/L [facility] Carbon Dioxide 29 22 - 29 mmol/L [facility] Anion Gap 8(L) 12 - 20 [facility] Urea Nitrogen (BUN) 9 9 - 16 mg/dL [facility] Creatinine, Serum 0.97 0.5 - 1.4 mg/dL [facility] Estimated Glomerular Filt Rate >60 [facility] Comment:Chronic Kidney Disea se: Estimated GFR < 60 mL/min/1.54e4Ssxqmc Kidney Disease: Estimated GFR < 15 mL/min/1.73m2 Glucose 68 60 - 115 mg/dL [facility] Calcium 9.2 8.4 - 10.2 mg/dL [facility] Bilirubin, Total 0.6 0.0 - 1.0 mg/dL [facility] Aspartate Amino Transferase 37 5 - 37 U/L [facility] Alanine Aminotransferase 46(H) 0 - 40 U/L [facility] Total Protein 7.4 6.5 - 8.0 g/dL [facility] Albumin Level 4.2 3.5 - 5.0 g/dL [facility] Alkaline Phosphatase 88 39 - 117 U/L [facility] 05/08/2024 3:27 PM EDT 05/08/2024 3:27 PM EDT us Generic External Data Provider LAB BLOOD ORDERAB LES Final Result [facility] [address] [place] [phone] [phone] * POCT glucose manually resulted (04/04/2024 2:32 PM EST) Pathologist [facility] Glucose Blood, POC 197 60 - 200 mg/dL QC Media Lot # Comment:[id number] Lot# Expiration Date Comment:05/20/2024 Blood Capillary blood specimen / Unknown 04/04/2024 2:32 PM EST Danna [facility] POINT OF CARE TEST ENTER/EDIT ORDERABLES Final Result * POCT HGB A1C (02/11/2024 2:57 PM EST) Hemoglobin A1C 6.0 4.0 - 6.0 % QC Media Lot # [id number] Lot# Expiration Date [id number] Blood 02/11/2024 2:57 PM EST [facility] POINT OF CARE TEST ENTER/EDIT ORDERABLES Final Result * Albumin, Random Urine W/Creatinine (05/08/2022 10:13 AM EDT) Creatinine, Random Urine 89 20 - 320 mg/dL [employer] [facility] [employer] Albumin, Urine 0.7 See Note: mg/dL [facility] [facility] [employer] Comment: Reference Range: Reference Range Not established Albumin/Creatinin e Ratio, Random Urine 8 <30 mcg/mg creat [employer] [facility] [employer] Comment: The ADA defines abnormalities in albumin [...] PM EDT FASTING:NO FASTING: NO Danna Combs [facility] URINE ORDERABLES Final Res ult [facility] [address], [place] [address] [employer] [facility] [place] [employer] [address] [place] [phone] * (ABNORMAL) Lipid Panel, Standard (05/08/2022 10:13 AM EDT) Cholesterol, Total 142 <200 mg/dL [facility] [facility] [employer] HDL Cholesterol 32(L) > OR = 40 mg/dL [facility] [facility] [employer] Triglycerides 248(H) <150 mg/dL [facility] [facility] [employer] Comment: If a non-fasting specimen was collected, consider repeat triglyceride testing on a fasting specimen if clinically indicated. Kaleb et al. J. of Clin. Lipidol. 2015;9:129-169. LDL Cholesterol 77 mg/dL (calc) [facility] [facility] [employer] Comment: Reference range: <100 Desirable range <100 mg/dL for primary prevention; ?? <70 mg/dL for patients with CHD or diabetic patients with > or = 2 CHD risk factors. LDL-C is now calculated using the Cory calculation, which is a validated novel method providing better accuracy than the Friedewald equation in the estimation of LDL-C. Fidel SS et al. ALEKSANDR. 2013;310(19): 6109-7155 (http://education.RatePoint/faq/PUF051) Chol/HDLC Ratio 4.4 <5.0 (calc) [facility] [employer] Non-HDL Cholesterol 110 <130 mg/dL (calc) [facility] [facility] [employer] Comment: For patients with diabetes plus 1 major ASCVD risk factor, treating to a non-HDL-C goal of <100 mg/dL (LDL-C of <70 mg/dL) is considered a therapeutic option. Blood Venous blood specimen / Unknown 05/08/2022 10:13 AM EDT 05/08/2022 10:14 AM EDT Narrative [facility] - 05/08/2022 8:44 PM EDT FASTING:NO FASTING: NO Danna [facility] LAB BLOOD ORDERABLES Final Res ult [facility] [address], [place] [address] [employer] [facility] [employer] [address] [place] [phone] from Last 3 Months or Most Recently Relevant to Health Maintenance Insurance MEDIC[place] [address] [place] [id number] Care Teams Vibration Technician Relationship Specialty Start Date End Date Danna Combs FNP [address] [place], [place] PCP - General Family Medicine 10/05/21
--- OUTSIDE RECORDS SUMMARY | 2024-05-13 17:03 | XMS_ITS | Encounter Summary ---
Author Organization [employer] Address [address] [facility] [address] [place] [address] Care Team Providers Care Newspaper Photographer Name Role Phone Danna Combs MIRIAM Primary Care Provider [phone] Encounter Details Date Type Department Care Team (Late st Contact Info) Description 05/13/2024 Orders Only GENERIC EXTERNAL DATA [...] COAG CLINIC Routine 05/13/2024 2:33 PM EDT documented in this encounter Results * (ABNORMAL) PROTHROMBIN TIME WHOLE BLD POC (05/13/2024 2:33 PM EDT) Protime 33.9(H) 11.1 - 13.5 sec [facility] 05/13/2024 2:33 PM EDT 05/13/2024 2:35 PM EDT us Generic External Data Provider LAB BLOOD ORDERAB LES Final Result Performing Organization Address City/State/[facility] Co de Phone Number [facility] [address] [place] [address] [phone] * (ABNORMAL) ~PT, ~INR - ANTI COAG CLINIC (05/13/2024 2:33 PM EDT) Prothrombin Time INR 2.8(H) 0.9 - 1.1 [facility] Comment:METER #: [id number] TERNATIONAL NORMALIZED RATIO (INR) REFERENCE RANGES Reference [...] 2:33 PM EDT 05/13/2024 2:35 PM EDT us Generic External Data Provider LAB BLOOD ORDERAB LES Final Result [facility] [address] [place] [phone] documented in this encounter Visit Diagnoses Not on filedocumented in this encounter Additional Health Concerns Assessment Noted Time PHQ-9 Depression Total Score: 3 04/04/19 25 2:53 PM EST documented as of this encounter Care Teams Newspaper Photographer Relationship Specialty Start Date End Date Danna Combs FNP [address] [place] [address] PCP - General Family Medicine 10/05/21 documented as of this encounter
--- OUTSIDE RECORDS SUMMARY | 2024-05-13 17:03 | XMS_ITS | Encounter Summary ---
Author Organization [employer] Address [address] [place] [address] Care Team Providers Care Alligator Shear Operator Name Role Phone LouisDanna stephens MIRIAM Primary Care Provider [phone] Encounter Details Date Type Department Care Team (Late st Contact Info) Description 12/28/2022 Abstract [facility] [address] [place], [place] [phone] Tigist Cardenas Social History Tobacco Use Types [...] documented as of this encounter Care Teams Alligator Shear Operator Relationship Specialty Start Date End Date Danna Combs FNP [address] [place] [phone] PCP - General Family Medicine 10/05/21 documented as of this encounter
== END 2024-05-13 14:48 | disposition home or self-care (01) ==
LOC: HO.ACS 14:15
PROVIDERS: PCP Registered Nurse; Visit Provider Internal Medicine Medical Oncology
DX: Z79.01 Long term (current) use of anticoagulants (principal)

== ENCOUNTER → 2024-05-13 14:15 | Outpatient (BNVA) | payer MEDICARE, MEDICAID, SELFPAY | PROVIDERS: PCP Registered Nurse; Visit Provider Internal Medicine Medical Oncology | DX: I48.20 Chronic atrial fibrillation, unspecified (principal); Z51.81 Encounter for therapeutic drug level monitoring; Z79.01 Long term (current) use of anticoagulants | CPT/HCPCS: 85610; 99211 ==

== ENCOUNTER 2024-06-16 14:02 | Outpatient (AMB) | payer MEDICARE, MEDICAID, SELFPAY ==
[2024-06-16 14:08] LABS: Prothrombin Time Whole Bld POC 33.6 sec (11.1-13.5); ~PT, ~INR - Anti Coag Clinic 2.8 (0.9-1.1)
--- NOTE | 2024-06-16 14:11 | MHC.OFFVISCO ---
Intake Intake Visit Reasons: Anticoagulation Allergies No Known Allergies [No Known Allergies*] Allergy (Verified 06/16/24 14:03) Medication List - Last Reconciled 06/16/24 by Rozina Olmos RN albuterol sulfate 90 mcg/actuation 2 puffs inhalation Q6H PRN atorvastatin 20 mg PO DAILY blood sugar diagnostic (FreeStyle Lite Strips) As directed buspirone 7.5 mg PO BID digoxin 250 mcg PO DAILY diltiazem HCl CD 180 mg PO DAILY empagliflozin (Jardiance) 10 mg PO QAM lancets (TRUEplus Lancets) As directed lisinopril 5 mg PO DAILY metformin ER 500 mg PO QPM metoprolol tartrate 200 mg PO BID sildenafil 25 mg PO DAILY PRN sodium,potassium,mag sulfates 17.5-3.13-1.6 gram (Suprep Bowel Prep Kit) 480 mL orally; FOR COLONOSCOPY PREP trazodone 50 mg PO BEDTIME PRN warfarin 7.5 mg See Protocol PO DAILY Nursing Note INR: 2.8 in therapeutic range of 2-3 Medications and supplements reviewed No changes in health, diet, medications, or supplements, Denies any signs and symptoms of bleeding or bruising or clotting. Bleeding, bruising, clotting discussed Nutritional guidance given Dose: keep same dose of 7.5mg X 6 days and 3.75mg X 1 day (Sun) F/U INR: 4 weeks Patient verbalizes understanding of instructions given Anti-Coag Initial Assessment Social Hx Patient Tobacco Use Status: Former Tobacco user alcohol intake: former Coding Level of Care Code Est Patient Level 1 Diagnoses Current use of anticoagulant therapy Z79.01 Assessment & Plan Assessment & Plan (1) Current use of anticoagulant therapy: Code(s): Z79.01 - senior living (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
--- OUTSIDE RECORDS SUMMARY | 2024-06-16 15:37 | XMS_ITS | Clinical Summary ---
Author Organization [employer] Address [address] [place] [address] 7[address] [place] [address] Care Team Providers Care Growth Hacker Name Role Phone LouisDanna stephens MIRIAM Primary Care Provider [phone] Allergies No known active allergies Medications FREESTYLE LITE test strip TEST BLOOD SUGAR TWICE DAILY DIRECTED Active TRUEplus Lancets 33G misc TEST BLOOD SUGAR TWICE DAILY DIRECTED 022 Active albuterol 108 (90 Base) MCG/ACT inhaler Inhale 2 puffs every 6 (six) hours if needed for wheezing. 18 g 1 023 Active albuterol (2.5 MG/3ML) 0.083% nebulizer solution Take 3 mL (2.5 mg) by nebulization every 6 (six) hours if needed for wheezing. 75 mL 1 023 Active traZODone (Desyrel) 50 MG tabletIndicatio ns:Sleep disturbance TAKE 1 TABLET BY MOUTH ONCE DAILY NEEDED FOR SLEEP 30 tablet 3 023 Active sildenafil (Viagra) 25 MG tabletIndicatio ns:Erectile dysfunction, unspecified erectile dysfunction type TAKE 1 TABLET 1 HOUR BEFORE SEXUAL RELATIONS ONCE DAILY NEEDED 10 tablet 3 024 Active metFORMIN XR (Glucophage-XR) 500 MG 24 hr tabletIndicatio ns:Type 2 diabetes mellitus treated without insulin (CMS/HCC) TAKE 1 TABLET BY MOUTH EVERY DAY WITH DINNER 90 tablet 3 024 Active dilTIAZem CD (Cardizem CD) 180 MG 24 hr capsuleIndicati ons:Atrial fibrillation, unspecified type (CMS/HCC),Conge stive heart failure, unspecified HF chronicity, unspecified heart failure type (CMS/HCC) TAKE 1 CAPSULE BY MOUTH EVERY DAY 90 capsule 3 024 Active metoprolol tartrate (Lopressor) 100 MG tablet TAKE 2 TABLETS BY MOUTH TWICE DAILY WITH MEALS 360 tablet 3 024 Active digoxin (Lanoxin) 250 MCG tab;et TAKE 1 TABLET BY MOUTH EVERY DAY 90 tablet 3 024 Active atorvastatin (Lipitor) 20 MG tablet TAKE 1 TABLET BY MOUTH AT BEDTIME 90 tablet 3 024 Active lisinopril 5 MG tabletIndicatio ns:Primary hypertension TAKE 1 TABLET BY MOUTH EVERY DAY 90 tablet 3 024 Active busPIRone (Buspar) 7.5 MG tablet TAKE 1 TABLET BY MOUTH TWICE DAILY 180 tablet 1 024 Active empagliflozin (Jardiance) 10 MGIndications:T ype 2 diabetes mellitus treated without insulin (CMS/HCC) TAKE 1 TABLET BY MOUTH EVERY DAY IN THE MORNING 90 tablet 1 024 Active metroNIDAZOLE (Metrogel) 0.75 % gelIndications: Facial erythema Apply topically 2 times daily. Apply thin layer to face after washing face in the morning and before bed. 45 g 1 024 2024 Active warfarin (Coumadin) 7.5 MG tabletIndicatio ns:Longstanding persistent atrial fibrillation (CMS/HCC) TAKE 1 TO 1 & 1/2 TABLETS BY MOUTH EVERY DAY DIRECTED BY COUMADIN CLINIC BASED ON INR 100 tablet 1 025 Active warfarin (Coumadin) 7.5 MG tabletIndicatio ns:Longstanding persistent atrial fibrillation (CMS/HCC) TAKE 1 TO 1 & 1/2 TABLETS BY MOUTH EVERY DAY DIRECTED BY COUMADIN CLINIC BASED ON INR 60 tablet 025 2024 Discontinued(R eorder (will not trigger notification to Pharmacy)) warfarin (Coumadin) 7.5 MG tabletIndicatio ns:Longstanding persistent atrial fibrillation (CMS/HCC) TAKE 1 TO 1 & 1/2 TABLETS BY MOUTH EVERY DAY DIRECTED BY COUMADIN CLINIC BASED ON INR 60 tablet 025 2024 Discontinued(R eorder (will not trigger notification to Pharmacy)) Active Problems Problem Noted Date Diagnosed Date AV heart block 02/14/2024 Overview (02/14/2024): ICD pacer in place (last changed 01/24/24 at [facility]) Warfarin anticoagulation 09/10/2022 Overview (09/10/2022): ?? On coumadin therapy - 5-7.5mg daily as directed by clinic ?? Managed by [facility] Coumadin clinic Healthcare maintenance 09/10/2022 Assessment & Plan (02/14/2024 1:49 PM EST): -Per previous documentation due for colonoscopy in 2023. Referral to GI placed 02/11/24. -Optometry: QUENTIN Oct 2022 w/ [facility] Assessment & Plan (03/22/2023 6:31 PM EST): -Per previous documentation due for colonoscopy in 2023 -Optometry: UTD w/ [facility] Assessment & Plan (09/18/2022 8:35 PM EDT): -Per previous documentation due for colonoscopy in 2023 -Optometry: scheduled for [facility] in September 2022 ICD (implantable cardioverter-defibrillator) in place 05/08/2022 Overview (02/14/2024): -Hx of complete AV block s/p pacemaker placement, device interrogated Q6 months through cards and denies any concerns -Pt denies any chest pain, palpitations, SOB, orthopnea, syncope -01/24/24: [facility] Cards & IR - 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 Jerry Lang). Assessment & Plan (02/14/2024 1:48 PM EST): - Plan to f/up with surgical team regarding wound check Essential hypertension 09/18/2020 Overview (09/10/2022): -Hx of Afib, dialted cardiomyopathy, HTN, HLD, AV block -Continues digoxin, diltiazem, lisinopril, metoprolol, and atorvastatin. Med safety reviewed. -Denies any chest pain, palpitations, SOB, FRAIRE, blurry vision, N/V/D -Following with Dr. Grande in [place], [place] Type 2 diabetes mellitus 09/15/2020 Overview (02/14/2024): Lab Results Component Value Date HGBA1C 6.0 02/11/2024 - A1c: (Target </= 7.0): well controlled - Microalbumin/Cr:Alb: 8 mcg/mg on 05/08/22 - Lipids: April 2022: LDL 77, HDL 32, TC 142, TG 248 - Eye exam: Oct 2022 at [facility] - no diabetic retinopathy [...] Dr. Enriquez Jan 2024) - Managed by [facility] Coumadin Clinic -Encouraged to consider DOAC, handout from the [employer] provided today. Mr. Hanson reports he will think about it any questions arise. Assessment & Plan (02/14/2024 1:29 PM EST): - Continues on warfarin (discussed alternative medications with Cards - Dr. Enriquez Jan 2024) - Managed by [facility] Coumadin Clinic Congestive heart failure 01/18/2015 Resolved [...] Encounters Date Type Department Care Team Description 06/16/2024 Orders Only GENERIC EXTERNAL DATA DEPARTMENT Provider, Generic External Data 06/09/2024 Telephone [facility] [address] [place] [address] Regina Faith, ANN-MARIE Med Refill (TC from [facility] Anti coagulation Clinic @ [phone]:/Pt out of coumadin x3 days) 06/09/2024 Refill [facility] [address] [place] [address] Danna Combs FNP Longstanding persistent atrial fibrillation (CMS/HCC) 06/07/2024 Refill [facility] [address] [place] [address] Sarah Castillo, ANN-MARIE Longstanding persistent atrial fibrillation (CMS/HCC) 05/29/2024 Telephone [facility] [address] [place] [address] Danna Combs FNP May recall 05/13/2024 Orders Only GENERIC EXTERNAL DATA DEPARTMENT Provider, Generic External Data 05/08/2024 Orders Only GENERIC EXTERNAL DATA DEPARTMENT Provider, Generic External Data 04/15/2024 Orders Only GENERIC EXTERNAL DATA DEPARTMENT Provider, Generic External Data 04/04/2024 1:45 PM EST Office Visit [facility] [address] [place], [place] [phone] Danna Combs FNP Atrial fibrillation, unspecified type (CMS/HCC) (Primary Dx); Type 2 diabetes mellitus without complication, without long-term current use of insulin ([facility]); Dietary counseling; Exercise counseling 04/04/2024 Travel 04/03/2024 Telephone [facility] [address] [place], [place] [phone] Marcos Hatfield [place] Chart Prep 04/01/2024 Refill [facility] [address] [place] [address] Danna Combs FNP Longstanding persistent atrial fibrillation (CMS/HCC) 03/21/2024 Patient Outreach [facility] [address] [place], [place] [phone] Danna Combs FNP SDOH Concerns (C3[facility]W PH[facility] [place] SDOH wifi) 03/21/2024 Patient Outreach [facility] [address] [place] [address] Danna Combs FNP Pre-visit Planning (SDOH screening positive and Tobacco screening negative) from Last 3 Months Immunizations Name Administration [...] is your housing situation today? I have gingerjesus maravilla 11/28/[address] you [...] Panel 05/09/2023 05/08/2022, 09/03/2020 Diabetes: Hemoglobin A1C 08/11/202402/10/2 024, 03/21/2023, 05/08/2022 Eye Exam 10/20/2024 10/20/2022, [...] Comments PROTHROMBIN TIME WHOLE BLD POC Routine 06/16/2024 2:06 PM EDT ~PT, ~INR - ANTI COAG CLINIC Routine 06/16/2024 2:06 PM EDT PROTHROMBIN TIME WHOLE BLD POC Routine 05/13/2024 [...] complication, without long-term current use of insulin ([facility]) POCT GLYCATED HEMOGLOBIN, TOTAL Routine 02/11/2024 2:57 PM EST Type 2 diabetes mellitus without complication, without long-term current use of insulin ([facility]) ALBUMIN, RANDOM URINE W/CREATININE Routine 05/08/2022 10:13 AM EDT Type 2 diabetes mellitus without complication, without long-term current use of insulin ([facility]) LIPID PANEL, STANDARD Routine 05/08/2022 10:13 AM EDT Type 2 diabetes mellitus without complication, without long-term current use of insulin ([facility]) from Last 3 Months or Most Recently Relevant to Health Maintenance Results * (ABNORMAL) PROTHROMBIN TIME WHOLE BLD POC (06/16/2024 2:06 PM EDT) Only the most recent of3 resultswithin the time period is included. Protime 33.6(H) 11.1 - 13.5 sec [facility] 06/16/2024 2:06 PM EDT 06/16/2024 2:07 PM EDT us Generic External Data Provider LAB BLOOD ORDERAB LES Final Result [facility] [address] [place] [address] [phone] * (ABNORMAL) ~PT, ~INR - ANTI COAG CLINIC (06/16/2024 2:06 PM EDT) Only the most recent of3 resultswithin the time period is included. Prothrombin Time INR 2.8(H) 0.9 - 1.1 [facility] Comment:METER #: [id number] TERNATIONAL NORMALIZED RATIO (INR) REFERENCE RANGES Reference RangeFor patients not on anticoagulant therapy: 0.9 - 1.1INR ranges for oral anticoagulanttherapy:For prevention and treatment of venous thrombosis and pulmonary embolism: 2.0 - 3.0For acute myocardial infarction with aspirin therapy: 2.0 - 3.0For acute myocardial infarction without aspirin therapy: 3.0 - 4.0For patients with mechanical prosthetic heart valves: 2.5 - 3.5 06/16/2024 2:06 PM EDT 06/16/2024 2:07 PM EDT us Generic External Data Provider LAB BLOOD ORDERAB LES Final Result [facility] [address] [place] [address] [phone] * (ABNORMAL) Comprehensive Metabolic Panel (05/08/2024 3:27 PM EDT) Sodium 139 135 - 145 mmol/L [facility] Potassium 4.3 3.3 - 5.1 mmol/L [facility] Chloride 106 96 - 108 mmol/L [facility] Carbon Dioxide 29 22 - 29 mmol/L [facility] Anion Gap 8(L) 12 - 20 [facility] Urea Nitrogen (BUN) 9 9 - 16 mg/dL [facility] Creatinine, Serum 0.97 0.5 - 1.4 mg/dL [facility] Estimated Glomerular Filt Rate >60 [facility] Comment:Chronic Kidney Disea se: Estimated GFR < 60 mL/min/1.45r0Gmxido Kidney Disease: Estimated GFR < 15 mL/min/1.73m2 Glucose 68 60 - 115 mg/dL [facility] Calcium 9.2 8.4 - 10.2 mg/dL [facility] Bilirubin, Total 0.6 0.0 - 1.0 mg/dL [facility] Aspartate Amino Transferase 37 5 - 37 U/L [facility] Alanine Aminotransferase 46(H) 0 - 40 U/L [facility] Total Protein 7.4 6.5 - 8.0 g/dL [facility] Albumin Level 4.2 3.5 - 5.0 g/dL [facility] Alkaline Phosphatase 88 39 - 117 U/L [facility] 05/08/2024 3:27 PM EDT 05/08/2024 3:27 PM EDT Generic External Data Provider LAB BLOOD ORDERAB LES Final Result [facility] [address] [place] [phone] * POCT glucose manually resulted (04/04/2024 2:32 PM EST) Glucose Blood, POC 197 60 - 200 mg/dL [employer] Media Lot # Comment:[id number] Lot# Expiration Date Comment:05/20/2024 Blood Capillary blood specimen / Unknown 04/04/2024 2:32 PM EST Danna Phalen APPLICATION PACKAGING SPECIALIST POINT OF CARE TEST ENTER/EDIT ORDERABLES Final Result * POCT HGB A1C (02/11/2024 2:57 PM EST) Hemoglobin A1C 6.0 4.0 - 6.0 % [employer] Media Lot # [id number] Lot# Expiration Date [id number] Blood 02/11/2024 2:57 PM EST Danna Phalen APPLICATION PACKAGING SPECIALIST POINT OF CARE TEST ENTER/EDIT ORDERABLES Final Result * Albumin, Random Urine W/Creatinine (05/08/2022 10:13 AM EDT) Creatinine, Random Urine 89 20 - 320 mg/dL [facility] [place] [facility] Albumin, Urine 0.7 See Note: mg/dL [facility] Comment: Reference Range: Reference Range Not established Albumin/Creatinin e Ratio, Random Urine 8 <30 mcg/mg creat [facility] [place] [facility] Comment: The ADA defines abnormalities in albumin [...] EDT FASTING:NO FASTING: NO us Danna Combs APPLICATION PACKAGING SPECIALIST LAB URINE ORDERABLES Final Res ult [facility] [address], [place] [address] [facility] [address] [place] [address] * (ABNORMAL) Lipid Panel, Standard (05/08/2022 10:13 AM EDT) Cholesterol, Total 142 <200 mg/dL [facility] [place] [facility] HDL Cholesterol 32(L) > OR = 40 mg/dL [facility] [place] [facility] Triglycerides 248(H) <150 mg/dL [facility] Comment: If a non-fasting specimen was collected, consider repeat triglyceride testing on a fasting specimen if clinically indicated. Kaleb et al. J. of Clin. Lipidol. 2015;9:129-169. LDL Cholesterol 77 mg/dL (calc) [facility] Comment: Reference range: <100 Desirable range <100 mg/dL for primary prevention; ?? <70 mg/dL for patients with CHD or diabetic patients with > or = 2 CHD risk factors. LDL-C is now calculated using the Fidel-Deyvi calculation, which is a validated novel method providing better accuracy than the Friedewald equation in the estimation of LDL-C. Fidel RAMSEY et al. ALEKSANDR. 2013;310(19): 1072-2322 (http://education.Cartagenia/faq/ZMT502) Chol/HDLC Ratio 4.4 <5.0 (calc) [facility] Non-HDL Cholesterol 110 <130 mg/dL (calc) [facility] Comment: For patients with diabetes plus 1 major ASCVD risk factor, treating to a non-HDL-C goal of <100 mg/dL (LDL-C of <70 mg/dL) is considered a therapeutic option. Blood Venous blood specimen / Unknown 05/08/2022 10:13 AM EDT 05/08/2022 10:14 AM EDT Narrative [facility] - 05/08/2022 8:44 PM EDT FASTING:NO FASTING: NO us Danna Combs APPLICATION PACKAGING SPECIALIST LAB BLOOD ORDERABLES Final Res ult [facility] [address], [place] [address] [facility] [place] [employer] [id number] [address] [place] [phone] from Last 3 Months or Most Recently Relevant to Health Maintenance Insurance [facility] STANDARD MEDICARE Care Teams Growth Hacker Relationship Specialty Start Date End Date Danna Combs FNP [address] [place] [phone] PCP - General Family Medicine 10/05/21
--- OUTSIDE RECORDS SUMMARY | 2024-06-16 15:37 | XMS_ITS | Encounter Summary ---
Author Organization [employer] Address [address] [facility] [facility] [address] [place] [address] Care Team Providers Care Skilled Laborer Name Role Phone Danna Combs Primary Care Provider [phone] Reason for Visit * Reason Comments Med Refill Encounter Details Date Type Department Care Team ([facility] st Contact Info) Description 06/09/2024 Refill [facility] [address] [place] [address] Danna Combs FNP [address] [place] [address] Longstanding persistent atrial fibrillation (CMS/HCC) Social History [...] documented as of this encounter Care Teams Skilled Laborer Relationship Specialty Start Date End Date Danna Combs FNP [address] [place] [phone] PCP - General Family Medicine 10/05/21 documented as of this encounter
--- OUTSIDE RECORDS SUMMARY | 2024-06-16 15:37 | XMS_ITS | Encounter Summary ---
Author Organization [employer] Address [address] [place] [address] 7t [place] [address] Care Team Providers Care Air Drier Machine Operator Name Role Phone Danna Combs MIRIAM Primary Care Provider [phone] Encounter Details Date Type Department Care Team (Late st Contact Info) Description 04/13/2022 Orders Only [facility] [address] [place], [place] [phone] Ginny Hager LPN Social History Tobacco Use [...] EDT) Protime 35.8(H) 11.1 - 13.5 sec [facility] 08/03/2022 2:18 PM EDT 08/03/2022 2:20 PM EDT us [facility] External Provider LAB BLO OD ORDERABLES Final Result [facility] [address] [place] [phone] * (ABNORMAL) ~PT, ~INR - ANTI COAG CLINIC (08/03/2022 2:18 PM EDT) Prothrombin Time INR 3.0(H) 0.9 - 1.1 [facility] Comment:METER #: [id number] TERNATIONAL NORMALIZED RATIO (INR) REFERENCE RANGES Reference [...] 2:18 PM EDT 08/03/2022 2:20 PM EDT [facility] External Provider LAB BLO OD ORDERABLES Final Result Performing Organization Address City/[facility] Co de Phone Number [facility] [address] [place] [phone] * (ABNORMAL) PROTHROMBIN TIME WHOLE BLD POC (07/04/2022 2:21 PM EDT) Protime 32.4(H) 11.1 - 13.5 sec [facility] 07/04/2022 2:21 PM EDT 07/04/2022 2:23 PM EDT [facility] External Provider LAB BLO OD ORDERABLES Final Result Performing Organization Address [facility] Co de Phone Number [facility] [address] [place] [phone] * (ABNORMAL) ~PT, ~INR - ANTI COAG CLINIC (07/04/2022 2:21 PM EDT) Prothrombin Time INR 2.7(H) 0.9 - 1.1 [facility] Comment:METER #: [id number] TERNATIONAL NORMALIZED RATIO (INR) REFERENCE RANGES Reference [...] 2:21 PM EDT 07/04/2022 2:23 PM EDT [facility] External Provider LAB BLO OD ORDERABLES Final Result Performing Organization Address [facility] Co de Phone Number [facility] [address] [place] [phone] * (ABNORMAL) PROTHROMBIN TIME WHOLE BLD POC (06/20/2022 2:07 PM EDT) Protime 44.6(H) 11.1 - 13.5 sec [facility] 06/20/2022 2:07 PM EDT 06/21/2022 8:04 AM EDT [facility] External Provider LAB BLO OD ORDERABLES Final Result Performing Organization Address [facility] Co de Phone Number [facility] [address] [place] [phone] * (ABNORMAL) ~PT, ~INR - ANTI COAG CLINIC (06/20/2022 2:07 PM EDT) Prothrombin Time INR 3.7(H) 0.9 - 1.1 [facility] Comment:METER #: [id number] TERNATIONAL NORMALIZED RATIO (INR) REFERENCE RANGES Reference [...] 2:07 PM EDT 06/21/2022 8:04 AM EDT [facility] External Provider LAB BLO OD ORDERABLES Final Result Performing Organization Address [facility] Co de Phone Number [facility] [address] [place] [phone] * (ABNORMAL) PROTHROMBIN TIME WHOLE BLD POC (05/23/2022 2:05 PM EDT) Protime 28.5(H) 11.1 - 13.5 sec [facility] 05/23/2022 2:05 PM EDT 05/23/2022 2:07 PM EDT [facility] External Provider LAB BLO OD ORDERABLES Final Result Performing Organization Address [facility] de Phone Number [facility] [address] [place] [phone] * (ABNORMAL) ~PT, ~INR - ANTI COAG CLINIC (05/23/2022 2:05 PM EDT) Prothrombin Time INR 2.4(H) 0.9 - 1.1 [facility] Comment:METER #: [id number] TERNATIONAL NORMALIZED RATIO (INR) REFERENCE RANGES Reference [...] 2:05 PM EDT 05/23/2022 2:07 PM EDT [facility] External Provider LAB BLO OD ORDERABLES Final Result Performing Organization Address [facility] Co de Phone Number [facility] [address] [place] [phone] * (ABNORMAL) PROTHROMBIN TIME WHOLE BLD POC (05/16/2022 2:01 PM EDT) Protime 19.3(H) 11.1 - 13.5 sec [facility] 05/16/2022 2:01 PM EDT 05/16/2022 2:03 PM EDT [facility] External Provider LAB BLO OD ORDERABLES Final Result Performing Organization Address City/[facility] Co de Phone Number [facility] [address] [place] [phone] * (ABNORMAL) ~PT, ~INR - ANTI COAG CLINIC (05/16/2022 2:01 PM EDT) [facility] Prothrombin Time INR 1.6(H) 0.9 - 1.1 [facility] Comment:METER #: [id number] TERNATIONAL NORMALIZED RATIO (INR) REFERENCE RANGES Reference [...] 2:01 PM EDT 05/16/2022 2:03 PM EDT [facility] External Provider LAB BLO OD ORDERABLES Final Result Performing Organization Address City/[facility] Co de Phone Number [facility] [address] [place] [phone] * (ABNORMAL) PROTHROMBIN TIME WHOLE BLD POC (04/17/2022 2:12 PM EST) Protime 31.7(H) 11.1 - 13.5 sec [facility] 04/17/2022 2:12 PM EST 04/17/2022 2:16 PM EST [facility] External Provider LAB BLO OD ORDERABLES Final Result Performing Organization Address [facility] Co de Phone Number [facility] [address] [place], [place] [phone] * (ABNORMAL) ~PT, ~INR - ANTI COAG CLINIC (04/17/2022 2:12 PM EST) Prothrombin Time INR 2.6(H) 0.9 - 1.1 [facility] Comment:METER #: [id number] TERNATIONAL NORMALIZED RATIO (INR) REFERENCE RANGES Reference [...] 2:12 PM EST 04/17/2022 2:16 PM EST [facility] External Provider LAB BLO OD ORDERABLES Final Result Performing Organization Address [facility] Co de Phone Number [facility] [address] [place] [phone] documented in this encounter Visit Diagnoses Not on filedocumented in this encounter Care Teams Air Drier Machine Operator Relationship Specialty Start Date End Date Danna Combs FNP [address] [place] [phone] PCP - General Family Medicine 10/05/21 documented as of this encounter
--- OUTSIDE RECORDS SUMMARY | 2024-06-16 15:37 | XMS_ITS | Encounter Summary ---
Author Organization [employer] Address [address] [facility] 7t [place] [address] Care Team Providers Care Accounts Administrator Name Role Phone Danna Combs MIRIAM Primary Care Provider [phone] Encounter Details Date Type Department Care Team (Late st Contact Info) Description 06/16/2024 Orders Only GENERIC EXTERNAL DATA [...] [facility] Routine 06/16/2024 2:06 PM EDT documented in this encounter Results * (ABNORMAL) PROTHROMBIN TIME WHOLE BLD POC (06/16/2024 2:06 PM EDT) Protime 33.6(H) 11.1 - 13.5 sec [facility] 06/16/2024 2:06 PM EDT 06/16/2024 2:07 PM EDT us Generic External Data Provider LAB BLOOD ORDERAB LES Final Result Performing Organization Address City/State/[facility] Co de Phone Number [facility] [address] [place] [address] [phone] * (ABNORMAL) ~PT, ~INR - ANTI COAG CLINIC (06/16/2024 2:06 PM EDT) Prothrombin Time INR 2.8(H) 0.9 - 1.1 [facility] Comment:METER #: [id number] TERNATIONAL NORMALIZED RATIO (INR) REFERENCE RANGES Reference [...] Provider LAB BLOOD ORDERAB LES Final Result [facility] [address] [place] [phone] [phone] documented in this encounter Visit Diagnoses Not on filedocumented in this encounter Additional Health Concerns Assessment Noted Time PHQ-9 Depression Total Score: 3 04/04/19 25 2:53 PM EST documented as of this encounter Care Teams Accounts Administrator Relationship Specialty Start Date End Date Danna Combs FNP [address] [place] [address] PCP - General Family Medicine 10/05/21 documented as of this encounter
--- OUTSIDE RECORDS SUMMARY | 2024-06-16 15:37 | XMS_ITS | Encounter Summary ---
Author Organization [employer] Address [address] [facility] [address] 7[address] [place] [address] Care Team Providers Care Shovel Oiler Name Role Phone LouisDanna stephens MIRIAM Primary Care Provider [phone] Encounter Details Date Type Department Care Team (Late st Contact Info) Description 12/28/2022 Abstract [facility] [address] [place], [place] [phone] Tigist Cardenas Social History Tobacco Use Types [...] documented as of this encounter Care Teams Shovel Oiler Relationship Specialty Start Date End Date Danna Combs FNP [address] [place] [phone] PCP - General Family Medicine 10/05/21 documented as of this encounter
== END 2024-06-16 14:13 | disposition home or self-care (01) ==
LOC: HO.ACS 14:02
PROVIDERS: PCP Registered Nurse; Visit Provider Internal Medicine Medical Oncology
DX: Z79.01 Long term (current) use of anticoagulants (principal)

== ENCOUNTER → 2024-06-16 14:02 | Outpatient (BNVA) | payer MEDICARE, MEDICAID, SELFPAY | PROVIDERS: PCP Registered Nurse; Visit Provider Internal Medicine Medical Oncology | DX: I48.20 Chronic atrial fibrillation, unspecified (principal); Z79.01 Long term (current) use of anticoagulants; Z51.81 Encounter for therapeutic drug level monitoring | CPT/HCPCS: 85610; 99211 ==

== ENCOUNTER 2024-07-15 14:14 | Outpatient (AMB) | payer MEDICARE, MEDICAID, SELFPAY ==
[2024-07-15 14:19] LABS: Prothrombin Time Whole Bld POC 31.9 sec (11.1-13.5); ~PT, ~INR - Anti Coag Clinic 2.7 (0.9-1.1)
--- NOTE | 2024-07-15 14:19 | MHC.OFFVISCO ---
Intake Intake Visit Reasons: Anticoagulation Allergies No Known Allergies [No Known Allergies*] Allergy (Verified 07/15/24 14:15) Medication List - Last Reconciled 07/15/24 by Rozina Olmos RN albuterol sulfate 90 mcg/actuation 2 puffs inhalation Q6H PRN atorvastatin 20 mg PO DAILY blood sugar diagnostic (FreeStyle Lite Strips) As directed buspirone 7.5 mg PO BID digoxin 250 mcg PO DAILY diltiazem HCl CD 180 mg PO DAILY empagliflozin (Jardiance) 10 mg PO QAM lancets (TRUEplus Lancets) As directed lisinopril 5 mg PO DAILY metformin ER 500 mg PO QPM metoprolol tartrate 200 mg PO BID sildenafil 25 mg PO DAILY PRN sodium,potassium,mag sulfates 17.5-3.13-1.6 gram (Suprep Bowel Prep Kit) 480 mL orally; FOR COLONOSCOPY PREP trazodone 50 mg PO BEDTIME PRN warfarin 7.5 mg See Protocol PO DAILY Nursing Note INR: 2.7 in therapeutic range of 2-3 Medications and supplements reviewed No changes in health, diet, medications, or supplements, Denies any signs and symptoms of bleeding or bruising or clotting. Bleeding, bruising, clotting discussed Nutritional guidance given Dose: 7.5mg X 6 days and 3.75mg X 1 day F/U INR: 4 weeks Patient verbalizes understanding of instructions given Anti-Coag Initial Assessment Social Hx Patient Tobacco Use Status: Former Tobacco user alcohol intake: former Coding Level of Care Code Est Patient Level 1 Diagnoses Current use of anticoagulant therapy Z79.01 Results AMB INR Fingerstick AMB INR Fingerstick 2.7 Last Edit by Rozina Olmos RN on 07/15/24 14:19 interface delay Assessment & Plan Assessment & Plan (1) Current use of anticoagulant therapy: Code(s): Z79.01 - shelter (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
--- OUTSIDE RECORDS SUMMARY | 2024-07-15 16:02 | XMS_ITS | Encounter Summary ---
Author Organization [employer] Address [address] [place] [address] 7t [place] [address] Care Team Providers Care Food Consultant Name Role Phone Danna Combs Primary Care Provider [phone] Reason for Visit * Reason Comments Med Refill Encounter Details Date Type Department Care Team ([facility] st Contact Info) Description 06/09/2024 Refill [facility] [address] [place] [address] Danna Combs FNP [address] [place] [address] Longstanding persistent atrial fibrillation (CMS/HCC) Social History [...] documented as of this encounter Care Teams Food Consultant Relationship Specialty Start Date End Date Danna Combs FNP [address] [place] [address] PCP - General Family Medicine 10/05/21 documented as of this encounter
== END 2024-07-15 14:23 | disposition home or self-care (01) ==
LOC: HO.ACS 14:14
PROVIDERS: PCP Registered Nurse; Visit Provider Internal Medicine Medical Oncology
DX: Z79.01 Long term (current) use of anticoagulants (principal)

== ENCOUNTER → 2024-07-15 14:14 | Outpatient (BNVA) | payer MEDICARE, MEDICAID, SELFPAY | PROVIDERS: PCP Registered Nurse; Visit Provider Internal Medicine Medical Oncology | DX: I48.20 Chronic atrial fibrillation, unspecified (principal); Z79.01 Long term (current) use of anticoagulants; Z51.81 Encounter for therapeutic drug level monitoring | CPT/HCPCS: 85610; 99211 ==

== ENCOUNTER → 2024-08-12 14:05 | Outpatient (BNVA) | payer MEDICARE, MEDICAID, SELFPAY | PROVIDERS: PCP Registered Nurse; Visit Provider Internal Medicine Medical Oncology | DX: I48.20 Chronic atrial fibrillation, unspecified (principal); Z79.01 Long term (current) use of anticoagulants; Z51.81 Encounter for therapeutic drug level monitoring | CPT/HCPCS: 85610; 99211 ==

== ENCOUNTER 2024-09-10 13:05 | Outpatient (AMB) | payer MEDICARE, MEDICAID, SELFPAY ==
--- NOTE | 2024-09-10 13:12 | MHC.OFFVISCO ---
Intake Intake Visit Reasons: Anticoagulation Allergies No Known Allergies (No Known Allergies*) Allergy (Verified 09/10/24 13:07) Medication List - Last Reconciled 09/10/24 by Maria De Jesus Mojica RN albuterol sulfate 90 mcg/actuation 2 puffs inhalation Q6H PRN atorvastatin 20 mg PO DAILY blood sugar diagnostic (FreeStyle Lite Strips) As directed buspirone 7.5 mg PO BID digoxin 250 mcg PO DAILY diltiazem HCl CD 180 mg PO DAILY empagliflozin (Jardiance) 10 mg PO QAM lancets (TRUEplus Lancets) As directed lisinopril 5 mg PO DAILY metformin ER 500 mg PO QPM metoprolol tartrate 200 mg PO BID sildenafil 25 mg PO DAILY PRN sodium,potassium,mag sulfates 17.5-3.13-1.6 gram (Suprep Bowel Prep Kit) 480 mL orally; FOR COLONOSCOPY PREP trazodone 50 mg PO BEDTIME PRN warfarin 7.5 mg See Protocol PO DAILY Nursing Note INR: 2.7 in therapeutic range of 2-3 Medications and supplements reviewed No changes in health, diet, medications, or supplements, Denies any signs and symptoms of bleeding or bruising or clotting. Bleeding, bruising, clotting discussed Nutritional guidance given Dose: 7.5mg x 7 F/U INR: pt ref earlier appt than 3weeks Patient verbalizes understanding of instructions given pt insists has been taking 7.5mg daily for approx one month- forgets to cut warfarin for half dose on fridays Anti-Coag Initial Assessment Social Hx Patient Tobacco Use Status: Former Tobacco user alcohol intake: former Coding Level of Care Code Est Patient Level 1 Diagnoses Current use of anticoagulant therapy Z79.01 Results AMB INR Fingerstick AMB INR Fingerstick 2.7 Last Edit by Maria De Jesus Mojica RN on 09/10/24 13:13 interface delay Assessment & Plan Assessment & Plan (1) Current use of anticoagulant therapy: Code(s): Z79.01 - residential (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
--- OUTSIDE RECORDS SUMMARY | 2024-09-10 13:40 | XMS_ITS | Encounter Summary ---
Author Organization [employer] Address [address] [place] [address] 7t [place] [address] Care Team Providers Care Bag Builder Name Role Phone Danna Combs Primary Care Provider [phone] Reason for Visit * Reason Comments Med Refill Encounter Details Date Type Department Care Team ([facility] st Contact Info) Description 06/09/2024 Refill [facility] [address] [place] [address] Danna Cmobs FNP [address] [place] [address] Longstanding persistent atrial fibrillation (CMS/HCC) Social History [...] documented as of this encounter Care Teams Bag Builder Relationship Specialty Start Date End Date Danna Combs FNP [address] [place] [address] PCP - General Family Medicine 10/05/21 documented as of this encounter
--- OUTSIDE RECORDS SUMMARY | 2024-09-10 13:40 | XMS_ITS | Clinical Summary ---
Author Organization [facility] Address [address] [place] [address] Phone Care Team Providers Care Vulnerability Assessment Analyst Name Role Phone Jerry Lang MD Primary Care Provider [phone] Allergies No known active allergies Medications metFORMIN (GLUCOPHAGE-XR) 500 MG 24 hr tablet Take 500 mg by mouth daily with breakfast. Active warfarin (COUMADIN) 7.5 MG tablet Take 7.5 mg by mouth daily. Active metoprolol tartrate (LOPRESSOR) 100 MG tablet Take 100 mg by mouth 2 (two) times a day. Active digoxin (LANOXIN) 50 mcg/mL (0.05 mg/mL) solution Take 0.25 mg by mouth daily. Active dilTIAZem (CARDIZEM CD) 180 MG 24 hr capsule Take 180 mg by mouth daily. Active lisinopril (PRINIVIL,ZESTRI L) 5 MG tablet Take 5 mg by mouth daily. Active furosemide (LASIX) 40 MG tablet Take 40 mg by mouth. Active atorvastatin (LIPITOR) 20 MG tablet Take 20 mg by mouth daily. Active busPIRone (BUSPAR) 7.5 MG tablet Take 7.5 mg by mouth 3 (three) times a day. Active Social History Tobacco Use Types Packs/Day Years Used Date Smoking Tobacco: Never Assessed Education Answer Date Recorded Are you interested in more education? Not on malissa e 01/21/2024 Are you concerned about learning? Not on file 01/21/2024 No 01/21/2024 No 01/21/2024 Digital Access Answer Date Recorded No 01/21/2024 No 01/21/2024 Reliable internet access at home? Not on file 01/21/2024 Device with a working camera? Not on file Intimate Partner Violence Answer Date R ecorded Are you denied basic needs s uch as food, clothing, or medical care? No 01/24/2024 In the past 12 months have y ou been in a relationship with a person who hurts, threatens, or tries to control you? No 01/24/2024 Are you denied basic needs s uch as food, clothing, or medical care? No 01/24/2024 In the past 12 months have y ou been in a relationship with a person who hurts, threatens, or tries to control you? No 01/24/2024 Sex and Gender Information Value Date Recorded Sex Assigned at Not on file Legal Sex Male 1:27 PM EST Gender Identity Not on file Sexual Orientation Not on file Last Filed Vital Signs Vital Sign Reading Time Taken Comments Blood Pressure 132/74 01/24/2024 11:07 AM EST Pulse 79 01/24/2024 11:07 AM EST Temperature - - Respiratory Rate 18 01/24/2024 11:07 AM EST Oxygen Saturation 93% 01/24/2024 11:07 AM EST Inhaled Oxygen Concentration - - Weight 117.9 kg (260 lb) 01/24/2024 11:07 AM EST Height 175.3 cm (5' 9 ) 01/24/2024 11:07 AM EST Body Mass Index 38.4 01/24/2024 11:07 AM EST Plan of Treatment Health Maintenance Due Date Last Done Comments CREATININE LEVEL 1967 POTASSIUM LEVEL 1967 DEPRESSION SCREENING 1979 SMOKING Hx and SMOKELESS TOB ACCO SCREENING 05/23/1980 HEPATITIS C SCREENING 05/23/1985 HIV ONE-TIME SCREENING (18-6 5 YEARS) 05/23/1985 COLOGUARD 05/23/2012 COLONOSCOPY 05/23/2012 COLORECTAL CANCER SCREENING 05/23/2012 FIT TEST 05/23/2012 FOBT 05/23/2012 SIGMOIDOSCOPY 05/23/2012 VIRTUAL COLONOSCOPY 05/23/2012 ZOSTER VACCINES (1 of 2) 05/23/2017 PNEUMOCOCCAL VACCINES (50+ y ears) (2 of 2 - PCV) 11/11/2017 11/11/2016 COVID-19 VACCINE (2023-2 5 season) 2023 Adult Td,Tdap Booster 02/04/2025 02/04/2015 SCREENING FOR DIABETES 03/21/2026 03/21/2023 LIPID PANEL 05/09/2027 05/08/2022 HEPATITIS A VACCINES Aged Out No long er eligible based on patient's age to complete this topic HIB VACCINES Aged Out No longer eligi ble based on patient's age to complete this topic MENINGOCOCCAL VACCINES (ACWY) Aged Out No longer eligible based on patient's age to complete this topic MENINGOCOCCAL VACCINES (B) Aged Out N o longer eligible based on patient's age to complete this topic Medical Devices Implanted Type Area Mate Fourth Device Identifier Shelf Expiration Date Model / Serial / Lot Icd ICD Heart Defibrillator Momentum Is1 Df4 [employer] - [id number] Implanted:Qty: 1 on 01/24/2024 by Jerry Lang MD at [facility] ICD Left: Chest [employer] [id number] 09/23/2024 [facility] [place] / [id number] / [id number] Prosthetic Joint Prosthetic Joint Bioenvelope Antibiotic-Eluti ng Elupro M Single Pack - [id number] Implanted:Qty: 1 on 01/24/2024 by Jerry Lang MD at [facility] Chest Wall [employer] 09/23/2024 CMCV-[id number] -MED / / [id number] [place] PART A [place] [id number] [facility] MEDICARE PART A & B [facility]IC[facility] PART A & [facility] & B [place] MEDICARE PART A & B [facility] Care Teams Vulnerability Assessment Analyst Relationship Specialty Start Date End Date Jerry Lang MD [address] [place] [phone] PCP - General Cardiology 01/22/24 Additional Source Comments The information contained in this document represents components of the legal health record. It is not the complete legal health record.[facility]
[2024-09-10 16:06] LABS: Prothrombin Time Whole Bld POC 32.1 sec (11.1-13.5); ~PT, ~INR - Anti Coag Clinic 2.7 (0.9-1.1)
== END 2024-09-10 13:19 | disposition home or self-care (01) ==
LOC: HO.ACS 13:05
PROVIDERS: PCP Registered Nurse; Visit Provider Internal Medicine Medical Oncology
DX: Z79.01 Long term (current) use of anticoagulants (principal)

== ENCOUNTER → 2024-09-10 13:05 | Outpatient (BNVA) | payer MEDICARE, MEDICAID, SELFPAY | PROVIDERS: PCP Registered Nurse; Visit Provider Internal Medicine Medical Oncology | DX: Z51.81 Encounter for therapeutic drug level monitoring (principal); Z79.01 Long term (current) use of anticoagulants | CPT/HCPCS: 85610; 99211 ==

== ENCOUNTER 2024-10-24 14:11 | Outpatient (AMB) | payer MEDICARE, MEDICAID, SELFPAY ==
[2024-10-24 14:40] LABS: Prothrombin Time Whole Bld POC 36.7 sec (11.1-13.5); ~PT, ~INR - Anti Coag Clinic 3.1 (0.9-1.1)
--- NOTE | 2024-10-24 14:44 | MHC.OFFVISCO ---
Intake Intake Visit Reasons: Anticoagulation Allergies No Known Allergies (No Known Allergies*) Allergy (Verified 10/24/24 14:35) Medication List - Last Reconciled 10/24/24 by Rozina Olmos RN albuterol sulfate 90 mcg/actuation 2 puffs inhalation Q6H PRN atorvastatin 20 mg PO DAILY blood sugar diagnostic (FreeStyle Lite Strips) As directed buspirone 7.5 mg PO BID digoxin 250 mcg PO DAILY diltiazem HCl CD 180 mg PO DAILY empagliflozin (Jardiance) 10 mg PO QAM lancets (TRUEplus Lancets) As directed lisinopril 5 mg PO DAILY metformin ER 500 mg PO QPM metoprolol tartrate 200 mg PO BID sildenafil 25 mg PO DAILY PRN sodium,potassium,mag sulfates 17.5-3.13-1.6 gram (Suprep Bowel Prep Kit) 480 mL orally; FOR COLONOSCOPY PREP trazodone 50 mg PO BEDTIME PRN warfarin 7.5 mg See Protocol PO DAILY Nursing Note INR: 3.1?out of therapeutic range of 2-3 Medications and supplements reviewed Patient status: feels well Medications or supplements: no changes Diet: no changes Denies any signs and symptoms of bleeding or clotting or unusual bruising Bleeding, bruising, clotting discussed Nutritional guidance given: to have a serving of greens today Dose: 7.5mg X 6 days and 3.75mg X 1 day (Sun) F/U INR Date: 3 weeks?? Patient verbalizing understanding of instructions given. Anti-Coag Initial Assessment Social Hx Patient Tobacco Use Status: Former Tobacco user alcohol intake: former Coding Level of Care Code Est Patient Level 1 Diagnoses Current use of anticoagulant therapy Z79.01 Results AMB INR Fingerstick AMB INR Fingerstick 3.1 Last Edit by Rozina Olmos RN on 10/24/24 14:42 interface delay Assessment & Plan Assessment & Plan (1) Current use of anticoagulant therapy: Code(s): Z79.01 - [facility] (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
--- OUTSIDE RECORDS SUMMARY | 2024-10-24 17:07 | XMS_ITS | Encounter Summary ---
Author Organization [employer] Address [address] [facility] 7t [place] [address] Care Team Providers Care Low Pressure Boiler Tender Name Role Phone LouisDanna stephens MIRIAM Primary Care Provider [phone] Encounter Details Date Type Department Care Team (Late st Contact Info) Description 12/28/2022 Abstract [facility] MEDICINE [address] [place], [place] [phone] Tigist Cardenas Social History Tobacco Use Types [...] documented as of this encounter Care Teams Low Pressure Boiler Tender Relationship Specialty Start Date End Date Danna Combs FNP [address] [place] [phone] PCP - General Family Medicine 10/05/21 documented as of this encounter
--- OUTSIDE RECORDS SUMMARY | 2024-10-24 17:07 | XMS_ITS | Encounter Summary ---
Author Organization [facility] Address [address] [place] [phone] Phone Care Team Providers Care Surveyor Instrument Assistant Name Role Phone Jerry Lang MD Primary Care Provider [phone] Encounter Details Date Type Department Care Team (Late st Contact Info) Description 01/24/2024 Procedure Pass [facility] Interventional Radiology [address] [place] [address] Social History Tobacco Use Types Packs/Day Years [...] on file Sexual Orientation Not on file documented as of this encounter Plan of Treatment Not on file documented as of this encounter Visit Diagnoses Not on filedocumented in this encounter Care Teams Surveyor Instrument Assistant Relationship Specialty Start Date End Date Jerry Lang MD [address] [place] [address] PCP - General Cardiology 01/22/24 documented as of this encounter Additional Source Comments The information contained in this document represents components of the legal health record. It is not the complete legal health record.[facility]
--- OUTSIDE RECORDS SUMMARY | 2024-10-24 17:07 | XMS_ITS | Encounter Summary ---
Author Organization [employer] Address [address] [place] [address] 7t [place] [address] Care Team Providers Care Account Support Rep Name Role Phone LouisDanna stephens MIRIAM Primary Care Provider [phone] Encounter Details Date Type Department Care Team (Late st Contact Info) Description 10/24/2024 Orders Only GENERIC EXTERNAL DATA DEPARTMENT Provider, [...] Comments PROTHROMBIN TIME WHOLE BLD POC Routine 10/24/2024 2:38 PM EDT ~PT, ~INR - ANTI COAG CLINIC Routine 10/24/2024 2:38 PM EDT documented in this encounter Results * (ABNORMAL) PROTHROMBIN TIME WHOLE BLD POC (10/24/2024 2:38 PM EDT) Protime 36.7(H) 11.1 - 13.5 sec [facility] 10/24/2024 2:38 PM EDT 10/24/2024 2:40 PM EDT us Generic External Data Provider LAB BLOOD ORDERAB LES Final Result Performing Organization Address City/State/[facility] Co de Phone Number [facility] [address] [place] [phone] * (ABNORMAL) ~PT, ~INR - ANTI COAG CLINIC (10/24/2024 2:38 PM EDT) Prothrombin Time INR 3.1(H) 0.9 - 1.1 [facility] Comment:METER #: [id number] TERNATIONAL NORMALIZED RATIO (INR) REFERENCE RANGES Reference RangeFor patients not on anticoagulant therapy: 0.9 - 1.1INR ranges for oral anticoagulanttherapy:For prevention and treatment of venous thrombosis and pulmonary embolism: 2.0 - 3.0For acute myocardial infarction with aspirin therapy: 2.0 - 3.0For acute myocardial infarction without aspirin therapy: 3.0 - 4.0For patients with mechanical prosthetic heart valves: 2.5 - 3.5 10/24/2024 2:38 PM EDT 10/24/2024 2:40 PM EDT us Generic External Data Provider LAB BLOOD ORDERAB LES Final Result Performing Organization Address City/State/[facility] Co de Phone Number [facility] [address] [place] [phone] documented in this encounter Visit Diagnoses Not on filedocumented in this encounter Additional Health Concerns Assessment Noted Time PHQ-9 Depression Total Score: 3 04/04/19 25 2:53 PM EST documented as of this encounter Care Teams Account Support Rep Relationship Specialty Start Date End Date Danna Combs FNP [address] [place] [address] PCP - General Family Medicine 10/05/21 documented as of this encounter
--- OUTSIDE RECORDS SUMMARY | 2024-10-24 17:07 | XMS_ITS | Encounter Summary ---
Author Organization [employer] Address [address] [place] [address] 7t [place] [address] Care Team Providers Care Ore Storage Drier Name Role Phone LouisDanna stephens MIRIAM Primary Care Provider [phone] Encounter Details Date Type Department Care Team (Late st Contact Info) Description 04/13/2022 Orders Only [facility] MED & PEDS [address] [place], [place] [phone] Ginny Hager LPN Social History Tobacco Use [...] EDT) Protime 35.8(H) 11.1 - 13.5 sec [facility] 08/03/2022 2:18 PM EDT 08/03/2022 2:20 PM EDT [facility] External Provider LAB BLO OD ORDERABLES Final Result [facility] [address] [place] [phone] [phone] * (ABNORMAL) ~PT, ~INR - ANTI COAG CLINIC (08/03/2022 2:18 PM EDT) Prothrombin Time INR 3.0(H) 0.9 - 1.1 [facility] Comment:METER #: [id number] TERNATIONAL NORMALIZED RATIO (INR) REFERENCE RANGES Reference [...] 2:18 PM EDT 08/03/2022 2:20 PM EDT [facility] External Provider LAB BLO OD ORDERABLES Final Result Performing Organization Address City/[facility] Co de Phone Number [facility] [address] [place] [phone] * (ABNORMAL) PROTHROMBIN TIME WHOLE BLD POC (07/04/2022 2:21 PM EDT) Protime 32.4(H) 11.1 - 13.5 sec [facility] 07/04/2022 2:21 PM EDT 07/04/2022 2:23 PM EDT [facility] External Provider LAB BLO OD ORDERABLES Final Result Performing Organization Address City/[facility] Co de Phone Number [facility] [address] [place] [phone] * (ABNORMAL) ~PT, ~INR - ANTI COAG CLINIC (07/04/2022 2:21 PM EDT) Prothrombin Time INR 2.7(H) 0.9 - 1.1 [facility] Comment:METER #: [id number] TERNATIONAL NORMALIZED RATIO (INR) REFERENCE RANGES Reference [...] 2:21 PM EDT 07/04/2022 2:23 PM EDT Result [facility] External Provider LAB BLO OD ORDERABLES Final Result Performing Organization Address [facility] Co de Phone Number [facility] [address] [place] [phone] * (ABNORMAL) PROTHROMBIN TIME WHOLE BLD POC (06/20/2022 2:07 PM EDT) Protime 44.6(H) 11.1 - 13.5 sec [facility] 06/20/2022 2:07 PM EDT 06/21/2022 8:04 AM EDT Result [facility] External Provider LAB BLO OD ORDERABLES Final Result Performing Organization Address [facility] Co de Phone Number [facility] [address] [place] [phone] * (ABNORMAL) ~PT, ~INR - ANTI COAG CLINIC (06/20/2022 2:07 PM EDT) Prothrombin Time INR 3.7(H) 0.9 - 1.1 [facility] Comment:METER #: [id number] TERNATIONAL NORMALIZED RATIO (INR) REFERENCE RANGES Reference [...] 2:07 PM EDT 06/21/2022 8:04 AM EDT Result [facility] External Provider LAB BLO OD ORDERABLES Final Result Performing Organization Address City/[facility] Co de Phone Number [facility] [address] [place] [phone] * (ABNORMAL) PROTHROMBIN TIME WHOLE BLD POC (05/23/2022 2:05 PM EDT) Protime 28.5(H) 11.1 - 13.5 sec [facility] 05/23/2022 2:05 PM EDT 05/23/2022 2:07 PM EDT [facility] External Provider LAB BLO OD ORDERABLES Final Result Performing Organization Address [facility] de Phone Number [facility] [address] [place] [phone] * (ABNORMAL) ~PT, ~INR - ANTI COAG CLINIC (05/23/2022 2:05 PM EDT) [facility] Prothrombin Time INR 2.4(H) 0.9 - 1.1 [facility] Comment:METER #: [id number] TERNATIONAL NORMALIZED RATIO (INR) REFERENCE RANGES Reference [...] 2:05 PM EDT 05/23/2022 2:07 PM EDT [facility] External Provider LAB BLO OD ORDERABLES Final Result Performing Organization Address [facility] Co de Phone Number [facility] [address] [place] [phone] * (ABNORMAL) PROTHROMBIN TIME WHOLE BLD POC (05/16/2022 2:01 PM EDT) Protime 19.3(H) 11.1 - 13.5 sec [facility] 05/16/2022 2:01 PM EDT 05/16/2022 2:03 PM EDT [facility] External Provider LAB BLO OD ORDERABLES Final Result Performing Organization Address [facility] Co de Phone Number [facility] [address] [place] [phone] * (ABNORMAL) ~PT, ~INR - ANTI COAG CLINIC (05/16/2022 2:01 PM EDT) [facility] Prothrombin Time INR 1.6(H) 0.9 - 1.1 [facility] Comment:METER #: [id number] TERNATIONAL NORMALIZED RATIO (INR) REFERENCE RANGES Reference [...] 2:01 PM EDT 05/16/2022 2:03 PM EDT [facility] External Provider LAB BLO OD ORDERABLES Final Result Performing Organization Address City/[facility] Co de Phone Number [facility] [address] [place] [phone] * (ABNORMAL) PROTHROMBIN TIME WHOLE BLD POC (04/17/2022 2:12 PM EST) Protime 31.7(H) 11.1 - 13.5 sec [facility] 04/17/2022 2:12 PM EST 04/17/2022 2:16 PM EST [facility] External Provider LAB BLO OD ORDERABLES Final Result Performing Organization Address [facility] Co de Phone Number [facility] [address] [place] [phone] * (ABNORMAL) ~PT, ~INR - ANTI COAG CLINIC (04/17/2022 2:12 PM EST) Prothrombin Time INR 2.6(H) 0.9 - 1.1 [facility] Comment:METER #: [id number] TERNATIONAL NORMALIZED RATIO (INR) REFERENCE RANGES Reference [...] 2:12 PM EST 04/17/2022 2:16 PM EST [facility] External Provider LAB BLO OD ORDERABLES Final Result Performing Organization Address [facility] Co de Phone Number [facility] [address] [place] [phone] documented in this encounter Visit Diagnoses Not on filedocumented in this encounter Care Teams Ore Storage Drier Relationship Specialty Start Date End Date Danna Combs FNP [address] [place] [phone] PCP - General Family Medicine 10/05/21 documented as of this encounter
--- OUTSIDE RECORDS SUMMARY | 2024-10-24 17:07 | XMS_ITS | Encounter Summary ---
Author Organization [employer] Address [address] [facility] 7t [place] [address] Care Team Providers Care Tobacco Shaker Name Role Phone Danna Combs Primary Care Provider [phone] Reason for Visit * Reason Comments Med Refill Encounter Details Date Type Department Care Team ([facility] st Contact Info) Description 06/09/2024 Refill [facility] MEDICINE [address] [place] [address] Danna Combs FNP [address] [place] [address] Longstanding persistent atrial fibrillation (CMS/HCC) Social History [...] documented as of this encounter Care Teams Tobacco Shaker Relationship Specialty Start Date End Date Danna Combs FNP [address] [place] [address] PCP - General Family Medicine 10/05/21 documented as of this encounter
--- OUTSIDE RECORDS SUMMARY | 2024-10-24 17:07 | XMS_ITS | Clinical Summary ---
Author Organization [facility] Address [address] [place] [phone] Phone Care Team Providers Care Ambulatory Services Representative Name Role Phone Jerry Lang MD Primary Care Provider [phone] Allergies No known active allergies Medications metFORMIN [...] (2 of 2 - PCV) 11/11/2017 11/11/2016 INFLUENZA VACCINE (#1) 2024 COVID-19 VACCINE (2023-2 5 season) 2024 Adult Td,Tdap Booster 02/04/2025 02/04/2015 SCREENING FOR [...] this topic Medical Devices Implanted Type Area Strategic Manager Device Identifier Shelf Expiration Date Model / Serial / Lot Icd ICD Heart Defibrillator Momentum Is1 Df4 [employer]logic - [id number] Implanted:Qty: 1 on 01/24/2024 by Jerry Lang MD at [facility] ICD Left: Chest [employer] [id number] 09/23/2024 [id number] / [id number] / [id number] Prosthetic Joint Prosthetic Joint Bioenvelope Antibiotic-Eluti ng Elupro M Single Pack - [id number] Implanted:Qty: 1 on 01/24/2024 by Jerry Lang MD at [facility] Chest Wall [employer] 09/23/2024 CMCV-124 -MED / / [id number] Insurance MEDICARE PART A & B [place] [facility] Care Teams Ambulatory Services Representative Relationship Specialty Start Date End Date Jerry Lang MD [address] [place] [phone] PCP - General Cardiology 01/22/24 Additional Source Comments The information contained in this document represents components of the legal health record. It is not the complete legal health record.[facility]
--- OUTSIDE RECORDS SUMMARY | 2024-10-24 17:07 | XMS_ITS | Clinical Summary ---
Author Organization [employer] Address [address] [facility] 7t [place] [address] Care Team Providers Care Manager Of Software Development Name Role Phone Danna Combs Primary Care Provider Allergies No known active allergies Medications FREESTYLE [...] SLEEP 30 tablet 3 12/05/19 23 Active atorvastatin (Lipitor) 20 MG tablet TAKE 1 TABLET BY MOUTH AT BEDTIME 90 tablet 3 12/12/19 24 Active lisinopril 5 MG tabletIndicatio ns:Primary hypertension TAKE 1 TABLET BY MOUTH EVERY DAY 90 tablet 3 01/08/20 24 Active metroNIDAZOLE (Metrogel) 0.75 % gelIndications: [...] CLINIC BASED ON INR 100 tablet 1 06/10/19 25 Active Jardiance 10 MGIndications:T ype 2 diabetes mellitus treated without insulin (CMS/HCC) TAKE 1 TABLET BY MOUTH EVERY MORNING 90 tablet 1 07/24/19 25 Active busPIRone (Buspar) 7.5 MG tablet TAKE 1 TABLET BY MOUTH TWICE DAILY 180 tablet 1 08/05/19 25 Active sildenafil (Viagra) 25 MG tabletIndicatio ns:Erectile dysfunction, unspecified erectile dysfunction type TAKE 1 TABLET 1 HOUR BEFORE SEXUAL RELATIONS ONCE DAILY NEEDED. 10 tablet 3 08/23/19 25 Active metFORMIN XR (Glucophage-XR) 500 MG 24 hr tabletIndicatio ns:Type 2 diabetes mellitus treated without insulin (CMS/HCC) TAKE 1 TABLET BY MOUTH EVERY DAY WITH DINNER 90 tablet 3 09/24/19 25 Active dilTIAZem CD (Cardizem CD) 180 MG 24 hr capsuleIndicati ons:Atrial fibrillation, unspecified type (CMS/HCC),Conge stive heart failure, unspecified HF chronicity, unspecified heart failure type (CMS/HCC) TAKE 1 CAPSULE BY MOUTH EVERY DAY 90 capsule 3 09/24/19 25 Active digoxin (Lanoxin) 250 MCG tab;et TAKE 1 TABLET BY MOUTH EVERY DAY 90 tablet 3 10/02/19 25 Active metoprolol tartrate (Lopressor) 100 MG tablet TAKE 2 TABLETS BY MOUTH TWICE DAILY WITH MEALS 360 tablet 3 10/09/19 25 Active metoprolol tartrate (Lopressor) 100 MG tablet TAKE 2 TABLETS BY MOUTH TWICE DAILY WITH MEALS 360 tablet 3 10/18/19 24 2024 Discontinued digoxin (Lanoxin) 250 MCG tab;et TAKE 1 TABLET BY MOUTH EVERY DAY 90 tablet 3 10/18/19 24 2024 Discontinued Active Problems Problem Noted Date Diagnosed Date AV heart block 02/14/2024 Overview (02/14/2024): ICD pacer in place (last changed 01/24/24 at [facility]) Warfarin anticoagulation 09/10/2022 Overview (09/10/2022): On coumadin therapy - 5-7.5mg daily as directed by clinic Managed by [facility] Coumadin clinic Healthcare maintenance 09/10/2022 Assessment & Plan (02/14/2024 1:49 PM EST): -Per previous documentation due for colonoscopy in 2023. Referral to GI placed 02/11/24. -Optometry: QUENTIN Oct 2022 w/ [facility] Assessment & Plan (03/22/2023 6:31 PM EST): -Per previous documentation due for colonoscopy in 2023 -Optometry: UTD w/ [facility] Assessment & Plan (09/18/2022 8:35 PM EDT): -Per previous documentation due for colonoscopy in 2023 -Optometry: scheduled for [facility] in September 2022 ICD (implantable cardioverter-defibrillator) in place 05/08/2022 Overview (02/14/2024): -Hx of complete AV block s/p pacemaker placement, device interrogated Q6 months through cards and denies any concerns -Pt denies any chest pain, palpitations, SOB, orthopnea, syncope -01/24/24: [facility] Cards & IR - INFORMATICS NURSE-D generator change given DAVE (Dr. Jerry Lang). Assessment & Plan (02/14/2024 1:48 PM EST): - Plan to f/up with surgical team regarding wound check Essential hypertension 09/18/2020 Overview (09/10/2022): -Hx of Afib, dialted cardiomyopathy, HTN, HLD, AV block -Continues digoxin, diltiazem, lisinopril, metoprolol, and atorvastatin. Med safety reviewed. -Denies any chest pain, palpitations, SOB, FRAIRE, blurry vision, N/V/D -Following with Dr. Grande in [place], [place] Type 2 diabetes mellitus 09/15/2020 Overview (02/14/2024): Lab Results Component Value Date HGBA1C 6.0 02/11/2024 - A1c: (Target </= 7.0): well controlled - Microalbumin/Cr:Alb: 8 mcg/mg on 05/08/22 - Lipids: April 2022: LDL 77, HDL 32, TC 142, TG 248 - Eye exam: Oct 2022 at [facility] - no diabetic retinopathy [...] Enriquez Jan 2024) - Managed by [facility] Coumadin Clinic -Encouraged to consider DOAC, handout from the [employer] provided today. Mr. Hanson reports he will think about it any questions arise. Assessment & Plan (02/14/2024 1:29 PM EST): - Continues on warfarin (discussed alternative medications with Cards - Dr. Enriquez Jan 2024) - Managed by [facility] Coumadin Clinic Congestive heart failure 01/18/2015 Resolved [...] Encounters Date Type Department Care Team Description 10/24/2024 Orders Only GENERIC EXTERNAL DATA DEPARTMENT Provider, Generic External Data 10/08/2024 Refill [facility] MED & PEDS [address] [place] [address] Danna Combs FNP 10/01/2024 Refill [facility] MED & PEDS [address] [place] [address] Danna Combs FNP 09/23/2024 Refill [facility] MEDICINE [address] [place] [address] Danna Combs FNP Type 2 diabetes mellitus treated without insulin (CMS/HCC); Atrial fibrillation, unspecified type ([facility]/HCC); Congestive heart failure, unspecified HF chronicity, unspecified heart failure type (CMS/HCC) 09/10/2024 Orders Only GENERIC EXTERNAL DATA DEPARTMENT Provider, Generic External Data 08/22/2024 Refill [facility] MED & PEDS [address] [place] [address] Danna Combs FNP Erectile dysfunction, unspecified erectile dysfunction type 08/12/2024 Orders Only GENERIC EXTERNAL DATA DEPARTMENT Provider, Generic External Data 08/01/2024 Refill [facility] MEDICINE [address] [place] [address] Danna Combs FNP from Last 3 Months Immunizations Immunization Administration Dates Next Due Hep B, adult [...] 78 04/04/2024 2:08 PM EST Temperature 36.7 C (98.1 F) 04/04/2024 2:08 PM EST Respiratory Rate 16 04/04/2024 2:08 PM EST [...] FOBT 1967 HIV Screening 1967 Sigmoidoscopy 1967 Disability Screening 1967 Diabetes: Foot Exam 05/23/1977 Alcohol/Substance Use Screening 1979 Hepatitis C Screening 05/23/1985 Zoster Vaccines (1 of 2) 05/23/2017 Diabetes: Urine Protein Screening 05/09/2023 05/08/2022, 10/06/2020 Lipid Panel 05/09/2023 05/08/2022, 09/03/2020 Diabetes: Hemoglobin A1C 08/11/2024 024, 03/21/2023, 05/08/2022 COVID-19 Vaccine ( season) 2024 07/01/2020, 05/26/2020 Influenza Vaccine (#1) 2024 , 12/27/2021, 12/28/2020, Additional history exists Eye Exam 10/20/2024 10/20/2022, 09/2022, 10/20/2022, Additional history exists DTaP/Tdap/Td Vaccines (2 - Td or Tdap) 02/04/2025 02/04/2015 SDOH Screening 03/21/2025 03/21/2024 Tobacco Screening 03/21/2025 03/21/2024 Depression Screening 04/04/2025 04/04/2024, 04/04/19 25 RSV Patients and Patients Aged 60 years or older (1 - 1-dose 75+ series) 05/23/2042 Hepatitis B Vaccines Completed 03/15/2018, 11/07/2017, 08/29/2017 Pneumococcal Vaccine: 50+ Years Completed 05/08/2022, 11/11/2016 HIB Vaccines Aged Out No longer eligi [...] patient's age to complete this topic Meningococcal B Vaccine Aged Out No l onger eligible based on patient's age to complete [...] COAG CLINIC Routine 10/24/2024 2:38 PM EDT PROTHROMBIN TIME WHOLE BLD POC Routine 09/10/2024 1:10 PM EDT ~PT, ~INR - ANTI COAG CLINIC Routine 09/10/2024 1:10 PM EDT PROTHROMBIN TIME WHOLE BLD POC Routine 08/12/2024 2:08 PM EDT ~PT, ~INR - ANTI COAG CLINIC Routine 08/12/2024 2:08 PM EDT POCT GLYCATED HEMOGLOBIN, TOTAL Routine 02/11/2024 2:57 PM EST Type 2 diabetes mellitus without complication, without long-term current use of insulin ([facility]/HCC) ALBUMIN, RANDOM URINE W/CREATININE Routine 05/08/2022 10:13 AM EDT Type 2 diabetes mellitus without complication, without long-term current use of insulin ([facility]/HCC) LIPID PANEL, STANDARD Routine 05/08/2022 10:13 AM EDT Type 2 diabetes mellitus without complication, without long-term current use of insulin ([facility]/HCC) from Last 3 Months or Most Recently Relevant to Health Maintenance Results * (ABNORMAL) PROTHROMBIN TIME WHOLE BLD POC (10/24/2024 2:38 PM EDT) Only the most recent of3 resultswithin the time period is included. Protime 36.7(H) 11.1 - 13.5 sec [facility] 10/24/2024 2:38 PM EDT 10/24/2024 2:40 PM EDT us Generic External Data Provider LAB BLOOD ORDERAB LES Final Result [facility] [address] [place] [phone] * (ABNORMAL) ~PT, ~INR - ANTI COAG CLINIC (10/24/2024 2:38 PM EDT) Only the most recent of3 resultswithin the time period is included. Prothrombin Time INR 3.1(H) 0.9 - 1.1 [facility] Comment:METER #: [id number] TERNATIONAL NORMALIZED RATIO (INR) REFERENCE RANGES Reference [...] ORDERAB LES Final Result Performing Organization Address City/State/[facility] Co de Phone Number [facility] [address] [place] [phone] * POCT HGB A1C (02/11/2024 2:57 PM EST) Pathologist [facility] Hemoglobin A1C 6.0 4.0 - 6.0 % QC Media Lot # [id number] Lot# Expiration Date [id number] Blood 02/11/2024 2:57 PM EST Danna Combs MARGARINE CHURN OPERATOR POINT OF CARE TEST ENTER/EDIT ORDERABLES Final Result * Albumin, Random Urine W/Creatinine (05/08/2022 10:13 AM EDT) Creatinine, Random Urine 89 20 - 320 mg/dL [facility] Albumin, Urine 0.7 See Note: mg/dL [facility] Comment: Reference Range: Reference Range Not established Albumin/Creatinin e Ratio, Random Urine 8 <30 mcg/mg creat [facility] Comment: The ADA defines abnormalities in albumin excretion as follows: Albuminuria Category Result (mcg/mg creatinine) Normal to Mildly increased <30 Moderately increased 30-299 Severely increased > OR = 300 The ADA recommends that at least two of three specimens collected within a 3-6 month period be abnormal before considering a patient to be within a diagnostic category. 05/08/2022 10:1 3 AM EDT 05/08/2022 10:14 AM EDT Narrative [facility] - 05/08/2022 8:44 PM EDT FASTING:NO FASTING: NO us Danna Louisangelo [facility] LAB URINE ORDERABLES Final Res ult [facility] [address], [place] [address] [facility] [place] [facility] [address] [place] [phone] * (ABNORMAL) Lipid Panel, Standard (05/08/2022 10:13 AM EDT) Cholesterol, Total 142 <200 mg/dL [facility] [place] [facility] HDL Cholesterol 32(L) > OR = 40 mg/dL [facility] [place] Total [facility] Triglycerides 248(H) <150 mg/dL [facility] Comment: If a non-fasting specimen was collected, consider repeat triglyceride testing on a fasting specimen if clinically indicated. Kaleb et al. J. of Clin. Lipidol. 2015;9:129-169. LDL Cholesterol 77 mg/dL (calc) [facility] Comment: Reference range: <100 Desirable range <100 mg/dL for primary prevention; <70 mg/dL for patients with CHD or diabetic patients with > or = 2 CHD risk factors. LDL-C is now calculated using the Cory calculation, which is a validated novel method providing better accuracy than the Friedewald equation in the estimation of LDL-C. Fidel RAMSEY et al. ALEKSANDR. 2013;310(19): 6882-7060 (http://education.Foodist/faq/LXJ636) Chol/HDLC Ratio 4.4 <5.0 (calc) [facility] Non-HDL Cholesterol 110 <130 mg/dL (calc) [facility] Comment: For patients with diabetes plus 1 major ASCVD risk factor, treating to a non-HDL-C goal of <100 mg/dL (LDL-C of <70 mg/dL) is considered a therapeutic option. Blood Venous blood specimen / Unknown 05/08/2022 10:13 AM EDT 05/08/2022 10:14 AM EDT Narrative [facility] - 05/08/2022 8:44 PM EDT FASTING:NO FASTING: NO Danna Combs MARGARINE CHURN OPERATOR LAB BLOOD ORDERABLES Final Res ult [facility] [address], [place] [address] [facility] [place] [facility] [address] [place] [phone] from Last 3 Months or Most Recently Relevant to Health Maintenance Insurance [facility] STANDARD MEDICARE Care Teams Manager Of Software Development Relationship Specialty Start Date End Date Danna Combs FNP [address] [place] [phone] PCP - General Family Medicine 10/05/21
== END 2024-10-24 14:52 | disposition home or self-care (01) ==
LOC: HO.ACS 14:11
PROVIDERS: PCP Registered Nurse; Visit Provider Internal Medicine Medical Oncology
DX: Z79.01 Long term (current) use of anticoagulants (principal)

== ENCOUNTER → 2024-10-24 14:11 | Outpatient (BNVA) | payer MEDICARE, MEDICAID, SELFPAY | PROVIDERS: PCP Registered Nurse; Visit Provider Internal Medicine Medical Oncology | DX: Z51.81 Encounter for therapeutic drug level monitoring (principal); Z79.01 Long term (current) use of anticoagulants | CPT/HCPCS: 85610; 99211 ==

== ENCOUNTER 2024-11-14 14:09 | Outpatient (AMB) | payer MEDICARE, MEDICAID, SELFPAY ==
--- OUTSIDE RECORDS SUMMARY | 2024-11-14 14:18 | XMS_ITS | Encounter Summary ---
Author Organization [facility] Address [address] [place] [address] Phone Care Team Providers Care Fish Cleaner Name Role Phone Jerry Lang MD Primary Care Provider [phone] Encounter Details Date Type Department Care Team (Late st Contact Info) Description 01/24/2024 Procedure Pass [facility] Interventional Radiology [address] [place] [address] Social History Tobacco Use Types Packs/Day Years [...] on filedocumented in this encounter Care Teams Fish Cleaner Relationship Specialty Start Date End Date Jerry Lang MD [address] [place] [address] PCP - General Cardiology 01/22/24 documented as of this encounter Additional Source Comments The information contained in this document represents components of the legal health record. It is not the complete legal health record.[facility]
--- OUTSIDE RECORDS SUMMARY | 2024-11-14 14:18 | XMS_ITS | Clinical Summary ---
Author Organization [employer] Address [address] [place] [address] 7[address] [place] [address] Care Team Providers Care Web Site Specialist Name Role Phone Danan Combs Primary Care Provider [phone] Allergies No known active allergies Medications FREESTYLE [...] FOR SLEEP 30 tablet 3 3 Active atorvastatin (Lipitor) 20 MG tablet TAKE 1 TABLET BY MOUTH AT BEDTIME 90 tablet 3 4 Active lisinopril 5 MG tabletIndication s:Primary hypertension TAKE 1 TABLET BY MOUTH EVERY DAY 90 tablet 3 4 Active metroNIDAZOLE (Metrogel) 0.75 % gelIndications:F acial erythema Apply topically 2 times daily. Apply thin layer to face after washing face in the morning and before bed. 45 g 1 4 025 Active warfarin (Coumadin) 7.5 MG tabletIndication s:Longstanding persistent atrial fibrillation (CMS/HCC) ([facility]) TAKE 1 TO 1 & 1/2 TABLETS BY MOUTH EVERY DAY DIRECTED BY COUMADIN CLINIC BASED ON INR 100 tablet 1 5 Active Jardiance 10 MGIndications:Ty pe 2 diabetes mellitus treated without insulin ([facility]) TAKE 1 TABLET BY MOUTH EVERY MORNING 90 tablet 1 5 Active busPIRone (Buspar) 7.5 MG tablet TAKE 1 TABLET BY MOUTH TWICE DAILY 180 tablet 1 5 Active sildenafil (Viagra) 25 MG tabletIndication s:Erectile dysfunction, unspecified erectile dysfunction type TAKE 1 TABLET 1 HOUR BEFORE SEXUAL RELATIONS ONCE DAILY NEEDED. 10 tablet 3 5 Active metFORMIN XR (Glucophage-XR) 500 MG 24 hr tabletIndication s:Type 2 diabetes mellitus treated without insulin ([facility]) TAKE 1 TABLET BY MOUTH EVERY DAY WITH DINNER 90 tablet 3 5 Active dilTIAZem CD (Cardizem CD) 180 MG 24 hr capsuleIndicatio ns:Atrial fibrillation, unspecified type (CMS/HCC) ([facility]),Congestive heart failure, unspecified HF chronicity, unspecified heart failure type ([facility]) TAKE 1 CAPSULE BY MOUTH EVERY DAY 90 capsule 3 5 Active digoxin (Lanoxin) 250 MCG tab;et TAKE 1 TABLET BY MOUTH EVERY DAY 90 tablet 3 5 Active metoprolol tartrate (Lopressor) 100 MG tablet TAKE 2 TABLETS BY MOUTH TWICE DAILY WITH MEALS 360 tablet 3 5 Active Active Problems Problem Noted Date Diagnosed Date AV heart block 02/14/2024 Overview (02/14/2024): ICD pacer in place (last changed 01/24/24 at [facility]) Warfarin anticoagulation 09/10/2022 Overview (09/10/2022): On coumadin therapy - 5-7.5mg daily as directed by clinic Managed by [facility] Healthcare maintenance 09/10/2022 Assessment & Plan (02/14/2024 1:49 PM EST): -Per previous documentation due for colonoscopy in 2023. Referral to GI placed 02/11/24. -Optometry: QUENTIN Oct 2022 w/ [facility] Assessment & Plan (03/22/2023 6:31 PM EST): -Per previous documentation due for colonoscopy in 2023 -Optometry: UTD w/ [facility] Assessment & Plan (09/18/2022 8:35 PM EDT): -Per previous documentation due for colonoscopy in 2023 -Optometry: scheduled for [facility] in September 2022 ICD (implantable cardioverter-defibrillator) in place 05/08/2022 Overview (02/14/2024): -Hx of complete AV block s/p pacemaker placement, device interrogated Q6 months through cards and denies any concerns -Pt denies any chest pain, palpitations, SOB, orthopnea, syncope -01/24/24: [facility] Cards & IR - [employer] SPLITTER-D generator change given DAVE (Dr. Jerry Lang). Assessment & Plan (02/14/2024 1:48 PM EST): - Plan to f/up with surgical team regarding wound check Essential hypertension 09/18/2020 Overview (09/10/2022): -Hx of Afib, dialted cardiomyopathy, HTN, HLD, AV block -Continues digoxin, diltiazem, lisinopril, metoprolol, and atorvastatin. Med safety reviewed. -Denies any chest pain, palpitations, SOB, FRAIRE, blurry vision, N/V/D -Following with Dr. Grande in [place], [place] Type 2 diabetes mellitus 09/15/2020 Overview (02/14/2024): Lab Results Component Value Date HGBA1C 6.0 02/11/2024 - A1c: (Target </= 7.0): well controlled - Microalbumin/Cr:Alb: 8 mcg/mg on 05/08/22 - Lipids: April 2022: LDL 77, HDL 32, TC 142, TG 248 - Eye exam: Oct 2022 at [facility] - no diabetic retinopathy [...] of total knee arthroplasty 04/05/2015 Dilated cardiomyopathy ([facility]) 02/04/2015 Vitamin D deficiency 02/04/2015 Atrial fibrillation ([facility]) 01/18/2015 Assessment & Plan (04/06/2024 7:57 PM EST): - Continues on warfarin (discussed alternative medications with Cards - Dr. Enriquez Jan 2024) - Managed by [facility] -Encouraged to consider DOAC, handout from the [employer] provided today. Mr. Hanson reports he will think about it any questions arise. Assessment & Plan (02/14/2024 1:29 PM EST): - Continues on warfarin (discussed alternative medications with Cards - Dr. Enriquez Jan 2024) - Managed by [facility] Congestive heart failure 01/18/2015 Resolved [...] Generic External Data 10/08/2024 Refill [facility] [address] [place] [address] Danna Combs FNP 10/01/2024 Refill [facility] [address] [place] [address] Danna Combs FNP 09/23/2024 Refill [facility] [address] [place] [address] Danna Combs FNP Type 2 diabetes mellitus treated without insulin (CMS/HCC); Atrial fibrillation, unspecified type (CMS/HCC); Congestive heart failure, unspecified HF chronicity, unspecified heart failure type (CMS/HCC) 09/10/2024 Orders Only GENERIC EXTERNAL DATA DEPARTMENT Provider, Generic External Data 08/22/2024 Refill [facility] [address] [place] [address] Danna Combs FNP Erectile dysfunction, unspecified erectile dysfunction type from Last 3 Months Immunizations Immunization Administration [...] 04/04/2024 2:08 PM EST Plan of Treatment Upcoming Encounters Date Type Department Care Team (Late st Contact Info) Description 12/24/2024 11:15 AM EST Office Visit [facility] [address] [place] [address] Danna Combs FNP [address] [place] [address] Health Maintenance Due Date Last Done Comments [...] Diabetes: Hemoglobin A1C 08/11/202402/10/2 024, 03/21/2023, 05/08/2022 COVID-19 Vaccine ( season) 2024 07/01/2020, 05/26/2020 Influenza Vaccine (#1) 2024 , 12/27/2021, 12/28/2020, Additional history exists Eye Exam 10/20/2024 10/20/2022, 0909/2022, 10/20/2022, Additional history exists DTaP/Tdap/Td Vaccines (2 [...] [facility] Routine 09/10/2024 1:10 PM EDT POCT GLYCATED HEMOGLOBIN, TOTAL Routine 02/11/2024 2:57 PM EST Type 2 diabetes mellitus without complication, without long-term current use of insulin ([facility]) ALBUMIN, RANDOM URINE W/CREATININE Routine 05/08/2022 10:13 AM EDT Type 2 diabetes mellitus without complication, without long-term current use of insulin ([facility]) LIPID PANEL, STANDARD Routine 05/08/2022 10:13 AM EDT Type 2 diabetes mellitus without complication, without long-term current use of insulin ([facility]) from Last 3 Months or Most Recently Relevant to Health Maintenance Results * (ABNORMAL) PROTHROMBIN TIME WHOLE BLD POC (10/24/2024 2:38 PM EDT) Only the most recent of2 resultswithin the time period is included. Protime 36.7(H) 11.1 - 13.5 sec [facility] 10/24/2024 2:38 PM EDT 10/24/2024 2:40 PM EDT us Generic External Data Provider LAB BLOOD ORDERAB LES Final Result [facility] [address] [place] [phone] * (ABNORMAL) ~PT, ~INR - ANTI COAG CLINIC (10/24/2024 2:38 PM EDT) Only the most recent of2 resultswithin the time period is included. Prothrombin Time INR 3.1(H) 0.9 - 1.1 [facility] Comment:METER #: [id number] TERNATIONAL NORMALIZED RATIO (INR) REFERENCE RANGES Reference [...] 2:38 PM EDT 10/24/2024 2:40 PM EDT Generic External Data Provider LAB BLOOD ORDERAB LES Final Result [facility] [address] [place] [phone] * POCT HGB A1C (02/11/2024 2:57 PM EST) Hemoglobin A1C 6.0 4.0 - 6.0 % QC Media Lot # [id number] Lot# Expiration Date [id number] Blood 02/11/2024 2:57 PM EST Danna Combs FIRST CALENDER WORKER POINT OF CARE TEST ENTER/EDIT ORDERABLES Final Result * Albumin, Random Urine W/Creatinine (05/08/2022 10:13 AM EDT) Creatinine, Random Urine 89 20 - 320 mg/dL [facility] [place] [facility] Albumin, Urine 0.7 See Note: mg/dL [facility] [place] [facility] Comment: Reference Range: Reference Range Not established Albumin/Creatinin e Ratio, Random Urine 8 <30 mcg/mg creat [facility] [place] [facility] Comment: The ADA defines abnormalities in albumin [...] EDT FASTING:NO FASTING: NO us Danna Combs FIRST CALENDER WORKER LAB URINE ORDERABLES Final Res ult [facility] [address], [place] [address] [facility] [place] [facility] [address] [place] [address] * (ABNORMAL) Lipid Panel, Standard (05/08/2022 10:13 AM EDT) Cholesterol, Total 142 <200 mg/dL [facility] [place] [facility] HDL Cholesterol 32(L) > OR = 40 mg/dL [facility] [place] [facility] Triglycerides 248(H) <150 mg/dL [facility] [place] [facility] Comment: If a non-fasting specimen was collected, consider repeat triglyceride testing on a fasting specimen if clinically indicated. Kaleb et al. J. of Clin. Lipidol. 2015;9:129-169. LDL Cholesterol 77 mg/dL (calc) [facility] [place] [facility] Comment: Reference range: <100 Desirable range <100 mg/dL for primary prevention; <70 mg/dL for patients with CHD or diabetic patients with > or = 2 CHD risk factors. LDL-C is now calculated using the Fidel-Deyvi calculation, which is a validated novel method providing better accuracy than the Friedewald equation in the estimation of LDL-C. Fidel SS et al. ALEKSANDR. 2013;310(19): 1777-2556 (http://education.SD Motiongraphiks/faq/ZAG864) Chol/HDLC Ratio 4.4 <5.0 (calc) [facility] [place] [facility] Non-HDL Cholesterol 110 <130 mg/dL (calc) [facility] [place] [facility] Comment: For patients with diabetes plus 1 major ASCVD risk factor, treating to a non-HDL-C goal of <100 mg/dL (LDL-C of <70 mg/dL) is considered a therapeutic option. Blood Venous blood specimen / Unknown 05/08/2022 10:13 AM EDT 05/08/2022 10:14 AM EDT Narrative [facility] - 05/08/2022 8:44 PM EDT FASTING:NO FASTING: NO Danna PINEDA LAB BLOOD ORDERABLES Final Res ult [facility] [address] [facility], [place] [address] [facility] [place] [facility] [address] [place] [address] from Last 3 Months or Most Recently Relevant to Health Maintenance Insurance [facility] STANDARD [place] [id number] Care Teams Web Site Specialist Relationship Specialty Start Date End Date Danna Combs FNP [address] [place] [address] PCP - General Family Medicine 10/05/21
--- OUTSIDE RECORDS SUMMARY | 2024-11-14 14:18 | XMS_ITS | Encounter Summary ---
Author Organization [employer] Address [address] [place] [address] 7t [place] [address] Care Team Providers Care Ironworker Apprentice Name Role Phone Danna Combs Primary Care Provider [phone] Encounter Details Date Type Department Care Team (Late st Contact Info) Description 04/13/2022 Orders Only [facility] [address] [place] [address] Ginny Hager LPN Social History Tobacco Use [...] Description 12/24/2024 11:15 AM EST Office Visit [facility] [address] [place] [address] Danna Combs FNP [address] [place] [address] documented as of this encounter Procedures Procedure [...] EDT) Protime 35.8(H) 11.1 - 13.5 sec [facility] 08/03/2022 2:18 PM EDT 08/03/2022 2:20 PM EDT us [facility] External Provider LAB BLO OD ORDERABLES Final Result [facility] [address] [place] [phone] * (ABNORMAL) ~PT, ~INR - ANTI COAG CLINIC (08/03/2022 2:18 PM EDT) Prothrombin Time INR 3.0(H) 0.9 - 1.1 [facility] Comment:METER #: [id number] TERNATIONAL NORMALIZED RATIO (INR) REFERENCE RANGES Reference [...] 2:18 PM EDT 08/03/2022 2:20 PM EDT [facility] External Provider LAB BLO OD ORDERABLES Final Result Performing Organization Address City/[facility]/ZIP Co de Phone Number [facility] [address] [place] [phone] * (ABNORMAL) PROTHROMBIN TIME WHOLE BLD POC (07/04/2022 2:21 PM EDT) Protime 32.4(H) 11.1 - 13.5 sec [facility] 07/04/2022 2:21 PM EDT 07/04/2022 2:23 PM EDT [facility] External Provider LAB BLO OD ORDERABLES Final Result Performing Organization Address City/[facility]/ZIP Co de Phone Number [facility] [address] [place] [phone] * (ABNORMAL) ~PT, ~INR - ANTI COAG CLINIC (07/04/2022 2:21 PM EDT) Prothrombin Time INR 2.7(H) 0.9 - 1.1 [facility] Comment:METER #: [id number] TERNATIONAL NORMALIZED RATIO (INR) REFERENCE RANGES Reference [...] 2:21 PM EDT 07/04/2022 2:23 PM EDT [facility] External Provider LAB BLO OD ORDERABLES Final Result Performing Organization Address City/[facility]/ZIP Co de Phone Number [facility] [address] [place] [phone] * (ABNORMAL) PROTHROMBIN TIME WHOLE BLD POC (06/20/2022 2:07 PM EDT) Protime 44.6(H) 11.1 - 13.5 sec [facility] 06/20/2022 2:07 PM EDT 06/21/2022 8:04 AM EDT [facility] External Provider LAB BLO OD ORDERABLES Final Result Performing Organization Address [facility] Co de Phone Number [facility] [address] [place] [phone] * (ABNORMAL) ~PT, ~INR - ANTI COAG CLINIC (06/20/2022 2:07 PM EDT) Prothrombin Time INR 3.7(H) 0.9 - 1.1 [facility] Comment:METER #: [id number] TERNATIONAL NORMALIZED RATIO (INR) REFERENCE RANGES Reference [...] PM EDT 06/21/2022 8:04 AM EDT Result [facility] External Provider LAB BLO OD ORDERABLES Final Result Performing Organization Address [facility] Co de Phone Number [facility] [address] [place] [phone] * (ABNORMAL) PROTHROMBIN TIME WHOLE BLD POC (05/23/2022 2:05 PM EDT) Protime 28.5(H) 11.1 - 13.5 sec [facility] 05/23/2022 2:05 PM EDT 05/23/2022 2:07 PM EDT Result [facility] External Provider LAB BLO OD ORDERABLES Final Result Performing Organization Address [facility] Co de Phone Number [facility] [address] [place] [phone] * (ABNORMAL) ~PT, ~INR - ANTI COAG CLINIC (05/23/2022 2:05 PM EDT) Prothrombin Time INR 2.4(H) 0.9 - 1.1 [facility] Comment:METER #: [id number] TERNATIONAL NORMALIZED RATIO (INR) REFERENCE RANGES Reference [...] 2:05 PM EDT 05/23/2022 2:07 PM EDT [facility] External Provider LAB BLO OD ORDERABLES Final Result Performing Organization Address [facility] Co de Phone Number [facility] [address] [place] [phone] * (ABNORMAL) PROTHROMBIN TIME WHOLE BLD POC (05/16/2022 2:01 PM EDT) Protime 19.3(H) 11.1 - 13.5 sec [facility] 05/16/2022 2:01 PM EDT 05/16/2022 2:03 PM EDT [facility] External Provider LAB BLO OD ORDERABLES Final Result Performing Organization Address [facility] de Phone Number [facility] [address] [place] [phone] * (ABNORMAL) ~PT, ~INR - ANTI COAG CLINIC (05/16/2022 2:01 PM EDT) Prothrombin Time INR 1.6(H) 0.9 - 1.1 [facility] Comment:METER #: [id number] TERNATIONAL NORMALIZED RATIO (INR) REFERENCE RANGES Reference [...] 2:01 PM EDT 05/16/2022 2:03 PM EDT [facility] External Provider LAB BLO OD ORDERABLES Final Result Performing Organization Address [facility] Co de Phone Number [facility] [address] [place] [phone] * (ABNORMAL) PROTHROMBIN TIME WHOLE BLD POC (04/17/2022 2:12 PM EST) Protime 31.7(H) 11.1 - 13.5 sec [facility] 04/17/2022 2:12 PM EST 04/17/2022 2:16 PM EST [facility] External Provider LAB BLO OD ORDERABLES Final Result Performing Organization Address City/[facility]/ZIP Co de Phone Number [facility] [address] [place] [phone] * (ABNORMAL) ~PT, ~INR - ANTI COAG CLINIC (04/17/2022 2:12 PM EST) Prothrombin Time INR 2.6(H) 0.9 - 1.1 [facility] Comment:METER #: [id number] TERNATIONAL NORMALIZED RATIO (INR) REFERENCE RANGES Reference [...] 2:12 PM EST 04/17/2022 2:16 PM EST [facility] External Provider LAB BLO OD ORDERABLES Final Result Performing Organization Address City/[facility]/ZIP Co de Phone Number [facility] [address] [place] [phone] documented in this encounter Visit Diagnoses Not on filedocumented in this encounter Care Teams Ironworker Apprentice Relationship Specialty Start Date End Date Danna Combs FNP [address] [place] [address] PCP - General Family Medicine 10/05/21 documented as of this encounter
--- OUTSIDE RECORDS SUMMARY | 2024-11-14 14:18 | XMS_ITS | Encounter Summary ---
Author Organization [email or web address] Address [address] [place] [address] 7[address] [place] [address] Care Team Providers Care Public Employment Mediator Name Role Phone Danna Combs Primary Care Provider [phone] Reason for Visit * Reason Comments Med Refill Encounter Details Date Type Department Care Team ([facility] st Contact Info) Description 06/09/2024 Refill [facility] [address] [place] [address] Danna Combs FNP [address] [place] [address] Longstanding persistent atrial fibrillation (CMS/HCC) Social History [...] Description 12/24/2024 11:15 AM EST Office Visit [facility] [address] [place] [address] Danna Combs FNP [address] [place] [address] documented as of this encounter Visit Diagnoses Diagnosis Longstanding persistent atrial fibrillation (CMS/HCC) (HCC) documented in this encounter Additional Health Concerns Assessment Noted Time PHQ-9 Depression Total Score: 3 04/04/19 25 2:53 PM EST documented as of this encounter Care Teams Public Employment Mediator Relationship Specialty Start Date End Date Danna Combs FNP [address] [place] [address] PCP - General Family Medicine 10/05/21 documented as of this encounter
--- OUTSIDE RECORDS SUMMARY | 2024-11-14 14:18 | XMS_ITS | Encounter Summary ---
Author Organization [employer] Address [address] [facility] [address]t [place] [address] Care Team Providers Care Fishing Tackle Repairer Name Role Phone LouisDanna stephens MIRIAM Primary Care Provider [phone] Encounter Details Date Type Department Care Team (Late st Contact Info) Description 12/28/2022 Abstract [facility] [address] [place], [place] [phone] Tigist Cardenas Social History Tobacco Use Types [...] Office Visit [facility] [address] [place] [address] Danna Combs FNP [address] [place] [address] documented as of this encounter Visit Diagnoses Not on filedocumented in this encounter Additional Health Concerns Assessment Noted Time PHQ-9 Depression Total Score: 3 09/12/19 23 9:16 AM EDT documented as of this encounter Care Teams Fishing Tackle Repairer Relationship Specialty Start Date End Date Danna Combs FNP [address] [place] [address] PCP - General Family Medicine 10/05/21 documented as of this encounter
--- OUTSIDE RECORDS SUMMARY | 2024-11-14 14:18 | XMS_ITS | Clinical Summary ---
Author Organization [facility] Address [address] [place] [phone] Phone Care Team Providers Care Software Licensing Executive Name Role Phone Jerry Lang MD Primary Care Provider [phone] Allergies No known active allergies Medications metFORMIN [...] this topic Medical Devices Implanted Type Area U.[employer]. Revenue Officer Device Identifier Shelf Expiration Date Model / Serial / Lot Icd ICD Heart Defibrillator Momentum Is1 Df4 Heartlogic - [id number] Implanted:Qty: 1 on 01/24/2024 by Jerry Lang MD at [facility] ICD Left: Chest [employer] [id number] 09/23/2024 [id number] / [id number] / [id number] Prosthetic Joint Prosthetic Joint Bioenvelope Antibiotic-Eluti ng Elupro M Single Pack - [id number] Implanted:Qty: 1 on 01/24/2024 by Jerry Lang MD at [facility] Chest Wall [employer] 09/23/2024 CMCV-124 -MED / / [id number] Insurance MEDICARE PART A & B [place] & [facility] Care Teams Software Licensing Executive Relationship Specialty Start Date End Date Jerry Lang MD [address] [place] [phone] PCP - General Cardiology 01/22/24 Additional Source Comments The information contained in this document represents components of the legal health record. It is not the complete legal health record.[facility]
[2024-11-14 14:20] LABS: Prothrombin Time Whole Bld POC 41.3 sec (11.1-13.5); ~PT, ~INR - Anti Coag Clinic 3.4 (0.9-1.1)
--- NOTE | 2024-11-14 14:23 | MHC.OFFVISCO ---
Intake Intake Visit Reasons: Anticoagulation Allergies No Known Allergies (No Known Allergies*) Allergy (Verified 11/14/24 14:12) Medication List - Last Reconciled 11/14/24 by Rozina Olmos RN albuterol sulfate 90 mcg/actuation 2 puffs inhalation Q6H PRN atorvastatin 20 mg PO DAILY blood sugar diagnostic (FreeStyle Lite Strips) As directed buspirone 7.5 mg PO BID digoxin 250 mcg PO DAILY diltiazem HCl CD 180 mg PO DAILY empagliflozin (Jardiance) 10 mg PO QAM lancets (TRUEplus Lancets) As directed lisinopril 5 mg PO DAILY metformin ER 500 mg PO QPM metoprolol tartrate 200 mg PO BID sildenafil 25 mg PO DAILY PRN sodium,potassium,mag sulfates 17.5-3.13-1.6 gram (Suprep Bowel Prep Kit) 480 mL orally; FOR COLONOSCOPY PREP trazodone 50 mg PO BEDTIME PRN warfarin 7.5 mg See Protocol PO DAILY Nursing Note INR: 3.4 out of therapeutic range of 2-3 Medications and supplements reviewed Patient status: feels well Medications or supplements: no changes Diet: no changes Denies any signs and symptoms of bleeding or clotting or unusual bruising Bleeding, bruising, clotting discussed Nutritional guidance given: pt to have a serving of greens today and tomorrow Dose: 7.5mg X 6 days and 3.75mg X 1 day (Sun) F/U INR Date: 2 weeks?? Patient verbalizing understanding of instructions given. Anti-Coag Initial Assessment Social Hx Patient Tobacco Use Status: Former Tobacco user alcohol intake: former Coding Level of Care Code Est Patient Level 1 Diagnoses Current use of anticoagulant therapy Z79.01 Results AMB INR Fingerstick AMB INR Fingerstick 3.4 Last Edit by Rozina Olmos RN on 11/14/24 14:20 interface delay Assessment & Plan Assessment & Plan (1) Current use of anticoagulant therapy: Code(s): Z79.01 - long-term (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
== END 2024-11-14 14:38 | disposition home or self-care (01) ==
LOC: HO.ACS 14:09
PROVIDERS: PCP Registered Nurse; Visit Provider Internal Medicine Medical Oncology
DX: Z79.01 Long term (current) use of anticoagulants (principal)

== ENCOUNTER → 2024-11-14 14:09 | Outpatient (BNVA) | payer MEDICARE, MEDICAID, SELFPAY | PROVIDERS: PCP Registered Nurse; Visit Provider Internal Medicine Medical Oncology | DX: Z51.81 Encounter for therapeutic drug level monitoring (principal); Z79.01 Long term (current) use of anticoagulants | CPT/HCPCS: 85610; 99211 ==

== ENCOUNTER 2024-12-02 14:07 | Outpatient (AMB) | payer MEDICARE, MEDICAID, SELFPAY ==
[2024-12-02 14:11] LABS: Prothrombin Time Whole Bld POC 27.3 sec (11.1-13.5); ~PT, ~INR - Anti Coag Clinic 2.3 (0.9-1.1)
--- NOTE | 2024-12-02 14:13 | MHC.OFFVISCO ---
Intake Intake Visit Reasons: Anticoagulation Allergies No Known Allergies (No Known Allergies*) Allergy (Verified 12/02/24 14:06) Medication List - Last Reconciled 12/02/24 by Rozina Olmos RN albuterol sulfate 90 mcg/actuation 2 puffs inhalation Q6H PRN atorvastatin 20 mg PO DAILY blood sugar diagnostic (FreeStyle Lite Strips) As directed buspirone 7.5 mg PO BID digoxin 250 mcg PO DAILY diltiazem HCl CD 180 mg PO DAILY empagliflozin (Jardiance) 10 mg PO QAM lancets (TRUEplus Lancets) As directed lisinopril 5 mg PO DAILY metformin ER 500 mg PO QPM metoprolol tartrate 200 mg PO BID sildenafil 25 mg PO DAILY PRN sodium,potassium,mag sulfates 17.5-3.13-1.6 gram (Suprep Bowel Prep Kit) 480 mL orally; FOR COLONOSCOPY PREP trazodone 50 mg PO BEDTIME PRN warfarin 7.5 mg See Protocol PO DAILY Nursing Note INR: 2.3 in therapeutic range 2-3 Medications and supplements reviewed No changes in health, diet, medications, or supplements, Denies any signs and symptoms of bleeding or bruising or clotting. Bleeding, bruising, clotting discussed Nutritional guidance given Dose: 7.5mg X 6 days and 3.75mg X 1 day (Sun) F/U INR: 4 weeks Patient verbalizes understanding of instructions given Anti-Coag Initial Assessment Social Hx Patient Tobacco Use Status: Former Tobacco user alcohol intake: former Coding Level of Care Code Est Patient Level 1 Diagnoses Current use of anticoagulant therapy Z79.01 Assessment & Plan Assessment & Plan (1) Current use of anticoagulant therapy: Code(s): Z79.01 - bed bug exterminator (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
== END 2024-12-02 14:15 | disposition home or self-care (01) ==
LOC: HO.ACS 14:07
PROVIDERS: PCP Registered Nurse; Visit Provider Internal Medicine Medical Oncology
DX: Z79.01 Long term (current) use of anticoagulants (principal)

== ENCOUNTER → 2024-12-02 14:07 | Outpatient (BNVA) | payer MEDICARE, MEDICAID, SELFPAY | PROVIDERS: PCP Registered Nurse; Visit Provider Internal Medicine Medical Oncology | DX: I48.20 Chronic atrial fibrillation, unspecified (principal); Z51.81 Encounter for therapeutic drug level monitoring; Z79.01 Long term (current) use of anticoagulants | CPT/HCPCS: 85610; 99211 ==

== ENCOUNTER 2024-12-24 12:46 | Emergency (ER) | payer MEDICARE, MEDICAID, SELFPAY ==
--- NOTE | ~2024-12-24 | CT_ITS ---
EXAMINATION: CT HEAD WITHOUT CONTRAST CLINICAL INFORMATION: anticoagulated, L paresthesia COMPARISON: CT of the head on October 20, 2021. TECHNIQUE: Contiguous axial imaging was performed from the skull base to vertex without intravenous administration of contrast. This CT examination was performed using dose optimization techniques as appropriate, variously including the following: *Automated exposure control *Adjustment of mA and/or kV according to patient size (this includes techniques or standardized protocols for targeted exams where dose is matched to indication/reason for exam; i.e. extremities or head) *Use of iterative reconstruction technique FINDINGS: Brain parenchyma: No shift of midline structures. No parenchymal hemorrhage, evidence of acute territorial infarct or mass effect. Ventricles/extra-axial spaces: No hydrocephalus. No extra-axial fluid collections. Skull/Extracranial structures: No depressed skull fracture. Mucus retention cyst in the right maxillary sinus. Remainder paranasal sinuses are clear. Mastoid air cells are clear. Vascular calcifications. CT/CT head/brain wo IV con IMPRESSION: No acute intracranial findings. Electronically signed by: Edna Low MD 12/24/2024 03:08 PM [facility]
--- OUTSIDE RECORDS SUMMARY | 2024-12-24 11:15 | XMS_ITS | Encounter Summary ---
Author Organization [employer] Address [address] [place] [address] 7 [place] [address] Care Team Providers Care Event Management Consultant Name Role Phone Danna Combs Primary Care Provider [phone] Reason for Visit * Reason Comments Diabetes Encounter Details Date Type Department Care Team ([facility] Contact Info) Description 12/24/2024 11:15 AM EST Office Visit [facility] MEDICINE [address] [place] [address] Danna Combs FNP [address] [place] [address] Essential hypertension (Primary Dx); Type 2 diabetes mellitus without complication, without long-term current use of insulin (HCC); Healthcare maintenance Social History Tobacco Use Types Packs/Day Years Used Date Smoking Tobacco: Former Cigarettes Smokeless Tobacco: Never Tobacco Cessation:Counseling Given: Not Answered Alcohol Use Standard Drinks/Week Comments Never 0 (1 standard drink = 0.6 oz pur e alcohol) Depression Answer Date Recorded Patient Health Questionnaire-9 Score 18 12/24/2024 Patient Health Questionnaire-9 Score 18 12/24/2024 Last PHQ-9: Questionnaire Data Not on file 1 02/24/2024 Housing Stability Answer Date Recorded What is [...] Answer Date Recorded Patient Health Questionnaire-2 Score 3 12/24/2024 Internet Access Answer Date Recorded Internet Access Q1 Yes 12/24/2024 Internet Access Q2 I cannot afford it 12/24/2024 Sex and Gender Information Value Date Recorded Sex Assigned at Male 12/12/2021 10:28 AM EDT Legal Sex Male 10:28 AM EDT Gender Identity Male 12/12/2021 10:28 AM EDT Sexual Orientation Straight 12/12/2021 10 :28 AM EDT documented as of this encounter Last Filed Vital Signs Vital Sign Reading Time Taken Comments Blood Pressure 120/78 12/24/2024 11:21 AM EST Pulse 88 12/24/2024 11:21 AM EST Temperature 36.1 C (97 F) 12/24/2024 11:21 AM EST Respiratory Rate 20 12/24/2024 11:21 AM EST Oxygen Saturation - - Inhaled Oxygen Concentration - - Weight 120 kg (265 lb) 12/24/2024 11:21 AM EST Height 177.2 cm (5' 9.75 ) 12/24/2024 11:[address] Body Mass Index 38.3 12/24/2024 11:21 AM EST documented in this encounter Functional Status * Over the past 2 weeks, how often have you been bothered by any of the following problems? Question Answer Date of Assessment Author Patient Health Questionnaire -2 Score 3 12/24/2024 11:31 AM Simi Sanders MA * Little interest or pleasure in doing things Answer Date of Assessment Author Several days 12/24/2024 11:31 AM Meg Sanders MA * Feeling down, depressed, or hopeless Answer Date of Assessment Author More than half the days 12/24/2024 11:31 AM iSmi Sanders [place] * Trouble falling or staying asleep, or sleeping too much Answer Date of Assessment Author Nearly every day 12/24/2024 11:31 AM Simi Sanders MA * Feeling tired or having little energy Answer Date of Assessment Author Nearly every day 12/24/2024 11:31 AM Simi Sanders MA * Poor appetite or overeating Answer Date of Assessment Author Nearly every day 12/24/2024 11:31 AM Simi Sanders MA * Feeling bad about yourself - or that you are a failure or have let yourself or your family down Answer Date of Assessment Author Nearly every day 12/24/2024 11:31 AM Simi Sanders MA * Trouble concentrating on things, such as reading the newspaper or watching television Answer Date of Assessment Author Not at all 12/24/2024 11:31 AM Meg Sanders MA * Moving or speaking so slowly that other people could have noticed? Or the opposite - being so fidgety or restless that you have been moving around a lot more than usual. Answer Date of Assessment Author Nearly every day 12/24/2024 11:31 AM Simi Sanders MA * Thoughts that you would be better off or hurting yourself in some way Answer Date of Assessment Author Not at all 12/24/2024 11:31 AM Meg Sanders MA * Patient Health Questionnaire-9 Score Answer Date of Assessment Author 18 12/24/2024 11:31 AM Meg Sanders MA * Over the last 2 weeks, how often have you been bothered by any of the following problems? Question Answer Date of Assessment Author Feeling nervous, anxious, or on edge 3 12/24/2024 11:30 AM Simi Sanders MA Not being able to stop or co ntrol worrying 3 12/24/2024 11:30 AM Simi Sanders MA Worrying too much about diff erent things 3 12/24/2024 11:30 AM Simi Sanders MA Trouble relaxing 0 12/24/2024 11:30 AM Simi Sanders MA Being so restless that it is hard to sit still 1 12/24/2024 11:30 AM Simi Sanders MA Becoming easily annoyed or irritable 2 12/24/2024 11:30 AM Simi Sanders MA Feeling afraid as if somethi ng awful might happen 2 12/24/2024 11:30 AM Simi Sanders MA BLAKE-7 Total Score 14 12/24/2024 11:30 AM Simi Sanders MA * How difficult have these problems made it for you to do your work, take care of things at home, or get along with other people? Answer Date of Assessment Author Somewhat difficult 12/24/2024 11:31 AM Simi Sanders MA documented as of this encounter Plan of Treatment Scheduled Orders Name Type Priority Associated Diagnoses Orde r Schedule Albumin, Random Urine W/Creatinine Lab Routine Healthcare maintenance Expected: 12/24/2024 (Approximate), Expires: 12/24/2025 Lipid Panel, Standard Lab Routine Healthcare maintenance Expected: 12/24/2024 (Approximate), Expires: 12/24/2025 TSH with Reflex to Free T4 Lab Routine Healthcare maintenance Expected: 12/24/2024 (Approximate), Expires: 12/24/2025 Comprehensive Metabolic Panel Lab Routine Healthcare maintenance Expected: 12/24/2024 (Approximate), Expires: 12/24/2025 CBC auto differential Lab Routine Healthcare maintenance Expected: 12/24/2024, Expires: 12/24/2025 documented as of this encounter Goals Goal Patient Goal Type Associated Problems Recent Progress Patient-Stated? Author Help patients manage their type 2 diabetes Care Plan Help patients manage their type 2 diabetes No Danna Combs FNP Weekly blood pressure task Care Plan Weekly blood pressure task No Danna Combs FNP Help patients manage their type 2 diabetes Care Plan Help patients manage their type 2 diabetes No Danna Combs FNP Patient has chronic kidney disease Care Plan Patient has chronic kidney disease No Danna Combs FNP Weekly blood pressure task Care Plan Weekly blood pressure task No Danna Combs FNP Patient has chronic kidney disease Care Plan Patient has chronic kidney disease No Danna Combs FNP documented as of this encounter Procedures Procedure Name Priority Date/Time Associated Diagnosis Comments POCT GLYCATED HEMOGLOBIN, TOTAL Routine 12/24/2024 11:24 AM EST Type 2 diabetes mellitus without complication, without long-term current use of insulin (HCC) POCT GLUCOSE Routine 12/24/2024 11:24 AM EST Type 2 diabetes mellitus without complication, without long-term current use of insulin ([facility]) documented in this encounter Results * (ABNORMAL) POCT Hgb A1c (12/24/2024 11:24 AM EST) Hemoglobin A1C 6.9(A) 4.0 - 5.7 % QC Media Lot # [id number] Lot# Expiration Date 5,027 Blood 12/24/2024 11:2 4 AM EST us Danna PINEDA POINT OF CARE TEST ENTER/EDIT ORDERABLES Final Result * POCT Glucose (12/24/2024 11:24 AM EST) Glucose Blood, POC 148 60 - 200 mg/dL QC Media Lot # [id number] Lot# Expiration Date [id number] Blood Capillary blood specimen / Unknown 12/24/2024 11:24 AM EST us Danna PINEDA POINT OF CARE TEST ENTER/EDIT ORDERABLES Final Result documented in this encounter Visit Diagnoses Diagnosis Essential hypertension- Primary Unspecified essential hypertension Type 2 diabetes mellitus without complication, without long-term current use of insulin ([facility]) Healthcare maintenance documented in this encounter Additional Health Concerns Active Problems Noted Date Diagnosed Date Help patients manage their type 2 diabetes 12/24 Weekly blood pressure task 12/24/2024 Help patients manage their type 2 diabetes 12/24 Patient has chronic kidney disease 12/24/2024 Weekly blood pressure task 12/24/2024 Patient has chronic kidney disease 12/24/2024 Assessment Noted Time PHQ-9 Depression Total Score: 18 025 11:31 AM EST documented as of this encounter Care Teams Event Management Consultant Relationship Specialty Start Date End Date Danna Combs FNP [address] [place] [address] PCP - General Family Medicine 10/05/21 documented as of this encounter
--- NOTE | 2024-12-24 12:48 | ECG_ITS ---
Test Reason : cp Blood Pressure : */* mmHG Vent. Rate : 79 BPM Atrial Rate : 84 BPM P-R Int : * ms QRS Dur : 172 ms QT Int : 412 ms P-R-T Axes : * 256 73 degrees QTcB Int : 472 ms Ventricular-paced rhythm Biventricular pacemaker detected Abnormal ECG When compared with ECG of 20-Oct-2021 17:44, No significant change was found Referred By: Generic ED Physician Electronically Signed By: ROB NAVA MD
[2024-12-24 12:58] VITALS: BP 125/76; PULSE 75; RESP 16; TEMP 37; O2SAT 95; BMI 39.2
--- NOTE | 2024-12-24 12:58 | ED.GENADULT ---
HPI - General Adult General Chief complaint: Chest Pain Stated complaint: CP, arm tingling Time Seen by Provider: 12/24/24 13:56 History of Present Illness ED Provider: Julio Murillo MD HPI narrative: History of Present Illness The patient was seen earlier today by their primary care physician and was referred for further evaluation. - Chest pain: Described as a ?sore,? dull sensation located on the left side of the chest. Intermittent over the past several weeks. Not clearly provoked by exertion; occurs randomly. Rated 4/10 at worst. Does not radiate to neck, jaw, arm, or back. Deep inspiration does not exacerbate the pain. Similar episodes have occurred in the past. No chest pain at the time of evaluation. - Paresthesia: Intermittent ?pins and needles? sensation extending from the left forehead down the left arm, including the face. No associated numbness. No current symptoms at the time of evaluation; last episode earlier today and resolved after approximately 30 minutes. Prior similar episode previously evaluated in the hospital where stroke was ruled out; possible migraine etiology was mentioned at that time. - Associated symptoms denied during today?s visit: headache, speech difficulty, focal weakness, abdominal pain. Appetite and oral intake are normal. Related Data Home Medications ?Medication ?Instructions ?Recorded ?Confirmed buspirone 7.5 mg tablet 7.5 mg PO BID 12/17/19 12/02/24 digoxin 250 mcg (0.25 mg) tablet 250 mcg PO DAILY 12/17/19 12/02/24 diltiazem HCl 180 mg 180 mg PO DAILY 12/17/19 12/02/24 capsule,extended release 24 hr metoprolol tartrate 100 mg tablet 200 mg PO BID 12/17/19 12/02/24 lisinopril 5 mg tablet 5 mg PO DAILY 09/22/20 12/02/24 empagliflozin 10 mg tablet 10 mg PO QAM 11/16/20 12/02/24 (Jardiance) blood sugar diagnostic (FreeStyle #10 ea 12/14/20 12/02/24 Lite Strips) lancets 33 gauge (TRUEplus Lancets) #100 ea 12/14/20 12/02/24 metformin 500 mg tablet,extended 500 mg PO QPM 03/14/22 12/02/24 release 24 hr sildenafil 25 mg tablet 25 mg PO DAILY PRN 09/18/22 12/02/24 albuterol sulfate 90 mcg/actuation 2 puff inhalation Q6H PRN 10/06/22 12/02/24 aerosol inhaler atorvastatin 20 mg tablet 20 mg PO DAILY 01/15/24 12/02/24 trazodone 50 mg tablet 50 mg PO BEDTIME PRN 01/15/24 12/02/24 Previous Rx's ?Medication ?Instructions ?Recorded warfarin 7.5 mg tablet 7.5 mg PO DAILY #90 tabs 11/19/19 sodium,potassium,mag sulfates 17.5 480 ml PO .COMPLEX #354 mL 05/08/24 gram-3.13 gram-1.6 gram oral soln (Suprep Bowel Prep Kit) Allergies Allergy/AdvReac Type Severity Reaction Status Date / Time No Known Allergies (No Known Allergy Verified 12/24/24 13:01 Allergies*) [facility] Past Medical History Medical History (Updated 12/25/24 @ 00:00 by Huang Solano) Pacemaker Neck mass Neck abscess CHF (congestive heart failure) Atrial fibrillation Hypertension Diabetes mellitus Surgical History (Updated 05/08/24 @ 14:56 by ANN Ledesma) History of total left knee replacement H/O cardiac catheterization Family History Family History (Updated 05/08/24 @ 14:28 by AGUSTÍN Chisholm) Maternal Grandfather Stomach cancer Other No family history of cerebrovascular accident (CVA) Social History Social History (Updated 05/08/24 @ 14:29 by AGUSTÍN Chisholm) Alcohol intake: former Patient Tobacco Use Status: Former Tobacco user Advance Directives: No Advance Directives Information Provided: Yes Physical Exam ED Exam Exam: GENERAL: Well appearing. No apparent distress. Alert. HEAD/NECK: Normal to inspection. Neck supple. No cervical lymphadenopathy. EYES: Normal to inspection. Sclera non-icteric. ENMT: External nose normal. RESPIRATORY: Respiratory effort normal. Lungs clear to auscultation bilaterally. CARDIOVASCULAR: Regular rate. Normal rhythm. No murmur. No rubs. GI: Soft, non-tender, non-distended. No rebound or guarding. No masses palpable. No hepatosplenomegaly. SKIN: No jaundice. NEUROLOGICAL: Alert. PSYCHIATRIC: Alert. Appearance appropriate for situation. Attitude cooperative. OTHER: Comprehensive Neuro exam: Face symmetric, tongue midline, strong symmetric eye closure, pupils symmetric and reactive to light, intact sensation to the face throughout, intact strong face deviation and shoulder shrug. Sensation intact to light touch throughout 5 out of 5 strength in bilateral upper extremities, 5 and 5 strength in lower extremities Vital Signs: Vital Signs - 24 hr 12/24/24 12:58 12/24/24 14:14 Temperature 98.6 F Pulse Rate 75 75 Respiratory Rate 16 20 Blood Pressure 125/76 127/80 Pulse Oximetry 95 94 Oxygen Delivery Method Room Air Room Air BMI result Body Mass Index 39.2 Course Course Course Narrative: This is a Rapid Medical Examination (RME) performed by Nia Garcia PA-C in triage. Full HPI, ROS, assessment and treatment plan per primary provider in the Main ED. Hx: 59 yo M hx CHF, HTN, afib, s/p pacemaker, on warfarin reports tingling to LUE and left jaw with sore sensation to left chest x2 days - told his provider at appointment this morning, told to come to ED. also reporting paresthesias to right upper extremity which wakes him up at night. reports hx of similar symptoms had CTA head/neck negative for CVA, dx w/ migraine. Plan: labs, ekg Medical Decision Making Medical Decision Making MDM Narrative: Medical Decision Making: [age] male with extensive past medical history including pacemaker AFib on anticoagulation HFrEF with atypical nonexertional self-limited left-sided chest discomfort described dull. ECG paced with no Sgarbossa criteria. Currently asymptomatic. Troponin negative doubt ACS this is very atypical in nature could be musculoskeletal or nonemergent cardiopulmonary or thoracic pathology. Does not sound like PE or aortic dissection. Regarding the patient's paresthesias he has had this before I looked at the documentation from previous admission neurology was consulted felt like there was atypical migraine presentation. Patient does not have sensation loss importantly or any focal neurologic deficits symptoms are intermittent and mild doubt CVA. Given the warfarin use INR was sent which is a normal appropriate range for him. CT head without acute pathology. Preliminary Favored Differential Diagnosis: Paresthesia, migraine, less likely CVA or acute intracranial process like mass or bleed, ACS, pleuritis, musculoskeletal discomfort, GERD among additional considered etiologies Testing Interpreted Independently: ?ECG paced ventricular. Rate 79. No Sgarbossa criteria Radiology or Lab testing Results Reviewed: ?See below for details Consults: ?See below for details Independent Historians/External Chart Reviews: ?See below for details Social Determinants of Health Impacting MDM/Planning: ?See below for details Lab Data MDM Lab Attestation statement: I reviewed the patient's lab results. 12/24/24 13:12 12/24/24 13:12 Labs: Lab Results 12/24/24 12/24/24 Range/Units 13:12 13:13 WBC 9.8 (4.8-10.8) X10*3/uL RBC 5.14 (4.60-5.80) X10*6/uL Hgb 16.1 (14.0-18.0) g/dl Hct 47.9 (42.0-52.0) % MCV 93.2 (80.0-98.0) fL MCH 31.3 (27.0-33.0) pg MCHC 33.6 (31.0-36.0) g/dl RDW 13.2 (11.0-16.0) % Plt Count 208 (160-400) X10*3/uL MPV 9.1 L (9.4-12.4) fL Immature Gran % (Auto) 0.3 (0.0-0.4) % Neut % (Auto) 61.2 (45-73) % Lymph % (Auto) 29.1 (20-40) % [place] % (Auto) 7.2 (2-11) % Eos % (Auto) 1.3 (0-4) % Baso % (Auto) 0.9 (0-2) % Lymph # (Auto) 2.9 (1.2-4.9) X10*3/uL [place] # (Auto) 0.7 (0.1-1.2) X10*3/uL Eos # (Auto) 0.1 (0.0-0.4) X10*3/uL Baso # (Auto) 0.1 (0.0-0.2) X10*3/uL Abs Immat Gran (auto) 0.03 (0.00-0.03) X10*3/uL Absolute Neuts (auto) 6.0 (2.0-8.3) x10*3/uL Absolute Nucleated RBC 0.000 (0.0-0.012) X10*3/uL Nucleated RBC % (auto) 0.0 (0.0-0.2) /100WBC Sodium 137 (135-145) mmol/L Potassium 4.3 (3.3-5.1) mmol/L Chloride 105 (96-108) mmol/L Carbon Dioxide 29 (22-29) mmol/L Anion Gap 7 L (12-20) BUN 11 (9-16) mg/dL Creatinine 0.97 (0.5-1.4) mg/dL Estim Creat Clear Calc 107.6 Estimated GFR > 60 Random Glucose 88 (60-115) mg/dL Calcium 8.8 (8.4-10.2) mg/dL Magnesium 2.1 (1.6-2.6) mg/dL Total Bilirubin 0.5 (0.0-1.0) mg/dL AST 35 (5-37) U/L ALT 44 H (0-40) U/L Alkaline Phosphatase 81 (39-117) U/L Troponin I High Sens < 2.7 (<3.5-35.0) ng/L Total Protein 7.2 (6.5-8.0) g/dL Albumin 4.4 (3.5-5.0) g/dL Discharge Plan Discharge Clinical Impression: Atypical chest pain, Paresthesia Patient Disposition: Home, Self-Care Instructions: Chest Pain (DC) Additional Instructions: DISCHARGE DIAGNOSES: Paresthesia unclear cause reassuring neurologic examination and brain CT Chest pain atypical. Negative cardiac enzyme test of the blood excludes heart damage or heart attack in the last few days. ECG with paced rhythm. No other findings on examination suggestive of acute or severe emergent cardiac pathology this needs to be followed up outpatient with Cardiology HISTORY OF PRESENTATION: ?Dull chest pain intermittent and paresthesias of the face and arm EMERGENCY DEPARTMENT COURSE,TESTS, TREATMENTS: While in the ED today CT brain, labs all reassuring as we discussed DISCHARGE MEDICATIONS: ?[We have made no changes to your regular medication regimen] FOLLOW-UP: ?Call your primary or general physician soon as possible to discuss your symptoms, your ED visit and to discuss follow up plans PCP also call your grinder tender for urgent follow up to discuss the chest discomfort symptoms that may need to be pursued INSTRUCTIONS ?& RETURN PRECAUTIONS: If any symptoms change first call your primary physician, if it is after-hours your primary doctors office should have a provider associate relations specialist you can speak with. If the symptoms are severe or very concerning to you then call 911 or return to the ED. Julio Murillo MD Emergency Physician [facility] Prescriptions: No Action trazodone 50 mg tablet 50 mg PO BEDTIME PRN digoxin 250 mcg (0.25 mg) tablet 250 mcg PO DAILY diltiazem HCl 180 mg capsule,extended release 24hr 180 mg PO DAILY metoprolol tartrate 100 mg tablet 200 mg PO BID buspirone 7.5 mg tablet 7.5 mg PO BID lisinopril 5 mg tablet 5 mg PO DAILY Jardiance 10 mg tablet 10 mg PO QAM warfarin 7.5 mg tablet 7.5 mg PO DAILY Qty: 90 0RF Protocol: Dose Management Condition: Sunday (Week One) Dose/Route: 7.5 mg Instruction: 1 x 7.5 mg tablet Condition: Sunday Dose/Route: 7.5 mg Instruction: 1 x 7.5 mg tablet Condition: Sunday Dose/Route: 7.5 mg Instruction: 1 x 7.5 mg tablet Condition: Sunday Dose/Route: 7.5 mg Instruction: 1 x 7.5 mg tablet Condition: Dose/Route: 7.5 mg Instruction: 1 x 7.5 mg tablet Condition: Sunday Dose/Route: 3.75 mg Instruction: 0.5 x 7.5 mg tablets Condition: Sunday Dose/Route: 7.5 mg Instruction: 1 x 7.5 mg tablet Condition: Sunday (Week Two) Dose/Route: 7.5 mg Instruction: 1 x 7.5 mg tablet Condition: Sunday Dose/Route: 7.5 mg Instruction: 1 x 7.5 mg tablet Condition: Sunday Dose/Route: 7.5 mg Instruction: 1 x 7.5 mg tablet Condition: Sunday Dose/Route: 7.5 mg Instruction: 1 x 7.5 mg tablet Condition: Dose/Route: 7.5 mg Instruction: 1 x 7.5 mg tablet Condition: Sunday Dose/Route: 3.75 mg Instruction: 0.5 x 7.5 mg tablets Condition: Sunday Dose/Route: 7.5 mg Instruction: 1 x 7.5 mg tablet Protocol Text: Adjustment Start Date: Sunday12/02/24 INR Value: 2.3 INR Date: 12/02/24 Recheck Date: 12/30/24 Rx Instructions: on odd numbered days (DME) lancets [TRUEplus Lancets] 33 gauge misc See Rx Instructions Not Applicable BID Qty: 100 Rx Instructions: As directed (DME) FreeStyle Lite Strips Strip See Rx Instructions Not Applicable BID Qty: 10 Rx Instructions: As directed metformin 500 mg tablet extended release 24 hr 500 mg PO QPM albuterol sulfate 90 mcg/actuation HFA aerosol inhaler 2 puff inhalation Q6H PRN atorvastatin 20 mg tablet 20 mg PO DAILY sildenafil 25 mg tablet 25 mg PO DAILY PRN sodium,potassium,mag sulfates [Suprep Bowel Prep Kit] 17.5-3.13-1.6 gram recon soln 480 ml PO .COMPLEX Qty: 354 0RF Rx Instructions: 480 mL orally; FOR COLONOSCOPY PREP Referrals: [facility] [Provider Group, Neurology] Discharge Date/Time: 12/24/24 16:02 Print Language: Estonian
[2024-12-24 13:19] LABS: MANUAL DIFF FLAG NO
[2024-12-24 13:22] LABS: Hematocrit 47.9 % (42.0-52.0); Hemoglobin 16.1 g/dl (14.0-18.0); Imm Gran Abs Auto 0.03 X10*3/uL (0.00-0.03); Imm Gran Pct Auto 0.3 % (0.0-0.4); Lymphocytes Absolute Auto 2.9 X10*3/uL (1.2-4.9); Mean Corpuscular HGB Conc 33.6 g/dl (31.0-36.0); Mean Corpuscular Hemoglobin 31.3 pg (27.0-33.0); Mean Corpuscular Volume 93.2 fL (80.0-98.0); NRBC Abs Auto 0.000 X10*3/uL (0.0-0.012); NRBC Pct Auto 0.0 /100WBC (0.0-0.2); Platelet Count 208 X10*3/uL (160-400); Red Blood Count 5.14 X10*6/uL (4.60-5.80); White Blood Count 9.8 X10*3/uL (4.8-10.8)
[2024-12-24 13:35] LABS: Alanine Aminotransferase 44 U/L (0-40); Albumin Level 4.4 g/dL (3.5-5.0); Alkaline Phosphatase 81 U/L (39-117); Anion Gap 7 (12-20); Aspartate Amino Transferase 35 U/L (5-37); Blood Urea Nitrogen 11 mg/dL (9-16); Calcium 8.8 mg/dL (8.4-10.2); Carbon Dioxide 29 mmol/L (22-29); Chloride 105 mmol/L (96-108); Creatinine Clr Calc Pharmacy 107.6; Estimated Glomerular Filt Rate > 60; Magnesium 2.1 mg/dL (1.6-2.6); Potassium 4.3 mmol/L (3.3-5.1); Sodium 137 mmol/L (135-145); Total Protein 7.2 g/dL (6.5-8.0)
[2024-12-24 13:47] LABS: Troponin-I High Sensitivity < 2.7 ng/L (<3.5-35.0)
[2024-12-24 14:14] VITALS: BP 127/80; PULSE 75; RESP 20; O2SAT 94
--- NOTE | 2024-12-24 16:01 | PC.NURSE ---
Pt was discharged from ED but did not wait to receive discharge papers. Per provider pt understood plan and was agreeable to same.
--- OUTSIDE RECORDS SUMMARY | 2024-12-24 17:41 | XMS_ITS | Encounter Summary ---
Author Organization [employer] Address [address] [place] [address] [address] [place] [address] Care Team Providers Care Hot Metal Car Operator Name Role Phone Danna Combs Primary Care Provider [phone] Reason for Visit * Reason Onset Date Comments chart prep 12/23/2024 Encounter Details Date Type Department Care Team ([facility] st Contact Info) Description 12/23/2024 Telephone [facility] [address] [place] [address] Danna Combs FNP [address] [place] [address] chart prep Social History Tobacco Use Types Packs/Day Years [...] encounter Miscellaneous Notes * Telephone Encounter - Isis Harmon [place] - 12/23/2024 11:52 AM EST ..Chart Prep Labs: not applicable Images: not applicable Vaccines due: Covid Due and Flu Due Referrals: Not Applicable Screenings: Colonoscopy , Eye Exam, and Foot Exam Overdue care gaps: A1C, Glucose, Sbirt, GAD7, and Disability documented in this encounter Plan of Treatment Not on file documented as of this encounter Visit Diagnoses Not on filedocumented in this encounter Additional Health Concerns Assessment Noted Time PHQ-9 Depression Total Score: 3 04/04/19 25 2:53 PM EST documented as of this encounter Care Teams Hot Metal Car Operator Relationship Specialty Start Date End Date Danna Combs FNP [address] [place] [address] PCP - General Family Medicine 10/05/21 documented as of this encounter
--- OUTSIDE RECORDS SUMMARY | 2024-12-24 17:41 | XMS_ITS | Encounter Summary ---
Author Organization [facility] Address [address] [place] [id number] Phone Care Team Providers Care Pan Greaser Name Role Phone Jerry Lang MD Primary Care Provider [phone] Encounter Details Date Type Department Care Team (Late st Contact Info) Description 01/24/2024 Procedure Pass [facility] [address] [place] [address] Social History Tobacco Use Types Packs/Day Years [...] on filedocumented in this encounter Care Teams Pan Greaser Relationship Specialty Start Date End Date Jerry Lang MD [address] [place] [address] PCP - General Cardiology 01/22/24 documented as of this encounter Additional Source Comments The information contained in this document represents components of the legal health record. It is not the complete legal health record.[facility]
--- OUTSIDE RECORDS SUMMARY | 2024-12-24 17:41 | XMS_ITS | Encounter Summary ---
Author Organization [employer] Address [address] [place] [address] [address] [place] [address] Care Team Providers Care Truss Driver Helper Name Role Phone Danna Combs Primary Care Provider [phone] Reason for Visit * Reason Comments Med Refill Encounter Details Date Type Department Care Team ([facility] st Contact Info) Description 06/09/2024 Refill [facility] [address] [place] [address] Danna Combs FNP [address] [place] [address] Longstanding persistent atrial fibrillation (CMS/HCC) Social History [...] documented as of this encounter Care Teams Truss Driver Helper Relationship Specialty Start Date End Date Danna Combs FNP [address] [place] [id number] PCP - General Family Medicine 10/05/21 documented as of this encounter
--- OUTSIDE RECORDS SUMMARY | 2024-12-24 17:41 | XMS_ITS | Encounter Summary ---
Author Organization [employer] Address [address] [place] [address] 7[address] [place] [address] Care Team Providers Care Telescope Repairer Name Role Phone LouisDanna stephens MIRIAM Primary Care Provider [phone] Encounter Details Date Type Department Care Team (Late st Contact Info) Description 12/24/2024 Orders Only GENERIC EXTERNAL DATA DEPARTMENT Provider, Generic External Data Social History Tobacco Use Types Packs/Day Years Used Date Smoking Tobacco: Former Cigarettes Smokeless Tobacco: Never Alcohol Use Standard Drinks/Week [...] AM EDT documented as of this encounter Functional Status * Over the [...] than half the days 12/24/2024 11:31 AM Simi Sanders MA * Trouble falling or staying [...] Author Not at all 12/24/2024 11:31 AM eMg Sanders MA * Patient Health Questionnaire-9 Score Answer Date of Assessment Author 18 12/24/2024 11:31 AM Meg Sanders MA * Over the last 2 weeks, how often have you been bothered by any of the following problems? Question Answer Date of Assessment Author Feeling nervous, anxious, or on edge 3 12/24/2024 11:30 AM Simi Sandres MA Not being able to stop or [...] on file documented as of this encounter Goals Goal Patient Goal Type Associated Problems Recent Progress Patient-Stated? Author Help patients manage their type 2 diabetes Care Plan Help patients manage their type 2 diabetes Danna Bush FNP Weekly blood pressure task Care Plan Weekly blood pressure task Danna Bush FNP Help patients manage their type 2 [...] Procedure Name Priority Date/Time Associated Diagnosis Comments CT HEAD WO CONTRAST Routine 12/24/2024 2 :18 PM EST HIGH SENSITIVITY TROPONIN I Routine 12/24/2024 1:13 PM EST CBC WITH AUTO DIFFERENTIAL Routine 12/24/2024 1:12 PM EST MAGNESIUM Routine 12/24/2024 1:12 PM EST COMPREHENSIVE METABOLIC PANEL Routine 12/24/2024 1:12 PM EST documented in this encounter Results * CT Head w/o Contrast (12/24/2024 2:18 PM EST) Anatomical Region Laterality Modality Head, Neck Computed Tomogra phy 12/24/2024 2:18 PM EST Narrative 12/24/2024 3:10 PM EST [place] [address] CT Scan Report Signed Patient: Corey Alex MR#: [id number] [birth year] : 1965 Acct:[id number] Age/Sex: 59 / M ADM Date: 12/24/24 Loc: .ED Attending Dr: Ordering Physician: Julio Murillo MD Date of Service: 12/24/24 Procedure(s): CT head/brain wo IV con Accession Number(s): [id number] cc: Julio Murillo MD; Danna Combs Report Number: [id number]: Total DLP = 941.00 mGy-cm Reason for Exam: anticoagulated, L paresthesia EXAMINATION: CT HEAD WITHOUT CONTRAST CLINICAL INFORMATION: anticoagulated, L paresthesia COMPARISON: CT of the head on October 20, 2021. TECHNIQUE: Contiguous axial imaging was performed from the skull base to vertex without intravenous administration of contrast. This CT examination was performed using dose optimization techniques as appropriate, variously including the following: *Automated exposure control *Adjustment of mA and/or kV according to patient size (this includes techniques or standardized protocols for targeted exams where dose is matched to indication/reason for exam; i.e. extremities or head) *Use of iterative reconstruction technique FINDINGS: Brain parenchyma: No shift of midline structures. No parenchymal hemorrhage, evidence of acute territorial infarct or mass effect. Ventricles/extra-axial spaces: No hydrocephalus. No extra-axial fluid collections. Skull/Extracranial structures: No depressed skull fracture. Mucus retention cyst in the right maxillary sinus. Remainder paranasal sinuses are clear. Mastoid air cells are clear. Vascular calcifications. CT/CT head/brain wo IV con IMPRESSION: No acute intracranial findings. Electronically signed by: Edna Low MD 12/24/2024 03:08 PM [facility] Dictated By: Edna Low MD Signed By: <Electronically signed by Edna Low MD in OV> 12/24/24 1508 DD/ 1418 TD/TT: 12/24/24 1426 Fisher Diver Net: Procedure Note Donotuseinterpreter, Image - 12/24/[address] [place] [address] [address] Scan Report Signed Patient: Yadira Alex#: [id number] [birth year] : 1965Acct:[id number] Age/Sex: 59 / MADM Date: 12/24/24 Loc: HO.ED Attending Dr: Ordering Physician: Julio Murillo MD Date of Service: 12/24/24 Procedure(s): CT head/brain wo IV con Accession Number(s): [id number] cc: Julio Murillo MD; Danna Combs FICTION AND NONFICTION AUTHOR Report Number: [id number]: Total DLP = 941.00 mGy-cm Reason for Exam: anticoagulated, L paresthesia EXAMINATION: CT HEAD WITHOUT CONTRAST CLINICAL INFORMATION: anticoagulated, L paresthesia COMPARISON: CT of the head on October 20, 2021. TECHNIQUE: Contiguous axial imaging was performed from the skull base to vertex without intravenous administration of contrast. This CT examination was performed using dose optimization techniques as appropriate, variously including the following: *Automated exposure control *Adjustment of mA and/or kV according to patient size (this includes techniques or standardized protocols for targeted exams where dose is matched to indication/reason for exam; i.e. extremities or head) *Use of iterative reconstruction technique FINDINGS: Brain parenchyma: No shift of midline structures. No parenchymal hemorrhage, evidence of acute territorial infarct or mass effect. Ventricles/extra-axial spaces: No hydrocephalus. No extra-axial fluid collections. Skull/Extracranial structures: No depressed skull fracture. Mucus retention cyst in the right maxillary sinus. Remainder paranasal sinuses are clear. Mastoid air cells are clear. Vascular calcifications. CT/CT head/brain wo IV con IMPRESSION: No acute intracranial findings. Electronically signed by: Edna Low MD 12/24/2024 03:08 PM EST Dictated By: Edna Low MD Signed By: <Electronically signed by Edna Low MD in OV> 12/24/24 1508 DD/ 1418 TD/TT: 12/24/24 1426 Fisher Diver Net: [facility] External Provider IMG CT PROCEDURES Final Result * High Sensitivity Troponin I (12/24/2024 1:13 PM EST) TROPONIN I HIGH SENSITIVITY <2.7 <3.5 - 35.0 ng/L [facility] Comment:The Padgett high sens itivity Troponin-I results should beused in conjunction with other diagnostic information suchas ECG, clinical observations and information, and patientsymptoms to aid in the diagnosis of SC. 12/24/2024 1:13 PM EST 12/24/2024 1:18 PM EST Generic External Data Provider LAB BLOOD ORDERAB LES Final Result [facility] [address] [place] [address] [phone] * Magnesium (12/24/2024 1:12 PM EST) Magnesium 2.1 1.6 - 2.6 mg/dL [facility] 12/24/2024 1:12 PM EST 12/24/2024 1:18 PM EST us Generic External Data Provider LAB BLOOD ORDERAB LES Final Result [facility] [address] [place] [phone] * (ABNORMAL) Comprehensive Metabolic Panel (12/24/2024 1:12 PM EST) Sodium 137 135 - 145 mmol/L [facility] Potassium 4.3 3.3 - 5.1 mmol/L [facility] Chloride 105 96 - 108 mmol/L [facility] Carbon Dioxide 29 22 - 29 mmol/L [facility] Anion Gap 7(L) 12 - 20 [facility] Urea Nitrogen (BUN) 11 9 - 16 mg/dL [facility] Creatinine, Serum 0.97 0.5 - 1.4 mg/dL [facility] Creatinine Clr Calc Pharmacy 107.6 [facility] Comment:eGFR (calculated fro m the MDRD study equation) and eCrCl(calculated from the Cockcroft-Gault equation) are based ondifferent parameters and may not yield comparable results.If eCrCl result is absurd, please check patient'sheight/weight. Estimated Glomerular Filt Rate >60 [facility] Comment:Chronic Kidney Disea se: Estimated GFR < 60 mL/min/1.35u0Suvpye Kidney Disease: Estimated GFR < 15 mL/min/1.73m2 Glucose 88 60 - 115 mg/dL [facility] Calcium 8.8 8.4 - 10.2 mg/dL [facility] Bilirubin, Total 0.5 0.0 - 1.0 mg/dL [facility] Aspartate Amino Transferase 35 5 - 37 U/L [facility] Alanine Aminotransferase 44(H) 0 - 40 U/L [facility] Total Protein 7.2 6.5 - 8.0 g/dL [facility] Albumin Level 4.4 3.5 - 5.0 g/dL [facility] Alkaline Phosphatase 81 39 - 117 U/L [facility] 12/24/2024 1:12 PM EST 12/24/2024 1:18 PM EST us Generic External Data Provider LAB BLOOD ORDERAB LES Final Result [facility] [address] [place] [address] [phone] * (ABNORMAL) CBC auto differential (12/24/2024 1:12 PM EST) White Blood Count 9.8 4.8 - 10.8 X10*3/uL [facility] Red Blood Count 5.14 4.60 - 5.80 X10*6/uL [facility] Hemoglobin 16.1 14.0 - 18.0 g/dl [facility] Hematocrit 47.9 42.0 - 52.0 % [facility] Mean Corpuscular Volume 93.2 80.0 - 98.0 fL [facility] Mean Corpuscular Hemoglobin 31.3 27.0 - 33.0 pg [facility] Mean Corpuscular HGB Conc 33.6 31.0 - 36.0 g/dl [facility] Red Cell Distribution Width 13.2 11.0 - 16.0 % [facility] Platelet Count 208 160 - 400 X10*3/uL [facility] Mean Platelet Volume 9.1(L) 9.4 - 12.4 fL [facility] Neutrophils Percent Auto 61.2 45 - 73 % [facility] Imm Gran Pct Auto 0.3 0.0 - 0.4 % [facility] Lymphocytes Percent Auto 29.1 20 - 40 % [facility] Monocytes Percent Auto 7.2 2 - 11 % [facility] Eosinophils Percent Auto 1.3 0 - 4 % [facility] Basophils Percent Auto 0.9 0 - 2 % [facility] NRBC Pct Auto 0.0 0.0 - 0.2 /100WBC [facility] Neutrophils Absolute Auto 6.0 2.0 - 8.3 x10*3/uL [facility] Imm Gran Abs Auto 0.03 0.00 - 0.03 X10*3/uL [facility] Lymphocytes Absolute Auto 2.9 1.2 - 4.9 X10*3/uL [facility] Monocytes Absolute Auto 0.7 0.1 - 1.2 X10*3/uL [facility] Eosinophils Absolute Auto 0.1 0.0 - 0.4 X10*3/uL [facility] Basophils Absolute Auto 0.1 0.0 - 0.2 X10*3/uL [facility] NRBC Abs Auto 0.000 0.0 - 0.012 X10*3/uL [facility] 12/24/2024 1:12 PM EST 12/24/2024 1:18 PM EST us Generic External Data Provider LAB BLOOD ORDERAB LES Final Result Performing Organization Address City/State/[facility] Co de Phone Number [facility] [address] [place] [phone] [phone] documented in this encounter Visit Diagnoses Not on filedocumented in this encounter Additional Health Concerns Active [...] documented as of this encounter Care Teams Telescope Repairer Relationship Specialty Start Date End Date Danna Combs FNP [address] [place] [address] PCP - General Family Medicine 10/05/21 documented as of this encounter
--- OUTSIDE RECORDS SUMMARY | 2024-12-24 17:41 | XMS_ITS | Encounter Summary ---
Author Organization [employer] Address [address] [place] [address] 7t [place] [address] Care Team Providers Care Metal Neutralizer Name Role Phone LouisDanna stephens MIRIAM Primary Care Provider [phone] Encounter Details Date Type Department Care Team (Late st Contact Info) Description 04/13/[address] [facility] [address] [place], [place] [phone] Ginny Haegr LPN Social History Tobacco Use Types Packs/Day [...] EDT) Protime 35.8(H) 11.1 - 13.5 sec [facility] 08/03/2022 2:18 PM EDT 08/03/2022 2:20 PM EDT [facility] External Provider LAB BLO OD ORDERABLES Final Result [facility] [address] [place] [address] [phone] * (ABNORMAL) ~PT, ~INR - ANTI COAG CLINIC (08/03/2022 2:18 PM EDT) Prothrombin Time INR 3.0(H) 0.9 - 1.1 [facility] Comment:METER #: [id number] TERNATIONAL NORMALIZED RATIO (INR) REFERENCE RANGES Reference [...] 2:18 PM EDT 08/03/2022 2:20 PM EDT [facility] External Provider LAB BLO OD ORDERABLES Final Result Performing Organization Address City/[facility] Co de Phone Number [facility] [address] [place] [phone] * (ABNORMAL) PROTHROMBIN TIME WHOLE BLD POC (07/04/2022 2:21 PM EDT) Protime 32.4(H) 11.1 - 13.5 sec [facility] 07/04/2022 2:21 PM EDT 07/04/2022 2:23 PM EDT [facility] External Provider LAB BLO OD ORDERABLES Final Result Performing Organization Address City/[facility] Co de Phone Number [facility] [address] [place] [phone] * (ABNORMAL) ~PT, ~INR - ANTI COAG CLINIC (07/04/2022 2:21 PM EDT) Prothrombin Time INR 2.7(H) 0.9 - 1.1 [facility] Comment:METER #: [id number] TERNATIONAL NORMALIZED RATIO (INR) REFERENCE RANGES Reference [...] PM EDT 07/04/2022 2:23 PM EDT Result [facility] External Provider LAB BLO OD ORDERABLES Final Result Performing Organization Address [facility] Co de Phone Number [facility] [address] [place] [phone] * (ABNORMAL) PROTHROMBIN TIME WHOLE BLD POC (06/20/2022 2:07 PM EDT) Protime 44.6(H) 11.1 - 13.5 sec [facility] 06/20/2022 2:07 PM EDT 06/21/2022 8:04 AM EDT Result [facility] External Provider LAB BLO OD ORDERABLES Final Result Performing Organization Address [facility] Co de Phone Number [facility] [address] [place] [phone] * (ABNORMAL) ~PT, ~INR - ANTI COAG CLINIC (06/20/2022 2:07 PM EDT) Prothrombin Time INR 3.7(H) 0.9 - 1.1 [facility] Comment:METER #: [id number] TERNATIONAL NORMALIZED RATIO (INR) REFERENCE RANGES Reference [...] PM EDT 06/21/2022 8:04 AM EDT Result [facility] External Provider LAB BLO OD ORDERABLES Final Result Performing Organization Address City/[facility] Co de Phone Number [facility] [address] [place] [phone] * (ABNORMAL) PROTHROMBIN TIME WHOLE BLD POC (05/23/2022 2:05 PM EDT) Protime 28.5(H) 11.1 - 13.5 sec [facility] 05/23/2022 2:05 PM EDT 05/23/2022 2:07 PM EDT [facility] External Provider LAB BLO OD ORDERABLES Final Result Performing Organization Address [facility] de Phone Number [facility] [address] [place] [phone] * (ABNORMAL) ~PT, ~INR - ANTI COAG CLINIC (05/23/2022 2:05 PM EDT) [facility] Prothrombin Time INR 2.4(H) 0.9 - 1.1 [facility] Comment:METER #: [id number] TERNATIONAL NORMALIZED RATIO (INR) REFERENCE RANGES Reference [...] 2:05 PM EDT 05/23/2022 2:07 PM EDT [facility] External Provider LAB BLO OD ORDERABLES Final Result Performing Organization Address [facility] Co de Phone Number [facility] [address] [place] [phone] * (ABNORMAL) PROTHROMBIN TIME WHOLE BLD POC (05/16/2022 2:01 PM EDT) Protime 19.3(H) 11.1 - 13.5 sec [facility] 05/16/2022 2:01 PM EDT 05/16/2022 2:03 PM EDT [facility] External Provider LAB BLO OD ORDERABLES Final Result Performing Organization Address [facility] Co de Phone Number [facility] [address] [place] [phone] * (ABNORMAL) ~PT, ~INR - ANTI COAG CLINIC (05/16/2022 2:01 PM EDT) [facility] Prothrombin Time INR 1.6(H) 0.9 - 1.1 [facility] Comment:METER #: [id number] TERNATIONAL NORMALIZED RATIO (INR) REFERENCE RANGES Reference [...] 2:01 PM EDT 05/16/2022 2:03 PM EDT [facility] External Provider LAB BLO OD ORDERABLES Final Result Performing Organization Address City/[facility] Co de Phone Number [facility] [address] [place] [phone] * (ABNORMAL) PROTHROMBIN TIME WHOLE BLD POC (04/17/2022 2:12 PM EST) Protime 31.7(H) 11.1 - 13.5 sec [facility] 04/17/2022 2:12 PM EST 04/17/2022 2:16 PM EST [facility] External Provider LAB BLO OD ORDERABLES Final Result Performing Organization Address [facility] Co de Phone Number [facility] [address] [place] [phone] * (ABNORMAL) ~PT, ~INR - ANTI COAG CLINIC (04/17/2022 2:12 PM EST) Prothrombin Time INR 2.6(H) 0.9 - 1.1 [facility] Comment:METER #: [id number] TERNATIONAL NORMALIZED RATIO (INR) REFERENCE RANGES Reference [...] 2:12 PM EST 04/17/2022 2:16 PM EST [facility] External Provider LAB BLO OD ORDERABLES Final Result Performing Organization Address [facility] Co de Phone Number [facility] [address] [place] [phone] documented in this encounter Visit Diagnoses Not on filedocumented in this encounter Care Teams Metal Neutralizer Relationship Specialty Start Date End Date Danna Combs FNP [address] [place] [phone] PCP - General Family Medicine 10/05/21 documented as of this encounter
--- OUTSIDE RECORDS SUMMARY | 2024-12-24 17:41 | XMS_ITS | Clinical Summary ---
Author Organization [facility] Address [address] [place] [phone] Phone Care Team Providers Care Customer Relations Coordinator Name Role Phone Jerry Lang MD Primary Care Provider [phone] Allergies No known active allergies Medications metFORMIN [...] patient's age to complete this topic IPV VACCINES Aged Out No longer eligi ble based on patient's age to complete this topic MENINGOCOCCAL VACCINES (ACWY) Aged Out No longer eligible based on patient's age to complete this topic MENINGOCOCCAL VACCINES (B) Aged Out N o longer eligible based on patient's age to complete this topic Medical Devices Implanted Type Area Copper Roller Handler Printing Device Identifier Shelf Expiration Date Model / Serial / Lot Icd ICD Heart Defibrillator Moment[employer] Is1 Df4 Heartlogic - [id number] Implanted:Qty: 1 on 01/24/2024 by Jerry Lang MD at [facility] ICD Left: Chest [employer] [id number] 09/23/2024 [id number] / [id number] / [id number] Prosthetic Joint Prosthetic Joint Bioenvelope Antibiotic-Eluti ng Elupro M Single Pack - [id number] Implanted:Qty: 1 on 01/24/2024 by Jerry Lang MD at [facility] Chest Wall [employer] 09/23/2024 CMCV-124 -MED / / [id number] Insurance MEDICARE PART A & B [place] & B [facility] MEDICARE PART A & B [place]ICARE PART A & B [facility] & B [place] PART A & B [facility] Care Teams Customer Relations Coordinator Relationship Specialty Start Date End Date Jerry Lang MD [address] [place] [phone] [email or web address] PCP - General Cardiology 01/22/24 Additional Source Comments The information contained in this document represents components of the legal health record. It is not the complete legal health record.[facility]
--- OUTSIDE RECORDS SUMMARY | 2024-12-24 17:41 | XMS_ITS | Clinical Summary ---
Author Organization [employer] Address [address] [place] [address] 7t [place] [address] Care Team Providers Care Security Operations Analyst Name Role Phone Danna Combs Primary Care Provider [phone] Allergies No known active allergies Medications FREESTYLE [...] s:Longstanding persistent atrial fibrillation (CMS/HCC) ([facility]) TAKE 1 TO 1 & 1/2 TABLETS BY MOUTH EVERY DAY DIRECTED BY COUMADIN CLINIC BASED ON INR 100 tablet 1 5 Active Jardiance 10 MGIndications:Ty pe 2 diabetes mellitus treated without insulin ([facility]) TAKE 1 TABLET BY MOUTH [...] diabetes mellitus treated without insulin ([facility]) TAKE 1 TABLET BY MOUTH EVERY DAY WITH DINNER 90 tablet 3 5 Active dilTIAZem CD (Cardizem CD) 180 MG 24 hr capsuleIndicatio ns:Atrial fibrillation, unspecified type (CMS/HCC) ([facility]),Congestive heart failure, unspecified HF chronicity, unspecified heart failure type ([facility]) TAKE 1 CAPSULE BY MOUTH [...] pacer in place (last changed 01/24/24 at [facility]) Warfarin anticoagulation 09/10/2022 Overview (09/10/2022): On coumadin therapy - 5-7.5mg daily as directed by clinic Managed by [facility] Coumadin clinic Healthcare maintenance 09/10/2022 Assessment & Plan (02/14/2024 1:49 PM EST): -Per previous documentation due for colonoscopy in 2023. Referral to GI placed 02/11/24. -Optometry: QUENTIN Oct 2022 w/ [facility] Assessment & Plan (03/22/2023 6:31 PM EST): -Per previous documentation due for colonoscopy in 2023 -Optometry: UTD w/ [facility] Assessment & Plan (09/18/2022 8:35 PM EDT): -Per previous documentation due for colonoscopy in 2023 -Optometry: scheduled for [facility] in September 2022 ICD (implantable cardioverter-defibrillator) in place 05/08/2022 Overview (02/14/2024): -Hx of complete AV block s/p pacemaker placement, device interrogated Q6 months through cards and denies any concerns -Pt denies any chest pain, palpitations, SOB, orthopnea, syncope -01/24/24: [facility] Cards & IR - CORRECTION LIEUTENANT-D generator change given DAVE (Dr. Jerry Lang). Assessment & Plan (02/14/2024 1:48 PM EST): - Plan to f/up with surgical team regarding wound check Essential hypertension 09/18/2020 Overview (09/10/2022): -Hx of Afib, dialted cardiomyopathy, HTN, HLD, AV block -Continues digoxin, diltiazem, lisinopril, metoprolol, and atorvastatin. Med safety reviewed. -Denies any chest pain, palpitations, SOB, FRAIRE, blurry vision, N/V/D -Following with Dr. Grande in [place], [place] Type 2 diabetes mellitus 09/15/2020 Overview (12/24/2024): Lab Results Component Value Date HGBA1C 6.0 02/11/2024 - A1c: (Target </= 7.0): well controlled - Microalbumin/Cr:Alb: 8 mcg/mg on 05/08/22 - Lipids: April 2022: LDL 77, HDL 32, TC 142, TG 248 - Eye exam: Oct 2022 at [facility] - no diabetic [...] of total knee arthroplasty 04/05/2015 Dilated cardiomyopathy ([facility]) 02/04/2015 Vitamin D deficiency 02/04/2015 Atrial fibrillation ([facility]) 01/18/2015 Assessment & Plan (04/06/2024 7:57 PM EST): - Continues on warfarin (discussed alternative medications with Cards - Dr. Enriquez Jan 2024) - Managed by [facility] Coumadin Clinic -Encouraged to consider DOAC, handout from the [employer] provided today. Mr. Hanson reports he will think about it any questions arise. Assessment & Plan (02/14/2024 1:29 PM EST): - Continues on warfarin (discussed alternative medications with Cards - Dr. Enriquez Jan 2024) - Managed by [facility] Coumadin Clinic Congestive heart failure 01/18/2015 Resolved [...] Encounters Date Type Department Care Team Description 12/24/2024 11:15 AM EST Office Visit [address] [address] Danna Combs FNP Essential hypertension (Primary Dx); Type 2 diabetes mellitus without complication, without long-term current use of insulin (HCC); Healthcare maintenance 12/24/2024 Orders Only GENERIC EXTERNAL DATA DEPARTMENT Provider, Generic External Data 12/24/2024 Travel 12/23/2024 Telephone [facility] [address] [place] [phone] Danna Combs FNP chart prep 12/16/2024 Patient Outreach [address] [phone] Danna Combs FNP Pre-visit Planning (Pre-visit planning - LVM ) 12/02/2024 Orders Only GENERIC EXTERNAL DATA DEPARTMENT Provider, Generic External Data 11/19/2024 Telephone [facility] [address] [place] [phone] Danna Combs FNP 11/14/2024 Orders Only GENERIC EXTERNAL DATA DEPARTMENT Provider, Generic External Data 10/24/2024 Orders Only GENERIC EXTERNAL DATA DEPARTMENT Provider, Generic External Data 10/08/2024 Refill [facility] [address] [place] [address] Danna Combs FNP 10/01/2024 Refill [facility] [address], [place] [phone] Danna Combs FNP 09/23/2024 Refill [facility] [address] [place], [place] [phone] Danna Combs, MIRIAM Type 2 diabetes mellitus treated without insulin (CMS/HCC); Atrial fibrillation, unspecified type (CMS/HCC); Congestive heart failure, unspecified HF chronicity, unspecified heart failure type (CMS/HCC) from Last 3 Months Immunizations Immunization Administration [...] 20 12/24/2024 11:21 AM EST Oxygen Saturation 98% 04/04/2024 2:08 PM EST Inhaled Oxygen Concentration - - Weight 120 kg (265 lb) 12/24/2024 11:21 AM EST Height 177.2 cm (5' 9.75 ) 12/24/2024 11:[address] Body Mass Index 38.3 12/24/2024 11:21 AM EST Plan of Treatment Health Maintenance Due Date Last Done Comments CT Colonography 1965 Colonoscopy 1967 Colorectal Cancer Screening 1965 FIT DNA/Cologuard 1967 FIT 1967 FOBT 1967 HIV Screening 1965 Sigmoidoscopy 1967 Diabetes: Foot Exam 05/23/1977 Hepatitis C Screening 05/23/1985 RSV Patients and Patients Aged 60 years or older (1 - Risk 50-74 years 1-dose series) 05/23/2017 Zoster Vaccines (1 of 2) 05/23/2017 Diabetes: Urine Protein Screening 05/09/2023 05/08/2022, 10/06/2020 Lipid Panel 05/09/2023 05/08/2022, 09/03/2020 Eye Exam 10/20/2024 10/20/2022, 0909/2022, 10/20/2022, Additional history exists DTaP/Tdap/Td Vaccines (2 - Td or Tdap) 02/04/2025 02/04/2015 Depression Monitoring 06/23/2025 12/24/2024, 025 Diabetes: Hemoglobin A1C 06/23/2025 025, 02/11/2024, 03/21/2023, Additional history exists Influenza Vaccine (#1) 2025 , 12/27/2021, 12/28/2020, Additional history exists Postponed from 10/13/2024 (Patient Refused) Alcohol/Substance Use Screening 12/24/2025 12/24/2024 COVID-19 Vaccine ( season) 2025 07/01/2020, 05/26/2020 Postponed from 10/13/2024 (Patient Refused) Disability Screening 12/24/2025 12/24/2024 SDOH Screening 12/24/2025 12/24/2024 Tobacco Screening 12/24/2025 12/24/2024 Hepatitis B Vaccines Completed 03/15/2018, 11/07/2017, 08/29/2017 [...] on patient's age to complete this topic Goals Goal Patient Goal Type Associated Problems Recent Progress Patient-Stated? Author Help patients manage their type 2 diabetes Care Plan Help patients manage their type 2 diabetes No Phalangelo Danna, HOP TRAINER Weekly blood pressure task Care Plan Weekly blood pressure task No Lauryn Danna, HOP TRAINER Help patients manage their type 2 diabetes Care Plan Help patients manage their type 2 diabetes No Phalen Danna, HOP TRAINER Patient has chronic kidney disease Care Plan Patient has chronic kidney disease No Phalen Danna, HOP TRAINER Weekly blood pressure task Care Plan Weekly blood pressure task No Phalangelo Danna, HOP TRAINER Patient has chronic kidney disease Care Plan Patient has chronic kidney disease No Phalangelo Danna, HOP TRAINER Procedures Procedure Name Priority Date/Time Associated Diagnosis Comments CT HEAD WO CONTRAST Routine 12/24/2024 2 :18 PM EST HIGH SENSITIVITY TROPONIN I Routine 12/24/2024 1:13 PM EST MAGNESIUM Routine 12/24/2024 1:12 PM EST COMPREHENSIVE METABOLIC PANEL Routine 12/24/2024 1:12 PM EST CBC WITH AUTO DIFFERENTIAL Routine 12/24/2024 1:12 PM EST POCT GLYCATED HEMOGLOBIN, TOTAL Routine 12/24/2024 11:24 AM EST Type 2 diabetes mellitus without complication, without long-term current use of insulin (HCC) POCT GLUCOSE Routine 12/24/2024 11:24 AM EST Type 2 diabetes mellitus without complication, without long-term current use of insulin (HCC) PROTHROMBIN TIME WHOLE BLD POC Routine 12/02/2024 2:09 PM EDT ~PT, ~INR - ANTI COAG CLINIC Routine 12/02/2024 2:09 PM EDT PROTHROMBIN TIME WHOLE BLD POC Routine 11/14/2024 2:18 PM EDT ~PT, ~INR - ANTI COAG CLINIC Routine 11/14/2024 2:18 PM EDT PROTHROMBIN TIME WHOLE BLD POC Routine 10/24/2024 2:38 PM EDT ~PT, ~INR - ANTI COAG CLINIC Routine 10/24/2024 2:38 PM EDT ALBUMIN, RANDOM URINE W/CREATININE Routine 05/08/2022 10:13 AM EDT Type 2 diabetes mellitus without complication, without long-term current use of insulin (CMS/HCC) LIPID PANEL, STANDARD Routine 05/08/2022 10:13 AM EDT Type 2 diabetes mellitus without complication, without long-term current use of insulin (CMS/HCC) from Last 3 Months or Most Recently Relevant to Health Maintenance Results * CT Head w/o Contrast (12/24/2024 2:18 PM EST) Anatomical Region Laterality Modality Head, Neck Computed Tomogra phy 12/24/2024 2:18 PM EST Narrative 12/24/2024 3:10 PM EST [place] [address] CT Scan Report Signed Patient: Corey Alex MR#: [id number] 31 : 1965 Acct:[id number] Age/Sex: 59 / M ADM Date: 12/24/24 Loc: HO.ED Attending Dr: Ordering Physician: Julio Murillo MD Date of Service: 12/24/24 Procedure(s): CT head/brain wo IV con Accession Number(s): [id number] cc: Julio Murillo MD; Danna Combs HOP TRAINER Report Number: [id number]: Total DLP = 941.00 mGy-cm Reason for [...] by: Edna Low MD 12/24/2024 03:08 PM [facility] Dictated By: Edna Low MD Signed By: <Electronically signed by Edna Low MD in OV> 12/24/24 1508 DD/ 1418 TD/TT: 12/24/24 1426 Instructor Creeler: Procedure Note Donotuseinterpreter, Image - 12/24/[address] [place] [address] [address] Scan Report Signed Patient: Yadira Alex#: [id number] 31 : 1965Acct:[id number] Age/Sex: 59 / MADM Date: 12/24/24 Loc: HO.ED Attending Dr: Ordering Physician: Julio Murillo MD Date of Service: 12/24/24 Procedure(s): CT head/brain wo IV con Accession Number(s): [id number] cc: Julio Murillo MD; Danna Combs HOP TRAINER Report Number: [id number]: Total DLP = 941.00 mGy-cm Reason for [...] 12/24/24 1508 DD/ 1418 TD/TT: 12/24/24 1426 Instructor Creeler: [facility] External Provider IMG CT PROCEDURES Final Result * High Sensitivity Troponin I (12/24/2024 1:13 PM EST) TROPONIN I HIGH SENSITIVITY <2.7 <3.5 - 35.0 ng/L [facility] Comment:The Padgett high sens itivity Troponin-I results should beused in conjunction with other diagnostic information suchas ECG, clinical observations and information, and patientsymptoms to aid in the diagnosis of GA. 12/24/2024 1:13 PM EST 12/24/2024 1:18 PM EST Generic External Data Provider LAB BLOOD ORDERAB LES Final Result [facility] [address] [place] [address] [phone] * (ABNORMAL) CBC auto differential (12/24/2024 1:12 PM EST) White Blood Count 9.8 4.8 - 10.8 X10*3/uL [facility] Red Blood Count 5.14 4.60 - 5.80 X10*6/uL [facility] Hemoglobin 16.1 14.0 - 18.0 g/dl [facility] Hematocrit 47.9 42.0 - 52.0 % [facility] Mean Corpuscular Volume 93.2 80.0 - 98.0 fL [facility] Mean Corpuscular Hemoglobin 31.3 27.0 - 33.0 pg [facility] Mean Corpuscular HGB Conc 33.6 31.0 - 36.0 g/dl [facility] Red Cell Distribution Width 13.2 11.0 - 16.0 % [facility] Platelet Count 208 160 - 400 X10*3/uL [facility] Mean Platelet Volume 9.1(L) 9.4 - 12.4 fL [facility] Neutrophils Percent Auto 61.2 45 - 73 % [facility] Imm Gran Pct Auto 0.3 0.0 - 0.4 % [facility] Lymphocytes Percent Auto 29.1 20 - 40 % [facility] Monocytes Percent Auto 7.2 2 - 11 % [facility] Eosinophils Percent Auto 1.3 0 - 4 % [facility] Basophils Percent Auto 0.9 0 - 2 % [facility] NRBC Pct Auto 0.0 0.0 - 0.2 /100WBC [facility] Neutrophils Absolute Auto 6.0 2.0 - 8.3 x10*3/uL [facility] Imm Gran Abs Auto 0.03 0.00 - 0.03 X10*3/uL [facility] Lymphocytes Absolute Auto 2.9 1.2 - 4.9 X10*3/uL [facility] Monocytes Absolute Auto 0.7 0.1 - 1.2 X10*3/uL [facility] Eosinophils Absolute Auto 0.1 0.0 - 0.4 X10*3/uL [facility] Basophils Absolute Auto 0.1 0.0 - 0.2 X10*3/uL [facility] NRBC Abs Auto 0.000 0.0 - 0.012 X10*3/uL [facility] 12/24/2024 1:12 PM EST 12/24/2024 1:18 PM EST Generic External Data Provider LAB BLOOD ORDERAB LES Final Result Performing Organization Address City/[facility]/ZIP Co de Phone Number [facility] [address] [place] [phone] * Magnesium (12/24/2024 1:12 PM EST) Pathologist [facility] Magnesium 2.1 1.6 - 2.6 mg/dL [facility] 12/24/2024 1:12 PM EST 12/24/2024 1:18 PM EST Generic External Data Provider LAB BLOOD ORDERAB LES Final Result Performing Organization Address City/[facility]/ZIP Co de Phone Number [facility] [address] [place] [phone] * (ABNORMAL) Comprehensive Metabolic Panel (12/24/2024 1:12 PM EST) Pathologist [facility] Sodium 137 135 - 145 mmol/L [facility] Potassium 4.3 3.3 - 5.1 mmol/L [facility] Chloride 105 96 - 108 mmol/L [facility] Carbon Dioxide 29 22 - 29 mmol/L [facility] Anion Gap 7(L) 12 - 20 [facility] Urea Nitrogen (BUN) 11 9 - 16 mg/dL [facility] Creatinine, Serum 0.97 0.5 - 1.4 mg/dL [facility] Creatinine Clr Calc Pharmacy 107.6 [facility] Comment:eGFR (calculated fro m the MDRD study equation) and eCrCl(calculated from the Cockcroft-Gault equation) are based ondifferent parameters and may not yield comparable results.If eCrCl result is absurd, please check patient'sheight/weight. Estimated Glomerular Filt Rate >60 [facility] Comment:Chronic Kidney Disea se: Estimated GFR < 60 mL/min/[id number] Kidney Disease: Estimated GFR < 15 mL/min/1.73m2 Glucose 88 60 - 115 mg/dL [facility] Calcium 8.8 8.4 - 10.2 mg/dL [facility] Bilirubin, Total 0.5 0.0 - 1.0 mg/dL [facility] Aspartate Amino Transferase 35 5 - 37 U/L [facility] Alanine Aminotransferase 44(H) 0 - 40 U/L [facility] Total Protein 7.2 6.5 - 8.0 g/dL [facility] Albumin Level 4.4 3.5 - 5.0 g/dL [facility] Alkaline Phosphatase 81 39 - 117 U/L [facility] 12/24/2024 1:12 PM EST 12/24/2024 1:18 PM EST us Generic External Data Provider LAB BLOOD ORDERAB LES Final Result [facility] [address] [place] [phone] * (ABNORMAL) POCT Hgb A1c (12/24/2024 11:24 AM EST) Hemoglobin A1C 6.9(A) 4.0 - 5.7 % QC Media Lot # [id number] Lot# Expiration Date [id number] Blood 12/24/2024 11:2 4 AM EST us Danna Combs HOP TRAINER POINT OF CARE TEST ENTER/EDIT ORDERABLES Final Result * POCT Glucose (12/24/2024 11:24 AM EST) Glucose Blood, POC 148 60 - 200 mg/dL QC Media Lot # [id number] Lot# Expiration Date [id number] Blood Capillary blood specimen / Unknown 12/24/2024 11:24 AM EST us Danna Combs HOP TRAINER POINT OF CARE TEST ENTER/EDIT ORDERABLES Final Result * (ABNORMAL) PROTHROMBIN TIME WHOLE BLD POC (12/02/2024 2:09 PM EDT) Only the most recent of3 resultswithin the time period is included. [facility] Protime 27.3(H) 11.1 - 13.5 sec [facility] 12/02/2024 2:09 PM EDT 12/02/2024 2:10 PM EDT us Generic External Data Provider LAB BLOOD ORDERAB LES Final Result [facility] [address] [place] [phone] * (ABNORMAL) ~PT, ~INR - ANTI COAG CLINIC (12/02/2024 2:09 PM EDT) Only the most recent of3 resultswithin the time period is included. [facility] Prothrombin Time INR 2.3(H) 0.9 - 1.1 [facility] Comment:METER #: [id number] TERNATIONAL NORMALIZED RATIO (INR) REFERENCE RANGES Reference [...] Provider LAB BLOOD ORDERAB LES Final Result [facility] [address] [place] [address] [phone] * Albumin, Random Urine W/Creatinine (05/08/2022 10:13 AM EDT) Creatinine, Random Urine 89 20 - 320 mg/dL [facility] Albumin, Urine 0.7 See Note: mg/dL [facility] Comment: Reference Range: Reference Range Not established Albumin/Creatinin e Ratio, Random Urine 8 <30 mcg/mg creat [facility] [place] [facility] Comment: The ADA defines abnormalities in albumin [...] EDT FASTING:NO FASTING: NO Danna DENISEP LAB URINE ORDERABLES Final Res ult Performing Organization Address [facility] Co de Phone Number [facility] [address], [place] [address] [facility] [address] [place] [phone] * (ABNORMAL) Lipid Panel, Standard (05/08/2022 10:13 AM EDT) Cholesterol, Total 142 <200 mg/dL [facility] [place] [facility] HDL Cholesterol 32(L) > OR = 40 mg/dL [facility] [place] [facility] Triglycerides 248(H) <150 mg/dL [facility] [place] [facility] Comment: If a non-fasting specimen was collected, consider repeat triglyceride testing on a fasting specimen if clinically indicated. Kaleb et al. J. of Clin. Lipidol. 2015;9:129-169. LDL Cholesterol 77 mg/dL (calc) [facility] Comment: Reference range: <100 Desirable range <100 mg/dL for primary prevention; <70 mg/dL for patients with CHD or diabetic patients with > or = 2 CHD risk factors. LDL-C is now calculated using the Cory calculation, which is a validated novel method providing better accuracy than the Friedewald equation in the estimation of LDL-C. Fidel SS et al. ALEKSANDR. 2013;310(19): 5372-6532 (http://education.ActiveO/faq/TIC317) Chol/HDLC Ratio 4.4 <5.0 (calc) [facility] Non-HDL Cholesterol 110 <130 mg/dL (calc) [facility] Comment: For patients with diabetes plus 1 major ASCVD risk factor, treating to a non-HDL-C goal of <100 mg/dL (LDL-C of <70 mg/dL) is considered a therapeutic option. Blood Venous blood specimen / Unknown 05/08/2022 10:13 AM EDT 05/08/2022 10:14 AM EDT Narrative [facility] - 05/08/2022 8:44 PM EDT FASTING:NO FASTING: NO Danna Combs [facility] LAB BLOOD ORDERABLES Final Res ult [facility] [address], [place] [phone] [facility] [place] [employer] [address] [place] [phone] from Last 3 Months or Most Recently Relevant to Health Maintenance Additional Health Concerns Active Problems Noted Date Diagnosed Date Help patients manage their type 2 diabetes 12/24 Weekly blood pressure task 12/24/2024 Help patients manage their type 2 diabetes 12/24 Patient has chronic kidney disease 12/24/2024 Weekly blood pressure task 12/24/2024 Patient has chronic kidney disease 12/24/2024 Insurance [facility] STANDARD MEDICARE Care Teams Security Operations Analyst Relationship Specialty Start Date End Date Danna Combs FNP [address] [place] [phone] PCP - General Family Medicine 10/05/21
--- OUTSIDE RECORDS SUMMARY | 2024-12-24 17:41 | XMS_ITS | Encounter Summary ---
Author Organization [employer] Address [address] [facility] [address] [place] [address] Care Team Providers Care Freelance Patternmaker Name Role Phone LouisDanna stephens MIRIAM Primary Care Provider [phone] Encounter Details Date Type Department Care Team (Late st Contact Info) Description 12/28/2022 Abstract [facility] [address] [place], [place] [phone] Tigist Cardenas Social History Tobacco Use Types [...] documented as of this encounter Care Teams Freelance Patternmaker Relationship Specialty Start Date End Date Danna Combs FNP [address] [place] [phone] PCP - General Family Medicine 10/05/21 documented as of this encounter
--- OUTSIDE RECORDS SUMMARY | 2024-12-24 17:41 | XMS_ITS | Encounter Summary ---
Author Organization [employer] Address [address] [place] [address] 7[address] [place] [address] Care Team Providers Care Die Out Worker Name Role Phone LouisDanna stephens MIRIAM Primary Care Provider [phone] Encounter Details Date Type Department Care Team (Latest Contact Info) Description 12/24/2024 Travel Social History Tobacco Use Types Packs/Day [...] Combs FNP documented as of this encounter Visit Diagnoses [...] documented as of this encounter Care Teams Die Out Worker Relationship Specialty Start Date End Date Danna Combs FNP [address] [place] [phone] PCP - General Family Medicine 10/05/21 documented as of this encounter
== END 2024-12-24 16:02 | disposition home or self-care (01) ==
PROVIDERS: Physician Assistant Medical; Emergency Provider Emergency Medicine; PCP Registered Nurse
DX: R07.89 Other chest pain (principal); R20.2 Paresthesia of skin; I11.0 Hypertensive heart disease with heart failure; I50.20 Unspecified systolic (congestive) heart failure; E11.9 Type 2 diabetes mellitus without complications; I48.91 Unspecified atrial fibrillation; Z79.01 Long term (current) use of anticoagulants; Z95.0 Presence of cardiac pacemaker
CPT/HCPCS: 36415; 70450; 80053; 83735; 84484; 85025; 93005; 99284

== ENCOUNTER → 2024-12-24 12:48 | Outpatient (BNV) | payer MEDICARE, MEDICAID, SELFPAY | PROVIDERS: Emergency Provider Emergency Medicine; PCP Registered Nurse; Visit Provider Internal Medicine Cardiovascular Disease | DX: R94.31 Abnormal electrocardiogram [ECG] [EKG] (principal); Z95.0 Presence of cardiac pacemaker | CPT/HCPCS: 93010 ==

== ENCOUNTER → 2024-12-24 14:08 | Outpatient (BNV) | payer MEDICARE, MEDICAID, SELFPAY | PROVIDERS: Emergency Provider Emergency Medicine; PCP Registered Nurse; Visit Provider Radiology Body Imaging | DX: R20.2 Paresthesia of skin (principal) | CPT/HCPCS: 70450 ==

== ENCOUNTER 2024-12-30 | Outpatient (REF) | payer MEDICARE, MEDICAID, SELFPAY ==
--- OUTSIDE RECORDS SUMMARY | 2024-12-03 15:37 | XMS_ITS | Encounter Summary ---
Author Organization [employer] Address [address] [place] [address] 7t [place] [address] Care Team Providers Care Health Technician Hearing Name Role Phone LouisDanna stephens MIRIAM Primary Care Provider [phone] Encounter Details Date Type Department Care Team ([facility] st Contact Info) Description 12/02/2024 Orders Only GENERIC EXTERNAL DATA DEPARTMENT Provider, [...] Description 12/24/2024 11:15 AM EST Office Visit [facility] [address] [place] [address] Danna Combs, MIRIAM [address] [place] [address] documented as of this encounter Procedures Procedure Name Priority Date/Time Associated Diagnosis Comments PROTHROMBIN TIME WHOLE BLD POC Routine 12/02/2024 2:09 PM EDT ~PT, ~INR - ANTI COAG CLINIC Routine 12/02/2024 2:09 PM EDT documented in this encounter Results * (ABNORMAL) PROTHROMBIN TIME WHOLE BLD POC (12/02/2024 2:09 PM EDT) Protime 27.3(H) 11.1 - 13.5 sec [facility] 12/02/2024 2:09 PM EDT 12/02/2024 2:10 PM EDT us Generic External Data Provider LAB BLOOD ORDERAB LES Final Result [facility] [address] [place] [phone] * (ABNORMAL) ~PT, ~INR - ANTI COAG CLINIC (12/02/2024 2:09 PM EDT) Prothrombin Time INR 2.3(H) 0.9 - 1.1 [facility] Comment:METER #: [id number] TERNATIONAL NORMALIZED RATIO (INR) REFERENCE RANGES Reference RangeFor patients not on anticoagulant therapy: 0.9 - 1.1INR ranges for oral anticoagulanttherapy:For prevention and treatment of venous thrombosis and pulmonary embolism: 2.0 - 3.0For acute myocardial infarction with aspirin therapy: 2.0 - 3.0For acute myocardial infarction without aspirin therapy: 3.0 - 4.0For patients with mechanical prosthetic heart valves: 2.5 - 3.5 12/02/2024 2:09 PM EDT 12/02/2024 2:10 PM EDT us Generic External Data Provider LAB BLOOD ORDERAB LES Final Result [facility] [address] [place] [address] [phone] documented in this encounter Visit Diagnoses Not on filedocumented in this encounter Additional Health Concerns Assessment Noted Time PHQ-9 Depression Total Score: 3 04/04/19 25 2:53 PM EST documented as of this encounter Care Teams Health Technician Hearing Relationship Specialty Start Date End Date Danna Combs FNP [address] [place] [address] PCP - General Family Medicine 10/05/21 documented as of this encounter
--- OUTSIDE RECORDS SUMMARY | 2024-12-03 15:37 | XMS_ITS | Encounter Summary ---
Author Organization [employer] Address [address] [facility] 7t [place] [address] Care Team Providers Care Crotch Piece Baster Name Role Phone LouisDanna stephens MIRIAM Primary Care Provider [phone] Encounter Details Date Type Department Care Team (Late st Contact Info) Description 12/28/2022 Abstract [facility] [address] [place], [place] [phone] Tigist Cardenas Social History Tobacco Use Types [...] Description 12/24/2024 11:15 AM EST Office Visit [facility] [address] [place] [address] Danna Combs FNP [address] [place] [address] documented as of this encounter Visit Diagnoses Not on filedocumented in this encounter Additional Health Concerns Assessment Noted Time PHQ-9 Depression Total Score: 3 09/12/19 23 9:16 AM EDT documented as of this encounter Care Teams Crotch Piece Baster Relationship Specialty Start Date End Date Danna oCmbs FNP [address] [place] [address] PCP - General Family Medicine 10/05/21 documented as of this encounter
--- OUTSIDE RECORDS SUMMARY | 2024-12-03 15:37 | XMS_ITS | Encounter Summary ---
Author Organization [employer] Address [address] [place] [address] 7t [place] [address] Care Team Providers Care Avionics Electronics Technician Name Role Phone Danna Combs Primary Care Provider [phone] Reason for Visit * Reason Comments Med Refill Encounter Details Date Type Department Care Team ([facility] st Contact Info) Description 06/09/[address] [facility] [address] [place] [address] Danna Combs FNP [address] [place] [address] Longstanding persistent atrial fibrillation (CMS/HCC) Social History [...] Description 12/24/2024 11:15 AM EST Office Visit [facility] [address] [place] [address] Danna Combs FNP [address] [place] [address] documented as of this encounter Visit Diagnoses Diagnosis Longstanding persistent atrial fibrillation (CMS/HCC) (HCC) documented in this encounter Additional Health Concerns Assessment Noted Time PHQ-9 Depression Total Score: 3 04/04/19 25 2:53 PM EST documented as of this encounter Care Teams Avionics Electronics Technician Relationship Specialty Start Date End Date Danna Combs FNP [address] [place] [address] PCP - General Family Medicine 10/05/21 documented as of this encounter
--- OUTSIDE RECORDS SUMMARY | 2024-12-03 15:37 | XMS_ITS | Clinical Summary ---
Author Organization [facility] Address [address] [place] [address] Phone Care Team Providers Care Carpentry Teacher Name Role Phone Jerry Lang MD Primary Care Provider [phone] Allergies No known active allergies Medications metFORMIN [...] 11/11/2016 INFLUENZA VACCINE (#1) 2024 COVID-19 VACCINE ( - 2024-2 6 season) 2024 Adult Td,Tdap Booster 02/04/2025 02/04/2015 SCREENING FOR DIABETES 03/21/2026 03/21/2023 LIPID PANEL 05/09/2027 05/08/2022 RSV VACCINE (1 - 1-dose 75+ series) 05/23/2042 HEPATITIS A VACCINES Aged Out No long [...] this topic Medical Devices Implanted Type Area Casino Runner Device Identifier Shelf Expiration Date Model / Serial / Lot Icd ICD Heart Defibrillator Momentum Is1 Df4 Heartlogic - [id number] Implanted:Qty: 1 on 01/24/2024 by Jerry Lang MD at [facility] ICD Left: Chest [employer] [id number] 09/23/2024 [id number] / [id number] / [id number] Prosthetic Joint Prosthetic Joint Bioenvelope Antibiotic-Eluti ng Elupro M Single Pack - [id number] Implanted:Qty: 1 on 01/24/2024 by Jerry Lang MD at [facility] Chest Wall [employer] 09/23/2024 CMCV-[id number] -MED / / [id number] Insurance MEDICARE PART A & [facility] PART A & [facility] MED[facility] PART A & B [facility] MEDICARE [facility] A & B [facility] MED[facility] PART A & [facility] Care Teams Carpentry Teacher Relationship Specialty Start Date End Date Jerry Lang MD [address] [place] [phone] [email or web address] PCP - General Cardiology 01/22/24 Additional Source Comments The information contained in this document represents components of the legal health record. It is not the complete legal health record.[facility]
--- OUTSIDE RECORDS SUMMARY | 2024-12-03 15:37 | XMS_ITS | Clinical Summary ---
Author Organization [employer] Address [address] [place] [address] 7t [place] [address] Care Team Providers Care Parish Visitor Name Role Phone Danna Combs Primary Care Provider [phone] Allergies No known active allergies Medications FREESTYLE [...] MG tabletIndication s:Longstanding persistent atrial fibrillation (CMS/HCC) ([facility]) TAKE 1 TO 1 & 1/2 TABLETS BY MOUTH EVERY DAY DIRECTED BY COUMADIN CLINIC BASED ON INR 100 tablet 1 5 Active Jardiance 10 MGIndications:Ty pe 2 diabetes mellitus treated without insulin ([facility]) TAKE 1 TABLET BY MOUTH [...] s:Type 2 diabetes mellitus treated without insulin ([facility]) TAKE 1 TABLET BY MOUTH EVERY DAY WITH DINNER 90 tablet 3 5 Active dilTIAZem CD (Cardizem CD) 180 MG 24 hr capsuleIndicatio ns:Atrial fibrillation, unspecified type (CMS/HCC) ([facility]),Congestive heart failure, unspecified HF chronicity, unspecified heart failure type ([facility]) TAKE 1 CAPSULE BY MOUTH [...] pacer in place (last changed 01/24/24 at [facility]) Warfarin anticoagulation 09/10/2022 Overview (09/10/2022): On coumadin therapy - 5-7.5mg daily as directed by clinic [place] [facility] [place] Healthcare maintenance 09/10/2022 Assessment & Plan (02/14/2024 1:49 PM EST): -Per previous documentation due for colonoscopy in 2023. Referral to GI placed 02/11/24. -Optometry: QUENTIN Oct 2022 w/ [facility] Assessment & Plan (03/22/2023 6:31 PM EST): -Per previous documentation due for colonoscopy in 2023 -Optometry: UTD w/ [facility] Assessment & Plan (09/18/2022 8:35 PM EDT): -Per previous documentation due for colonoscopy in 2023 -Optometry: scheduled for [facility] in September 2022 ICD (implantable cardioverter-defibrillator) in place 05/08/2022 Overview (02/14/2024): -Hx of complete AV block s/p pacemaker placement, device interrogated Q6 months through cards and denies any concerns -Pt denies any chest pain, palpitations, SOB, orthopnea, syncope -01/24/24: [facility] Cards & IR - 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 Jerry Lang). Assessment & Plan (02/14/2024 1:48 PM EST): - Plan to f/up with surgical team regarding wound check Essential hypertension 09/18/2020 Overview (09/10/2022): -Hx of Afib, dialted cardiomyopathy, HTN, HLD, AV block -Continues digoxin, diltiazem, lisinopril, metoprolol, and atorvastatin. Med safety reviewed. -Denies any chest pain, palpitations, SOB, FRAIRE, blurry vision, N/V/D -Following with Dr. Grande in [place], [place] Type 2 diabetes mellitus 09/15/2020 Overview (02/14/2024): Lab Results Component Value Date HGBA1C 6.0 02/11/2024 - A1c: (Target </= 7.0): well controlled - Microalbumin/Cr:Alb: 8 mcg/mg on 05/08/22 - Lipids: April 2022: LDL 77, HDL 32, TC 142, TG 248 - Eye exam: Oct 2022 at [facility] - no diabetic [...] of total knee arthroplasty 04/05/2015 Dilated cardiomyopathy ([facility]) 02/04/2015 Vitamin D deficiency 02/04/2015 Atrial fibrillation ([facility]) 01/18/2015 Assessment & Plan (04/06/2024 7:57 PM EST): - Continues on warfarin (discussed alternative medications with Cards - Dr. Enriquez Jan 2024) - [place] [facility] [place] [facility] -Encouraged to consider DOAC, handout from the [employer] provided today. Mr. Hanson reports he will think about it any questions arise. Assessment & Plan (02/14/2024 1:29 PM EST): - Continues on warfarin (discussed alternative medications with Cards - Dr. Enriquez Jan 2024) - Managed by [facility] [place] Congestive heart [...] Encounters Date Type Department Care Team Description 12/02/2024 Orders Only GENERIC EXTERNAL DATA DEPARTMENT Provider, Generic External Data 11/19/2024 Telephone [facility] [address] [place] [address] Danna Combs FNP 11/14/2024 Orders Only GENERIC EXTERNAL DATA DEPARTMENT Provider, Generic External Data 10/24/2024 Orders Only GENERIC EXTERNAL DATA DEPARTMENT Provider, Generic External Data 10/08/2024 Refill [facility] [address] [place] [address] Danna Combs FNP 10/01/2024 Refill [facility] [address] [place] [address] Danna Combs FNP 09/23/2024 Refill [facility] [address] [place] [address] Danna Combs FNP Type 2 diabetes mellitus treated without insulin (CMS/HCC); Atrial fibrillation, unspecified type (CMS/HCC); Congestive heart failure, unspecified HF chronicity, unspecified heart failure type (CMS/HCC) 09/10/2024 Orders Only GENERIC EXTERNAL DATA DEPARTMENT Provider, Generic External Data from Last 3 Months Immunizations Immunization Administration [...] Description 12/24/2024 11:15 AM EST Office Visit [facility] [address] [place] [address] Danna Combs, INSURANCE AUDITOR [address] [place] [address] Health Maintenance Due Date Last Done Comments [...] COAG CLINIC Routine 12/02/2024 2:09 PM EDT PROTHROMBIN TIME WHOLE BLD POC Routine 11/14/2024 2:18 PM EDT ~PT, ~INR - ANTI COAG CLINIC Routine 11/14/2024 2:18 PM EDT PROTHROMBIN TIME WHOLE BLD POC Routine 10/24/2024 2:38 PM EDT ~PT, ~INR - ANTI COAG CLINIC Routine 10/24/2024 2:38 PM EDT PROTHROMBIN TIME WHOLE BLD POC Routine 09/10/2024 1:10 PM EDT ~PT, ~INR - ANTI COAG CLINIC Routine 09/10/2024 1:10 PM EDT POCT GLYCATED HEMOGLOBIN, TOTAL Routine 02/11/2024 2:57 PM EST Type 2 diabetes mellitus without complication, without long-term current use of insulin ([facility]/HCC) ALBUMIN, RANDOM URINE W/CREATININE Routine 05/08/2022 10:13 AM EDT Type 2 diabetes mellitus without complication, without long-term current use of insulin ([facility]) LIPID PANEL, STANDARD Routine 05/08/2022 10:13 AM EDT Type 2 diabetes mellitus without complication, without long-term current use of insulin ([facility]/HCC) from Last 3 Months or Most Recently Relevant to Health Maintenance Results * (ABNORMAL) PROTHROMBIN TIME WHOLE BLD POC (12/02/2024 2:09 PM EDT) Only the most recent of4 resultswithin the time period is included. Protime 27.3(H) 11.1 - 13.5 sec [facility] 12/02/2024 2:09 PM EDT 12/02/2024 2:10 PM EDT us Generic External Data Provider LAB BLOOD ORDERAB LES Final Result [facility] [address] [place] [phone] * (ABNORMAL) ~PT, ~INR - ANTI COAG CLINIC (12/02/2024 2:09 PM EDT) Only the most recent of4 resultswithin the time period is included. Prothrombin Time INR 2.3(H) 0.9 - 1.1 [facility] Comment:METER #: [id number] TERNATIONAL NORMALIZED RATIO (INR) REFERENCE RANGES Reference [...] ORDERAB LES Final Result Performing Organization Address [facility] Co de Phone Number [facility] [address] [place] [phone] * POCT HGB A1C (02/11/2024 2:57 PM EST) Hemoglobin A1C 6.0 4.0 - 6.0 % QC Media Lot # [id number] Lot# Expiration Date [id number] Blood 02/11/2024 2:57 PM EST Danna Combs INSURANCE AUDITOR POINT OF CARE TEST ENTER/EDIT ORDERABLES Final Result * Albumin, Random Urine W/Creatinine (05/08/2022 10:13 AM EDT) Creatinine, Random Urine 89 20 - 320 mg/dL [facility] [place] [facility] Albumin, Urine 0.7 See Note: mg/dL [facility] [place] [facility] Comment: Reference Range: Reference Range Not established Albumin/Creatinin e Ratio, Random Urine 8 <30 mcg/mg creat [facility] [place] [email or web address] Comment: The ADA defines abnormalities in albumin [...] PM EDT FASTING:NO FASTING: NO Danna Combs [facility] URINE ORDERABLES Final Res ult [address], [place] [address] [facility] [place] Ofelia Feliz [address] [place] [address] * (ABNORMAL) Lipid Panel, Standard (05/08/2022 10:13 AM EDT) Cholesterol, Total 142 <200 mg/dL [facility] [place] [email or web address] HDL Cholesterol 32(L) > OR = 40 mg/dL [facility] [place] [email or web address] Triglycerides 248(H) <150 mg/dL [facility] [place] [email or web address] Comment: If a non-fasting specimen was collected, consider repeat triglyceride testing on a fasting specimen if clinically indicated. Kaleb et al. J. of Clin. Lipidol. 2015;9:129-169. LDL Cholesterol 77 mg/dL (calc) [facility] [place] [employer] Comment: Reference range: <100 Desirable range <100 mg/dL for primary prevention; <70 mg/dL for patients with CHD or diabetic patients with > or = 2 CHD risk factors. LDL-C is now calculated using the Cory calculation, which is a validated novel method providing better accuracy than the Friedewald equation in the estimation of LDL-C. Fidel RAMSEY et al. ALEKSANDR. 2013;310(19): 9877-3889 (http://education.NanoTune/faq/ZIQ047) Chol/HDLC Ratio 4.4 <5.0 (calc) [facility] [place] [facility] Non-HDL Cholesterol 110 <130 mg/dL (calc) [employer] Comment: For patients with diabetes plus 1 major ASCVD risk factor, treating to a non-HDL-C goal of <100 mg/dL (LDL-C of <70 mg/dL) is considered a therapeutic option. Blood Venous blood specimen / Unknown 05/08/2022 10:13 AM EDT 05/08/2022 10:14 AM EDT Narrative [facility] - 05/08/2022 8:44 PM EDT FASTING:NO FASTING: NO Danna Combs [facility] BLOOD ORDERABLES Final Res ult [facility] [address], [place] [address] [facility] [place] [employer] [address] [place] [address] from Last 3 Months or Most Recently Relevant to Health Maintenance Insurance [facility] STANDARD MEDICARE Care Teams Parish Visitor Relationship Specialty Start Date End Date Danna Combs FNP [address] [place] [phone] PCP - General Family Medicine 10/05/21
--- OUTSIDE RECORDS SUMMARY | 2024-12-03 15:37 | XMS_ITS | Encounter Summary ---
Author Organization [facility] Address [address] [place] [phone] Phone Care Team Providers Care Acls Nurse Name Role Phone Jerry Lang MD Primary Care Provider [phone] Encounter Details Date Type Department Care Team (Late st Contact Info) Description 01/24/2024 Procedure Pass [facility] [address] [place] [address] Social History Tobacco Use Types Packs/Day Years [...] on filedocumented in this encounter Care Teams Acls Nurse Relationship Specialty Start Date End Date Jerry Lang MD [address] [place] [address] PCP - General Cardiology 01/22/24 documented as of this encounter Additional Source Comments The information contained in this document represents components of the legal health record. It is not the complete legal health record.[facility]
--- OUTSIDE RECORDS SUMMARY | 2024-12-03 15:37 | XMS_ITS | Encounter Summary ---
Author Organization [employer] Address [address] [place] [address] 7[address] [place] [address] Care Team Providers Care Ripsaw Operator Name Role Phone Danna Combs Primary Care Provider [phone] Encounter Details Date Type Department Care Team (Late st Contact Info) Description 04/13/2022 Orders Only [facility] [address] [place] [address] Ginny Hager LPN Social History Tobacco Use [...] Description 12/24/2024 11:15 AM EST Office Visit [facility] MEDICINE [address] [place] [address] Danna Combs FNP [address] [place] [address] documented as of this encounter Procedures Procedure [...] PM EDT 08/03/2022 2:20 PM EDT us [facility] External Provider LAB BLO OD ORDERABLES Final Result [facility] [address] [place] [phone] * (ABNORMAL) ~PT, ~INR - ANTI COAG CLINIC (08/03/2022 2:18 PM EDT) Prothrombin Time INR 3.0(H) 0.9 - 1.1 [facility] Comment:METER #: [id number] TERNATIONAL NORMALIZED RATIO (INR) REFERENCE RANGES Reference [...] 2:18 PM EDT 08/03/2022 2:20 PM EDT [facility] External Provider LAB BLO OD ORDERABLES Final Result Performing Organization Address City/[facility]/ZIP Co de Phone Number [facility] [address] [place] [phone] * (ABNORMAL) PROTHROMBIN TIME WHOLE BLD POC (07/04/2022 2:21 PM EDT) Protime 32.4(H) 11.1 - 13.5 sec [facility] 07/04/2022 2:21 PM EDT 07/04/2022 2:23 PM EDT [facility] External Provider LAB BLO OD ORDERABLES Final Result Performing Organization Address City/[facility]/ZIP Co de Phone Number [facility] [address] [place] [phone] * (ABNORMAL) ~PT, ~INR - ANTI COAG CLINIC (07/04/2022 2:21 PM EDT) Prothrombin Time INR 2.7(H) 0.9 - 1.1 [facility] Comment:METER #: [id number] TERNATIONAL NORMALIZED RATIO (INR) REFERENCE RANGES Reference [...] 2:21 PM EDT 07/04/2022 2:23 PM EDT [facility] External Provider LAB BLO OD ORDERABLES Final Result Performing Organization Address City/[facility]/ZIP Co de Phone Number [facility] [address] [place] [phone] * (ABNORMAL) PROTHROMBIN TIME WHOLE BLD POC (06/20/2022 2:07 PM EDT) Protime 44.6(H) 11.1 - 13.5 sec [facility] 06/20/2022 2:07 PM EDT 06/21/2022 8:04 AM EDT [facility] External Provider LAB BLO OD ORDERABLES Final Result Performing Organization Address [facility] Co de Phone Number [facility] [address] [place] [phone] * (ABNORMAL) ~PT, ~INR - ANTI COAG CLINIC (06/20/2022 2:07 PM EDT) Prothrombin Time INR 3.7(H) 0.9 - 1.1 [facility] Comment:METER #: [id number] TERNATIONAL NORMALIZED RATIO (INR) REFERENCE RANGES Reference [...] PM EDT 06/21/2022 8:04 AM EDT Result [facility] External Provider LAB BLO OD ORDERABLES Final Result Performing Organization Address [facility] Co de Phone Number [facility] [address] [place] [phone] * (ABNORMAL) PROTHROMBIN TIME WHOLE BLD POC (05/23/2022 2:05 PM EDT) Protime 28.5(H) 11.1 - 13.5 sec [facility] 05/23/2022 2:05 PM EDT 05/23/2022 2:07 PM EDT Result [facility] External Provider LAB BLO OD ORDERABLES Final Result Performing Organization Address [facility] Co de Phone Number [facility] [address] [place] [phone] * (ABNORMAL) ~PT, ~INR - ANTI COAG CLINIC (05/23/2022 2:05 PM EDT) Prothrombin Time INR 2.4(H) 0.9 - 1.1 [facility] Comment:METER #: [id number] TERNATIONAL NORMALIZED RATIO (INR) REFERENCE RANGES Reference [...] 2:05 PM EDT 05/23/2022 2:07 PM EDT [facility] External Provider LAB BLO OD ORDERABLES Final Result Performing Organization Address [facility] Co de Phone Number [facility] [address] [place] [phone] * (ABNORMAL) PROTHROMBIN TIME WHOLE BLD POC (05/16/2022 2:01 PM EDT) Protime 19.3(H) 11.1 - 13.5 sec [facility] 05/16/2022 2:01 PM EDT 05/16/2022 2:03 PM EDT [facility] External Provider LAB BLO OD ORDERABLES Final Result Performing Organization Address [facility] de Phone Number [facility] [address] [place] [phone] * (ABNORMAL) ~PT, ~INR - ANTI COAG CLINIC (05/16/2022 2:01 PM EDT) Prothrombin Time INR 1.6(H) 0.9 - 1.1 [facility] Comment:METER #: [id number] TERNATIONAL NORMALIZED RATIO (INR) REFERENCE RANGES Reference [...] 2:01 PM EDT 05/16/2022 2:03 PM EDT [facility] External Provider LAB BLO OD ORDERABLES Final Result Performing Organization Address [facility] Co de Phone Number [facility] [address] [place] [phone] * (ABNORMAL) PROTHROMBIN TIME WHOLE BLD POC (04/17/2022 2:12 PM EST) Protime 31.7(H) 11.1 - 13.5 sec [facility] 04/17/2022 2:12 PM EST 04/17/2022 2:16 PM EST [facility] External Provider LAB BLO OD ORDERABLES Final Result Performing Organization Address City/[facility]/ZIP Co de Phone Number [facility] [address] [place] [phone] * (ABNORMAL) ~PT, ~INR - ANTI COAG CLINIC (04/17/2022 2:12 PM EST) Prothrombin Time INR 2.6(H) 0.9 - 1.1 [facility] Comment:METER #: [id number] TERNATIONAL NORMALIZED RATIO (INR) REFERENCE RANGES Reference [...] 2:12 PM EST 04/17/2022 2:16 PM EST [facility] External Provider LAB BLO OD ORDERABLES Final Result Performing Organization Address City/[facility]/ZIP Co de Phone Number [facility] [address] [place] [phone] documented in this encounter Visit Diagnoses Not on filedocumented in this encounter Care Teams Ripsaw Operator Relationship Specialty Start Date End Date Danna Combs FNP [address] [place] [address] PCP - General Family Medicine 10/05/21 documented as of this encounter
--- OUTSIDE RECORDS SUMMARY | 2025-03-05 09:14 | XMS_ITS | Clinical Summary ---
Author Organization [facility] Address [address] [place] [phone] Phone Care Team Providers Care Copper Flotation Operator Name Role Phone Jerry Lang MD Primary Care Provider [phone] Allergies No known active allergies Medications metFORMIN [...] this topic Medical Devices Implanted Type Area Duplicating Machine Servicer Device Identifier Shelf Expiration Date Model / Serial / Lot Icd ICD Heart Defibrillator Momentum Is1 Df4 Heartlogic - [id number] Implanted:Qty: 1 on 01/24/2024 by Jerry Lang MD at [facility] ICD Left: Chest [employer] [id number] 09/23/2024 [id number] / [id number] / [id number] Prosthetic Joint Prosthetic Joint Bioenvelope Antibiotic-Eluti ng Elupro M Single Pack - [id number] Implanted:Qty: 1 on 01/24/2024 by Jerry Lang MD at [facility] Chest Wall [employer] 09/23/2024 CMCV-[id number] -MED / / [id number] Insurance MEDIC[facility] B [facility] & B [facility] Care Teams Copper Flotation Operator Relationship Specialty Start Date End Date Jerry Lang MD [address] [place] [phone] [email or web address] PCP - General Cardiology 01/22/24 Additional Source Comments The information contained in this document represents components of the legal health record. It is not the complete legal health record.[facility]
--- OUTSIDE RECORDS SUMMARY | 2025-03-05 09:14 | XMS_ITS | Encounter Summary ---
Author Organization [facility] Address [address] [place] [phone] Phone Care Team Providers Care Cut To Length Operator Name Role Phone Jerry Lang MD Primary Care Provider [phone] Encounter Details Date Type Department Care Team (Late st Contact Info) Description 01/24/2024 Procedure Pass [facility] [address] [place] [address] Social History Tobacco Use Types Packs/Day Years [...] on filedocumented in this encounter Care Teams Cut To Length Operator Relationship Specialty Start Date End Date Jerry Lang MD [address] [place] [address] PCP - General Cardiology 01/22/24 documented as of this encounter Additional Source Comments The information contained in this document represents components of the legal health record. It is not the complete legal health record.[facility]
== END 2024-12-30 00:01 | disposition home or self-care (01) ==
LOC: CF
PROVIDERS: PCP Registered Nurse; Visit Provider Internal Medicine Medical Oncology
DX: Z51.81 Encounter for therapeutic drug level monitoring (principal); Z12.11 Encounter for screening for malignant neoplasm of colon
CPT/HCPCS: 85610; 99211

== ENCOUNTER 2024-12-30 14:02 | Outpatient (AMB) | payer MEDICARE, MEDICAID, SELFPAY ==
[2024-12-30 14:15] LABS: Prothrombin Time Whole Bld POC 34.0 sec (11.1-13.5); ~PT, ~INR - Anti Coag Clinic 2.8 (0.9-1.1)
--- NOTE | 2024-12-30 14:19 | MHC.OFFVISCO ---
Intake Intake Visit Reasons: Anticoagulation Allergies No Known Allergies (No Known Allergies*) Allergy (Verified 12/30/24 14:09) Medication List - Last Reconciled 12/30/24 by Trish Estrella RN albuterol sulfate 90 mcg/actuation 2 puffs inhalation Q6H PRN atorvastatin 20 mg PO DAILY blood sugar diagnostic (FreeStyle Lite Strips) As directed buspirone 7.5 mg PO BID digoxin 250 mcg PO DAILY diltiazem HCl CD 180 mg PO DAILY empagliflozin (Jardiance) 10 mg PO QAM lancets (TRUEplus Lancets) As directed lisinopril 5 mg PO DAILY metformin ER 500 mg PO QPM metoprolol tartrate 200 mg PO BID sildenafil 25 mg PO DAILY PRN sodium,potassium,mag sulfates 17.5-3.13-1.6 gram (Suprep Bowel Prep Kit) 480 mL orally; FOR COLONOSCOPY PREP trazodone 50 mg PO BEDTIME PRN warfarin 7.5 mg See Protocol PO DAILY Nursing Note INR: 2.8 in therapeutic range Medications and supplements reviewed No changes in health, diet, medications, or supplements, Denies any signs and symptoms of bleeding or bruising or clotting. Bleeding, bruising, clotting discussed Nutritional guidance given Dose: 3.75mg x 1 day/ 7.5mg x 6 days F/U INR: 1 month Patient verbalizes understanding of instructions given Anti-Coag Initial Assessment Social Hx Patient Tobacco Use Status: Former Tobacco user alcohol intake: former Coding Level of Care Code Est Patient Level 1 Diagnoses Current use of anticoagulant therapy Z79.01 Assessment & Plan Assessment & Plan (1) Current use of anticoagulant therapy: Code(s): Z79.01 - watermaster (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
--- OUTSIDE RECORDS SUMMARY | 2024-12-31 08:08 | XMS_ITS | Encounter Summary ---
Author Organization [employer] Address [address] [place] [address] [address] [place] [address] Care Team Providers Care Cad Operator Name Role Phone LouisDanna stephens MIRIAM Primary Care Provider [phone] Encounter Details Date Type Department Care Team (Late st Contact Info) Description 12/30/2024 Orders Only GENERIC EXTERNAL DATA DEPARTMENT Provider, [...] Comments PROTHROMBIN TIME WHOLE BLD POC Routine 12/30/2024 2:13 PM EST ~PT, ~INR - ANTI COAG CLINIC Routine 12/30/2024 2:13 PM EST documented in this encounter Results * (ABNORMAL) PROTHROMBIN TIME WHOLE BLD POC (12/30/2024 2:13 PM EST) Protime 34.0(H) 11.1 - 13.5 sec [facility] 12/30/2024 2:13 PM EST 12/30/2024 2:15 PM EST us Generic External Data Provider LAB BLOOD ORDERAB LES Final Result [facility] [address] [place] [address] [place] [phone] * (ABNORMAL) ~PT, ~INR - ANTI COAG CLINIC (12/30/2024 2:13 PM EST) Prothrombin Time INR 2.8(H) 0.9 - 1.1 [facility] Comment:METER #: [id number] TERNATIONAL NORMALIZED RATIO (INR) REFERENCE RANGES Reference RangeFor patients not on anticoagulant therapy: 0.9 - 1.1INR ranges for oral anticoagulanttherapy:For prevention and treatment of venous thrombosis and pulmonary embolism: 2.0 - 3.0For acute myocardial infarction with aspirin therapy: 2.0 - 3.0For acute myocardial infarction without aspirin therapy: 3.0 - 4.0For patients with mechanical prosthetic heart valves: 2.5 - 3.5 12/30/2024 2:13 PM EST 12/30/2024 2:15 PM EST us Generic External Data Provider LAB BLOOD ORDERAB LES Final Result [facility] [address] [place] [address] [phone] documented in this encounter Visit Diagnoses [...] documented as of this encounter Care Teams Cad Operator Relationship Specialty Start Date End Date Danna Combs FNP [address] [place] [address] PCP - General Family Medicine 10/05/21 documented as of this encounter
--- OUTSIDE RECORDS SUMMARY | 2024-12-31 08:09 | XMS_ITS | Encounter Summary ---
Author Organization [employer] Address [address] [place] [address] 7[address] [place] [address] Care Team Providers Care Ground Crew Chief Name Role Phone Danna Combs Primary Care Provider [phone] Reason for Visit * Reason Comments Med Refill Encounter Details Date Type Department Care Team ([facility] st Contact Info) Description 06/09/2024 Refill [facility] [address] [place] [address] Danna Combs FNP [address] [place] [address] Longstanding persistent atrial fibrillation (CMS/HCC) Social History [...] documented as of this encounter Care Teams Ground Crew Chief Relationship Specialty Start Date End Date Danna Combs FNP [address] [place] [phone] PCP - General Family Medicine 10/05/21 documented as of this encounter
--- OUTSIDE RECORDS SUMMARY | 2024-12-31 08:09 | XMS_ITS | Clinical Summary ---
Author Organization [employer] Address [address] [place] [address] 7t [place] [address] Care Team Providers Care Computer Systems Engineer Name Role Phone Danna Combs Primary Care Provider [phone] Allergies No known active allergies Medications FREESTYLE [...] MG tabletIndication s:Longstanding persistent atrial fibrillation (CMS/HCC) ([facility]) TAKE 1 TO 1 & 1/2 TABLETS BY MOUTH EVERY DAY DIRECTED BY COUMADIN CLINIC BASED ON INR 100 tablet 1 5 Active Jardiance 10 MGIndications:Ty pe 2 diabetes mellitus treated without insulin ([facility]) TAKE 1 TABLET BY MOUTH [...] s:Type 2 diabetes mellitus treated without insulin ([facility]) TAKE 1 TABLET BY MOUTH EVERY DAY WITH DINNER 90 tablet 3 5 Active dilTIAZem CD (Cardizem CD) 180 MG 24 hr capsuleIndicatio ns:Atrial fibrillation, unspecified type (CMS/HCC) ([facility]),Congestive heart failure, unspecified HF chronicity, unspecified heart failure type ([facility]) TAKE 1 CAPSULE BY MOUTH [...] pacer in place (last changed 01/24/[address] [facility]) Warfarin anticoagulation 09/10/2022 Overview (09/10/2022): On coumadin therapy - 5-7.5mg daily as directed by clinic Managed by [facility] Healthcare maintenance 09/10/2022 Assessment & Plan (12/28/2024 3:54 PM EST): -Per previous documentation due for colonoscopy in 2023. Referral to GI placed 02/11/24. (Pending cardiac clearance) -Optometry: Oct 2022 w/ [facility] Assessment & Plan (02/14/2024 1:49 PM EST): -Per previous documentation due for colonoscopy in 2023. Referral to GI placed 02/11/24. -Optometry: QUENTINOct 2022 w/ [facility] Assessment & Plan (03/22/2023 6:31 PM EST): -Per previous documentation due for colonoscopy in 2023 -Optometry: UTD w/ [facility] Assessment & Plan (09/18/2022 8:35 PM EDT): -Per previous documentation due for colonoscopy in 2023 -Optometry: scheduled for [facility] in September 2022 ICD (implantable cardioverter-defibrillator) in place 05/08/2022 Overview (02/14/2024): -Hx of complete AV block s/p pacemaker placement, device interrogated Q6 months through cards and denies any concerns -Pt denies any chest pain, palpitations, SOB, orthopnea, syncope -01/24/24: [facility] Cards & IR - FLEXOGRAPHIC PRINTING MACHINIST-D generator change given DAVE (Dr. Jerry Lang). Assessment & Plan (02/14/2024 1:48 PM EST): - Plan to f/up with surgical team regarding wound check Essential hypertension 09/18/2020 Overview (12/28/2024): -Hx of Afib, dialted cardiomyopathy, HTN, HLD, AV block -Continues digoxin, diltiazem, lisinopril, metoprolol, and atorvastatin. Med safety reviewed. -Following with Dr. Grande in [place], [place] Type 2 diabetes mellitus 09/15/2020 Overview (12/28/2024): Lab Results Component Value Date HGBA1C 6.9 (A) 12/24/2024 - A1c: (Target </= 7.0): well controlled - Microalbumin/Cr:Alb: 8 mcg/mg on 05/08/22 - Lipids: April 2022: LDL 77, HDL 32, TC 142, TG 248 - Eye exam: Oct 2022 at [facility] - no diabetic retinopathy or macular edema - Dental: encouraged - TDap/Td: up to date - Foot exam/peripheral pulses: due - ARIN/ARB: yes - Statin: yes Continue lifestyle interventions Continue Metformin 500mg XR nightly Continue Jardiance 10mg daily Assessment & Plan (12/28/2024 3:53 PM EST): - Lab work ordered - Well controlled, cont with current therapy Assessment & Plan (04/06/2024 7:58 PM EST): [...] of total knee arthroplasty 04/05/2015 Dilated cardiomyopathy ([facility]/HCC) 02/04/2015 Vitamin D deficiency 02/04/2015 Atrial fibrillation ([facility]/HCC) 01/18/2015 Assessment & Plan (04/06/2024 7:57 PM EST): - Continues on warfarin (discussed alternative medications with Cards - Dr. Enriquez Jan 2024) - Managed by [facility] -Encouraged to consider DOAC, handout from the [employer] provided today. Mr. Hanson reports he will think about it any questions arise. Assessment & Plan (02/14/2024 1:29 PM EST): - Continues on warfarin (discussed alternative medications with Cards - Dr. Enriquez Jan 2024) - Managed by [facility] Congestive heart failure 01/18/2015 Anxiety disorder Assessment & Plan (12/28/2024 3:52 PM EST): Continues with buspirone 7.5mg BID PHQ9 score positive today at 18, he denies any SI/HI/thoughts of self harm Offered additional services, he declines at this time and denies any acute safety concerns Resolved Problems Problem Noted Date Diagnosed Date [...] Encounters Date Type Department Care Team Description 12/31/2024 Refill [facility] [address] [place] [address] Danna Combs FNP Primary hypertension 12/30/2024 Orders Only GENERIC EXTERNAL DATA DEPARTMENT Provider, Generic External Data 12/24/2024 11:15 AM EST Office Visit [facility] [address] [place] [phone] Danna Combs FNP Essential hypertension (Primary Dx); Type 2 diabetes mellitus without complication, without long-term current use of insulin (HCC); Healthcare maintenance; Anxiety disorder, unspecified type; Paresthesia 12/24/2024 Orders Only GENERIC EXTERNAL DATA DEPARTMENT Provider, Generic External Data 12/24/2024 Travel 12/23/[address] [address] Danna Combs FNP chart prep 12/16/2024 Patient Outreach [address] [address] Danna Combs FNP Pre-visit Planning (Pre-visit planning - LVM ) 12/02/2024 Orders Only GENERIC EXTERNAL DATA DEPARTMENT Provider, Generic External Data 11/19/[address] [address] Danna Combs FNP 11/14/2024 Orders Only GENERIC EXTERNAL DATA DEPARTMENT Provider, Generic External Data 10/24/2024 Orders Only GENERIC EXTERNAL DATA DEPARTMENT Provider, Generic External Data 10/08/2024 Refill [facility] [address] [place] [address] Danna Combs FNP 10/01/2024 Refill [facility] [address] [place] [address] Danna Combs FNP from Last 3 Months [...] 05/09/2023 05/08/2022, 09/03/2020 Eye Exam 10/20/2024 10/20/2022, 09/0 09/2022, 10/20/2022, [...] their type 2 diabetes No Phalangelo Danna, PROPERTY CONDITION ASSESSOR Weekly blood pressure task Care Plan Weekly blood pressure task No Lauryn Danna, PROPERTY CONDITION ASSESSOR Help patients manage their type 2 diabetes Care Plan Help patients manage their type 2 diabetes No Lauryn Danna, PROPERTY CONDITION ASSESSOR Patient has chronic kidney disease Care Plan Patient has chronic kidney disease No Lauryn Danna, PROPERTY CONDITION ASSESSOR Weekly blood pressure task Care Plan Weekly blood pressure task No Phalangelo Danna, PROPERTY CONDITION ASSESSOR Patient has chronic kidney disease Care Plan Patient has chronic kidney disease No Lauryn Danna, PROPERTY CONDITION ASSESSOR Procedures Procedure Name Priority Date/Time Associated Diagnosis Comments PROTHROMBIN TIME WHOLE BLD POC Routine 12/30/2024 2:13 PM EST ~PT, ~INR - ANTI COAG CLINIC Routine 12/30/2024 2:13 PM EST ECG 12-LEAD Routine 12/28/2024 3:55 PM EST Essential hypertension CT HEAD WO CONTRAST Routine 12/24/2024 2 [...] WHOLE BLD POC (12/30/2024 2:13 PM EST) Only the most recent of4 resultswithin the time period is included. Protime 34.0(H) 11.1 - 13.5 sec [facility] 12/30/2024 2:13 PM EST 12/30/2024 2:15 PM EST Generic External Data Provider LAB BLOOD ORDERAB LES Final Result Performing Organization Address [facility] Co de Phone Number [facility] [address] [place] [phone] * (ABNORMAL) ~PT, ~INR - ANTI COAG CLINIC (12/30/2024 2:13 PM EST) Only the most recent of4 resultswithin the time period is included. Prothrombin Time INR 2.8(H) 0.9 - 1.1 [facility] Comment:METER #: [id number] TERNATIONAL NORMALIZED RATIO (INR) REFERENCE RANGES Reference [...] 2:13 PM EST 12/30/2024 2:15 PM EST Commissioner External Data Provider LAB BLOOD ORDERAB LES Final Result Performing Organization Address [facility] Co de Phone Number [facility] [address] [place] [phone] * ECG 12 lead (12/28/2024 3:55 PM EST) Narrative Danna Combs FNP - 12/28/2024 3:55 PM EST HR: 75bpm QRS: 172ms Artifical pacemaker - paced rhythm Danna Combs PROPERTY CONDITION ASSESSOR ECG ORDERABLES Final Result * CT Head w/o Contrast (12/24/2024 2:18 PM EST) Anatomical Region Laterality Modality Head, Neck Computed Tomogra phy 12/24/2024 2:18 PM EST Narrative 12/24/2024 3:10 PM EST [address] [address] [address] Scan Report Signed Patient: Corey Alex MR#: [id number] [birth year] : 1965 Acct:[id number] Age/Sex: 59 / M ADM Date: 12/24/24 Loc: HO.ED Attending Dr: Ordering Physician: Julio Murillo MD Date of Service: 12/24/24 Procedure(s): CT head/brain wo IV con Accession Number(s): [id number] cc: Julio Murillo MD; Danna Combs PROPERTY CONDITION ASSESSOR Report Number: [id number]: Total DLP = 941.00 mGy-cm Reason for [...] 12/24/24 1508 DD/ 1418 TD/TT: 12/24/24 1426 Child Support Officer: Procedure Note Donotuseinterpreter, Image - 12/24/[address] [address] [address] Scan Report Signed Patient: Yadira Alex#: [id number] [birth year] : 1965Acct:[id number] Age/Sex: 59 / MADM Date: 12/24/24 Loc: HO.ED Attending Dr: Ordering Physician: Julio Murillo MD Date of Service: 12/24/24 Procedure(s): CT head/brain wo IV con Accession Number(s): [id number] cc: Julio Murillo MD; Danna Combs PROPERTY CONDITION ASSESSOR Report Number: [id number]: Total DLP = 941.00 mGy-cm Reason for [...] 12/24/24 1508 DD/ 1418 TD/TT: 12/24/24 1426 Child Support Officer: [facility] External Provider IMG CT PROCEDURES Final Result * High Sensitivity Troponin I (12/24/2024 1:13 PM EST) Pathologist [facility] TROPONIN I HIGH SENSITIVITY <2.7 <3.5 - 35.0 ng/L [facility] Comment:The Padgett high sens itivity Troponin-I results should beused in conjunction with other diagnostic information suchas ECG, clinical observations and information, and patientsymptoms to aid in the diagnosis of ME. 12/24/2024 1:13 PM EST 12/24/2024 1:18 PM EST Generic External Data Provider LAB BLOOD ORDERAB LES Final Result [facility] [address] [place] [phone] * (ABNORMAL) CBC auto differential (12/24/2024 1:12 PM EST) Pathologist [facility] White Blood Count 9.8 4.8 - 10.8 X10*3/uL [facility] Red Blood Count 5.14 4.60 - 5.80 X10*6/uL [facility] Hemoglobin 16.1 14.0 - 18.0 g/dl [facility] Hematocrit 47.9 42.0 - 52.0 % [facility] Mean Corpuscular Volume 93.2 80.0 - 98.0 fL [facility] Mean Corpuscular Hemoglobin 31.3 27.0 - 33.0 pg [facility] Mean Corpuscular HGB Conc 33.6 31.0 - 36.0 g/dl [facility] Red Cell Distribution Width 13.2 11.0 - 16.0 % [facility] Platelet Count 208 160 - 400 X10*3/uL [facility] Mean Platelet Volume 9.1(L) 9.4 - 12.4 fL [facility] Neutrophils Percent Auto 61.2 45 - 73 % [facility] Imm Gran Pct Auto 0.3 0.0 - 0.4 % [facility] Lymphocytes Percent Auto 29.1 20 - 40 % [facility] Monocytes Percent Auto 7.2 2 - 11 % [facility] Eosinophils Percent Auto 1.3 0 - 4 % [facility] Basophils Percent Auto 0.9 0 - 2 % [facility] NRBC Pct Auto 0.0 0.0 - 0.2 /100WBC [facility] Neutrophils Absolute Auto 6.0 2.0 - 8.3 x10*3/uL [facility] Imm Gran Abs Auto 0.03 0.00 - 0.03 X10*3/uL [facility] Lymphocytes Absolute Auto 2.9 1.2 - 4.9 X10*3/uL [facility] Monocytes Absolute Auto 0.7 0.1 - 1.2 X10*3/uL [facility] Eosinophils Absolute Auto 0.1 0.0 - 0.4 X10*3/uL [facility] Basophils Absolute Auto 0.1 0.0 - 0.2 X10*3/uL [facility] NRBC Abs Auto 0.000 0.0 - 0.012 X10*3/uL [facility] 12/24/2024 1:12 PM EST 12/24/2024 1:18 PM EST us Generic External Data Provider LAB BLOOD ORDERAB LES Final Result [facility] [address] [place] [phone] [phone] * Magnesium (12/24/2024 1:12 PM EST) Magnesium 2.1 1.6 - 2.6 mg/dL [facility] 12/24/2024 1:12 PM EST 12/24/2024 1:18 PM EST us Generic External Data Provider LAB BLOOD ORDERAB LES Final Result [facility] [address] [place] [phone] [phone] * (ABNORMAL) Comprehensive Metabolic Panel (12/24/2024 1:12 PM EST) Sodium 137 135 - 145 mmol/L [facility] Potassium 4.3 3.3 - 5.1 mmol/L [facility] Chloride 105 96 - 108 mmol/L [facility] Carbon Dioxide 29 22 - 29 mmol/L [facility] Anion Gap 7(L) 12 - 20 [facility] Urea Nitrogen (BUN) 11 9 - 16 mg/dL [facility] Creatinine, Serum 0.97 0.5 - 1.4 mg/dL [facility] Creatinine Clr Calc Pharmacy 107.6 [facility] Comment:eGFR (calculated fro m the MDRD study equation) and eCrCl(calculated from the Cockcroft-Gault equation) are based ondifferent parameters and may not yield comparable results.If eCrCl result is absurd, please check patient'sheight/weight. Estimated Glomerular Filt Rate >60 [facility] Comment:Chronic Kidney Disea se: Estimated GFR < 60 mL/min/1.07j4Haeizt Kidney Disease: Estimated GFR < 15 mL/min/1.73m2 Glucose 88 60 - 115 mg/dL [facility] Calcium 8.8 8.4 - 10.2 mg/dL [facility] Bilirubin, Total 0.5 0.0 - 1.0 mg/dL [facility] Aspartate Amino Transferase 35 5 - 37 U/L [facility] Alanine Aminotransferase 44(H) 0 - 40 U/L [facility] Total Protein 7.2 6.5 - 8.0 g/dL [facility] Albumin Level 4.4 3.5 - 5.0 g/dL [facility] Alkaline Phosphatase 81 39 - 117 U/L [facility] 12/24/2024 1:12 PM EST 12/24/2024 1:18 PM EST Generic External Data Provider LAB BLOOD ORDERAB LES Final Result [facility] [address] [place] [phone] * (ABNORMAL) POCT Hgb A1c (12/24/2024 11:24 AM EST) Hemoglobin A1C 6.9(A) 4.0 - 5.7 % QC Media Lot # [id number] Lot# Expiration Date 5,027 Blood 12/24/2024 11:2 4 AM EST Danna [employer] [facility] POINT OF CARE TEST ENTER/EDIT ORDERABLES Final Result * POCT Glucose (12/24/2024 11:24 AM EST) Glucose Blood, POC 148 60 - 200 mg/dL QC Media Lot # [id number] Lot# Expiration Date 3,,026 Blood Capillary blood specimen / Unknown 12/24/2024 11:24 AM EST Danna [employer] [facility] POINT OF CARE TEST ENTER/EDIT ORDERABLES Final Result * Albumin, Random Urine W/Creatinine (05/08/2022 10:13 AM EDT) Creatinine, Random Urine 89 20 - 320 mg/dL [employer] [facility] [place] [employer] Albumin, Urine 0.7 See Note: mg/dL [facility] [place] [facility] Comment: Reference Range: Reference Range Not established Albumin/Creatinin e Ratio, Random Urine 8 <30 mcg/mg creat [facility] [employer] [place] [facility] Comment: The ADA defines abnormalities in albumin [...] 8:44 PM EDT FASTING:NO FASTING: NO Danna Louisangelo [facility] LAB URINE ORDERABLES Final Res ult [facility] [address], [place] [address] [employer] [place] [facility] [address] [place] [address] * (ABNORMAL) Lipid Panel, Standard (05/08/2022 10:13 AM EDT) Cholesterol, Total 142 <200 mg/dL [facility] [place] [facility] HDL Cholesterol 32(L) > OR = 40 mg/dL [facility] [place] [facility] Triglycerides 248(H) <150 mg/dL [facility]: turn off the lights Comment: If a non-fasting specimen was collected, consider repeat triglyceride testing on a fasting specimen if clinically indicated. Kaleb et al. J. of Clin. Lipidol. 2015;9:129-169. LDL Cholesterol 77 mg/dL (calc) [facility]: turn off the lights Comment: Reference range: <100 Desirable range <100 mg/dL for primary prevention; <70 mg/dL for patients with CHD or diabetic patients with > or = 2 CHD risk factors. LDL-C is now calculated using the Fidel-Deyvi calculation, which is a validated novel method providing better accuracy than the Friedewald equation in the estimation of LDL-C. Fidel SS et al. ALEKSANDR. 2013;310(19): 7358-8760 (http://education.GrandCamp/faq/CFU924) Chol/HDLC Ratio 4.4 <5.0 (calc) [facility]: turn off the lights Non-HDL Cholesterol 110 <130 mg/dL (calc) [facility]: turn off the lights Comment: For patients with diabetes plus 1 major ASCVD risk factor, treating to a non-HDL-C goal of <100 mg/dL (LDL-C of <70 mg/dL) is considered a therapeutic option. Blood Venous blood specimen / Unknown 05/08/2022 10:13 AM EDT 05/08/2022 10:14 AM EDT Narrative [facility] - 05/08/2022 8:44 PM EDT FASTING:NO FASTING: NO Danna Combs PROPERTY CONDITION ASSESSOR LAB BLOOD ORDERABLES Final Res ult [employer] [address], [place] [address] [facility] [place] [facility] [address] [place] [address] from Last 3 Months or Most Recently Relevant to Health Maintenance Additional Health Concerns Active Problems Noted Date Diagnosed Date Help patients manage their type 2 diabetes 12/24 Weekly blood pressure task 12/24/2024 Help patients manage their type 2 diabetes 12/24 Patient has chronic kidney disease 12/24/2024 Weekly blood pressure task 12/24/2024 Patient has chronic kidney disease 12/24/2024 Insurance [employer]ICARE Care Teams Computer Systems Engineer Relationship Specialty Start Date End Date Danna Combs FNP [address] [place] [phone] PCP - General Family Medicine 10/05/21
--- OUTSIDE RECORDS SUMMARY | 2024-12-31 08:10 | XMS_ITS | Encounter Summary ---
Author Organization [facility] Address [address] [place] [phone] Phone Care Team Providers Care Toll Settlement Clerk Name Role Phone Jerry Lang MD Primary Care Provider [phone] Encounter Details Date Type Department Care Team (Late st Contact Info) Description 01/24/2024 Procedure Pass [facility] [address] [place] [address] Social History Tobacco Use Types Packs/Day Years [...] on filedocumented in this encounter Care Teams Toll Settlement Clerk Relationship Specialty Start Date End Date Jerry Lang MD [address] [place] [address] PCP - General Cardiology 01/22/24 documented as of this encounter Additional Source Comments The information contained in this document represents components of the legal health record. It is not the complete legal health record.[facility]
--- OUTSIDE RECORDS SUMMARY | 2024-12-31 08:10 | XMS_ITS | Clinical Summary ---
Author Organization [facility] Address [address] [place] [phone] Phone Care Team Providers Care Lotus Notes Administrator Name Role Phone Jerry Lang MD Primary Care Provider [phone] Allergies No known active allergies Medications metFORMIN [...] this topic Medical Devices Implanted Type Area Testing Tech Device Identifier Shelf Expiration Date Model / Serial / Lot Icd ICD Heart Defibrillator Momentum Is1 Df4 Heartlogic - [id number] Implanted:Qty: 1 on 01/24/2024 by Jerry Lang MD at [facility] ICD Left: Chest [employer] [id number] 09/23/2024 [id number] / [id number] / [id number] Prosthetic Joint Prosthetic Joint Bioenvelope Antibiotic-Eluti ng Elupro M Single Pack - [id number] Implanted:Qty: 1 on 01/24/2024 by Jerry Lang MD at [facility] Chest Wall [employer] 09/23/2024 CMCV-124 -MED / / [id number] Insurance MEDICARE PART A & B [facility] MEDICARE PART A & B [facility] MEDICARE PART A & B [facility] MEDICARE PART A & B [facility] MEDICARE PART A & B [facility] MEDICARE PART A & B [facility] Care Teams Lotus Notes Administrator Relationship Specialty Start Date End Date Jerry Lang MD [address] [place] [phone] [email or web address] PCP - General Cardiology 01/22/24 Additional Source Comments The information contained in this document represents components of the legal health record. It is not the complete legal health record.[facility]
--- OUTSIDE RECORDS SUMMARY | 2024-12-31 08:11 | XMS_ITS | Encounter Summary ---
Author Organization [employer] Address [address] [facility] [address] [place] [address] Care Team Providers Care Director Of Clinical Education Name Role Phone LouisDanna stephens MIRIAM Primary Care Provider [phone] Encounter Details Date Type Department Care Team (Late st Contact Info) Description 12/28/2022 Abstract [facility] [address] [place], [place] [phone] Tigist Cardenas Social History Tobacco Use Types [...] documented as of this encounter Care Teams Director Of Clinical Education Relationship Specialty Start Date End Date Danna Combs FNP [address] [place] [phone] PCP - General Family Medicine 10/05/21 documented as of this encounter
--- OUTSIDE RECORDS SUMMARY | 2024-12-31 08:11 | XMS_ITS | Encounter Summary ---
Author Organization [employer] Address [address] [place] [address] 7t [place] [address] Care Team Providers Care Coin Machine Service Repairer Name Role Phone LouisDnana stephens MIRIAM Primary Care Provider [phone] Encounter Details Date Type Department Care Team (Late st Contact Info) Description 04/13/2022 Orders Only [facility] [address] [place], [place] [phone] Ginny Hager LPN Social History Tobacco Use [...] EDT) Protime 35.8(H) 11.1 - 13.5 sec [facility] 08/03/2022 2:18 PM EDT 08/03/2022 2:20 PM EDT [facility] External Provider LAB BLO OD ORDERABLES Final Result [facility] [address] [place] [phone] * (ABNORMAL) ~PT, ~INR - ANTI COAG CLINIC (08/03/2022 2:18 PM EDT) Prothrombin Time INR 3.0(H) 0.9 - 1.1 [facility] Comment:METER #: [id number] TERNATIONAL NORMALIZED RATIO (INR) REFERENCE RANGES Reference [...] 2:18 PM EDT 08/03/2022 2:20 PM EDT [facility] External Provider LAB BLO OD ORDERABLES Final Result Performing Organization Address City/[facility] Co de Phone Number [facility] [address] [place] [phone] * (ABNORMAL) PROTHROMBIN TIME WHOLE BLD POC (07/04/2022 2:21 PM EDT) Protime 32.4(H) 11.1 - 13.5 sec [facility] 07/04/2022 2:21 PM EDT 07/04/2022 2:23 PM EDT [facility] External Provider LAB BLO OD ORDERABLES Final Result Performing Organization Address City/[facility] Co de Phone Number [facility] [address] [place] [phone] * (ABNORMAL) ~PT, ~INR - ANTI COAG CLINIC (07/04/2022 2:21 PM EDT) Prothrombin Time INR 2.7(H) 0.9 - 1.1 [facility] Comment:METER #: [id number] TERNATIONAL NORMALIZED RATIO (INR) REFERENCE RANGES Reference [...] PM EDT 07/04/2022 2:23 PM EDT Result [facility] External Provider LAB BLO OD ORDERABLES Final Result Performing Organization Address [facility] Co de Phone Number [facility] [address] [place] [phone] * (ABNORMAL) PROTHROMBIN TIME WHOLE BLD POC (06/20/2022 2:07 PM EDT) Protime 44.6(H) 11.1 - 13.5 sec [facility] 06/20/2022 2:07 PM EDT 06/21/2022 8:04 AM EDT Result [facility] External Provider LAB BLO OD ORDERABLES Final Result Performing Organization Address [facility] Co de Phone Number [facility] [address] [place] [phone] * (ABNORMAL) ~PT, ~INR - ANTI COAG CLINIC (06/20/2022 2:07 PM EDT) Prothrombin Time INR 3.7(H) 0.9 - 1.1 [facility] Comment:METER #: [id number] TERNATIONAL NORMALIZED RATIO (INR) REFERENCE RANGES Reference [...] PM EDT 06/21/2022 8:04 AM EDT Result [facility] External Provider LAB BLO OD ORDERABLES Final Result Performing Organization Address City/[facility] Co de Phone Number [facility] [address] [place] [phone] * (ABNORMAL) PROTHROMBIN TIME WHOLE BLD POC (05/23/2022 2:05 PM EDT) Protime 28.5(H) 11.1 - 13.5 sec [facility] 05/23/2022 2:05 PM EDT 05/23/2022 2:07 PM EDT [facility] External Provider LAB BLO OD ORDERABLES Final Result Performing Organization Address [facility] de Phone Number [facility] [address] [place] [phone] * (ABNORMAL) ~PT, ~INR - ANTI COAG CLINIC (05/23/2022 2:05 PM EDT) [facility] Prothrombin Time INR 2.4(H) 0.9 - 1.1 [facility] Comment:METER #: [id number] TERNATIONAL NORMALIZED RATIO (INR) REFERENCE RANGES Reference [...] 2:05 PM EDT 05/23/2022 2:07 PM EDT [facility] External Provider LAB BLO OD ORDERABLES Final Result Performing Organization Address [facility] Co de Phone Number [facility] [address] [place] [phone] * (ABNORMAL) PROTHROMBIN TIME WHOLE BLD POC (05/16/2022 2:01 PM EDT) Protime 19.3(H) 11.1 - 13.5 sec [facility] 05/16/2022 2:01 PM EDT 05/16/2022 2:03 PM EDT [facility] External Provider LAB BLO OD ORDERABLES Final Result Performing Organization Address [facility] Co de Phone Number [facility] [address] [place] [phone] * (ABNORMAL) ~PT, ~INR - ANTI COAG CLINIC (05/16/2022 2:01 PM EDT) [facility] Prothrombin Time INR 1.6(H) 0.9 - 1.1 [facility] Comment:METER #: [id number] TERNATIONAL NORMALIZED RATIO (INR) REFERENCE RANGES Reference [...] 2:01 PM EDT 05/16/2022 2:03 PM EDT [facility] External Provider LAB BLO OD ORDERABLES Final Result Performing Organization Address City/[facility] Co de Phone Number [facility] [address] [place] [phone] * (ABNORMAL) PROTHROMBIN TIME WHOLE BLD POC (04/17/2022 2:12 PM EST) Protime 31.7(H) 11.1 - 13.5 sec [facility] 04/17/2022 2:12 PM EST 04/17/2022 2:16 PM EST [facility] External Provider LAB BLO OD ORDERABLES Final Result Performing Organization Address [facility] Co de Phone Number [facility] [address] [place] [phone] * (ABNORMAL) ~PT, ~INR - ANTI COAG CLINIC (04/17/2022 2:12 PM EST) Prothrombin Time INR 2.6(H) 0.9 - 1.1 [facility] Comment:METER #: [id number] TERNATIONAL NORMALIZED RATIO (INR) REFERENCE RANGES Reference [...] 2:12 PM EST 04/17/2022 2:16 PM EST [facility] External Provider LAB BLO OD ORDERABLES Final Result Performing Organization Address [facility] Co de Phone Number [facility] [address] [place] [phone] documented in this encounter Visit Diagnoses Not on filedocumented in this encounter Care Teams Coin Machine Service Repairer Relationship Specialty Start Date End Date Danna Combs FNP [address] [place] [phone] PCP - General Family Medicine 10/05/21 documented as of this encounter
== END 2024-12-30 14:22 | disposition home or self-care (01) ==
LOC: HO.ACS 14:02
PROVIDERS: PCP Registered Nurse; Visit Provider Internal Medicine Medical Oncology
DX: Z79.01 Long term (current) use of anticoagulants (principal)

== ENCOUNTER 2025-01-09 16:02 | Emergency (ER) | payer MEDICARE, MEDICAID, SELFPAY ==
[2025-01-09 16:04] VITALS: BP 169/87; PULSE 84; RESP 16; TEMP 37; O2SAT 98; BMI 36.9
--- NOTE | 2025-01-09 16:04 | ED.GENADULT ---
HPI - General Adult General Stated complaint: Medication Refill Time Seen by Provider: 01/09/25 16:07 Source: patient Mode of arrival: ambulatory Limitations: no limitations History of Present Illness ED Provider: Kelly Peace PA-C HPI narrative: Patient is a 59 year old assigned male at with a history of CHF, DM, and HTN presenting to the emergency department today for a medication refill. Patient states that his pharmacy is closed today and he needs his Digoxin sent to a pharmacy that is open. Patient denies any complaints at this time. Related Data Home Medications ?Medication ?Instructions ?Recorded ?Confirmed buspirone 7.5 mg tablet 7.5 mg PO BID 12/17/19 12/30/24 digoxin 250 mcg (0.25 mg) tablet 250 mcg PO DAILY 12/17/19 12/30/24 diltiazem HCl 180 mg 180 mg PO DAILY 12/17/19 12/30/24 capsule,extended release 24 hr metoprolol tartrate 100 mg tablet 200 mg PO BID 12/17/19 12/30/24 lisinopril 5 mg tablet 5 mg PO DAILY 09/22/20 12/30/24 empagliflozin 10 mg tablet 10 mg PO QAM 11/16/20 12/30/24 (Jardiance) blood sugar diagnostic (FreeStyle #10 ea 12/14/20 12/30/24 Lite Strips) lancets 33 gauge (TRUEplus Lancets) #100 ea 12/14/20 12/30/24 metformin 500 mg tablet,extended 500 mg PO QPM 03/14/22 12/30/24 release 24 hr sildenafil 25 mg tablet 25 mg PO DAILY PRN 09/18/22 12/30/24 albuterol sulfate 90 mcg/actuation 2 puff inhalation Q6H PRN 10/06/22 12/30/24 aerosol inhaler atorvastatin 20 mg tablet 20 mg PO DAILY 01/15/24 12/30/24 trazodone 50 mg tablet 50 mg PO BEDTIME PRN 01/15/24 12/30/24 Previous Rx's ?Medication ?Instructions ?Recorded warfarin 7.5 mg tablet 7.5 mg PO DAILY #90 tabs 11/19/19 sodium,potassium,mag sulfates 17.5 480 ml PO .COMPLEX #354 mL 05/08/24 gram-3.13 gram-1.6 gram oral soln (Suprep Bowel Prep Kit) digoxin 250 mcg (0.25 mg) tablet 250 mcg PO DAILY #30 tabs 01/09/25 Allergies Allergy/AdvReac Type Severity Reaction Status Date / Time No Known Allergies (No Known Allergy Verified 01/09/25 16:08 Allergies*) Review of Systems Constitutional: Constitutional: Reports as per HPI Eyes: Eyes: Reports as per HPI ENT: Reports as per HPI Cardiovascular: Cardiovascular: Reports as per HPI Respiratory: Respiratory: Reports as per HPI Gastrointestinal: Gastrointestinal: Reports as per HPI Genitourinary: Genitourinary: Reports as per HPI Musculoskeletal: Musculoskeletal: Reports as per HPI Integumentary/Breasts: Skin/Breast: Reports as per HPI Neurologic: Reports as per HPI Psychiatric: Psychiatric: Reports as per HPI Endocrine: Endocrine: Reports as per HPI Hematologic/Lymphatic: Hematologic/Lymphatic: Reports as per HPI Allergic/Immunologic: Allergic/Immunologic: Reports as per HPI [facility] Past Medical History Attestation statement: The following information was validated with the patient. Source: old records reviewed and nursing notes reviewed Medical History Pacemaker Neck mass Neck abscess CHF (congestive heart failure) Atrial fibrillation Hypertension Diabetes mellitus Surgical History History of total left knee replacement H/O cardiac catheterization Family History Family History Maternal Grandfather Stomach cancer Other No family history of cerebrovascular accident (CVA) Social History Social History Alcohol intake: former Patient Tobacco Use Status: Former Tobacco user Physical Exam ED Const General: cooperative, no acute distress, alert and awake Nutritional Appearance: well nourished Orientation/consciousness: patient oriented x3 HENMT Head: Yes normal to inspection and Yes atraumatic Ears: hearing grossly normal bilaterally and external ears normal General nose exam: Normal external nose present, no nasal discharge noted and no epistaxis Face and sinus: Yes normal facial exam, No abrasion and No laceration Mouth: Normal oral and palatal mucosa present, no drooling and no muffled voice Eyes General: appearance normal, both eyes and all related structures Periorbital: periorbital findings normal Eyelids: Yes eyelids normal Conjunctivae: conjunctivae normal Pupils: Equal, round and reactive pupils present EOM: EOMs intact bilaterally Neck Neck: Yes normal visual inspection and Yes full ROM Resp Effort & Inspection: normal respiratory effort and able to speak in complete sentences Neuro General: patient oriented x3, moves all extremities and CN's II-XI intact bilaterally Cranial nerves: Yes Equal, round and reactive pupils present Cognition (Neuro): normal cognition Extrem General: Yes normal to inspection, Yes full ROM and Yes capillary refill normal Psych Appearance: grossly normal Mental Status: mental status grossly normal Affect: normal affect Attitude: cooperative Thought process: Normal thought process present Thought content: Normal thought content present Insight: Good insight present (Psych) Medical Decision Making Medical Decision Making MDM Narrative: Patient is a 59 year old assigned male at with a history of CHF, DM, and HTN presenting to the emergency department today for a medication refill. Patient's physical exam was unremarkable. I explained my physical exam findings to the patient. I answered all questions asked by the patient. Patient prescribed his Digoxin. I stressed the importance of the patient taking his medication as directed (either prescribed or as the over the counter packaging recommends). I stressed the importance of the patient following up with his primary care provider. I stressed the importance of the patient returning to the emergency department immediately if he were to develop any dizziness, shortness of breath, difficulty breathing, chest pain, blurry vision, loss of vision, nausea, vomiting, abdominal pain, fever, chills, back pain, or any other complaints. Patient verbalized agreement and understanding with this treatment plan and discharge. Differential Diagnosis Differential Diagnoses: The differential diagnosis associated with the presentation includes Medication refill Admission/Observation Consideration of admission/observation: Escalation of care including admission/observation considered Patient would have been admitted to the hospital had his clinical presentation warranted hospital admission. Discharge Plan Discharge Clinical Impression: Medication refill Patient Disposition: Home, Self-Care Instructions: Medicine Refill (ED) Additional Instructions: Take your medication as prescribed. IF you are prescribed home medications and/or you are taking over the counter medications at home - it is very important you continue to do so as prescribed / directed unless told otherwise by a healthcare provider. Follow up with your primary care provider. Do your best to stay well hydrated and rest. Return to the emergency department immediately if your symptoms worsen or if you develop any numbness, tingling, dizziness, shortness of breath, difficulty breathing, chest pain, blurry vision, loss of vision, nausea, vomiting, abdominal pain, fever, chills, back pain, or any other complaints. If you do not have a primary care provider - call any of the below numbers to establish and follow up with a primary care provider. [facility] Primary Care ([place]) [phone] [place] [address], [address] [facility] Primary Care ([address] [place]) [phone] [address] [facility], [address] [facility], [address] [facility] Primary Care ([address] [place]) [phone] [place] [address], [address] [facility], [address] [facility] Primary Care ([place]) [phone] [place] [address] 2 [facility], [address] [facility] Family Medicine [phone] [address] [facility], [address] Please see the information below about our Patient Portal. If you are not yet enrolled in the [facility] Patient Portal, you will receive an enrollment email invitation following your visit to any [facility] care setting. You may also self-enroll in the Patient Portal by visiting our website: [email or web address] The following information is required to access the Patient Portal: - Your [facility] Medical Record Number - Your personal home email address (must match what is in your electronic medical record, Registration staff can assist with this) - Name - Date of Capabilities of the Patient Portal: - Message some providers - View upcoming appointments - Access your health summary, medical history, and visit history - View current conditions and allergies - View procedure and lab results - View your medications, including guidelines, side effects, and precautions - Complete pre-appointment questionnaires requested by your provider - Ready summary reports of your office visits and procedures To access the Patient Portal Mobile [employer], follow these directions: - Search [employer] in the [employer] Store or [employer] Store - Download the Boris - Search for [facility] - Enter your login/password Prescriptions: New digoxin 250 mcg (0.25 mg) tablet 250 mcg PO DAILY Qty: 30 0RF No Action trazodone 50 mg tablet 50 mg PO BEDTIME PRN digoxin 250 mcg (0.25 mg) tablet 250 mcg PO DAILY diltiazem HCl 180 mg capsule,extended release 24hr 180 mg PO DAILY metoprolol tartrate 100 mg tablet 200 mg PO BID buspirone 7.5 mg tablet 7.5 mg PO BID lisinopril 5 mg tablet 5 mg PO DAILY Jardiance 10 mg tablet 10 mg PO QAM warfarin 7.5 mg tablet 7.5 mg PO DAILY Qty: 90 0RF Protocol: Dose Management Condition: Sunday (Week One) Dose/Route: 7.5 mg Instruction: 1 x 7.5 mg tablet Condition: Sunday Dose/Route: 7.5 mg Instruction: 1 x 7.5 mg tablet Condition: Sunday Dose/Route: 7.5 mg Instruction: 1 x 7.5 mg tablet Condition: Sunday Dose/Route: 7.5 mg Instruction: 1 x 7.5 mg tablet Condition: Dose/Route: 7.5 mg Instruction: 1 x 7.5 mg tablet Condition: Sunday Dose/Route: 3.75 mg Instruction: 0.5 x 7.5 mg tablets Condition: Sunday Dose/Route: 7.5 mg Instruction: 1 x 7.5 mg tablet Condition: Sunday (Week Two) Dose/Route: 7.5 mg Instruction: 1 x 7.5 mg tablet Condition: Sunday Dose/Route: 7.5 mg Instruction: 1 x 7.5 mg tablet Condition: Sunday Dose/Route: 7.5 mg Instruction: 1 x 7.5 mg tablet Condition: Sunday Dose/Route: 7.5 mg Instruction: 1 x 7.5 mg tablet Condition: Dose/Route: 7.5 mg Instruction: 1 x 7.5 mg tablet Condition: Sunday Dose/Route: 3.75 mg Instruction: 0.5 x 7.5 mg tablets Condition: Sunday Dose/Route: 7.5 mg Instruction: 1 x 7.5 mg tablet Protocol Text: Adjustment Start Date: Sunday12/30/24 INR Value: 2.8 INR Date: 12/30/24 Recheck Date: 01/29/25 Rx Instructions: on odd numbered days (DME) lancets [TRUEplus Lancets] 33 gauge misc See Rx Instructions Not Applicable BID Qty: 100 Rx Instructions: As directed (DME) FreeStyle Lite Strips Strip See Rx Instructions Not Applicable BID Qty: 10 Rx Instructions: As directed metformin 500 mg tablet extended release 24 hr 500 mg PO QPM albuterol sulfate 90 mcg/actuation HFA aerosol inhaler 2 puff inhalation Q6H PRN atorvastatin 20 mg tablet 20 mg PO DAILY sildenafil 25 mg tablet 25 mg PO DAILY PRN sodium,potassium,mag sulfates [Suprep Bowel Prep Kit] 17.5-3.13-1.6 gram recon soln 480 ml PO .COMPLEX Qty: 354 0RF Rx Instructions: 480 mL orally; FOR COLONOSCOPY PREP Print Language: Arabic
[2025-01-09 16:10] VITALS: BP 169/87; PULSE 84; RESP 16; TEMP 37; O2SAT 98
--- OUTSIDE RECORDS SUMMARY | 2025-01-09 16:16 | XMS_ITS | Clinical Summary ---
Author Organization [employer] Address [address] [place] [address] 7t [place] [address] Care Team Providers Care Management Scientist Name Role Phone Danna Combs Primary Care Provider [phone] Allergies No known active allergies Medications FREESTYLE [...] BEDTIME 90 tablet 3 12/12/19 24 Active metroNIDAZOLE (Metrogel) 0.75 % gelIndications: Facial erythema Apply topically 2 times daily. Apply thin layer to face after washing face in the morning and before bed. 45 g 1 02/11/20 24 2024 Active warfarin (Coumadin) 7.5 MG tabletIndicatio ns:Longstanding persistent atrial fibrillation (CMS/HCC) (HCC) TAKE 1 TO 1 & 1/2 TABLETS BY MOUTH EVERY DAY DIRECTED BY COUMADIN CLINIC BASED ON INR 100 tablet 1 06/10/19 25 Active Jardiance 10 MGIndications:T ype 2 diabetes mellitus treated without insulin ([facility]LY [facility]) TAKE 1 TABLET BY MOUTH EVERY MORNING [...] ns:Type 2 diabetes mellitus treated without insulin ([facility]) TAKE 1 TABLET BY MOUTH EVERY DAY WITH DINNER 90 tablet 3 5 4:18 PM EST 09/24/19 25 Active dilTIAZem CD (Cardizem CD) 180 MG 24 hr capsuleIndicati ons:Atrial fibrillation, unspecified type (CMS/HCC) (HCC),Congestiv e heart failure, unspecified HF chronicity, unspecified heart failure type (HCC) TAKE 1 CAPSULE BY MOUTH EVERY DAY 90 capsule 3 5 4:29 PM EST 09/24/19 25 Active digoxin (Lanoxin) 250 MCG tab;et TAKE 1 TABLET BY MOUTH EVERY DAY 90 tablet 3 10/02/19 25 Active metoprolol tartrate (Lopressor) 100 MG tablet TAKE 2 TABLETS BY MOUTH TWICE DAILY WITH MEALS 360 tablet 3 10/09/19 25 Active lisinopril 5 MG tabletIndicatio ns:Primary hypertension TAKE 1 TABLET BY MOUTH EVERY DAY 90 tablet 3 01/03/20 25 Active lisinopril 5 MG tabletIndicatio ns:Primary hypertension TAKE 1 TABLET BY MOUTH EVERY DAY 90 tablet 3 01/08/20 24 2024 Discontinued Active Problems Problem Noted Date Diagnosed Date AV heart block 02/14/2024 Overview (02/14/2024): ICD pacer in place (last changed 01/24/24 at [facility]) Warfarin anticoagulation 09/10/2022 Overview (09/10/2022): On coumadin therapy - 5-7.5mg daily as directed by clinic [facility] Healthcare maintenance 09/10/2022 Assessment & Plan (12/28/2024 3:54 PM EST): -Per previous documentation due for colonoscopy in 2023. Referral to GI placed 02/11/24. (Pending cardiac clearance) -Optometry: QUENTIN Oct 2022 w/ [facility] Assessment & Plan (02/14/2024 1:49 PM EST): -Per previous documentation due for colonoscopy in 2023. Referral to GI placed 02/11/24. -Optometry: QUENTIN Oct 2022 w/ [facility] Assessment & Plan (03/22/2023 6:31 PM EST): -Per previous documentation due for colonoscopy in 2023 -Optometry: UTD w/ [facility] Assessment & Plan (09/18/2022 8:35 PM EDT): -Per previous documentation due for colonoscopy in 2023 -Optometry: scheduled for [facility] in September 2022 ICD (implantable cardioverter-defibrillator) in place 05/08/2022 Overview (02/14/2024): -Hx of complete AV block s/p pacemaker placement, device interrogated Q6 months through cards and denies any concerns -Pt denies any chest pain, palpitations, SOB, orthopnea, syncope -01/24/24: [facility] Cards & IR - [employer] ASSOCIATE-D generator change given DAVE (Dr. Jerry Lang). Assessment & Plan (02/14/2024 1:48 PM EST): - Plan to f/up with surgical team regarding wound check Essential hypertension 09/18/2020 Overview (12/28/2024): -Hx of Afib, dialted cardiomyopathy, HTN, HLD, AV block -Continues digoxin, diltiazem, lisinopril, metoprolol, and atorvastatin. Med safety reviewed. -Following with Dr. Grande in [place], [place] Type 2 diabetes mellitus 09/15/2020 Overview (12/28/2024): Lab Results Component Value Date HGBA1C 6.9 (A) 12/24/2024 - A1c: (Target </= 7.0): well controlled - Microalbumin/Cr:Alb: 8 mcg/mg on 05/08/22 - Lipids: April 2022: LDL 77, HDL 32, TC 142, TG 248 - Eye exam: Oct 2022 at [facility] - no diabetic retinopathy or [...] of total knee arthroplasty 04/05/2015 Dilated cardiomyopathy ([facility]/HCC) 02/04/2015 Vitamin D deficiency 02/04/2015 Atrial fibrillation (CMS/HCC) 01/18/2015 Assessment & Plan (04/06/2024 7:57 PM EST): - Continues on warfarin (discussed alternative medications with Cards - Dr. Enriquez Jan 2024) - Managed by [facility] -Encouraged to consider DOAC, handout from the [employer] provided today. Mr. Hanson reports he will think about it any questions arise. Assessment & Plan (02/14/2024 1:29 PM EST): - Continues on warfarin (discussed alternative medications with Cards - Dr. Enriquez Jan 2024) - Managed by [facility] Congestive heart failure 01/18/2015 Anxiety [...] Streptococcal Ag that could not find in [facility]) -Chest XR: report came after pt left, [...] Type Department Care Team Description 12/31/2024 Refill [facility] P[facility] [address] [place] [address] Danna Combs FNP Primary hypertension 12/30/2024 Orders Only GENERIC EXTERNAL DATA DEPARTMENT Provider, Generic External Data 12/24/2024 11:15 AM EST Office Visit [facility] [address] [place] [phone] Danna Combs FNP Essential hypertension (Primary Dx); Type 2 diabetes mellitus without complication, without long-term current use of insulin (HCC); Healthcare maintenance; Anxiety disorder, unspecified type; Paresthesia 12/24/2024 Orders Only GENERIC EXTERNAL DATA DEPARTMENT Provider, Generic External Data 12/24/2024 Travel 12/23/2024 Telephone [facility] [address] [place] [phone] Danna Combs FNP chart prep 12/16/2024 Patient Outreach [facility] [address] [place] [phone] Danna Combs FNP Pre-visit Planning (Pre-visit planning - LVM ) 12/02/2024 Orders Only GENERIC EXTERNAL DATA DEPARTMENT Provider, Generic External Data 11/19/2024 Telephone [facility] [address] [place] [phone] Danna Combs FNP 11/14/2024 Orders Only GENERIC [...] your housing situation today? I have ginger renita 11/28/[address] you li [...] Weekly blood pressure task No Danna Combs COMPUTER AIDED DESIGN DESIGNER Help patients manage their type 2 diabetes Care Plan Help patients manage their type 2 diabetes No Danna Combs COMPUTER AIDED DESIGN DESIGNER Patient has chronic kidney disease Care Plan Patient has chronic kidney disease No Danna Combs COMPUTER AIDED DESIGN DESIGNER Weekly blood pressure task Care Plan Weekly blood pressure task No Danna Combs COMPUTER AIDED DESIGN DESIGNER Patient has chronic kidney disease Care Plan Patient has chronic kidney disease No Danna Combs COMPUTER AIDED DESIGN DESIGNER Procedures Procedure Name Priority Date/Time Associated Diagnosis [...] included. Protime 34.0(H) 11.1 - 13.5 sec [facility] 12/30/2024 2:13 PM EST 12/30/2024 2:15 PM EST us Generic External Data Provider LAB BLOOD ORDERAB LES Final Result Performing Organization Address [facility] Co de Phone Number [facility] [address] [place] [phone] * (ABNORMAL) ~PT, ~INR - ANTI COAG CLINIC (12/30/2024 2:13 PM EST) Only the most recent of4 resultswithin the time period is included. Prothrombin Time INR 2.8(H) 0.9 - 1.1 [facility] Comment:METER #: [id number] TERNATIONAL NORMALIZED RATIO (INR) REFERENCE RANGES Reference [...] ORDERAB LES Final Result Performing Organization Address [facility] Co de Phone Number [facility] [address] [place] [phone] * ECG 12 lead (12/28/2024 3:55 PM EST) Narrative Danna Combs FNP - 12/28/2024 3:55 PM EST HR: 75bpm QRS: 172ms Artifical pacemaker - paced rhythm Danna Combs COMPUTER AIDED DESIGN DESIGNER ECG ORDERABLES Final Result * CT Head w/o Contrast (12/24/2024 2:18 PM EST) Anatomical Region Laterality Modality Head, Neck Computed Tomogra phy 12/24/2024 2:18 PM EST Narrative 12/24/2024 3:10 PM EST [address] [address] [address] Scan Report Signed Patient: Corey Alex MR#: [id number] [birth year] : 1965 Acct:[id number] Age/Sex: 59 / M ADM Date: 12/24/24 Loc: HO.ED Attending Dr: Ordering Physician: Julio Murillo MD Date of Service: 12/24/24 Procedure(s): CT head/brain wo IV con Accession Number(s): [id number] cc: Julio Murillo MD; Danna Combs COMPUTER AIDED DESIGN DESIGNER Report Number: [id number]: Total DLP = 941.00 mGy-cm Reason for [...] Edna Low MD 12/24/2024 03:08 PM EST RP Dictated By: Edna Low MD Signed By: <Electronically signed by Edna Low MD in OV> 12/24/24 1508 DD/ 1418 TD/TT: 12/24/24 1426 Business Office Associate: Procedure Note Donotuseinterpreter, Image - 12/24/[address] [address] [address] Scan Report Signed Patient: Yadira Alex#: [id number] [birth year] : 1965Acct:[id number] Age/Sex: 59 / MADM Date: 12/24/24 Loc: HO.ED Attending Dr: Ordering Physician: Julio Murillo MD Date of Service: 12/24/24 Procedure(s): CT head/brain wo IV con Accession Number(s): [id number] cc: Julio Murillo MD; Danna Combs COMPUTER AIDED DESIGN DESIGNER Report Number: [id number]: Total DLP = 941.00 mGy-cm Reason for [...] 12/24/24 1508 DD/ 1418 TD/TT: 12/24/24 1426 Business Office Associate: [facility] External Provider IMG CT PROCEDURES Final Result * High Sensitivity Troponin I (12/24/2024 1:13 PM EST) [facility] TROPONIN I HIGH SENSITIVITY <2.7 <3.5 - 35.0 ng/L [facility] Comment:The Padgett high sens itivity Troponin-I results should beused in conjunction with other diagnostic information suchas ECG, clinical observations and information, and patientsymptoms to aid in the diagnosis of SC. 12/24/2024 1:13 PM EST 12/24/2024 1:18 PM EST Generic External Data Provider LAB BLOOD ORDERAB LES Final Result [facility] [address] [place] [phone] * (ABNORMAL) CBC auto differential (12/24/2024 1:12 PM EST) [facility] White Blood Count 9.8 4.8 - 10.8 X10*3/uL [facility] Red Blood Count 5.14 4.60 - 5.80 X10*6/uL [facility] Hemoglobin 16.1 14.0 - 18.0 g/dl [facility] Hematocrit 47.9 42.0 - 52.0 % [facility] Mean Corpuscular Volume 93.2 80.0 - 98.0 fL [facility] Mean Corpuscular Hemoglobin 31.3 27.0 - 33.0 pg [facility] Mean Corpuscular HGB Conc 33.6 31.0 - 36.0 g/dl [facility] Red Cell Distribution Width 13.2 11.0 - 16.0 % [facility] Platelet Count 208 160 - 400 X10*3/uL [facility] Mean Platelet Volume 9.1(L) 9.4 - 12.4 fL [facility] Neutrophils Percent Auto 61.2 45 - 73 % [facility] Imm Gran Pct Auto 0.3 0.0 - 0.4 % [facility] Lymphocytes Percent Auto 29.1 20 - 40 % [facility] Monocytes Percent Auto 7.2 2 - 11 % [facility] Eosinophils Percent Auto 1.3 0 - 4 % [facility] Basophils Percent Auto 0.9 0 - 2 % [facility] NRBC Pct Auto 0.0 0.0 - 0.2 /100WBC [facility] Neutrophils Absolute Auto 6.0 2.0 - 8.3 x10*3/uL [facility] Imm Gran Abs Auto 0.03 0.00 - 0.03 X10*3/uL [facility] Lymphocytes Absolute Auto 2.9 1.2 - 4.9 X10*3/uL [facility] Monocytes Absolute Auto 0.7 0.1 - 1.2 X10*3/uL [facility] Eosinophils Absolute Auto 0.1 0.0 - 0.4 X10*3/uL [facility] Basophils Absolute Auto 0.1 0.0 - 0.2 X10*3/uL [facility] NRBC Abs Auto 0.000 0.0 - 0.012 X10*3/uL [facility] 12/24/2024 1:12 PM EST 12/24/2024 1:18 PM EST us Generic External Data Provider LAB BLOOD ORDERAB LES Final Result [facility] [address] [place] [phone] * Magnesium (12/24/2024 1:12 PM EST) Magnesium 2.1 1.6 - 2.6 mg/dL [facility] 12/24/2024 1:12 PM EST 12/24/2024 1:18 PM EST us Generic External Data Provider LAB BLOOD ORDERAB LES Final Result [facility] [address] [place] [phone] * (ABNORMAL) Comprehensive Metabolic Panel (12/24/2024 1:12 PM EST) Sodium 137 135 - 145 mmol/L [facility] Potassium 4.3 3.3 - 5.1 mmol/L [facility] Chloride 105 96 - 108 mmol/L [facility] Carbon Dioxide 29 22 - 29 mmol/L [facility] Anion Gap 7(L) 12 - 20 [facility] Urea Nitrogen (BUN) 11 9 - 16 mg/dL [facility] Creatinine, Serum 0.97 0.5 - 1.4 mg/dL [facility] Creatinine Clr Calc Pharmacy 107.6 [facility] Comment:eGFR (calculated fro m the MDRD study equation) and eCrCl(calculated from the Cockcroft-Gault equation) are based ondifferent parameters and may not yield comparable results.If eCrCl result is absurd, please check patient'sheight/weight. Estimated Glomerular Filt Rate >60 [facility] Comment:Chronic Kidney Disea se: Estimated GFR < 60 mL/min/1.36f5Bmtylq Kidney Disease: Estimated GFR < 15 mL/min/1.73m2 Glucose 88 60 - 115 mg/dL [facility] Calcium 8.8 8.4 - 10.2 mg/dL [facility] Bilirubin, Total 0.5 0.0 - 1.0 mg/dL [facility] Aspartate Amino Transferase 35 5 - 37 U/L [facility] Alanine Aminotransferase 44(H) 0 - 40 U/L [facility] Total Protein 7.2 6.5 - 8.0 g/dL [facility] Albumin Level 4.4 3.5 - 5.0 g/dL [facility] Alkaline Phosphatase 81 39 - 117 U/L [facility] 12/24/2024 1:12 PM EST 12/24/2024 1:18 PM EST Generic External Data Provider LAB BLOOD ORDERAB LES Final Result [facility] [address] [place] [phone] * (ABNORMAL) POCT Hgb A1c (12/24/2024 11:24 AM EST) Hemoglobin A1C 6.9(A) 4.0 - 5.7 % [employer] Media Lot # [id number] Lot# Expiration Date 5, Blood 12/24/2024 11:2 4 AM EST Danna Edvisor.[email or web address] [facility] POINT OF CARE TEST ENTER/EDIT ORDERABLES Final Result * POCT Glucose (12/24/2024 11:24 AM EST) Glucose Blood, POC 148 60 - 200 mg/dL [employer] Lot # [id number] Lot# Expiration Date 3,026 Blood Capillary blood specimen / Unknown 12/24/2024 11:24 AM EST Danna [employer] COMPUTER AIDED DESIGN DESIGNER POINT OF CARE TEST ENTER/EDIT ORDERABLES Final Result * Albumin, Random Urine W/Creatinine (05/08/2022 10:13 AM EDT) Creatinine, Random Urine 89 20 - 320 mg/dL [facility] [place] [facility] Albumin, Urine 0.7 See Note: mg/dL [facility] [place] [employer] Comment: Reference Range: Reference Range Not established Albumin/Creatinin e Ratio, Random Urine 8 <30 mcg/mg creat [facility] [place] [employer] Comment: The ADA defines abnormalities in albumin [...] PM EDT FASTING:NO FASTING: NO Danna Combs COMPUTER AIDED DESIGN DESIGNER LAB URINE ORDERABLES Final Res ult [facility] [address], [place] [address] [facility] [place] [facility] [address] [place] [phone] * (ABNORMAL) Lipid Panel, Standard (05/08/2022 10:13 AM EDT) Cholesterol, Total 142 <200 mg/dL [facility] HDL Cholesterol 32(L) > OR = 40 mg/dL [facility] Triglycerides 248(H) <150 mg/dL [facility] Comment: If a non-fasting specimen was collected, consider repeat triglyceride testing on a fasting specimen if clinically indicated. Kaleb et al. J. of Clin. Lipidol. 2015;9:129-169. LDL Cholesterol 77 mg/dL (calc) [facility] Comment: Reference range: <100 Desirable range <100 mg/dL for primary prevention; <70 mg/dL for patients with CHD or diabetic patients with > or = 2 CHD risk factors. LDL-C is now calculated using the Fidel-Deyvi calculation, which is a validated novel method providing better accuracy than the Friedewald equation in the estimation of LDL-C. Fidel SS et al. ALEKSANDR. 2013;310(19): 7036-3758 (http://education.[employer]/faq/NNC838) Chol/HDLC Ratio 4.4 <5.0 (calc) [facility] Non-HDL Cholesterol 110 <130 mg/dL (calc) [facility] Comment: For patients with diabetes plus 1 major ASCVD risk factor, treating to a non-HDL-C goal of <100 mg/dL (LDL-C of <70 mg/dL) is considered a therapeutic option. Blood Venous blood specimen / Unknown 05/08/2022 10:13 AM EDT 05/08/2022 10:14 AM EDT Narrative [facility] - 05/08/2022 8:44 PM EDT FASTING:NO FASTING: NO Danna Combs COMPUTER AIDED DESIGN DESIGNER LAB BLOOD ORDERABLES Final Res ult [facility] [address] [place] [address] [facility] [address] [place] [address] from Last 3 Months or Most Recently Relevant to Health Maintenance Additional Health Concerns Active Problems Noted Date Diagnosed Date Help patients manage their type 2 diabetes 12/24 Weekly blood pressure task 12/24/2024 Help patients manage their type 2 diabetes 12/24 Patient has chronic kidney disease 12/24/2024 Weekly blood pressure task 12/24/2024 Patient has chronic kidney disease 12/24/2024 Insurance [facility] STAND[facility] MEDICARE Care Teams Management Scientist Relationship Specialty Start Date End Date Danna Combs FNP [address] [place] [phone] PCP - General Family Medicine 10/05/21
--- OUTSIDE RECORDS SUMMARY | 2025-01-09 16:16 | XMS_ITS | Encounter Summary ---
Author Organization [employer] Address [address] [place] [address] [address] [place] [address] Care Team Providers Care Roll Repairer Name Role Phone Danna Combs Primary Care Provider [phone] Reason for Visit * Reason Comments Med Refill Encounter Details Date Type Department Care Team ([facility] st Contact Info) Description 06/09/2024 Refill [facility] [address] [place] [address] Danna Combs FNP [address] [place] [address] Longstanding persistent atrial fibrillation (CMS/HCC) Social History [...] documented as of this encounter Care Teams Roll Repairer Relationship Specialty Start Date End Date Danna Combs FNP [address] [place] [phone] PCP - General Family Medicine 10/05/21 documented as of this encounter
--- OUTSIDE RECORDS SUMMARY | 2025-01-09 16:17 | XMS_ITS | Clinical Summary ---
Author Organization [facility] Address [address] [place] [phone] Phone Care Team Providers Care Drywall Sander Name Role Phone Jerry Lang MD Primary Care Provider [phone] Allergies No known active allergies Medications metFORMIN [...] this topic Medical Devices Implanted Type Area Distribution Manager Device Identifier Shelf Expiration Date Model / Serial / Lot Icd ICD Heart Defibrillator Momentum Is1 Df4 Heartlogic - [id number] Implanted:Qty: 1 on 01/24/2024 by Jerry Lang MD at [facility] ICD Left: Chest [employer] [id number] 09/23/2024 [id number] / [id number] / [id number] Prosthetic Joint Prosthetic Joint Bioenvelope Antibiotic-Eluti ng Elupro M Single Pack - [id number] Implanted:Qty: 1 on 01/24/2024 by Jerry Lang MD at [facility] Chest Wall [employer] 09/23/2024 CMCV-[id number] -MED / / [id number] Insurance MEDICARE PART A & [facility] & [facility] Care Teams Drywall Sander Relationship Specialty Start Date End Date Jerry Lang MD [address] [place] [phone] [email or web address] PCP - General Cardiology 01/22/24 Additional Source Comments The information contained in this document represents components of the legal health record. It is not the complete legal health record.[facility]
--- OUTSIDE RECORDS SUMMARY | 2025-01-09 16:17 | XMS_ITS | Encounter Summary ---
Author Organization [facility] Address [address] [place] [phone] Phone Care Team Providers Care Customer Resolution Specialist Name Role Phone Jerry Lang MD Primary Care Provider Encounter Details Date Type Department Care Team (Late st Contact Info) Description 01/24/2024 Procedure Pass [facility] [address] [place] [address] Social History Tobacco Use Types Packs/Day Years [...] on filedocumented in this encounter Care Teams Customer Resolution Specialist Relationship Specialty Start Date End Date Jerry Lang MD [address] [place] [address] PCP - General Cardiology 01/22/24 documented as of this encounter Additional Source Comments The information contained in this document represents components of the legal health record. It is not the complete legal health record.[facility]
--- OUTSIDE RECORDS SUMMARY | 2025-01-09 16:17 | XMS_ITS | Encounter Summary ---
Author Organization [employer] Address [address] [place] [address] 7t [place] [address] Care Team Providers Care Loan Review Manager Name Role Phone LouisDanna stephens MIRIAM Primary Care Provider [phone] Encounter Details Date Type Department Care Team (Late st Contact Info) Description 04/13/2022 Orders Only [facility]S [address] [place], [place] [phone] Ginny Hager LPN Social History Tobacco Use [...] 2:18 PM EDT 08/03/2022 2:20 PM EDT [facility] External Provider LAB BLO OD ORDERABLES Final Result [facility] [address] [place] [phone] * (ABNORMAL) ~PT, ~INR - [facility]TI [facility]AG CLINIC (08/03/2022 2:18 PM EDT) Prothrombin Time INR 3.0(H) 0.9 - 1.1 [facility] Comment:METER #: [id number] TERNATIONAL NORMALIZED RATIO (INR) REFERENCE RANGES Reference [...] 2:18 PM EDT 08/03/2022 2:20 PM EDT [facility] External Provider LAB BLO OD ORDERABLES Final Result Performing Organization Address City/[facility] Co de Phone Number [facility] [address] [place] [phone] * (ABNORMAL) PROTHROMBIN TIME WHOLE BLD POC (07/04/2022 2:21 PM EDT) Protime 32.4(H) 11.1 - 13.5 sec [facility] 07/04/2022 2:21 PM EDT 07/04/2022 2:23 PM EDT [facility] External Provider LAB BLO OD ORDERABLES Final Result Performing Organization Address City/[facility] Co de Phone Number [facility] [address] [place] [phone] * (ABNORMAL) ~PT, ~INR - ANTI COAG CLINIC (07/04/2022 2:21 PM EDT) Prothrombin Time INR 2.7(H) 0.9 - 1.1 [facility] Comment:METER #: [id number] TERNATIONAL NORMALIZED RATIO (INR) REFERENCE RANGES Reference [...] PM EDT 07/04/2022 2:23 PM EDT Result [facility] External Provider LAB BLO OD ORDERABLES Final Result Performing Organization Address [facility] Co de Phone Number [facility] [address] [place] [phone] * (ABNORMAL) PROTHROMBIN TIME WHOLE BLD POC (06/20/2022 2:07 PM EDT) Protime 44.6(H) 11.1 - 13.5 sec [facility] 06/20/2022 2:07 PM EDT 06/21/2022 8:04 AM EDT Result [facility] External Provider LAB BLO OD ORDERABLES Final Result Performing Organization Address [facility] Co de Phone Number [facility] [address] [place] [phone] * (ABNORMAL) ~PT, ~INR - ANTI COAG CLINIC (06/20/2022 2:07 PM EDT) Prothrombin Time INR 3.7(H) 0.9 - 1.1 [facility] Comment:METER #: [id number] TERNATIONAL NORMALIZED RATIO (INR) REFERENCE RANGES Reference [...] PM EDT 06/21/2022 8:04 AM EDT Result [facility] External Provider LAB BLO OD ORDERABLES Final Result Performing Organization Address City/[facility] Co de Phone Number [facility] [address] [place] [phone] * (ABNORMAL) PROTHROMBIN TIME WHOLE BLD POC (05/23/2022 2:05 PM EDT) Protime 28.5(H) 11.1 - 13.5 sec [facility] 05/23/2022 2:05 PM EDT 05/23/2022 2:07 PM EDT [facility] External Provider LAB BLO OD ORDERABLES Final Result Performing Organization Address [facility] de Phone Number [facility] [address] [place] [phone] * (ABNORMAL) ~PT, ~INR - ANTI COAG CLINIC (05/23/2022 2:05 PM EDT) [facility] Prothrombin Time INR 2.4(H) 0.9 - 1.1 [facility] Comment:METER #: [id number] TERNATIONAL NORMALIZED RATIO (INR) REFERENCE RANGES Reference [...] 2:05 PM EDT 05/23/2022 2:07 PM EDT [facility] External Provider LAB BLO OD ORDERABLES Final Result Performing Organization Address [facility] Co de Phone Number [facility] [address] [place] [phone] * (ABNORMAL) PROTHROMBIN TIME WHOLE BLD POC (05/16/2022 2:01 PM EDT) Protime 19.3(H) 11.1 - 13.5 sec [facility] 05/16/2022 2:01 PM EDT 05/16/2022 2:03 PM EDT [facility] External Provider LAB BLO OD ORDERABLES Final Result Performing Organization Address [facility] Co de Phone Number [facility] [address] [place] [phone] * (ABNORMAL) ~PT, ~INR - ANTI COAG CLINIC (05/16/2022 2:01 PM EDT) [facility] Prothrombin Time INR 1.6(H) 0.9 - 1.1 [facility] Comment:METER #: [id number] TERNATIONAL NORMALIZED RATIO (INR) REFERENCE RANGES Reference [...] 2:01 PM EDT 05/16/2022 2:03 PM EDT [facility] External Provider LAB BLO OD ORDERABLES Final Result Performing Organization Address City/[facility] Co de Phone Number [facility] [address] [place] [phone] * (ABNORMAL) PROTHROMBIN TIME WHOLE BLD POC (04/17/2022 2:12 PM EST) Protime 31.7(H) 11.1 - 13.5 sec [facility] 04/17/2022 2:12 PM EST 04/17/2022 2:16 PM EST [facility] External Provider LAB BLO OD ORDERABLES Final Result Performing Organization Address [facility] Co de Phone Number [facility] [address] [place] [phone] * (ABNORMAL) ~PT, ~INR - ANTI COAG CLINIC (04/17/2022 2:12 PM EST) Prothrombin Time INR 2.6(H) 0.9 - 1.1 [facility] Comment:METER #: [id number] TERNATIONAL NORMALIZED RATIO (INR) REFERENCE RANGES Reference [...] 2:12 PM EST 04/17/2022 2:16 PM EST [facility] External Provider LAB BLO OD ORDERABLES Final Result Performing Organization Address [facility] Co de Phone Number [facility] [address] [place] [phone] documented in this encounter Visit Diagnoses Not on filedocumented in this encounter Care Teams Loan Review Manager Relationship Specialty Start Date End Date Danna Combs FNP [address] [place] [phone] PCP - General Family Medicine 10/05/21 documented as of this encounter
--- OUTSIDE RECORDS SUMMARY | 2025-01-09 16:17 | XMS_ITS | Encounter Summary ---
Author Organization [employer] Address [address] [facility] 7t [place] [address] Care Team Providers Care Public Safety Teacher Name Role Phone LouisDanna stephens MIRIAM Primary Care Provider [phone] Encounter Details Date Type Department Care Team (Late st Contact Info) Description 12/28/2022 Abstract [facility] MEDICINE [address] [place], [place] [phone] Tigist Cardenas Social History Tobacco Use Types [...] as of this encounter Care Teams Public Safety Teacher Relationship Specialty Start Date End Date Danna Combs FNP [address] [place] [phone] PCP - General Family Medicine 10/05/21 documented as of this encounter
== END 2025-01-09 16:16 | disposition home or self-care (01) ==
LOC: HO.ED 16:14
PROVIDERS: Emergency Provider Emergency Medicine; PCP Registered Nurse
DX: I11.0 Hypertensive heart disease with heart failure (principal); Z76.0 Encounter for issue of repeat prescription; E11.9 Type 2 diabetes mellitus without complications; I50.9 Heart failure, unspecified
CPT/HCPCS: 99282

== ENCOUNTER 2025-01-27 14:33 | Outpatient (AMB) | payer MEDICARE, MEDICAID, SELFPAY ==
[2025-01-27 14:41] LABS: Prothrombin Time Whole Bld POC 31.0 sec (11.1-13.5); ~PT, ~INR - Anti Coag Clinic 2.6 (0.9-1.1)
--- NOTE | 2025-01-27 14:42 | MHC.OFFVISCO ---
Intake Intake Visit Reasons: Anticoagulation Allergies No Known Allergies (No Known Allergies*) Allergy (Verified 01/27/25 14:36) Medication List - Last Reconciled 01/27/25 by Rozina Olmos RN albuterol sulfate 90 mcg/actuation 2 puffs inhalation Q6H PRN atorvastatin 20 mg PO DAILY blood sugar diagnostic (FreeStyle Lite Strips) As directed buspirone 7.5 mg PO BID digoxin 250 mcg PO DAILY digoxin 250 mcg PO DAILY diltiazem HCl CD 180 mg PO DAILY empagliflozin (Jardiance) 10 mg PO QAM lancets (TRUEplus Lancets) As directed lisinopril 5 mg PO DAILY metformin ER 500 mg PO QPM metoprolol tartrate 200 mg PO BID sildenafil 25 mg PO DAILY PRN sodium,potassium,mag sulfates 17.5-3.13-1.6 gram (Suprep Bowel Prep Kit) 480 mL orally; FOR COLONOSCOPY PREP trazodone 50 mg PO BEDTIME PRN warfarin 7.5 mg See Protocol PO DAILY Nursing Note INR: 2.6 in therapeutic range of 2-3 Medications and supplements reviewed No changes in health, diet, medications, or supplements, Denies any signs and symptoms of bleeding or bruising or clotting. Bleeding, bruising, clotting discussed Nutritional guidance given Dose: 7.5mg X 6 days and 3.75mg X 1 days (Sun) F/U INR: 4 weeks Patient verbalizes understanding of instructions given Anti-Coag Initial Assessment Social Hx Patient Tobacco Use Status: Former Tobacco user alcohol intake: former Coding Level of Care Code Est Patient Level 1 Diagnoses Current use of anticoagulant therapy Z79.01 Assessment & Plan Assessment & Plan (1) Current use of anticoagulant therapy: Code(s): Z79.01 - long-term (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
--- OUTSIDE RECORDS SUMMARY | 2025-01-27 18:48 | XMS_ITS | Clinical Summary ---
Author Organization [facility] Address [address] [place] [address] Phone Care Team Providers Care Portable Sawmill Operator Name Role Phone Jerry Lang MD Primary Care Provider [phone] Allergies No known active allergies Medications metFORMIN [...] this topic Medical Devices Implanted Type Area Instrument Repair Technician Device Identifier Shelf Expiration Date Model / Serial / Lot Icd ICD Heart Defibrillator Momentum Is1 Df4 Heartlogic - [id number] Implanted:Qty: 1 on 01/24/2024 by Jerry Lang MD at [facility] ICD Left: Chest [employer] [id number] 09/23/2024 [id number] / [id number] / [id number] Prosthetic Joint Prosthetic Joint Bioenvelope Antibiotic-Eluti ng Elupro M Single Pack - [id number] Implanted:Qty: 1 on 01/24/2024 by Jerry Lang MD at [facility] Chest Wall [employer] 09/23/2024 CMCV-124 -MED / / [id number] Insurance MEDICARE PART A & [facility] & [facility] PART A & B [facility] PART A & B [facility] & [facility] Care Teams Portable Sawmill Operator Relationship Specialty Start Date End Date Jerry Lang MD [address] [place] [phone] [email or web address] PCP - General Cardiology 01/22/24 Additional Source Comments The information contained in this document represents components of the legal health record. It is not the complete legal health record.[facility]
--- OUTSIDE RECORDS SUMMARY | 2025-01-27 18:48 | XMS_ITS | Encounter Summary ---
Author Organization [employer] Address [address] [facility] 7 [place] [address] Care Team Providers Care Director Of Casework Services Name Role Phone LouisDanna stephens MIRIAM Primary Care Provider [phone] Reason for Visit * Reason Comments Med Refill Encounter Details Date Type Department Care Team ([facility] st Contact Info) Description 01/22/[address] 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 No answer. LVM documented in this encounter Plan of Treatment [...] Care Plan Weekly blood pressure task No Doris Cedeño LPN Weekly blood pressure task Care Plan Weekly blood pressure task No Doris Cedeño LPN Patient has chronic kidney disease Care Plan Patient has chronic kidney disease No Doris Cedeño LPN Patient has chronic kidney disease Care Plan Patient has chronic kidney disease No Gala, Doris, REPAIR OPERATOR Weekly blood pressure task Care Plan Weekly blood pressure task No Howland, Doris, REPAIR OPERATOR Weekly blood pressure task Care Plan Weekly blood pressure task No Gala, Doris, REPAIR OPERATOR Patient has chronic kidney disease Care Plan Patient has chronic kidney disease No Gala, Doris, REPAIR OPERATOR Patient has chronic kidney disease Care Plan Patient has chronic kidney disease No Gala, Doris, REPAIR OPERATOR Weekly blood pressure task Care Plan Weekly blood pressure task No Howland, Doris, REPAIR OPERATOR Weekly blood pressure task Care Plan Weekly blood pressure task No Gala, Doris, REPAIR OPERATOR Patient has chronic kidney disease Care Plan Patient has chronic kidney disease No Gala, Doris, REPAIR OPERATOR Patient has chronic kidney disease Care Plan Patient has chronic kidney disease No Howland, Doris, REPAIR OPERATOR documented as of this encounter Visit Diagnoses Not on filedocumented in this encounter Additional Health Concerns Active Problems Noted Date Diagnosed Date Help patients manage their type 2 diabetes 12/24 Weekly blood pressure task 12/24/2024 Help patients manage their type 2 diabetes 12/24 Patient has chronic kidney disease 12/24/2024 Weekly blood pressure task 12/24/2024 Patient has chronic kidney disease 12/24/2024 Weekly blood pressure task 01/20/2025 Weekly blood pressure task 01/20/2025 Patient has chronic kidney disease 01/20/2025 Patient has chronic kidney disease 01/20/2025 Weekly blood pressure task 01/21/2025 Weekly blood pressure task 01/21/2025 Patient has chronic kidney disease 01/21/2025 Patient has chronic kidney disease 01/21/2025 Weekly blood pressure task 01/22/2025 Weekly blood pressure task 01/22/2025 Patient has chronic kidney disease 01/22/2025 Patient has chronic kidney disease 01/22/2025 Assessment Noted Time PHQ-9 Depression Total Score: 18 025 11:31 AM EST documented as of this encounter Care Teams Director Of Casework Services Relationship Specialty Start Date End Date Danna Combs FNP [address] [place] [address] PCP - General Family Medicine 10/05/21 documented as of this encounter
--- OUTSIDE RECORDS SUMMARY | 2025-01-27 18:48 | XMS_ITS | Encounter Summary ---
Author Organization [employer] Address [address] [place] [address] 7t [place] [address] Care Team Providers Care Product Engineer Name Role Phone LouisDanna stephens MIRIAM Primary Care Provider [phone] Encounter Details Date Type Department Care Team (Late st Contact Info) Description 04/13/2022 Orders Only [facility] & PEDS [address] [place], [place] [phone] Ginny Hager LPN Social History Tobacco Use [...] EDT) Protime 35.8(H) 11.1 - 13.5 sec [facility] 08/03/2022 2:18 PM EDT 08/03/2022 2:20 PM EDT [facility] External Provider LAB BLO OD ORDERABLES Final Result [facility] [address] [place] [phone] [phone] * (ABNORMAL) ~PT, ~INR - ANTI COAG CLINIC (08/03/2022 2:18 PM EDT) Prothrombin Time INR 3.0(H) 0.9 - 1.1 [facility] Comment:METER #: [id number] TERNATIONAL NORMALIZED RATIO (INR) REFERENCE RANGES Reference [...] 2:18 PM EDT 08/03/2022 2:20 PM EDT [facility] External Provider LAB BLO OD ORDERABLES Final Result Performing Organization Address City/[facility] Co de Phone Number [facility] [address] [place] [phone] * (ABNORMAL) PROTHROMBIN TIME WHOLE BLD POC (07/04/2022 2:21 PM EDT) Protime 32.4(H) 11.1 - 13.5 sec [facility] 07/04/2022 2:21 PM EDT 07/04/2022 2:23 PM EDT [facility] External Provider LAB BLO OD ORDERABLES Final Result Performing Organization Address City/[facility] Co de Phone Number [facility] [address] [place] [phone] * (ABNORMAL) ~PT, ~INR - ANTI COAG CLINIC (07/04/2022 2:21 PM EDT) Prothrombin Time INR 2.7(H) 0.9 - 1.1 [facility] Comment:METER #: [id number] TERNATIONAL NORMALIZED RATIO (INR) REFERENCE RANGES Reference [...] PM EDT 07/04/2022 2:23 PM EDT Result [facility] External Provider LAB BLO OD ORDERABLES Final Result Performing Organization Address [facility] Co de Phone Number [facility] [address] [place] [phone] * (ABNORMAL) PROTHROMBIN TIME WHOLE BLD POC (06/20/2022 2:07 PM EDT) Protime 44.6(H) 11.1 - 13.5 sec [facility] 06/20/2022 2:07 PM EDT 06/21/2022 8:04 AM EDT Result [facility] External Provider LAB BLO OD ORDERABLES Final Result Performing Organization Address [facility] Co de Phone Number [facility] [address] [place] [phone] * (ABNORMAL) ~PT, ~INR - ANTI COAG CLINIC (06/20/2022 2:07 PM EDT) Prothrombin Time INR 3.7(H) 0.9 - 1.1 [facility] Comment:METER #: [id number] TERNATIONAL NORMALIZED RATIO (INR) REFERENCE RANGES Reference [...] PM EDT 06/21/2022 8:04 AM EDT Result [facility] External Provider LAB BLO OD ORDERABLES Final Result Performing Organization Address City/[facility] Co de Phone Number [facility] [address] [place] [phone] * (ABNORMAL) PROTHROMBIN TIME WHOLE BLD POC (05/23/2022 2:05 PM EDT) Protime 28.5(H) 11.1 - 13.5 sec [facility] 05/23/2022 2:05 PM EDT 05/23/2022 2:07 PM EDT [facility] External Provider LAB BLO OD ORDERABLES Final Result Performing Organization Address [facility] de Phone Number [facility] [address] [place] [phone] * (ABNORMAL) ~PT, ~INR - ANTI COAG CLINIC (05/23/2022 2:05 PM EDT) [facility] Prothrombin Time INR 2.4(H) 0.9 - 1.1 [facility] Comment:METER #: [id number] TERNATIONAL NORMALIZED RATIO (INR) REFERENCE RANGES Reference [...] 2:05 PM EDT 05/23/2022 2:07 PM EDT [facility] External Provider LAB BLO OD ORDERABLES Final Result Performing Organization Address [facility] Co de Phone Number [facility] [address] [place] [phone] * (ABNORMAL) PROTHROMBIN TIME WHOLE BLD POC (05/16/2022 2:01 PM EDT) Protime 19.3(H) 11.1 - 13.5 sec [facility] 05/16/2022 2:01 PM EDT 05/16/2022 2:03 PM EDT [facility] External Provider LAB BLO OD ORDERABLES Final Result Performing Organization Address [facility] Co de Phone Number [facility] [address] [place] [address] [phone] * (ABNORMAL) ~PT, ~INR - ANTI COAG CLINIC (05/16/2022 2:01 PM EDT) [facility] Prothrombin Time INR 1.6(H) 0.9 - 1.1 [facility] Comment:METER #: [id number] TERNATIONAL NORMALIZED RATIO (INR) REFERENCE RANGES Reference [...] 2:01 PM EDT 05/16/2022 2:03 PM EDT [facility] External Provider LAB BLO OD ORDERABLES Final Result Performing Organization Address City/[facility] Co de Phone Number [facility] [address] [place] [phone] * (ABNORMAL) PROTHROMBIN TIME WHOLE BLD POC (04/17/2022 2:12 PM EST) Protime 31.7(H) 11.1 - 13.5 sec [facility] 04/17/2022 2:12 PM EST 04/17/2022 2:16 PM EST [facility] External Provider LAB BLO OD ORDERABLES Final Result Performing Organization Address [facility] Co de Phone Number [facility] [address] [place] [phone] * (ABNORMAL) ~PT, ~INR - ANTI COAG CLINIC (04/17/2022 2:12 PM EST) Prothrombin Time INR 2.6(H) 0.9 - 1.1 [facility] Comment:METER #: [id number] TERNATIONAL NORMALIZED RATIO (INR) REFERENCE RANGES Reference [...] 2:12 PM EST 04/17/2022 2:16 PM EST [facility] External Provider LAB BLO OD ORDERABLES Final Result Performing Organization Address [facility] Co de Phone Number [facility] [address] [place] [phone] documented in this encounter Visit Diagnoses Not on filedocumented in this encounter Care Teams Product Engineer Relationship Specialty Start Date End Date Danna Combs FNP [address] [place] [phone] PCP - General Family Medicine 10/05/21 documented as of this encounter
--- OUTSIDE RECORDS SUMMARY | 2025-01-27 18:48 | XMS_ITS | Encounter Summary ---
Author Organization [employer] Address [address] [place] [address] 7t [place] [address] Care Team Providers Care Blindstitch Machine Operator Name Role Phone Danna Combs Primary Care Provider [phone] Reason for Visit * Reason Comments Med Refill Encounter Details Date Type Department Care Team ([facility] st Contact Info) Description 06/09/2024 Refill [facility] MEDICINE [address] [place] [address] Danna Combs FNP [address] [place] [address] Longstanding persistent atrial fibrillation (CMS/HCC) Social History [...] documented as of this encounter Care Teams Blindstitch Machine Operator Relationship Specialty Start Date End Date Danna Combs FNP [address] [place] [phone] PCP - General Family Medicine 10/05/21 documented as of this encounter
--- OUTSIDE RECORDS SUMMARY | 2025-01-27 18:48 | XMS_ITS | Encounter Summary ---
Author Organization [employer] Address [address] [facility] 7t [place] [address] Care Team Providers Care Map Colorer Name Role Phone LouisDanna stephens MIRIAM Primary Care Provider [phone] Encounter Details Date Type Department Care Team ([facility] st Contact Info) Description 12/28/[address] [facility] MEDICINE [address] [place], [place] [phone] Tigist Cardenas Social History Tobacco Use Types [...] documented as of this encounter Care Teams Map Colorer Relationship Specialty Start Date End Date Danna Combs FNP [address] [place] [phone] PCP - General Family Medicine 10/05/21 documented as of this encounter
--- OUTSIDE RECORDS SUMMARY | 2025-01-27 18:48 | XMS_ITS | Encounter Summary ---
Author Organization [facility] Address [address] [place] [phone] Phone Care Team Providers Care Research Executive Name Role Phone Jerry Lang MD Primary Care Provider [phone] Encounter Details Date Type Department Care Team (Late st Contact Info) Description 01/24/2024 Procedure Pass [facility] [address] [place] [address] Social History Tobacco Use Types Packs/Day Years [...] on filedocumented in this encounter Care Teams Research Executive Relationship Specialty Start Date End Date Jerry Lang MD [address] [place] [address] PCP - General Cardiology 01/22/24 documented as of this encounter Additional Source Comments The information contained in this document represents components of the legal health record. It is not the complete legal health record.[facility]
--- OUTSIDE RECORDS SUMMARY | 2025-01-27 18:48 | XMS_ITS | Encounter Summary ---
Author Organization [employer] Address [address] [place] [address] [address] [place] [address] Care Team Providers Care Divinity Professor Name Role Phone LouisDanna stephens MIRIAM Primary Care Provider [phone] Encounter Details Date Type Department Care Team ([facility] st Contact Info) Description 01/27/2025 Orders Only GENERIC EXTERNAL DATA DEPARTMENT Provider, [...] manage their type 2 diabetes No Danna Combs, FIRE PATROL Weekly blood pressure task Care Plan Weekly blood pressure task No Danna Combs, FIRE PATROL Help patients manage their type 2 diabetes Care Plan Help patients manage their type 2 diabetes No Danna Combs, FIRE PATROL Patient has chronic kidney disease Care Plan Patient has chronic kidney disease No Phalangelo Danna, FIRE PATROL Weekly blood pressure task Care Plan Weekly blood pressure task No Phalangelo Danna, FIRE PATROL Patient has chronic kidney disease Care Plan Patient has chronic kidney disease No Phalen Danna, FIRE PATROL Weekly blood pressure task Care Plan Weekly blood pressure task No Darwin, Doris, PROJECT ENGINEERING DIRECTOR Weekly blood pressure task Care Plan Weekly blood pressure task No Gala, Doris, PROJECT ENGINEERING DIRECTOR Patient has chronic kidney disease Care Plan Patient has chronic kidney disease No Gala, Doris, PROJECT ENGINEERING DIRECTOR Patient has chronic kidney disease Care Plan Patient has chronic kidney disease No Gala, Doris, PROJECT ENGINEERING DIRECTOR Weekly blood pressure task Care Plan Weekly blood pressure task No Gala, Doris, PROJECT ENGINEERING DIRECTOR Weekly blood pressure task Care Plan Weekly blood pressure task No Gala, Doris, PROJECT ENGINEERING DIRECTOR Patient has chronic kidney disease Care Plan Patient has chronic kidney disease No Darwin, Doris, PROJECT ENGINEERING DIRECTOR Patient has chronic kidney disease Care Plan Patient has chronic kidney disease No Darwin, Doris, PROJECT ENGINEERING DIRECTOR Weekly blood pressure task Care Plan Weekly blood pressure task No Darwin, Doris, PROJECT ENGINEERING DIRECTOR Weekly blood pressure task Care Plan Weekly blood pressure task No Gala, Doris, PROJECT ENGINEERING DIRECTOR Patient has chronic kidney disease Care Plan Patient has chronic kidney disease No Gala, Doris, PROJECT ENGINEERING DIRECTOR Patient has chronic kidney disease Care Plan Patient has chronic kidney disease No Doris Cedeño LPN documented as of this encounter Procedures Procedure Name Priority Date/Time Associated Diagnosis Comments PROTHROMBIN TIME WHOLE BLD POC Routine 01/27/2025 2:39 PM EST ~PT, ~INR - ANTI COAG CLINIC Routine 01/27/2025 2:39 PM EST documented in this encounter Results * (ABNORMAL) PROTHROMBIN TIME WHOLE BLD POC (01/27/2025 2:39 PM EST) Protime 31.0(H) 11.1 - 13.5 sec [facility] 01/27/2025 2:39 PM EST 01/27/2025 2:40 PM EST [employer] External Data Provider LAB BLOOD ORDERAB LES Final Result Performing Organization Address City/[facility] Co de Phone Number [facility] [address] [place] [phone] * (ABNORMAL) ~PT, ~INR - ANTI COAG CLINIC (01/27/2025 2:39 PM EST) Prothrombin Time INR 2.6(H) 0.9 - 1.1 [facility] Comment:METER #: [id number] TERNATIONAL NORMALIZED RATIO (INR) REFERENCE RANGES Reference RangeFor patients not on anticoagulant therapy: 0.9 - 1.1INR ranges for oral anticoagulanttherapy:For prevention and treatment of venous thrombosis and pulmonary embolism: 2.0 - 3.0For acute myocardial infarction with aspirin therapy: 2.0 - 3.0For acute myocardial infarction without aspirin therapy: 3.0 - 4.0For patients with mechanical prosthetic heart valves: 2.5 - 3.5 01/27/2025 2:39 PM EST 01/27/2025 2:40 PM EST us Generic External Data Provider LAB BLOOD ORDERAB LES Final Result Performing Organization Address City/[facility] Co de Phone Number [facility] [address] [place] [phone] documented in this encounter Visit Diagnoses [...] documented as of this encounter Care Teams Divinity Professor Relationship Specialty Start Date End Date Danna Combs FNP [address] [place] [phone] PCP - General Family Medicine 10/05/21 documented as of this encounter
--- OUTSIDE RECORDS SUMMARY | 2025-01-27 18:48 | XMS_ITS | Clinical Summary ---
Author Organization [employer] (acquired by [employer] in 2014) Cooperative Address [address] [place] [address] [address] [place] [address] Care Team Providers Care Job Site Superintendent Name Role Phone Danna Combs Primary Care Provider [phone] Allergies No known active allergies Medications FREESTYLE [...] ype 2 diabetes mellitus treated without insulin ([facility]) TAKE 1 TABLET BY MOUTH EVERY MORNING 90 tablet 1 07/24/19 25 Active sildenafil (Viagra) 25 MG tabletIndicatio ns:Erectile dysfunction, unspecified erectile dysfunction type TAKE 1 TABLET 1 HOUR BEFORE SEXUAL RELATIONS ONCE DAILY NEEDED. 10 tablet 3 08/23/19 25 Active metFORMIN XR (Glucophage-XR) 500 MG 24 hr tabletIndicatio ns:Type 2 diabetes mellitus treated without insulin ([facility]) TAKE 1 TABLET BY MOUTH EVERY DAY WITH DINNER 90 tablet 3 5 4:18 PM EST 09/24/19 25 Active dilTIAZem CD (Cardizem CD) 180 MG 24 hr capsuleIndicati ons:Atrial fibrillation, unspecified type (CMS/HCC) ([facility]),Congestiv e heart failure, unspecified HF chronicity, unspecified heart failure type ([facility]) TAKE 1 CAPSULE BY MOUTH [...] DAY 90 tablet 3 01/03/20 25 Active busPIRone (Buspar) 7.5 MG tablet TAKE 1 TABLET BY MOUTH TWICE DAILY 180 tablet 1 01/23/20 25 Active lisinopril 5 MG tabletIndicatio ns:Primary hypertension TAKE 1 TABLET BY MOUTH EVERY DAY 90 tablet 3 01/08/20 24 2024 Discontinued busPIRone (Buspar) 7.5 MG tablet TAKE 1 TABLET BY MOUTH TWICE DAILY 180 tablet 1 08/05/19 25 2024 Discontinued Active Problems Problem Noted Date Diagnosed Date AV heart block 02/14/2024 Overview (02/14/2024): ICD pacer in place (last changed 01/24/24 at [facility]) Warfarin anticoagulation 09/10/2022 Overview (09/10/2022): On coumadin therapy - 5-7.5mg daily as directed by clinic Managed by [facility] Coumadin clinic Healthcare maintenance 09/10/2022 Assessment & Plan (12/28/2024 3:54 PM EST): -Per previous documentation due for colonoscopy in 2023. Referral to GI placed 02/11/24. (Pending cardiac clearance) -Optometry: QUENTINOct 2022 w/ [facility] Assessment & Plan (02/14/2024 1:49 PM EST): -Per previous documentation due for colonoscopy in 2023. Referral to GI placed 02/11/24. -Optometry: QUENTINOct 2022 w/ [facility] Assessment & Plan (03/22/2023 6:31 PM EST): -Per previous documentation due for colonoscopy in 2023 -Optometry: UTD w/ [facility] Assessment & Plan (09/18/2022 8:35 PM EDT): -Per previous documentation due for colonoscopy in 2023 -Optometry: scheduled for [facility] in September 2022 ICD (implantable cardioverter-defibrillator) in place 05/08/2022 Overview (02/14/2024): -Hx of complete AV block s/p pacemaker placement, device interrogated Q6 months through cards and denies any concerns -Pt denies any chest pain, palpitations, SOB, orthopnea, syncope -01/24/24: [facility] Cards & IR - OXIDATION OPERATOR-D generator change given DAVE (Dr. Jerry Lang). Assessment & Plan (02/14/2024 1:48 PM EST): - Plan to f/up with surgical team regarding wound check Essential hypertension 09/18/2020 Overview (12/28/2024): -Hx of Afib, dialted cardiomyopathy, HTN, HLD, AV block -Continues digoxin, diltiazem, lisinopril, metoprolol, and atorvastatin. Med safety reviewed. -Following with Dr. Grande in [place], [place] Type 2 diabetes mellitus 09/15/2020 Overview (12/28/2024): Lab Results Component Value Date HGBA1C 6.9 (A) 12/24/2024 - A1c: (Target </= 7.0): well controlled - Microalbumin/Cr:Alb: 8 mcg/mg on 05/08/22 - Lipids: April 2022: LDL 77, HDL 32, TC 142, TG 248 - Eye exam: Oct 2022 at [facility] - no diabetic retinopathy [...] of total knee arthroplasty 04/05/2015 Dilated cardiomyopathy ([facility]/HCC) 02/04/2015 Vitamin D deficiency 02/04/2015 Atrial fibrillation ([facility]/HCC) 01/18/2015 Assessment & Plan (04/06/2024 7:57 PM EST): - Continues on warfarin (discussed alternative medications with Cards - Dr. Enriquez Jan 2024) - Managed by [facility] Coumadin Clinic -Encouraged to consider DOAC, handout from the [employer] provided today. Mr. Hanson reports he will think about it any questions arise. Assessment & Plan (02/14/2024 1:29 PM EST): - Continues on warfarin (discussed alternative medications with Cards - Dr. Enriquez Jan 2024) - Managed by [facility] Coumadin [facility] Congestive heart failure 01/18/2015 Anxiety disorder Assessment [...] Streptococcal Ag that could not find in [facility]) -Chest XR: report came after pt left, [...] Encounters Date Type Department Care Team Description 01/27/2025 Orders Only GENERIC EXTERNAL DATA DEPARTMENT Provider, Generic External Data 01/22/[address] [address] Sukhdev North MD 01/21/[address] [address] Doris Cedeño LPN 01/20/[address] [address] Danna Combs FNP 12/31/2024 Refill [facility] [address] [place], [place] [phone] Danna Combs FNP Primary hypertension 12/30/2024 Orders Only GENERIC EXTERNAL DATA DEPARTMENT Provider, Generic External Data 12/24/2024 11:15 AM EST Office Visit [address] [address] Danna Combs FNP Essential hypertension (Primary Dx); Type 2 diabetes mellitus without complication, without long-term current use of insulin (HCC); Healthcare maintenance; Anxiety disorder, unspecified type; Paresthesia 12/24/2024 Orders Only GENERIC EXTERNAL DATA DEPARTMENT Provider, Generic External Data 12/24/2024 Travel 12/23/[address] [address] Danna Combs FNP chart prep 12/16/2024 Patient Outreach [address] [phone] Danna Combs FNP Pre-visit Planning (Pre-visit planning - LVM ) 12/02/2024 Orders Only GENERIC EXTERNAL DATA DEPARTMENT Provider, Generic External Data 11/19/[address] [address] Danna Combs FNP 11/14/2024 Orders Only GENERIC [...] Additional history exists Influenza Vaccine (#1) 2025 4, 12/27/2021, 12/28/2020, Additional history exists Postponed from [...] Care Plan Weekly blood pressure task No [place], Doris, EMBOSSER OPERATOR Weekly blood pressure task Care Plan Weekly blood pressure task No [place], Doris, EMBOSSER OPERATOR Patient has chronic kidney disease Care Plan Patient has chronic kidney disease No Gala, Doris, EMBOSSER OPERATOR Patient has chronic kidney disease Care Plan Patient has chronic kidney disease No [place], Doris, EMBOSSER OPERATOR Weekly blood pressure task Care Plan Weekly blood pressure task No Gala, Doris, EMBOSSER OPERATOR Weekly blood pressure task Care Plan Weekly blood pressure task No [place], Doris, EMBOSSER OPERATOR Patient has chronic kidney disease Care Plan Patient has chronic kidney disease No [place], Doris, EMBOSSER OPERATOR Patient has chronic kidney disease Care Plan Patient has chronic kidney disease No [place], Doris, EMBOSSER OPERATOR Weekly blood pressure task Care Plan Weekly blood pressure task No [place], Doris, EMBOSSER OPERATOR Weekly blood pressure task Care Plan Weekly blood pressure task No [place], Doris, EMBOSSER OPERATOR Patient has chronic kidney disease Care Plan Patient has chronic kidney disease No [place], Doris, EMBOSSER OPERATOR Patient has chronic kidney disease Care Plan Patient has chronic kidney disease No [place], Doris, EMBOSSER OPERATOR Procedures Procedure Name Priority Date/Time Associated Diagnosis Comments PROTHROMBIN TIME WHOLE BLD POC Routine 01/27/2025 2:39 PM EST ~PT, ~INR - ANTI COAG CLINIC Routine 01/27/2025 2:39 PM EST PROTHROMBIN TIME WHOLE BLD POC Routine 12/30/2024 [...] complication, without long-term current use of insulin ([facility]) POCT GLUCOSE Routine 12/24/2024 11:24 AM EST Type 2 diabetes mellitus without complication, without long-term current use of insulin ([facility]) PROTHROMBIN TIME WHOLE BLD POC Routine 12/02/2024 2:09 PM EDT ~PT, ~INR - ANTI COAG CLINIC Routine 12/02/2024 2:09 PM EDT PROTHROMBIN TIME WHOLE BLD POC Routine 11/14/2024 2:18 PM EDT ~PT, ~INR - ANTI COAG CLINIC Routine 11/14/2024 2:18 PM EDT ALBUMIN, RANDOM URINE W/CREATININE Routine 05/08/2022 10:13 AM EDT Type 2 diabetes mellitus without complication, without long-term current use of insulin ([facility]) LIPID PANEL, STANDARD Routine 05/08/2022 10:13 AM EDT Type 2 diabetes mellitus without complication, without long-term current use of insulin ([facility]) from Last 3 Months or Most Recently Relevant to Health Maintenance Results * (ABNORMAL) PROTHROMBIN TIME WHOLE BLD POC (01/27/2025 2:39 PM EST) Only the most recent of4 resultswithin the time period is included. Protime 31.0(H) 11.1 - 13.5 sec [facility] 01/27/2025 2:39 PM EST 01/27/2025 2:40 PM EST us Generic External Data Provider LAB BLOOD ORDERAB LES Final Result Performing Organization Address [facility] Co de Phone Number [facility] [address] [place] [phone] * (ABNORMAL) ~PT, ~INR - ANTI COAG CLINIC (01/27/2025 2:39 PM EST) Only the most recent of4 resultswithin the time period is included. Prothrombin Time INR 2.6(H) 0.9 - 1.1 [facility] Comment:METER #: [id number] TERNATIONAL NORMALIZED RATIO (INR) REFERENCE RANGES Reference [...] ORDERAB LES Final Result Performing Organization Address [facility] Co de Phone Number [facility] [address] [place] [address] [phone] * ECG 12 lead (12/28/2024 3:55 PM EST) Narrative Danna Combs FNP - 12/28/2024 3:55 PM EST HR: 75bpm QRS: 172ms Artifical pacemaker - paced rhythm us Danna PINEDA ECG ORDERABLES Final Result * CT Head w/o Contrast (12/24/2024 2:18 PM EST) Anatomical Region Laterality Modality Head, Neck Computed Tomogra phy 12/24/2024 2:18 PM EST Narrative 12/24/2024 3:10 PM EST [address] [address] [address] Scan Report Signed Patient: Corey Alex MR#: [id number] [birth year] : 1965 Acct:[id number] Age/Sex: 59 / M ADM Date: 12/24/24 Loc: HO.ED Attending Dr: Ordering Physician: Julio Murillo MD Date of Service: 12/24/24 Procedure(s): CT head/brain wo IV con Accession Number(s): [id number] cc: Julio Murillo MD; Danna Combs SANITATION ENGINEER Report Number: [id number]: Total DLP = 941.00 mGy-cm Reason for [...] 12/24/24 1508 DD/ 1418 TD/TT: 12/24/24 1426 Family Medicine Physician Assistant: Procedure Note Donotuseinterpreter, Image - 12/24/[address] [address] [address] Scan Report Signed Patient: Yadira Alex#: [id number] [birth year] : 1965Acct:[id number] Age/Sex: 59 / MADM Date: 12/24/24 Loc: HO.ED Attending Dr: Ordering Physician: Julio Murillo MD Date of Service: 12/24/24 Procedure(s): CT head/brain wo IV con Accession Number(s): [id number] cc: Julio Murillo MD; Danna Combs SANITATION ENGINEER Report Number: [id number]: Total DLP = 941.00 mGy-cm Reason for [...] 12/24/24 1508 DD/ 1418 TD/TT: 12/24/24 1426 Family Medicine Physician Assistant: [facility] External Provider IMG CT PROCEDURES Final Result * High Sensitivity Troponin I (12/24/2024 1:13 PM EST) [facility] TROPONIN I HIGH SENSITIVITY <2.7 <3.5 - 35.0 ng/L [facility] Comment:The Padgett high sens itivity Troponin-I results should beused in conjunction with other diagnostic information suchas ECG, clinical observations and information, and patientsymptoms to aid in the diagnosis of NH. 12/24/2024 1:13 PM EST 12/24/2024 1:18 PM EST us Generic External Data Provider LAB BLOOD ORDERAB LES Final Result [facility] [address] [place] [phone] * (ABNORMAL) CBC auto differential (12/24/2024 1:12 PM EST) [facility] White Blood Count 9.8 4.8 - 10.8 X10*3/uL [facility] Red Blood Count 5.14 4.60 - 5.80 X10*6/uL [facility] Hemoglobin 16.1 14.0 - 18.0 g/dl [facility] Hematocrit 47.9 42.0 - 52.0 % [facility] Mean Corpuscular Volume 93.2 80.0 - 98.0 fL [facility] Mean Corpuscular Hemoglobin 31.3 27.0 - 33.0 pg [facility] Mean Corpuscular HGB Conc 33.6 31.0 - 36.0 g/dl [facility] Red Cell Distribution Width 13.2 11.0 - 16.0 % [facility] Platelet Count 208 160 - 400 X10*3/uL [facility] Mean Platelet Volume 9.1(L) 9.4 - 12.4 fL [facility] Neutrophils Percent Auto 61.2 45 - 73 % [facility] Imm Gran Pct Auto 0.3 0.0 - 0.4 % [facility] Lymphocytes Percent Auto 29.1 20 - 40 % [facility] Monocytes Percent Auto 7.2 2 - 11 % [facility] Eosinophils Percent Auto 1.3 0 - 4 % [facility] Basophils Percent Auto 0.9 0 - 2 % [facility] NRBC Pct Auto 0.0 0.0 - 0.2 /100WBC [facility] Neutrophils Absolute Auto 6.0 2.0 - 8.3 x10*3/uL [facility] Imm Gran Abs Auto 0.03 0.00 - 0.03 X10*3/uL [facility] Lymphocytes Absolute Auto 2.9 1.2 - 4.9 X10*3/uL [facility] Monocytes Absolute Auto 0.7 0.1 - 1.2 X10*3/uL [facility] Eosinophils Absolute Auto 0.1 0.0 - 0.4 X10*3/uL [facility] Basophils Absolute Auto 0.1 0.0 - 0.2 X10*3/uL [facility] NRBC Abs Auto 0.000 0.0 - 0.012 X10*3/uL [facility] 12/24/2024 1:12 PM EST 12/24/2024 1:18 PM EST Generic External Data Provider LAB BLOOD ORDERAB LES Final Result Performing Organization Address City/[facility] Co de Phone Number [facility] [address] [place] [phone] * Magnesium (12/24/2024 1:12 PM EST) Magnesium 2.1 1.6 - 2.6 mg/dL [facility] 12/24/2024 1:12 PM EST 12/24/2024 1:18 PM EST Generic External Data Provider LAB BLOOD ORDERAB LES Final Result Performing Organization Address [facility] Co de Phone Number [facility] [address] [place] [phone] * (ABNORMAL) Comprehensive Metabolic Panel (12/24/2024 1:12 PM EST) Sodium 137 135 - 145 mmol/L [facility] Potassium 4.3 3.3 - 5.1 mmol/L [facility] Chloride 105 96 - 108 mmol/L [facility] Carbon Dioxide 29 22 - 29 mmol/L [facility] Anion Gap 7(L) 12 - 20 [facility] Urea Nitrogen (BUN) 11 9 - 16 mg/dL [facility] Creatinine, Serum 0.97 0.5 - 1.4 mg/dL [facility] Creatinine Clr Calc Pharmacy 107.6 [facility] Comment:eGFR (calculated fro m the MDRD study equation) and eCrCl(calculated from the Cockcroft-Gault equation) are based ondifferent parameters and may not yield comparable results.If eCrCl result is absurd, please check patient'sheight/weight. Estimated Glomerular Filt Rate >60 [facility] Comment:Chronic Kidney Disea se: Estimated GFR < 60 mL/min/1.85v5Hsohlv Kidney Disease: Estimated GFR < 15 mL/min/1.73m2 Glucose 88 60 - 115 mg/dL [facility] Calcium 8.8 8.4 - 10.2 mg/dL [facility] Bilirubin, Total 0.5 0.0 - 1.0 mg/dL [facility] Aspartate Amino Transferase 35 5 - 37 U/L [facility] Alanine Aminotransferase 44(H) 0 - 40 U/L [facility] Total Protein 7.2 6.5 - 8.0 g/dL [facility] Albumin Level 4.4 3.5 - 5.0 g/dL [facility] Alkaline Phosphatase 81 39 - 117 U/L [facility] 12/24/2024 1:12 PM EST 12/24/2024 1:18 PM EST us Generic External Data Provider LAB BLOOD ORDERAB LES Final Result [facility] [address] [place] [phone] * (ABNORMAL) POCT Hgb A1c (12/24/2024 11:24 AM EST) Hemoglobin A1C 6.9(A) 4.0 - 5.7 % QC Media Lot # [id number] Lot# Expiration Date 5, Blood 12/24/2024 11:2 4 AM EST [facility] POINT OF CARE TEST ENTER/EDIT ORDERABLES Final Result * POCT Glucose (12/24/2024 11:24 AM EST) Pathologist [facility] Glucose Blood, POC 148 60 - 200 mg/dL QC Media Lot # [id number] Lot# Expiration Date 3, Blood Capillary blood specimen / Unknown 12/24/2024 11:24 AM EST [facility] POINT OF CARE TEST ENTER/EDIT ORDERABLES Final Result * Albumin, Random Urine W/Creatinine (05/08/2022 10:13 AM EDT) Pathologist [facility] Creatinine, Random Urine 89 20 - 320 mg/dL [facility] [place] [employer] [facility] Albumin, Urine 0.7 See Note: mg/dL [facility] [place] [facility] Comment: Reference Range: Reference Range Not established Albumin/Creatinin e Ratio, Random Urine 8 <30 mcg/mg creat [facility] [place] [facility] Comment: The ADA defines abnormalities in albumin [...] PM EDT FASTING:NO FASTING: NO Danna Combs SANITATION ENGINEER LAB URINE ORDERABLES Final Res ult [facility] [address] [facility], [place] [address] [facility] [place] [facility] [address] [place] [address] * (ABNORMAL) Lipid Panel, Standard (05/08/2022 10:13 AM EDT) Cholesterol, Total 142 <200 mg/dL [facility] [place] [facility] HDL Cholesterol 32(L) > OR = 40 mg/dL [facility] [place] [facility] Triglycerides 248(H) <150 mg/dL [facility] [place] [facility] Comment: If a non-fasting specimen was collected, consider repeat triglyceride testing on a fasting specimen if clinically indicated. Kaleb et al. J. of Clin. Lipidol. 2015;9:129-169. LDL Cholesterol 77 mg/dL (calc) [facility] [place] [facility] Comment: Reference range: <100 Desirable range <100 mg/dL for primary prevention; <70 mg/dL for patients with CHD or diabetic patients with > or = 2 CHD risk factors. LDL-C is now calculated using the Fidel-Carnes calculation, which is a validated novel method providing better accuracy than the Friedewald equation in the estimation of LDL-C. Fidel SS et al. ALEKSANDR. 2013;310(19): 6316-7477 (http://education.[employer].Pivotshare/faq/VMZ269) Chol/HDLC Ratio 4.4 <5.0 (calc) [facility] [place] [facility] Non-HDL Cholesterol 110 <130 mg/dL (calc) [facility] [place] [facility] Comment: For patients with diabetes plus 1 major ASCVD risk factor, treating to a non-HDL-C goal of <100 mg/dL (LDL-C of <70 mg/dL) is considered a therapeutic option. Blood Venous blood specimen / Unknown 05/08/2022 10:13 AM EDT 05/08/2022 10:14 AM EDT Narrative [facility] - 05/08/2022 8:44 PM EDT FASTING:NO FASTING: NO us Danna Combs SANITATION ENGINEER LAB BLOOD ORDERABLES Final Res ult [facility] [address], [place] [address] [facility] - [facility] [address] [place] [address] from Last 3 Months or Most Recently [...] 01/22/2025 Patient has chronic kidney disease 01/22/2025 Insurance [facility] STANDARD MEDICARE Care Teams Job Site Superintendent Relationship Specialty Start Date End Date Danna Combs FNP [address] [place] [phone] PCP - General Family Medicine 10/05/21
== END 2025-01-27 14:45 | disposition home or self-care (01) ==
LOC: HO.ACS 14:33
PROVIDERS: PCP Registered Nurse; Visit Provider Internal Medicine Medical Oncology
DX: Z79.01 Long term (current) use of anticoagulants (principal)

== ENCOUNTER → 2025-01-27 14:33 | Outpatient (BNVA) | payer MEDICARE, MEDICAID, SELFPAY | PROVIDERS: PCP Registered Nurse; Visit Provider Internal Medicine Medical Oncology | DX: Z79.01 Long term (current) use of anticoagulants (principal) | CPT/HCPCS: 85610; 99211 ==

== ENCOUNTER 2025-02-05 02:02 | Emergency (ER) | payer MEDICARE, MEDICAID, SELFPAY ==
--- NOTE | 2025-02-05 | ECG_ITS ---
Test Reason : PALPATATIONS Blood Pressure : */* mmHG Vent. Rate : 79 BPM Atrial Rate : 79 BPM P-R Int : * ms QRS Dur : 170 ms QT Int : 430 ms P-R-T Axes : 56 255 79 degrees QTcB Int : 493 ms Ventricular-paced rhythm Possible Atrial fibrillation Biventricular pacemaker detected Abnormal ECG When compared with ECG of 24-Dec-2024 12:50, No significant change was found Referred By: Generic ED Physician Electronically Signed By: ROB NAVA MD
--- NOTE | ~2025-02-05 | XR_ITS ---
CLINICAL HISTORY: cp 2 view chest x-ray Comparison: CR/FL/SR - XR CHEST 2 VIEWS - 09/28/22 11:18 EDT Findings: The lungs are clear. Heart size is normal. No acute fracture. Left anterior chest wall pacemaker. IMPRESSION: 1. No acute findings. This document has been electronically signed by: Edward Jones MD, PHD on 02/05/2025 03:31:39
[2025-02-05 02:13] VITALS: BP 132/66; PULSE 77; RESP 15; TEMP 36.8; O2SAT 96; BMI 39.5
[2025-02-05 02:32] LABS: Hematocrit 46.9 % (42.0-52.0); Hemoglobin 15.8 g/dl (14.0-18.0); Imm Gran Abs Auto 0.04 X10*3/uL (0.00-0.03); Imm Gran Pct Auto 0.4 % (0.0-0.4); Lymphocytes Absolute Auto 3.3 X10*3/uL (1.2-4.9); MANUAL DIFF FLAG NO; Mean Corpuscular HGB Conc 33.7 g/dl (31.0-36.0); Mean Corpuscular Hemoglobin 31.0 pg (27.0-33.0); Mean Corpuscular Volume 92.1 fL (80.0-98.0); NRBC Abs Auto 0.000 X10*3/uL (0.0-0.012); NRBC Pct Auto 0.0 /100WBC (0.0-0.2); Platelet Count 195 X10*3/uL (160-400); Red Blood Count 5.09 X10*6/uL (4.60-5.80); White Blood Count 10.7 X10*3/uL (4.8-10.8)
--- NOTE | 2025-02-05 02:36 | ED.CHESTPAIN ---
HPI - Chest Pain General Chief Complaint: Chest Pain Stated Complaint: Heart palpitations Time Seen by Provider: 02/05/25 02:36 Source: patient Mode of arrival: ambulatory Limitations: no limitations History of Present Illness ED Provider: Dr. Alma Rosa Koehler HPI narrative: 59-year-old male with a history of diabetes mellitus, hypertension, and atrial fibrillation (status-post pacemaker/defibrillator placement) on chronic warfarin therapy presents with approximately one day of intermittent left-sided chest pain. Pain is described as a sharp, pencil-like jab that occurs episodically (about hourly) when lying on either side or when hunched over a countertop. Each episode is fleeting?typically a single ?jab? that resolves quickly, often improved by repositioning or breathing exercises. No associated exertional component; pain improves with movement rather than rest. The patient felt one brief episode during the ED encounter that resolved immediately. ? Onset: yesterday morning on awakening. ? Duration: seconds per episode; intermittent over 24 h. ? Quality: sharp, stabbing, ?like being poked with a pencil.? ? Aggravating factors: lying on either side, hunching over. ? Relieving factors: getting up, changing position, breathing exercises. ? Associated symptoms: baseline chronic dry cough and mild dyspnea; denies new/worsening SOB, nausea, vomiting, fever, productive cough, leg swelling, calf pain, or recent illness. Patient reports having an inhaler for asthma, used yesterday, which helped symptoms. The patient reports taking more than his usual warfarin dose prior to arrival (usual 7.5 mg daily; took an extra half tablet for an estimated total >10 mg). Denies medication allergies. Related Data Home Medications ?Medication ?Instructions ?Recorded ?Confirmed buspirone 7.5 mg tablet 7.5 mg PO BID 12/17/19 01/27/25 digoxin 250 mcg (0.25 mg) tablet 250 mcg PO DAILY 12/17/19 01/27/25 diltiazem HCl 180 mg 180 mg PO DAILY 12/17/19 01/27/25 capsule,extended release 24 hr metoprolol tartrate 100 mg tablet 200 mg PO BID 12/17/19 01/27/25 lisinopril 5 mg tablet 5 mg PO DAILY 09/22/20 01/27/25 empagliflozin 10 mg tablet 10 mg PO QAM 11/16/20 01/27/25 (Jardiance) blood sugar diagnostic (FreeStyle #10 ea 12/14/20 01/27/25 Lite Strips) lancets 33 gauge (TRUEplus Lancets) #100 ea 12/14/20 01/27/25 metformin 500 mg tablet,extended 500 mg PO QPM 03/14/22 01/27/25 release 24 hr sildenafil 25 mg tablet 25 mg PO DAILY PRN 09/18/22 01/27/25 albuterol sulfate 90 mcg/actuation 2 puff inhalation Q6H PRN 10/06/22 01/27/25 aerosol inhaler atorvastatin 20 mg tablet 20 mg PO DAILY 01/15/24 01/27/25 trazodone 50 mg tablet 50 mg PO BEDTIME PRN 01/15/24 01/27/25 Previous Rx's ?Medication ?Instructions ?Recorded warfarin 7.5 mg tablet 7.5 mg PO DAILY #90 tabs 11/19/19 sodium,potassium,mag sulfates 17.5 480 ml PO .COMPLEX #354 mL 05/08/24 gram-3.13 gram-1.6 gram oral soln (Suprep Bowel Prep Kit) digoxin 250 mcg (0.25 mg) tablet 250 mcg PO DAILY #30 tabs 01/09/25 Allergies Allergy/AdvReac Type Severity Reaction Status Date / Time No Known Allergies (No Known Allergy Verified 02/05/25 02:15 Allergies*) Review of Systems Review of Systems: as per HPI, full review of systems performed and negative but for the above mentioned pertinent positives and negatives. [facility] Past Medical History Medical History Pacemaker Neck mass Neck abscess CHF (congestive heart failure) Atrial fibrillation Hypertension Diabetes mellitus Surgical History History of total left knee replacement H/O cardiac catheterization Family History Family History Maternal Grandfather Stomach cancer Other No family history of cerebrovascular accident (CVA) Social History Social History Alcohol intake: former Patient Tobacco Use Status: Former Tobacco user Advance Directives: Yes Advance Directives on File: Yes Advance Directives Date on File: 10/21/21 Do you have a plan to hurt others: No Plan Physical Exam Exam: Exam: GENERAL: Well-Appearing, conversant, no acute distress. SKIN: Normal skin color for ethnicity, warm, dry, no rashes noted. HEENT:? Normocephalic, atraumatic, no stridor, posterior oropharynx nonerythematous, dentition intact, EOMI. NECK: Soft, supple, full ROM, midline structures nontender, no step-offs, no deformities, no lymphadenopathy. CHEST: Heart regular rate and rhythm, no murmurs, symmetric chest rise and fall. PULMONARY: Clear to auscultation bilaterally, no labored breathing, no wheezes/rhales/rhonchi. ABDOMINAL: Soft, nondistended, nontender, positive bowel sounds in all quadrants. : Deferred. MUSCULOSKELETAL: Normal tone, full range of motion, no deformities, no peripheral edema. NEURO: Alert and oriented x3, CN II through XII intact, equal strength and sensation bilateral upper and lower extremities, no focal neurologic deficits.? PSYCHIATRIC: Normal affect, fluid speech, good eye contact and appropriate demeanor. Vital Signs: Vital Signs: Last Vital Signs Temp 98.2 F 02/05/25 05:56 Pulse 82 02/05/25 05:56 Resp 14 02/05/25 05:56 BP 132/76 02/05/25 05:56 Pulse Ox 96 02/05/25 05:56 O2 Del Method Room Air 02/05/25 05:56 BMI result Body Mass Index 39.5 Medical Decision Making Medical Decision Making MDM Narrative: 59-year-old male with multiple cardiovascular risk factors presenting with atypical left-sided chest pain. Differential diagnosis includes, but is not limited to, acute coronary syndrome, musculoskeletal pain, pneumothorax, GERD, pleurisy, pulmonary embolism, dissection, among others. I will order EKG, chest x-ray, laboratory workup including cardiac enzymes to further evaluate for etiology. Initial evaluation (ECG paced rhythm, first troponin normal, CXR without acute infiltrate) is reassuring; pain is pleuritic/musculoskeletal in nature by history, but cardiac causes have not been fully excluded. Problem #1: Atypical Chest Pain (rule out ACS vs pleurisy/costochondritis) Assessment: Sharp, brief, pleuritic chest pain without exertional component. First troponin normal; CXR shows mild pulmonary edema only. Pain reproduced while lying on side and resolves with movement/breathing exercises, raising suspicion for pleurisy or chest-wall etiology; however, given cardiac history, ACS cannot yet be excluded. Plan: Trend cardiac enzymes ? second troponin ordered. Continuous cardiac monitoring; obtain rhythm strip during symptomatic episode. Interrogate pacemaker/ICD ([employer] device) for arrhythmia or device-related issues. Symptomatic relief: offer analgesia if pain recurs. Re-evaluate after second troponin and device interrogation to determine disposition. Problem #2: Chronic Anticoagulation ? Warfarin (supratherapeutic single extra dose) Assessment: Patient self-administered >10 mg warfarin today (usual 7.5 mg). Risk for elevated INR/bleeding. Plan: Obtain INR level. Monitor for signs of bleeding. Provide warfarin dose counseling prior to discharge. Problem #3: Atrial Fibrillation with Pacemaker/ICD Assessment: Stable; device functioning appears appropriate on monitor (paced rhythm). Plan: Device interrogation as above. Follow-up: Device interrogation shows no events. No arrhythmia. Paced rhythm 97% of the time in the last 3 months. Second cardiac enzyme is normal. Patient feeling improved. Using shared decision making, plan for discharge home to follow-up with primary care and/or specialist.? Patient understands and agrees with plan for discharge.? Discharged home in stable condition. Differential Diagnosis Differential Diagnoses: The differential diagnosis associated with the presentation includes (as above) Admission/Observation Consideration of admission/observation: Escalation of care including admission/observation considered Lab Data MDM Lab Attestation statement: I reviewed the patient's lab results. 02/05/25 02:26 02/05/25 02:26 Labs: Lab Results 02/05/25 02/05/25 02/05/25 Range/Units 02:26 04:21 04:48 WBC 10.7 (4.8-10.8) X10*3/uL RBC 5.09 (4.60-5.80) X10*6/uL Hgb 15.8 (14.0-18.0) g/dl Hct 46.9 (42.0-52.0) % MCV 92.1 (80.0-98.0) fL MCH 31.0 (27.0-33.0) pg MCHC 33.7 (31.0-36.0) g/dl RDW 13.3 (11.0-16.0) % Plt Count 195 (160-400) X10*3/uL MPV 9.2 L (9.4-12.4) fL Immature Gran % (Auto) 0.4 (0.0-0.4) % Neut % (Auto) 59.0 (45-73) % Lymph % (Auto) 30.9 (20-40) % [place] % (Auto) 7.1 (2-11) % Eos % (Auto) 1.9 (0-4) % Baso % (Auto) 0.7 (0-2) % Lymph # (Auto) 3.3 (1.2-4.9) X10*3/uL [place] # (Auto) 0.8 (0.1-1.2) X10*3/uL Eos # (Auto) 0.2 (0.0-0.4) X10*3/uL Baso # (Auto) 0.1 (0.0-0.2) X10*3/uL Abs Immat Gran (auto) 0.04 H (0.00-0.03) X10*3/uL Absolute Neuts (auto) 6.3 (2.0-8.3) x10*3/uL Absolute Nucleated RBC 0.000 (0.0-0.012) X10*3/uL Nucleated RBC % (auto) 0.0 (0.0-0.2) /100WBC PT 34.3 H (11.2-13.5) SEC INR 2.9 H (0.9-1.1) Sodium 137 (135-145) mmol/L Potassium 4.3 (3.3-5.1) mmol/L Chloride 107 (96-108) mmol/L Carbon Dioxide 21 L (22-29) mmol/L Anion Gap 13 (12-20) BUN 16 (9-16) mg/dL Creatinine 0.91 (0.5-1.4) mg/dL Estim Creat Clear Calc 115.2 Estimated GFR > 60 Random Glucose 141 H (60-115) mg/dL Calcium 8.7 (8.4-10.2) mg/dL Magnesium 2.1 (1.6-2.6) mg/dL Total Bilirubin 0.3 (0.0-1.0) mg/dL AST 34 (5-37) U/L ALT 41 H (0-40) U/L Alkaline Phosphatase 106 (39-117) U/L Troponin I High Sens < 2.7 < 2.7 (<3.5-35.0) ng/L Total Protein 7.0 (6.5-8.0) g/dL Albumin 4.1 (3.5-5.0) g/dL Lipase 33 (8-78) U/L Independent Interpretation I performed an independent interpretation of an: EKG and Plain X-Ray Interpretation: EKG shows paced rhythm, normal axis, no ischemic changes Radiology Impression Discussion of test interpretation with radiology: I have reviewed the radiologist's reading. External Record Review External record reviewed: Inpatient record Chronic Conditions Patient?s care impacted by: Diabetes, Hypertension and Other (valvular disease) Discharge Plan Discharge Clinical Impression: Atypical chest pain, Supratherapeutic INR Patient Disposition: Home, Self-Care Additional Instructions: DIAGNOSIS & TREATMENT: You were seen in the Emergency Department for your chest discomfort. We performed an EKG, laboratory work and chest xray which did not reveal any acute abnormalities that would explain your symptoms. Your pacemaker interrogation was totally normal. It is working as it should. FURTHER CARE: We have not found any emergent physical exam or lab abnormalities that would require admission to the hospital today. Many people who come to the ER with chest discomfort do not leave with a specific diagnosis at the end of their visit. In the Emergency Department we try to make sure that there is no emergent problem that needs admission to the hospital or antibiotics right now. This does not mean that your evaluation is complete--please be sure to follow up with your regular doctor as additional testing as an outpatient may be indicated. Please be certain to drink plenty of fluids over the next several days. Your INR level is slightly elevated and you should not take your Coumadin today (02/05/2025). You should resume this medication tomorrow as scheduled at the prescribed dose of 7.5 mg per day. WHEN YOU SHOULD BE SEEN NEXT: Please follow-up with your primary care provider within the next 2-3 days for reevaluation of your symptoms. WHEN TO RETURN TO THE ED: Monitor your symptoms closely and return to the emergency department immediately for any new/worsening symptoms including: Worsening chest pain, difficulty breathing, fevers greater than 100 degrees, passing out, any new symptom that concerns you. Call 911 with any medical emergency. Prescriptions: No Action trazodone 50 mg tablet 50 mg PO BEDTIME PRN digoxin 250 mcg (0.25 mg) tablet 250 mcg PO DAILY Qty: 30 0RF digoxin 250 mcg (0.25 mg) tablet 250 mcg PO DAILY diltiazem HCl 180 mg capsule,extended release 24hr 180 mg PO DAILY metoprolol tartrate 100 mg tablet 200 mg PO BID buspirone 7.5 mg tablet 7.5 mg PO BID lisinopril 5 mg tablet 5 mg PO DAILY Jardiance 10 mg tablet 10 mg PO QAM warfarin 7.5 mg tablet 7.5 mg PO DAILY Qty: 90 0RF Protocol: Dose Management Condition: Sunday (Week One) Dose/Route: 7.5 mg Instruction: 1 x 7.5 mg tablet Condition: Sunday Dose/Route: 7.5 mg Instruction: 1 x 7.5 mg tablet Condition: Sunday Dose/Route: 7.5 mg Instruction: 1 x 7.5 mg tablet Condition: Sunday Dose/Route: 7.5 mg Instruction: 1 x 7.5 mg tablet Condition: Dose/Route: 7.5 mg Instruction: 1 x 7.5 mg tablet Condition: Sunday Dose/Route: 3.75 mg Instruction: 0.5 x 7.5 mg tablets Condition: Sunday Dose/Route: 7.5 mg Instruction: 1 x 7.5 mg tablet Condition: Sunday (Week Two) Dose/Route: 7.5 mg Instruction: 1 x 7.5 mg tablet Condition: Sunday Dose/Route: 7.5 mg Instruction: 1 x 7.5 mg tablet Condition: Sunday Dose/Route: 7.5 mg Instruction: 1 x 7.5 mg tablet Condition: Sunday Dose/Route: 7.5 mg Instruction: 1 x 7.5 mg tablet Condition: Dose/Route: 7.5 mg Instruction: 1 x 7.5 mg tablet Condition: Sunday Dose/Route: 3.75 mg Instruction: 0.5 x 7.5 mg tablets Condition: Sunday Dose/Route: 7.5 mg Instruction: 1 x 7.5 mg tablet Protocol Text: Adjustment Start Date: Sunday01/27/25 INR Value: 2.6 INR Date: 01/27/25 Recheck Date: 02/24/25 Rx Instructions: on odd numbered days (DME) lancets [TRUEplus Lancets] 33 gauge misc See Rx Instructions Not Applicable BID Qty: 100 Rx Instructions: As directed (DME) FreeStyle Lite Strips Strip See Rx Instructions Not Applicable BID Qty: 10 Rx Instructions: As directed metformin 500 mg tablet extended release 24 hr 500 mg PO QPM albuterol sulfate 90 mcg/actuation HFA aerosol inhaler 2 puff inhalation Q6H PRN atorvastatin 20 mg tablet 20 mg PO DAILY sildenafil 25 mg tablet 25 mg PO DAILY PRN sodium,potassium,mag sulfates [Suprep Bowel Prep Kit] 17.5-3.13-1.6 gram recon soln 480 ml PO .COMPLEX Qty: 354 0RF Rx Instructions: 480 mL orally; FOR COLONOSCOPY PREP Interventions: ED Discharge Assessment Last Done: 02/05/25 05:56 Discharge Date/Time: 02/05/25 05:57 Print Language: Greenlandic
[2025-02-05 02:48] LABS: Alanine Aminotransferase 41 U/L (0-40); Albumin Level 4.1 g/dL (3.5-5.0); Alkaline Phosphatase 106 U/L (39-117); Anion Gap 13 (12-20); Aspartate Amino Transferase 34 U/L (5-37); Blood Urea Nitrogen 16 mg/dL (9-16); Calcium 8.7 mg/dL (8.4-10.2); Carbon Dioxide 21 mmol/L (22-29); Chloride 107 mmol/L (96-108); Creatinine Clr Calc Pharmacy 115.2; Estimated Glomerular Filt Rate > 60; Lipase 33 U/L (8-78); Magnesium 2.1 mg/dL (1.6-2.6); Potassium 4.3 mmol/L (3.3-5.1); Sodium 137 mmol/L (135-145); Total Protein 7.0 g/dL (6.5-8.0)
[2025-02-05 02:54] LABS: Troponin-I High Sensitivity < 2.7 ng/L (<3.5-35.0)
--- NOTE | 2025-02-05 03:46 | PC.NURSE ---
device interrogated. aware.
--- OUTSIDE RECORDS SUMMARY | 2025-02-05 03:57 | XMS_ITS | Clinical Summary ---
Author Organization [facility] Address [address] [place] [phone] Phone Care Team Providers Care Printed Circuit Boards Plasma Etcher Name Role Phone Jerry Lang MD Primary Care Provider [phone] Allergies No known active allergies Medications metFORMIN [...] this topic Medical Devices Implanted Type Area Lawn Technician Device Identifier Shelf Expiration Date Model / Serial / Lot Icd ICD Heart Defibrillator Momentum Is1 Df4 Heartlogic - [id number] Implanted:Qty: 1 on 01/24/2024 by Jerry Lang MD at [facility] ICD Left: Chest [employer] [id number] 09/23/2024 [id number] / [id number] / [id number] Prosthetic Joint Prosthetic Joint Bioenvelope Antibiotic-Eluti ng Elupro M Single Pack - [id number] Implanted:Qty: 1 on 01/24/2024 by Jerry Lang MD at [facility] Chest Wall [employer] 09/23/2024 CMCV-124 -MED / / [id number] Insurance MEDICARE PART A & B [facility] & B [facility] MED[facility] PART A & B [facility] MEDICARE PART A & B [facility] PART A & B [facility] Care Teams Printed Circuit Boards Plasma Etcher Relationship Specialty Start Date End Date Jerry Lang MD [address] [place] [phone] [email or web address] PCP - General Cardiology 01/22/24 Additional Source Comments The information contained in this document represents components of the legal health record. It is not the complete legal health record.[facility]
--- OUTSIDE RECORDS SUMMARY | 2025-02-05 03:57 | XMS_ITS | Encounter Summary ---
Author Organization [employer] Address [address] [place] [address] Care Team Providers Care Spring Clipper Name Role Phone LouisDanna stephens MIRIAM Primary Care Provider [phone] Encounter Details Date Type Department Care Team (Late st Contact Info) Description 12/28/2022 Abstract [facility] [address] [place], [place] [phone] Tigist Cardenas Social History Tobacco Use Types [...] documented as of this encounter Care Teams Spring Clipper Relationship Specialty Start Date End Date Danna Combs FNP [address] [place] [phone] PCP - General Family Medicine 10/05/21 documented as of this encounter
--- OUTSIDE RECORDS SUMMARY | 2025-02-05 03:57 | XMS_ITS | Encounter Summary ---
Author Organization [employer] Address [address] [place] [address] [address] [place] [address] Care Team Providers Care Plate Keeper Name Role Phone LouisDanna stephens MIRIAM Primary Care Provider [phone] Encounter Details Date Type Department Care Team (Late st Contact Info) Description 04/13/2022 Orders Only [facility] [address] [place], [place] [phone] Ginny Hager LPN Social History Tobacco Use [...] 2:18 PM EDT 08/03/2022 2:20 PM EDT [facility] External Provider LAB BLO OD ORDERABLES Final Result [facility] [address] [place] [phone] * (ABNORMAL) ~PT, ~INR - ANTI COAG CLINIC (08/03/2022 2:18 PM EDT) Prothrombin Time INR 3.0(H) 0.9 - 1.1 [facility] Comment:METER #: [id number] TERNATIONAL NORMALIZED RATIO (INR) REFERENCE RANGES Reference [...] 2:18 PM EDT 08/03/2022 2:20 PM EDT [facility] External Provider LAB BLO OD ORDERABLES Final Result Performing Organization Address City/[facility] Co de Phone Number [facility] [address] [place] [phone] * (ABNORMAL) PROTHROMBIN TIME WHOLE BLD POC (07/04/2022 2:21 PM EDT) Protime 32.4(H) 11.1 - 13.5 sec [facility] 07/04/2022 2:21 PM EDT 07/04/2022 2:23 PM EDT [facility] External Provider LAB BLO OD ORDERABLES Final Result Performing Organization Address City/[facility] Co de Phone Number [facility] [address] [place] [phone] * (ABNORMAL) ~PT, ~INR - ANTI COAG CLINIC (07/04/2022 2:21 PM EDT) Prothrombin Time INR 2.7(H) 0.9 - 1.1 [facility] Comment:METER #: [id number] TERNATIONAL NORMALIZED RATIO (INR) REFERENCE RANGES Reference [...] PM EDT 07/04/2022 2:23 PM EDT Result [facility] External Provider LAB BLO OD ORDERABLES Final Result Performing Organization Address [facility] Co de Phone Number [facility] [address] [place] [phone] * (ABNORMAL) PROTHROMBIN TIME WHOLE BLD POC (06/20/2022 2:07 PM EDT) Protime 44.6(H) 11.1 - 13.5 sec [facility] 06/20/2022 2:07 PM EDT 06/21/2022 8:04 AM EDT Result [facility] External Provider LAB BLO OD ORDERABLES Final Result Performing Organization Address [facility] Co de Phone Number [facility] [address] [place] [phone] * (ABNORMAL) ~PT, ~INR - ANTI COAG CLINIC (06/20/2022 2:07 PM EDT) Prothrombin Time INR 3.7(H) 0.9 - 1.1 [facility] Comment:METER #: [id number] TERNATIONAL NORMALIZED RATIO (INR) REFERENCE RANGES Reference [...] PM EDT 06/21/2022 8:04 AM EDT Result [facility] External Provider LAB BLO OD ORDERABLES Final Result Performing Organization Address City/[facility] Co de Phone Number [facility] [address] [place] [phone] * (ABNORMAL) PROTHROMBIN TIME WHOLE BLD POC (05/23/2022 2:05 PM EDT) Protime 28.5(H) 11.1 - 13.5 sec [facility] 05/23/2022 2:05 PM EDT 05/23/2022 2:07 PM EDT [facility] External Provider LAB BLO OD ORDERABLES Final Result Performing Organization Address [facility] de Phone Number [facility] [address] [place] [phone] * (ABNORMAL) ~PT, ~INR - ANTI COAG CLINIC (05/23/2022 2:05 PM EDT) [facility] Prothrombin Time INR 2.4(H) 0.9 - 1.1 [facility] Comment:METER #: [id number] TERNATIONAL NORMALIZED RATIO (INR) REFERENCE RANGES Reference [...] 2:05 PM EDT 05/23/2022 2:07 PM EDT [facility] External Provider LAB BLO OD ORDERABLES Final Result Performing Organization Address [facility] Co de Phone Number [facility] [address] [place] [phone] * (ABNORMAL) PROTHROMBIN TIME WHOLE BLD POC (05/16/2022 2:01 PM EDT) Protime 19.3(H) 11.1 - 13.5 sec [facility] 05/16/2022 2:01 PM EDT 05/16/2022 2:03 PM EDT [facility] External Provider LAB BLO OD ORDERABLES Final Result Performing Organization Address [facility] Co de Phone Number [facility] [address] [place] [phone] * (ABNORMAL) ~PT, ~INR - ANTI COAG CLINIC (05/16/2022 2:01 PM EDT) [facility] Prothrombin Time INR 1.6(H) 0.9 - 1.1 [facility] Comment:METER #: [id number] TERNATIONAL NORMALIZED RATIO (INR) REFERENCE RANGES Reference [...] 2:01 PM EDT 05/16/2022 2:03 PM EDT [facility] External Provider LAB BLO OD ORDERABLES Final Result Performing Organization Address City/[facility] Co de Phone Number [facility] [address] [place] [phone] * (ABNORMAL) PROTHROMBIN TIME WHOLE BLD POC (04/17/2022 2:12 PM EST) Protime 31.7(H) 11.1 - 13.5 sec [facility] 04/17/2022 2:12 PM EST 04/17/2022 2:16 PM EST [facility] External Provider LAB BLO OD ORDERABLES Final Result Performing Organization Address [facility] Co de Phone Number [facility] [address] [place] [phone] * (ABNORMAL) ~PT, ~INR - ANTI COAG CLINIC (04/17/2022 2:12 PM EST) Prothrombin Time INR 2.6(H) 0.9 - 1.1 [facility] Comment:METER #: [id number] TERNATIONAL NORMALIZED RATIO (INR) REFERENCE RANGES Reference [...] 2:12 PM EST 04/17/2022 2:16 PM EST [facility] External Provider LAB BLO OD ORDERABLES Final Result Performing Organization Address [facility] Co de Phone Number [facility] [address] [place] [phone] documented in this encounter Visit Diagnoses Not on filedocumented in this encounter Care Teams Plate Keeper Relationship Specialty Start Date End Date Danna Combs FNP [address] [place] [phone] PCP - General Family Medicine 10/05/21 documented as of this encounter
--- OUTSIDE RECORDS SUMMARY | 2025-02-05 03:57 | XMS_ITS | Encounter Summary ---
Author Organization [facility] Address [address] [place] [phone] Phone Care Team Providers Care Conventional Underwriter Name Role Phone Jerry Lang MD Primary Care Provider [phone] Encounter Details Date Type Department Care Team (Late st Contact Info) Description 01/24/2024 Procedure Pass [facility] [address] [place] [address] Social History Tobacco Use Types Packs/Day Years [...] on filedocumented in this encounter Care Teams Conventional Underwriter Relationship Specialty Start Date End Date Jerry Lang MD [address] [place] [address] PCP - General Cardiology 01/22/24 documented as of this encounter Additional Source Comments The information contained in this document represents components of the legal health record. It is not the complete legal health record.[facility]
--- OUTSIDE RECORDS SUMMARY | 2025-02-05 03:57 | XMS_ITS | Clinical Summary ---
Author Organization [employer] Address [address] [place] [address] 7[address] [place] [address] Care Team Providers Care Net Ui Developer Name Role Phone Danna Combs Primary Care Provider [phone] Allergies No known active allergies Medications FREESTYLE [...] INR 100 tablet 1 06/10/19 25 Active sildenafil (Viagra) 25 MG tabletIndicatio ns:Erectile dysfunction, unspecified erectile dysfunction type TAKE 1 TABLET 1 HOUR BEFORE SEXUAL RELATIONS ONCE DAILY NEEDED. 10 tablet 3 08/23/19 25 Active metFORMIN XR (Glucophage-XR) 500 MG 24 hr tabletIndicatio ns:Type 2 diabetes mellitus treated without insulin (FORM[facility]) TAKE 1 TABLET BY MOUTH EVERY DAY WITH DINNER 90 tablet 3 5 4:18 PM EST 09/24/19 25 Active dilTIAZem CD (Cardizem CD) 180 MG 24 hr capsuleIndicati ons:Atrial fibrillation, unspecified type (CMS/HCC) (FORMER[facility]),Congestiv e heart failure, unspecified HF chronicity, unspecified heart failure type ([facility]) TAKE 1 CAPSULE BY MOUTH EVERY DAY [...] MOUTH TWICE DAILY 180 tablet 1 5 2:56 PM EST 01/23/20 25 Active Jardiance 10 MGIndications:T ype 2 diabetes mellitus treated without insulin ([facility]) TAKE 1 TABLET BY MOUTH EVERY MORNING 90 tablet 1 5 8:20 AM EST 01/31/20 25 Active Jardiance 10 MGIndications:T ype 2 diabetes mellitus treated without insulin ([facility]) TAKE 1 TABLET BY MOUTH EVERY MORNING 90 tablet 1 07/24/19 25 2024 Discontinued busPIRone (Buspar) 7.5 MG tablet TAKE 1 TABLET BY MOUTH TWICE DAILY 180 tablet 1 08/05/19 25 2024 Discontinued Active Problems Problem Noted Date Diagnosed Date AV heart block 02/14/2024 Overview (02/14/2024): ICD pacer in place (last changed 01/24/24 at [facility]) Warfarin anticoagulation 09/10/2022 Overview (09/10/2022): On coumadin therapy - 5-7.5mg daily as directed by clinic Managed by [facility] Coumadin clinic Healthcare maintenance 09/10/2022 Assessment & Plan (12/28/2024 3:54 PM EST): -Per previous documentation due for colonoscopy in 2023. Referral to GI placed 02/11/24. (Pending cardiac clearance) -Optometry: QUENTIN Oct 2022 w/ [facility] Assessment & Plan (02/14/2024 1:49 PM EST): -Per previous documentation due for colonoscopy in 2023. Referral to GI placed 02/11/24. -Optometry: QUENTIN Oct 2022 w/ [facility] Assessment & Plan (03/22/2023 6:31 PM EST): -Per previous documentation due for colonoscopy in 2023 -Optometry: UTD w/ [facility] Assessment & Plan (09/18/2022 8:35 PM EDT): -Per previous documentation due for colonoscopy in 2023 -Optometry: scheduled for [facility] in September 2022 ICD (implantable cardioverter-defibrillator) in place 05/08/2022 Overview (02/14/2024): -Hx of complete AV block s/p pacemaker placement, device interrogated Q6 months through cards and denies any concerns -Pt denies any chest pain, palpitations, SOB, orthopnea, syncope -01/24/24: [facility] Cards & IR - INSULATION ENGINEMAN-D generator change given DAVE (Dr. Jerry Lang). Assessment & Plan (02/14/2024 1:48 PM EST): - Plan to f/up with surgical team regarding wound check Essential hypertension 09/18/2020 Overview (12/28/2024): -Hx of Afib, dialted cardiomyopathy, HTN, HLD, AV block -Continues digoxin, diltiazem, lisinopril, metoprolol, and atorvastatin. Med safety reviewed. -Following with Dr. Grande in [place], [place] Type 2 diabetes mellitus 09/15/2020 Overview (12/28/2024): Lab Results Component Value Date HGBA1C 6.9 (A) 12/24/2024 - A1c: (Target </= 7.0): well controlled - Microalbumin/Cr:Alb: 8 mcg/mg on 05/08/22 - Lipids: April 2022: LDL 77, HDL 32, TC 142, TG 248 - Eye exam: Oct 2022 at [facility] - no diabetic retinopathy or [...] of total knee arthroplasty 04/05/2015 Dilated cardiomyopathy (CMS/HCC) 02/04/2015 Vitamin D deficiency 02/04/2015 Atrial fibrillation (CMS/HCC) 01/18/2015 Assessment & Plan (04/06/2024 7:57 PM EST): - Continues on warfarin (discussed alternative medications with Cards - Dr. Enriquez Jan 2024) - Managed by [facility] Coumadin Clinic -Encouraged to consider DOAC, handout from the [employer] provided today. Mr. Hanson reports he will think about it any questions arise. Assessment & Plan (02/14/2024 1:29 PM EST): - Continues on warfarin (discussed alternative medications with Cards - Dr. Enriquez Jan 2024) - Managed by [facility] Coumadin [facility] Congestive heart failure 01/18/2015 Anxiety disorder [...] Encounters Date Type Department Care Team Description 01/29/2025 Refill [facility] [address] [place] [address] Danna Combs FNP Type 2 diabetes mellitus treated without insulin (HCC) 01/27/2025 Orders Only GENERIC EXTERNAL DATA DEPARTMENT Provider, Generic External Data 01/22/2025 Refill [facility] [address] [place] [address] Sukhdev North MD 01/21/2025 Telephone [facility] [address] [place] [address] Doris Cedeño LPN 01/20/[address] [address] Danna Combs FNP 12/31/2024 Refill [facility] [address] [place], [place] [phone] Danna Combs FNP Primary hypertension 12/30/2024 Orders Only GENERIC EXTERNAL DATA DEPARTMENT Provider, youwho External Data 12/24/2024 11:15 AM EST Office Visit [facility] [address] [place] [address] Danna Combs FNP Essential hypertension (Primary Dx); Type 2 diabetes mellitus without complication, without long-term current use of insulin ([facility]); Healthcare maintenance; Anxiety disorder, unspecified type; Paresthesia 12/24/2024 Orders Only GENERIC EXTERNAL DATA DEPARTMENT Provider, Generic External Data 12/24/2024 Travel 12/23/2024 Telephone [facility] [address] [place] [address] Danna Combs FNP chart prep 12/16/2024 Patient Outreach [facility] [address] [place] [address] Danna Combs FNP Pre-visit Planning (Pre-visit planning - LVM ) 12/02/2024 Orders Only GENERIC EXTERNAL DATA DEPARTMENT Provider, Generic External Data 11/19/2024 Telephone [facility] [address] [place] [address] Danna Combs FNP 11/14/2024 Orders Only GENERIC [...] patients manage their type 2 diabetes No Phalen, Danna, FOOD SERVICE ATTENDANT Patient has chronic kidney disease Care Plan Patient has chronic kidney disease No Phalen, Danna, FOOD SERVICE ATTENDANT Weekly blood pressure task Care Plan Weekly blood pressure task No Phalen, Danna, FOOD SERVICE ATTENDANT Patient has chronic kidney disease Care Plan Patient has chronic kidney disease No Phalen, Danna, FOOD SERVICE ATTENDANT Weekly blood pressure task Care Plan Weekly blood pressure task No Gala, Doris, SALES SERVICE MANAGER Weekly blood pressure task Care Plan Weekly blood pressure task No Gala, Doris, SALES SERVICE MANAGER Patient has chronic kidney disease Care Plan Patient has chronic kidney disease No Gala, Doris, SALES SERVICE MANAGER Patient has chronic kidney disease Care Plan Patient has chronic kidney disease No Gala, Doris, SALES SERVICE MANAGER Weekly blood pressure task Care Plan Weekly blood pressure task No [place], Doris, SALES SERVICE MANAGER Weekly blood pressure task Care Plan Weekly blood pressure task No [place], Doris, SALES SERVICE MANAGER Patient has chronic kidney disease Care Plan Patient has chronic kidney disease No [place], Doris, SALES SERVICE MANAGER Patient has chronic kidney disease Care Plan Patient has chronic kidney disease No Gala, Doris, SALES SERVICE MANAGER Weekly blood pressure task Care Plan Weekly blood pressure task No [place], Doris, SALES SERVICE MANAGER Weekly blood pressure task Care Plan Weekly blood pressure task No [place], Doris, SALES SERVICE MANAGER Patient has chronic kidney disease Care Plan Patient has chronic kidney disease No [place], Doris, SALES SERVICE MANAGER Patient has chronic kidney disease Care Plan Patient has chronic kidney disease No [place], Doris, SALES SERVICE MANAGER Procedures Procedure Name Priority Date/Time Associated Diagnosis [...] current use of insulin (HCC) POCT GLUCOSE (CPT-30571) Routine 12/24/2024 11:24 AM EST Type 2 [...] included. Protime 31.0(H) 11.1 - 13.5 sec [facility] 01/27/2025 2:39 PM EST 01/27/2025 2:40 PM EST us Generic External Data Provider LAB BLOOD ORDERAB LES Final Result Performing Organization Address [facility] de Phone Number [facility] [address] [place] [phone] * (ABNORMAL) ~PT, ~INR - ANTI COAG CLINIC (01/27/2025 2:39 PM EST) Only the most recent of4 resultswithin the time period is included. Prothrombin Time INR 2.6(H) 0.9 - 1.1 [facility] Comment:METER #: [id number] TERNATIONAL NORMALIZED RATIO (INR) REFERENCE RANGES Reference [...] ORDERAB LES Final Result Performing Organization Address [facility] Co de Phone Number [facility] [address] [place] [phone] * ECG 12 lead (12/28/2024 3:55 PM EST) Narrative Danna Combs FNP - 12/28/2024 3:55 PM EST HR: 75bpm QRS: 172ms Artifical pacemaker - paced rhythm us Danna PINEDA ECG ORDERABLES Final Result * CT Head w/o Contrast (12/24/2024 2:18 PM EST) Anatomical Region Laterality Modality Head, Neck Computed Tomogra phy 12/24/2024 2:18 PM EST Narrative 12/24/2024 3:10 PM EST [address] [address] [address] Scan Report Signed Patient: Corey Alex MR#: [id number] [birth year] : 1965 Acct:[id number] Age/Sex: 59 / M ADM Date: 12/24/24 Loc: HO.ED Attending Dr: Ordering Physician: Julio Murillo MD Date of Service: 12/24/24 Procedure(s): CT head/brain wo IV con Accession Number(s): [id number] cc: Julio Murillo MD; Danna Combs FOOD SERVICE ATTENDANT Report Number: [id number]: Total DLP = 941.00 mGy-cm Reason for [...] 12/24/24 1508 DD/ 1418 TD/TT: 12/24/24 1426 Endocrinologist: Procedure Note Donotuseinterpreter, Image - 12/24/[address] [address] [address] Scan Report Signed Patient: Yadira Alex#: [id number] [birth year] : 1965Acct:[id number] Age/Sex: 59 / MADM Date: 12/24/24 Loc: HO.ED Attending Dr: Ordering Physician: Julio Murillo MD Date of Service: 12/24/24 Procedure(s): CT head/brain wo IV con Accession Number(s): [id number] cc: Julio Murillo MD; Danna Combs FOOD SERVICE ATTENDANT Report Number: [id number]: Total DLP = 941.00 mGy-cm Reason for [...] by: Edna Low MD 12/24/2024 03:08 PM [facility] Dictated By: Edna Low MD Signed By: <Electronically signed by Edna Low MD in OV> 12/24/24 1508 DD/ 1418 TD/TT: 12/24/24 1426 Endocrinologist: [facility] External Provider IMG CT PROCEDURES Final Result * High Sensitivity Troponin I (12/24/2024 1:13 PM EST) [facility] TROPONIN I HIGH SENSITIVITY <2.7 <3.5 - 35.0 ng/L [facility] Comment:The Padgett high sens itivity Troponin-I results should beused in conjunction with other diagnostic information suchas ECG, clinical observations and information, and patientsymptoms to aid in the diagnosis of ID. 12/24/2024 1:13 PM EST 12/24/2024 1:18 PM EST Generic External Data Provider LAB BLOOD ORDERAB LES Final Result [facility] [address] [place] [phone] * (ABNORMAL) CBC auto differential (12/24/2024 1:12 PM EST) [facility] White Blood Count 9.8 4.8 - 10.8 X10*3/uL [facility] Red Blood Count 5.14 4.60 - 5.80 X10*6/uL [facility] Hemoglobin 16.1 14.0 - 18.0 g/dl [facility] Hematocrit 47.9 42.0 - 52.0 % [facility] Mean Corpuscular Volume 93.2 80.0 - 98.0 fL [facility] Mean Corpuscular Hemoglobin 31.3 27.0 - 33.0 pg [facility] Mean Corpuscular HGB Conc 33.6 31.0 - 36.0 g/dl [facility] Red Cell Distribution Width 13.2 11.0 - 16.0 % [facility] Platelet Count 208 160 - 400 X10*3/uL [facility] Mean Platelet Volume 9.1(L) 9.4 - 12.4 fL [facility] Neutrophils Percent Auto 61.2 45 - 73 % [facility] Imm Gran Pct Auto 0.3 0.0 - 0.4 % [facility] Lymphocytes Percent Auto 29.1 20 - 40 % [facility] Monocytes Percent Auto 7.2 2 - 11 % [facility] Eosinophils Percent Auto 1.3 0 - 4 % [facility] Basophils Percent Auto 0.9 0 - 2 % [facility] NRBC Pct Auto 0.0 0.0 - 0.2 /100WBC [facility] Neutrophils Absolute Auto 6.0 2.0 - 8.3 x10*3/uL [facility] Imm Gran Abs Auto 0.03 0.00 - 0.03 X10*3/uL [facility] Lymphocytes Absolute Auto 2.9 1.2 - 4.9 X10*3/uL [facility] Monocytes Absolute Auto 0.7 0.1 - 1.2 X10*3/uL [facility] Eosinophils Absolute Auto 0.1 0.0 - 0.4 X10*3/uL [facility] Basophils Absolute Auto 0.1 0.0 - 0.2 X10*3/uL [facility] NRBC Abs Auto 0.000 0.0 - 0.012 X10*3/uL [facility] 12/24/2024 1:12 PM EST 12/24/2024 1:18 PM EST us Generic External Data Provider LAB BLOOD ORDERAB LES Final Result [facility] [address] [place] [phone] * Magnesium (12/24/2024 1:12 PM EST) Magnesium 2.1 1.6 - 2.6 mg/dL [facility] 12/24/2024 1:12 PM EST 12/24/2024 1:18 PM EST us Generic External Data Provider LAB BLOOD ORDERAB LES Final Result [facility] [address] [place] [address] [phone] * (ABNORMAL) Comprehensive Metabolic Panel (12/24/2024 1:12 PM EST) Sodium 137 135 - 145 mmol/L [facility] Potassium 4.3 3.3 - 5.1 mmol/L [facility] Chloride 105 96 - 108 mmol/L [facility] Carbon Dioxide 29 22 - 29 mmol/L [facility] Anion Gap 7(L) 12 - 20 [facility] Urea Nitrogen (BUN) 11 9 - 16 mg/dL [facility] Creatinine, Serum 0.97 0.5 - 1.4 mg/dL [facility] Creatinine Clr Calc Pharmacy 107.6 [facility] Comment:eGFR (calculated fro m the MDRD study equation) and eCrCl(calculated from the Cockcroft-Gault equation) are based ondifferent parameters and may not yield comparable results.If eCrCl result is absurd, please check patient'sheight/weight. Estimated Glomerular Filt Rate >60 [facility] Comment:Chronic Kidney Disea se: Estimated GFR < 60 mL/min/1.09q9Exwazv Kidney Disease: Estimated GFR < 15 mL/min/1.73m2 Glucose 88 60 - 115 mg/dL [facility] Calcium 8.8 8.4 - 10.2 mg/dL [facility] Bilirubin, Total 0.5 0.0 - 1.0 mg/dL [facility] Aspartate Amino Transferase 35 5 - 37 U/L [facility] Alanine Aminotransferase 44(H) 0 - 40 U/L [facility] Total Protein 7.2 6.5 - 8.0 g/dL [facility] Albumin Level 4.4 3.5 - 5.0 g/dL [facility] Alkaline Phosphatase 81 39 - 117 U/L [facility] 12/24/2024 1:12 PM EST 12/24/2024 1:18 PM EST us Generic External Data Provider LAB BLOOD ORDERAB LES Final Result [facility] [address] [place] [phone] [phone] * (ABNORMAL) POCT Hgb A1c (12/24/2024 11:24 AM EST) Hemoglobin A1C 6.9(A) 4.0 - 5.7 % QC Media Lot # [id number] Lot# Expiration Date 5, Blood 12/24/2024 11:2 4 AM EST Danna [employer] (EBTH)en FOOD SERVICE ATTENDANT POINT OF CARE TEST ENTER/EDIT ORDERABLES Final Result * POCT Glucose (12/24/2024 11:24 AM EST) Glucose Blood, POC 148 60 - 200 mg/dL QC Media Lot # [id number] Lot# Expiration Date 3,026 Blood Capillary blood specimen / Unknown 12/24/2024 11:24 AM EST Danna [employer] FOOD SERVICE ATTENDANT POINT OF CARE TEST ENTER/EDIT ORDERABLES Final Result * Albumin, Random Urine W/Creatinine (05/08/2022 10:13 AM EDT) Creatinine, Random Urine 89 20 - 320 mg/dL [facility] Albumin, Urine 0.7 See Note: mg/dL [facility] Comment: Reference Range: Reference Range Not established Albumin/Creatinin e Ratio, Random Urine 8 <30 mcg/mg creat [facility] Comment: The ADA defines abnormalities in albumin [...] EDT FASTING:NO FASTING: NO us Danna Louisangelo FOOD SERVICE ATTENDANT LAB URINE ORDERABLES Final Res ult [facility] [address], [place] [address] [facility] [address] [place] [phone] * (ABNORMAL) Lipid Panel, Standard (05/08/2022 10:13 AM EDT) Cholesterol, Total 142 <200 mg/dL [facility] HDL Cholesterol 32(L) > OR = 40 mg/dL [facility] Triglycerides 248(H) <150 mg/dL [facility] Comment: If a non-fasting specimen was collected, consider repeat triglyceride testing on a fasting specimen if clinically indicated. Manuel et al. J. of Clin. Lipidol. 2015;9:129-169. LDL Cholesterol 77 mg/dL (calc) [facility] Comment: Reference range: <100 Desirable range <100 mg/dL for primary prevention; <70 mg/dL for patients with CHD or diabetic patients with > or = 2 CHD risk factors. LDL-C is now calculated using the Fidel-Deyvi calculation, which is a validated novel method providing better accuracy than the Friedewald equation in the estimation of LDL-C. Fidel RAMSEY et al. ALEKSANDR. 2013;310(19): 6155-0156 (http://education.Stratasan/faq/GHT741) Chol/HDLC Ratio 4.4 <5.0 (calc) [facility] Non-HDL Cholesterol 110 <130 mg/dL (calc) [facility] Comment: For patients with diabetes plus 1 major ASCVD risk factor, treating to a non-HDL-C goal of <100 mg/dL (LDL-C of <70 mg/dL) is considered a therapeutic option. Blood Venous blood specimen / Unknown 05/08/2022 10:13 AM EDT 05/08/2022 10:14 AM EDT Narrative [facility] - 05/08/2022 8:44 PM EDT FASTING:NO FASTING: NO us Danna Lauryn FOOD SERVICE ATTENDANT LAB BLOOD ORDERABLES Final Res ult [facility] [address], [place] [address] [facility] [address] [place] [address] from Last 3 Months or Most Recently [...] Patient has chronic kidney disease 01/22/[address] [place] [address] [place] [address] STANDARD MEDICARE Care Teams Net Ui Developer Relationship Specialty Start Date End Date Danna Combs FNP [address] [place] [phone] PCP - General Family Medicine 10/05/21
--- OUTSIDE RECORDS SUMMARY | 2025-02-05 03:57 | XMS_ITS | Encounter Summary ---
Author Organization [employer] Address [address] [place] [address] [address] [place] [address] Care Team Providers Care Oil And Gas Exploration Technician Name Role Phone Danna Combs Primary Care Provider [phone] Reason for Visit * Reason Comments Med Refill Encounter Details Date Type Department Care Team ([facility] st Contact Info) Description 06/09/2024 Refill [facility] [address] [place] [address] Danna Combs FNP [address] [place] [address] Longstanding persistent atrial fibrillation (CMS/HCC) Social History [...] documented as of this encounter Care Teams Oil And Gas Exploration Technician Relationship Specialty Start Date End Date Danna Combs FNP [address] [place] [phone] PCP - General Family Medicine 10/05/21 documented as of this encounter
[2025-02-05 04:23] VITALS: BP 132/76; PULSE 82; RESP 14; TEMP 36.8; O2SAT 96
[2025-02-05 04:49] LABS: Troponin-I High Sensitivity < 2.7 ng/L (<3.5-35.0)
[2025-02-05 05:02] LABS: INTERNATIONAL NORM RATIO 2.9 (0.9-1.1); Prothrombin Time 34.3 SEC (11.2-13.5)
[2025-02-05 05:56] VITALS: BP 132/76; PULSE 82; RESP 14; TEMP 36.8; O2SAT 96
== END 2025-02-05 05:57 | disposition home or self-care (01) ==
PROVIDERS: Emergency Provider Emergency Medicine
DX: R00.2 Palpitations (principal); R07.89 Other chest pain; I48.91 Unspecified atrial fibrillation; R79.89 Other specified abnormal findings of blood chemistry; Z79.899 Other long term (current) drug therapy
CPT/HCPCS: 36415; 71046; 80053; 83690; 83735; 84484; 85025; 85610; 93005; 99284

== ENCOUNTER → 2025-02-05 02:09 | Outpatient (BNV) | payer MEDICARE, MEDICAID, SELFPAY | PROVIDERS: Emergency Provider Emergency Medicine; Visit Provider Internal Medicine Cardiovascular Disease | DX: R94.31 Abnormal electrocardiogram [ECG] [EKG] (principal); Z95.0 Presence of cardiac pacemaker | CPT/HCPCS: 93010 ==

== ENCOUNTER → 2025-02-05 02:47 | Outpatient (BNV) | payer MEDICARE, MEDICAID, SELFPAY | PROVIDERS: Emergency Provider Emergency Medicine; Visit Provider General Practice | DX: R07.9 Chest pain, unspecified (principal) | CPT/HCPCS: 71046 ==